=== PATIENT | male | born 1955 | race Caucasian/White ===

== ENCOUNTER → 2018-05-30 09:38 | Outpatient (CLI) | payer MEDICARE, SELFPAY ==
[2014-11-29 17:24] VITALS: BMI 28.6
[2018-05-30 10:13] LABS: Hematocrit 41.5 % (40-54); Mean Corp Hgb Conc 33.7 g/gl (32-36); Mean Corpuscular Hgb 30.3 pg (27.0-32.0); Mean Corpuscular Volume 89.8 fL (80-94); Mean Platelet Vol. 9.8 fl (6.2-12.0); Platelet Count 262 K/mm3 (150-450); RBC Distribution Width CV 13.6 % (11.6-14.6); RBC Distribution Width SD 44.3 fl (35.1-43.9); Red Blood Count 4.62 M/mm3 (4.6-6.2); White Blood Count 5.2 K/mm3 (4.4-11.0)
[2018-05-30 10:14] LABS: Scan Indicated on CBC? Y/N NO
--- NOTE | 2018-05-30 10:15 | RAD_ITS ---
HISTORY: pre- ophaving shoulder surgery [id number] EXAM:XR Chest 2 Views: COMPARISON: 11/29/2014 FINDINGS: Allowing for differences in technique, no significant change. Normal heart size. Mild hyperinflation. No vascular congestion, pleural effusion, or acute pulmonary infiltration. Atherosclerotic thoracic aorta. No pneumothorax. RAD/Chest PA and Lateral IMPRESSION: 1. No acute disease or significant change. 2. Hyperinflation. at 0312 Reported and signed by: Etienne Watson MD Electronically Signed: Etienne Watson, at 3:10 EST Tel , Service support ,
[2018-05-30 10:26] LABS: Anion Gap 8 (5-15); BUN 11 mg/dL (7-18); BUN/Creat Ratio 11.2 RATIO (10-20); Calcium,Total 8.7 mg/dL (8.5-10.1); Chloride 101 mmol/L (98-107); Creatinine, Serum 0.98 mg/dL (0.70-1.30); EST Glomerular Filtration Rate 82 mL/min (>60); Est Glom Filt Rate - Afr Amer 99 mL/min (>60); Glucose 89 mg/dL (74-106); Potassium 4.4 mmol/L (3.5-5.1); Sodium Level 136 mmol/L (136-145)
--- NOTE | 2018-05-30 10:48 | EKG12_ITS ---
Test Reason : PRE-OP Blood Pressure : / mmHG Vent. Rate : 058 BPM Atrial Rate : 058 BPM P-R Int : 162 ms QRS Dur : 102 ms QT Int : 388 ms P-R-T Axes : 050 033 010 degrees QTc Int : 380 ms Sinus bradycardia Possible Left atrial enlargement Left ventricular hypertrophy Cannot rule out Inferior infarct , age undetermined Abnormal ECG Confirmed by BAKARI DILLARD, MEGAN ([id number]), commissioning editor ELIZBAETH LYNCH ([id number]) on 06/02/2018 7:36:23 AM Referred By: Ambrose Lau Confirmed By:MEGAN VILLEGAS MD
--- OUTSIDE RECORDS SUMMARY | 2018-07-15 23:48 | XMS RPT_ITS ---
:1955 Author Organization [facility] Care Team Providers Name Role Phone MOHAN URBINA PAC Admitting Unavailable CIARA, MOHAN PAC Attending Unavailable CIARA, MOHAN PAC Primary Care Unavailable CIARA, MOHAN PAC Admitting Unavailable CIARA, MOHAN PAC Attending Unavailable CIARA, MOHAN PAC [facility] Unavailable [facility] Consulting Unavailable Sena Lau Attending Unavailable Sena Lau Referring Unavailable ARCHIE NEGRO Primary Care Unavailable PROBLEMS PROBLEMS DATE TYPE CONDITION / CODE ATTENDING STATUS SOURCE 05/30/2018 Unknown Z01.818 - Encounter Sena Lau for other Community preprocedural Hospital examination / Repository Z01.818(ICD-10) 05/30/2018 Unknown E11.9 - Type 2 Sena Lau diabetes mellitus Community without Hospital complications / Repository E11.9(ICD-10) 05/30/2018 Unknown Z01.811 - Encounter Sena Lau [facility] respiratory Hospital examination / Repository Z01.811(ICD-10) 09/03/2017 Admitting Bursitis of right CIARA, MOHAN Active Sundar Pomerene Diagnosis shoulder / PAC [facility] M7551(ICD-10) Hospital Repository 09/03/2017 Principle Bursitis of right CIARA, MOHAN Active Sundar Pomerene Diagnosis shoulder / PAC [facility] M7551(ICD-10) Hospital Repository 09/03/2017 Secondary Other sprain of CIARA, MOHAN Active Sundar Pomerene Diagnosis right shoulder PAC [facility] joint, initial Hospital encounter / Repository L00254I(ICD-10) PROCEDURES PROCEDURES No Procedure Records FoundRESULTS RESULTS 12 LEAD ELECTROCARDIOGRAM Observed: 06/02/2018 Status: F Source: PHILIP 7:36 AM [facility] REPOSITORY [facility] Cardiovascular Services [address] [place] [address] 12 Lead EKG 05/30/18 1006 MR#: [id number] Acct: [id number] Name: SENA SARMIENTO J Rep #: [id number] : 1955 62 From: Ricardo Hardwick MD Attending Dr: Sena Lau DO Status: REG CLI Ordering Dr: Sena Lau DO Date: 05/30/18 Location: LAB Sex: M C Admitted: Test Reason : PRE-OP Blood Pressure : / mmHG Vent. Rate : 058 BPM Atrial Rate : 058 BPM P-R Int : 162 ms QRS Dur : 102 ms QT Int : 388 ms P-R-T Axes : 050 033 010 degrees QTc Int : 380 ms Sinus bradycardia Possible Left atrial enlargement Left ventricular hypertrophy Cannot rule out Inferior infarct , age undetermined Abnormal ECG Confirmed by RICARDO HARDWICK MD ([id number]), book or script editor ELIZABETH LYNCH ([id number]) on 06/02/2018 7:36:23 AM Referred By: Sena Lau Confirmed By:RICARDO HARDWICK MD 06/02/18 0736 Date Ricardo Hardwick MD CC: DR FABIO CORTEZ; Sena Lau DO; OUT OF TOWN DOCTOR Signed CHEST PA AND LATERAL Observed: 05/30/2018 Status: F Source: PHILIP 10:15 AM [facility] REPOSITORY [facility] Imaging Services [address] [place] [address] Chest PA and Lateral MR#: [id number] Acct: [id number] Name: GUILLERMINABUCKY Rep #: [id number] : 1955 M 62 From: Etienne Watson MD PCP: OUT OF TOWN DOCTOR Status: REG CLI Study: Chest PA and Lateral Date of Exam: 05/30/18 Exam# [id number] Ordering Dr: Sena Lau DO HISTORY: pre- ophaving shoulder surgery [id number] EXAM:XR Chest 2 Views: COMPARISON: 11/29/2014 FINDINGS: Allowing for differences in technique, no significant change. Normal heart size. Mild hyperinflation. No vascular congestion, pleural effusion, or acute pulmonary infiltration. Atherosclerotic thoracic aorta. No pneumothorax. RAD/Chest PA and Lateral IMPRESSION: 1. No acute disease or significant change. 2. Hyperinflation. at 0312 Reported and signed by: Etienne Watson MD Electronically Signed: Etienne Watson, at 3:10 EST Tel , Service support , CC: Sena Lau DO; OUT OF TOWN DOCTOR Spout Liner: Signed CBC-COMPLETE BLOOD CNT Collected: 05/30/2018 Status: F Source: [place] NO DIFF 9:53 AM [facility] REPOSITORY TYPE CODE TESTS RESULT OUT OF RANGE REFERENCE UNITS LAB L100.1000 4.4-11.0 K/mm3 Normal WBC 5.2 LAB L100.1200 4.6-6.2 M/mm3 Normal RBC 4.62 LAB L100.1300 13.0-16.5 g/dl Normal HGB 14.0 LAB L100.1400 40-54 % Normal HCT 41.5 LAB L100.1500 80-94 fL Normal MCV 89.8 LAB L100.1600 27.0-32.0 pg Normal MCH 30.3 LAB L100.1700 32-36 g/gl Normal MCHC 33.7 LAB L100.1810 11.6-14.6 % Normal RDW CV 13.6 LAB L100.1820 35.1-43.9 fl High RDW SD 44.3 LAB L100.1900 150-450 K/mm3 Normal PLT 262 LAB L100.2000 6.2-12.0 fl Normal MPV 9.8 Performed By: #### L100.0500 #### [facility] [address] [place], [address] BASIC METABOLIC Collected: 05/30/2018 Status: F Source: [place] PROFILE (BMP) 9:53 AM [facility] REPOSITORY TYPE CODE TESTS RESULT OUT OF RANGE REFERENCE UNITS LAB L501.0100 74-106 mg/dL Normal GLU 89 Result Comment: Please note revised GLUCOSE reference range effective 2017. LAB L501.1000 7-18 mg/dL Normal BUN 11 LAB L501.1100 0.70-1.30 mg/dL Normal CREAT,SERUM 0.98 Result Comment: The validity of the calculated GFR AND GFRAA in patients over 70 years has not been determined. Clinical correlation is essential. LAB L501.1110 >60 mL/min Normal EST GFR 82 Result Comment: Non- GFR Calc LAB L501.1115 >60 mL/min Normal EST GFR - AA 99 Result Comment: GFR Calc LAB L501.1300 10-20 RATIO Normal BUN/CRE 11.2 LAB L501.2200 8.5-10.1 mg/dL CA Normal 8.7 LAB L501.5300 136-145 mmol/L NA Normal 136 LAB L501.5600 3.5-5.1 mmol/L K Normal 4.4 LAB L501.5900 98-107 mmol/L CL Normal 101 LAB L501.6100 21.0-32.0 mmol/L Normal CO2 27.0 LAB L501.6200 5-15 Normal GAP 8 Performed By: #### L500.2500 #### [facility] [address] [place], [address] MR SHOULDER W/O RT Observed: 11/06/2017 Status: F Source: [place] EMMIEJESSIE 8:55 AM [facility] REPOSITORY [place] [address] Patient: SENA SARMIENTO Phone#: : 1955 Age: 62 Gender: M Pt. Type: Out Account: [id number] Location: Ordering: MOHAN PIRES Exam Date: 11/06/2017/8:08 Family Phys: [facility]P [facility] Charge Code: [id number] Physician: Pinal Order #: [id number] DLP Dose#: PROCEDURE: MRI SHOULDER RT WITHOUT CONTRAST COMPARISON: None. INDICATIONS: Right shoulder sprain TECHNIQUE: A variety of imaging planes and parameters were utilized for visualization of suspected pathology. Images were performed without contrast. FINDINGS: ROTATOR CUFF REGION CUFF TENDONS: Abnormal signal is present in the supraspinatus tendon consistent with a near complete tear interstitial and articular sided, series 9 image 14. There are a few residual bursal sided intact fibers. The supraspinatus tendon is thickened. There is also abnormal signal at its insertion consistent with insertional tear, series 9 image 14. There is complete tear of the subscapularis tendon with tendon retraction of 4.4 cm. The infraspinatus tendon is intact. CUFF MUSCLES: The subscapularis muscle is nearly completely atrophied series 8 image one. DELTOID: Normal. No significant atrophy or tear. LONG BICEPS TENDON: The long head biceps tendon is diminutive but seen in the bicipital groove. LABRUM/BICEPS ANCHOR SUPERIOR: The biceps labral anchor is not visualized consistent with complete tear. There is tear of the superior labrum. ANTERIOR/INFERIOR: There is tear of the anterior inferior labrum POSTERIOR: Normal. No posterior labrum abnormality. CAPSULE ANTERIOR/INFERIOR: The middle glenohumeral ligament is intact. POSTERIOR: Normal. No visible capsular laxity or thickening. AC JOINT REGION Continued Report - Page 2 of 2 Patient: SENA SARMIENTO Phone#: : 1955 Age: 62 Gender: M Pt. Type: Out Account: [id number] Location: Ordering: MOHAN PIRES Exam Date: 11/06/2017/8:08 Family Phys: HOSP [place] Charge Code: [id number] Physician: Pinal Order #: [id number] DLP Dose#: AC JOINT: There is arthrosis present at the acromioclavicular joint with mild inferior impingement on the supraspinatus muscle. Hypertrophic spurring is present. AC LIGAMENTS: Normal acromioclavicular ligament. CC LIGAMENTS: Mild increased signal in the coracoacromial ligament without adjacent inflammation suggests chronic injury. ACROMION: Normal horizontal (Type I) configuration. SUBACROMIAL BURSA: Small amount of fluid in the bursa. HYALINE CARTILAGE: The articular cartilage is thinned. The glenohumeral joint space is narrowed. There is superior subluxation of the humeral head, the acromial humeral interval measures 0.7 cm. OTHER BONES: Normal proximal humerus, glenoid, and coracoid. OTHER OBSERVATIONS: Negative. No other significant findings or glenohumeral effusion. CONCLUSION: 1. Near-complete tear of the supraspinatus tendon. Interstitial and insertional. 2. Complete tear of the subscapularis tendon with tendon retraction and muscle atrophy. 3. Tears of the superior and anterior inferior labrum. 4. Biceps labral anchor is not visualized, consistent with chronic tear. 5. Degenerative changes at the acromioclavicular joint are present. 6. Chronic coracoacromial ligament sprain. Dictated by: Shreya Brown MD on 11/06/2017 at 17:32 Approved by: Lo Jones MD on 11/07/2017 at 18:17 ALLERGIES ALLERGIES DATE TYPE / CODE NAME / CODE REACTION SEVERITY SOURCE 11/29/2014 Drug No Known Unknown [facility] Allergy/4160 Allergies/F00 Hospital 18104(SNOMED 0659656(RXNOR Repository CT) M) ENCOUNTERS ENCOUNTERS ADMIT/DISCHARGE ACCOUNT ADMITTING ENCOUNTER LOCATION SOURCE NUMBER CLASS 05/30/[id number] ing:LAB Repository 11/06/2017/ [id number] [facility] Repository 09/03/2017/ [id number] [address] Repository PAYERS PAYERS ENCOUNTER GUARANTOR PAYER SUBSCRIBER SOURCE 05/30/2018 SENA Simms Primary Insurance:[place] SENA [id number] [facility] CROSKEYDOB: [facility] [place]: [id number] [id number] Repository [address]Oai: [phone]) Date:[id number] [phone] () SERVICE [id number] [place], [place] [address]BM: [phone] 05/30/2018 Secondary SENA Palacios Insurance:MEDICARE CROSKEYDOB: [facility] PART [facility] BPolicy Number: [id number] Hospital [id number] Repository Date:2018-05-30 05/30/2018 Tertiary NOT GIVENUNK Philip Insurance:SELF PAY [facility]: Effective Repository Date:2018-05-30 11/06/2017 SENA STANTONB: Insurance:MEDICARE CROSKEYDOB: [facility] N OUTPATIENTPolicy [id number] Hospital PROSPECT Number: N PROSPECT [place] [id number] [place] [address]Dbg: (330) Date:Plan Name: [id number] [phone] () 09/03/2017 SENA STANTONB: Insurance:MEDICARE CROSKEYDOB: [facility] N RECURRING REFERENCE [id number] Hospital PROSPECT LABPolicy Number: N PROSPECT Repository [place] [id number] [place] [address]Dad: ([phone]) Date:Plan Name: [id number] [phone] ()
== END ==
PROVIDERS: Physician Assistant; Referring Provider Orthopaedic Surgery; Visit Provider Orthopaedic Surgery
DX: Z01.818 Encounter for other preprocedural examination (principal); E11.9 Type 2 diabetes mellitus without complications; Z01.811 Encounter for preprocedural respiratory examination
CPT/HCPCS: 36415; 71046; 80048; 85027; 93005

== ENCOUNTER → 2018-07-28 11:46 | Outpatient (CLI) | payer MEDICARE, OTHER, SELFPAY ==
[2014-11-29 17:24] VITALS: BMI 28.6
[2018-07-28 12:58] LABS: Absolute Lymphocyte Count 1.87 X10^3/ul (0.83-4.51); Absolute Neutrophil Count 4.9 X10^3/uL (2.0-7.7); Basophil# 0.05 X10^3/uL; Basophil% 0.6 % (0-1); Eosinophil# 0.07 X10^3/uL; Eosinophils% 0.9 % (0-5); Hematocrit 37.7 % (40-54); Hemoglobin 12.3 g/dl (13.0-16.5); Lymphocyte # 1.87 X10^3/ul (4.0); Lymphocyte % 23.7 % (19-41); Mean Corp Hgb Conc 32.6 g/gl (32-36); Mean Corpuscular Hgb 29.1 pg (27.0-32.0); Mean Corpuscular Volume 89.3 fL (80-94); Mean Platelet Vol. 9.7 fl (6.2-12.0); Monocyte# 0.97 X10^3/uL; Monocyte% 12.3 % (0-10); Neutrophil % 62.2 % (47-70); Platelet Count 496 K/mm3 (150-450); RBC Distribution Width CV 13.6 % (11.6-14.6); RBC Distribution Width SD 44.5 fl (35.1-43.9); Red Blood Count 4.22 M/mm3 (4.6-6.2); White Blood Count 7.9 K/mm3 (4.4-11.0)
[2018-07-28 13:01] LABS: POSITIVE COUNT NO; POSITIVE DIFFERENTIAL NO; POSITIVE MORPHOLOGY NO
[2018-07-28 13:12] LABS: Erythrocyte Sedimentation Rate 115 mm/hr (0-20)
[2018-07-28 13:27] LABS: RBC /Synovial Fluid 0.406 10^6/uL (0)
[2018-07-28 14:06] LABS: Lymph 1 %; Monocyte /Synovial Fluid 1 %; Neutrophil 98 % (0-25)
[2018-07-28 14:42] LABS: AUTO B FLUID DILUENT BKGD CT WBC <0.1 RBC <0.01 (W<.1,R<.01); Appearance /Synovial Fluid Turbid (CLEAR); Body Fluid QC Type(s) BF4Q; Color / Synovial Fluid Red (Pale Yellow); Source / Synovial Fluid R SHOULDER
[2018-07-29 14:04] LABS: Pathologist Comment Reviewed
== END ==
PROVIDERS: Referring Provider Physician Assistant Surgical; Visit Provider Physician Assistant Surgical
DX: S46.011D Strain of muscle(s) and tendon(s) of the rotator cuff of right shoulder, subsequent encounter (principal)
CPT/HCPCS: 36415; 85025; 85652; 86140; 87015; 87070; 87075; 87101; 87116; 87205; 87206; 89050; 89051

== ENCOUNTER 2018-08-03 08:02 | Inpatient (IN) | payer MEDICARE, OTHER, SELFPAY ==
[2018-08-03] VITALS (12 sets, daily range): BP systolic 105–144; BP diastolic 60–86; PULSE 54–96; RESP 12–18; TEMP 36.4–37.7; O2SAT 93–98; BMI 29.5
--- NOTE | 2018-08-03 | TISS_PTH ---
PATIENT: AMBROSE SARMIENTO LOC: MS2 U#:[id number] AGE/SX: 62/M ROOM: [facility] RE08/03/[address]: Dr. Gilson Dukes DO : 1955 BED: 1 DIS: 08/07/2018 SPEC #: [id number] RECD: 08/04/18 15:37 STATUS: SANJAY REQ #: [id number] NAYA: 08/03/18 00:[address]: Ambrose Lau DEPT: SURGICAL PATHOLOGY RECD BY: Juno Pardo ENTERED: 08/05/18 12:12 SP TYPE: Tissue Bx OTHR DR: DO Dr. Gilson Camacho DO Dr. Robert Leininger, MD Dr. Rodney Miller, MD Out of [facility] Doctor Tissues: Shoulder, NOS Procedures: Surgery Specimen Level III Comments: @ Ordering doctor for QUIN edited from to @ by LESLEE at 08/05/18 1540 @ Submitting doctor edited from to @ by RGOOD at 08/05/18 1540 HEADER OPERATION: Arthroscopy, right shoulder, I & D PRE-OP DIAGNOSIS: Septic arthritis right shoulder with abscess TISSUE SUBMITTED: Tissue right shoulder MICROSCOPIC DIAGNOSIS Tissue right shoulder: A piece of dense fibroconnective tissue and fibroadipose tissue with chronic inflammation, histiocytic reaction and reactive changes. ADDISON:priscilla 08/06/18 MICROSCOPIC DESCRIPTION Slides are reviewed. GROSS DESCRIPTION Received in fixative is one container labeled with the patient's name and designated tissue, right shoulder. The specimen consists of an irregular fragment of light schwab-yellow tissue measuring 1.5 x 0.8 x 0.2 cm. The specimen is totally submitted in one cassette. / AM:priscilla 08/05/18 TC:3 CPT: 28499
--- NOTE | 2018-08-03 08:17 | RAD_ITS ---
STUDY: X-RAY - RIGHT SHOULDER REASON FOR EXAM: Male, 62 years old. Pain. TECHNIQUE: 3 view(s) of the shoulder. COMPARISON: Chest, November 29, 2014 and May 30, 2018. FINDINGS: There is cephalad migration of the humeral head consistent with rotator cuff pathology. There are degenerative changes about the glenohumeral joint. There is widening of the AC joint, with displacement of the clavicle, consistent with a Type III acromioclavicular joint separation. Normal acromion. There is no visualized fracture. There is demineralization of the humerus and visualized osseous structures. The soft tissue structures are unremarkable. Normal visualized pulmonary apex. RAD/Shoulder min 2 Views IMPRESSION: Type III AC separation not present on the prior chest film. This is associated cephalization of the humeral head signal suggesting rotator cuff pathology. Electronically Signed: Roni Hugo DO at 9:59 EST Tel [phone], Service support ,
[2018-08-03] MEDS: Morphine 4 MG/ML Syringe IV ×2 (09:04→11:48)
[2018-08-03] MEDS: Ondansetron 4 MG/2 ML Vial IV (09:05)
[2018-08-03 09:11] LABS: Absolute Lymphocyte Count 1.41 X10^3/ul (0.83-4.51); Absolute Neutrophil Count 4.7 X10^3/uL (2.0-7.7); Basophil# 0.06 X10^3/uL; Basophil% 0.9 % (0-1); Eosinophil# 0.06 X10^3/uL; Eosinophils% 0.9 % (0-5); Hematocrit 37.1 % (40-54); Hemoglobin 12.7 g/dl (13.0-16.5); Lymphocyte # 1.41 X10^3/ul (4.0); Lymphocyte % 20.2 % (19-41); Mean Corp Hgb Conc 34.2 g/gl (32-36); Mean Corpuscular Hgb 30.5 pg (27.0-32.0); Mean Corpuscular Volume 89.2 fL (80-94); Mean Platelet Vol. 9.6 fl (6.2-12.0); Monocyte# 0.78 X10^3/uL; Monocyte% 11.2 % (0-10); Neutrophil # 4.65 X10^3/uL (2.7-7.7); Neutrophil % 66.4 % (47-70); Platelet Count 406 K/mm3 (150-450); RBC Distribution Width CV 13.6 % (11.6-14.6); RBC Distribution Width SD 43.4 fl (35.1-43.9); Red Blood Count 4.16 M/mm3 (4.6-6.2)
[2018-08-03 09:12] LABS: Anion Gap 9 (5-15); BUN 10 mg/dL (7-18); BUN/Creat Ratio 11.2 RATIO (10-20); Calcium,Total 8.7 mg/dL (8.5-10.1); Chloride 104 mmol/L (98-107); Creatinine, Serum 0.89 mg/dL (0.70-1.30); EST Glomerular Filtration Rate 92 mL/min (>60); Est Glom Filt Rate - Afr Amer 111 mL/min (>60); Estimated Creatinine Clearance 72.98 ml/min; Glucose 98 mg/dL (74-106); POSITIVE COUNT NO; POSITIVE DIFFERENTIAL NO; POSITIVE MORPHOLOGY NO; Potassium 4.2 mmol/L (3.5-5.1); Sodium Level 138 mmol/L (136-145)
[2018-08-03 09:17] LABS: Erythrocyte Sedimentation Rate 66 mm/hr (0-20)
--- NOTE | 2018-08-03 12:09 | ED.DCSUM_ITS ---
- ER Visit Summary Date of Service: 08/03/18 Chief Complaint: Right shoulder pain History of Present Illness: The patient is a 62 M presenting with right shoulder pain. Patient states this has been worsening over the past 1-2 weeks. He had rotator cuff surgery per Dr. Lau in May. He started improving in physical therapy. Over the past 1-2 weeks he has been worsening. He has increasing pain, redness, swelling. He was seen with Dr. Lau last week. At that time the joint was aspirated and fluid was sent. He was started on doxycycline 1 week ago. He states he continues to worsen. He has had decreased range of motion. He has subjective fever. Denies other complaints. Physical Examination: Vitals are stable. Temperature 99.9. Alert no acute distress. HEENT exam is unremarkable. Neck is supple. Lungs are clear and equal bilaterally. Heart is regular rate and rhythm. Abdomen is soft nontender nondistended. Extremities diffuse swelling right shoulder with erythema and warmth. Decreased range of motion. Neurovascularly intact distally. Skin is warm and dry. No focal neurologic deficit. Remainder of exam is unremarkable. Emergency Department Course and Treatment: CBC is normal except for hemoglobin 12.7. Chemistries unremarkable. ESR 66, CRP 45.5. Right shoulder x-ray shows type III AC separation not present on the prior chest film. This is associated cephalization of the humeral head signal suggesting rotator cuff pathology. Discussed with Dr. Fajardo who recommends arthrocentesis. Area was prepped in sterile fashion. Small amount of joint fluid was collected. Gram stain shows rare gram-positive cocci. Culture was sent. There is not enough fluid for cell count and crystals. Discussed with Dr. Fajardo and Dr. Boland and patient will be admitted. He was given Zosyn and Vancomycin IV. Disposition: Admission Impression: Right shoulder infection This note was generated with Power[employer] dictation software. It may contain incorrect words, spelling, and punctuation that were not noted in review of the chart prior to signing ED Disposition - Plan for ED Patient: Referrals: [facility] Doctor,Out of [Primary Care Provider] -
--- NOTE | 2018-08-03 12:20 | HP.PCM_ITS ---
Problem List (1) Cellulitis Status: Acute Qualifiers: Site of cellulitis of extremity: upper extremity (2) S/P rotator cuff repair Status: Chronic Comment: May 2018 (3) Normochromic normocytic anemia Status: Chronic Comment: since rotator cuff repair in May (4) Benign hypertension Status: Chronic (5) CAD (coronary artery disease) Status: Chronic (6) Gastroesophageal reflux disease Status: Chronic (7) Hyperlipidemia Status: Chronic (8) Overweight (BMI 25.0-29.9) Status: Chronic (9) Septic arthritis of shoulder, right Status: Acute (10) Stented coronary artery Status: Chronic Comment: X3 stents (11) Tobacco dependence due to cigarettes Status: Chronic Comment: has been cutting down and now smokes 4 cigarettes a week (12) LVH (left ventricular hypertrophy) Status: Chronic Comment: moderate History of Present Illness Date of Admission: 08/03/18 Chief Complaint: R shoulder pain with redness and swelling The patient is a 62 year old M with a past medical history of hypertension, coronary artery disease with PCI x3 stents, osteoarthritis, tobacco dependence and remote history of alcoholism who presented to the emergency department at [facility] on 08/03/2018 complaining of increasing right shoulder pain, swelling, redness and decreased range of motion. He had rotator cuff surgery done in May [address] Ambrose Lau and had been doing well in physical therapy until 2 weeks ago. He denies fever/rigors. Vital signs of presentation to the emergency room are temp 99.9, heart rate 75, blood pressure 119/86, respiratory rate 18 and he was 98% saturated on room air. The white blood cell count was 7.0 with an unremarkable differential. Hemoglobin is 12.7 which is stable since his postoperative lab. Platelets are within normal limits. The differential is unremarkable. PT was 13.8 and the PTT was 37.2. BMP was unremarkable. The ESR was elevated at 66 and the CRP is elevated at 45.5. LFTs are unremarkable and the mag and fossa are within normal limits. Lactic acid is 0.6. There was a very small amount of fluid aspirated by Dr. Hamm in the emergency room and the Gram stain shows 1+ white blood cells with very rare gram-positive cocci. Plain right shoulder x-ray shows a type III acromioclavicular separation that was not present on prior chest film. There is associated cephalization of the humeral head signal suggesting rotator cuff pathology. The patient was admitted to the hospital with a diagnosis of septic arthritis of the right shoulder and started on vancomycin and Rocephin. Dr. Yasmani Fajardo has been consulted to participate in management. Echocardiogram in 2011 showed moderate concentric left ventricular hypertrophy with segmental dysfunction in the inferobasal region with preserved ejection fraction of 65%. There was also +1 TR. Past Medical History Past Medical History (Chronic Problems): Chronic Problems S/P rotator cuff repair (Chronic) May 2018 Normochromic normocytic anemia (Chronic) since rotator cuff repair in May Overweight (BMI 25.0-29.9) (Chronic) Stented coronary artery (Chronic) X3 stents Tobacco dependence due to cigarettes (Chronic) has been cutting down and now smokes 4 cigarettes a week LVH (left ventricular hypertrophy) (Chronic) moderate CAD (coronary artery disease) (Chronic) Hyperlipidemia (Chronic) Gastroesophageal reflux disease (Chronic) Benign hypertension (Chronic) Allergies codeine Allergy (Verified 08/03/18 08:06) Itching oxycodone Allergy (Verified 08/03/18 08:06) Itching Home Medications: Ambulatory Orders Medication Instructions Recorded ALPRAZolam [Xanax] 0.5 mg PO BID 08/03/18 Amlodipine [Norvasc] 10 mg PO DAILY 08/03/18 Aspirin 81 mg PO DAILY 08/03/18 Atorvastatin Calcium 40 mg PO DAILY 08/03/18 Benazepril HCl 10 mg PO DAILY 08/03/18 Doxycycline 100 mg PO DAILY 08/03/18 Nitroglycerin [Nitrostat] 0.4 mg SL PRN PRN 08/03/18 Omeprazole [Prilosec] 20 mg PO DAILY 08/03/18 Surgical History: rotator cuff repair - 05/30/[address] Ambrose Lau Lives: Spouse/ Significant Other Smoking Status: Current some day smoker Tobacco Use: Cigarettes - 4 cigarettes/week currently Alcohol: Occasional - Usually drinks a sixpack a week but prior to this drank very heavily and considered himself an alcoholic. Drugs: None - *Family History Maternal History Items: COPD, Hypertension Paternal History Items: Heart Disease - Father in his mid to late 60s of an ND Sibling History Items: Hypertension Review of Systems Constitutional: Denies: Chills, Fever, Night Sweats, Weight Change HEENT: Denies: Head Aches, Sinus Congestion, Sinus Drainage Cardiovascular: Denies: Chest Pain, Edema, Light Headedness, Palpitations Respiratory: Denies: Cough, Shortness of breath at rest, Sputum production Gastrointestinal: Denies: Abdominal Pain, Nausea, Vomiting Genitourinary: Denies: Dysuria Musculoskeletal: Reports: Joint swelling - R shoulder associated with erythema and decreased ROM, Joint Tenderness, Shoulder Pain. Denies: Joint Pain Skin: Denies: Jaundice, Rash, Wounds Neurological: Denies: Focal weakness, Numbness, Tingling, Seizures Psychiatric: Denies: Anxiety, Depression, Homicidal Ideations, Suicidal Ideations Endocrine: Denies: Change in Body Habitus Hematologic/ Lymphatic: Denies: Easy Bruising, Easy Bleeding, Hx of blood clot VTE Information - Inpt Only VTE Present on Admission: No VTE Mechan Device Prophylaxis: SCD's, Knee High GLENNY Hose VTE Pharm Prophylaxis ordered?: Yes Patient Problems: Active and Suspected Problems Cellulitis (Acute) Septic arthritis of shoulder, right (Acute) - Physical Exam General: Alert, Oriented x3, Cooperative, - - looks to be in pain......not moving the RUE due to severe pain HEENT: Atraumatic, PERRLA, EOMI, Normocephalic Oral: No Gingival or Mucosal Lesions/ Ulcerations, Dry Mucosa Neck: Supple, No JVD, Negative Carotid Bruits, No Nodes, - Lungs: Clear to auscultation, Normal air movement Cardiovascular: Regular rate, No murmurs Abdomen: Bowel Sounds Present, Soft, Non Tender Extremities: No edema, Capillary Refill Less than 3 Seconds Skin: No rashes, No breakdown Musculoskeletal: No Tenderness to Palpation of Joints or Extremities Neurological: Cranial nerves II-XII grossly intact Psych/Mental Status: Normal Affect, Appropriate Vital Signs Temp Pulse Resp BP Pulse Ox 98.2 F 63 16 144/68 H 97 08/03/18 12:08/03/18 12:08/03/18 12:01 08/03/18 12:08/03/18 12:01 Oxygen Delivery Method Room Air Weight: 172 lb Body Mass Index (BMI) 29.5 Microbiology Past 72 Hours 08/03/18 10:51 Gram Stain - Final Fluid - Other Laboratory Tests Past 24 Hrs 08/03/18 08/03/1808/03/19 08:45 08:45 10:51 WBC 7.0 RBC 4.16 L Hgb 12.7 L Hct 37.1 L MCV 89.2 MCH 30.5 MCHC 34.2 RDW 13.6 RDW Differential 43.4 Plt Count 406 MPV 9.6 Immature Gran % (Auto) 0.400 Neut % (Auto) 66.4 Lymph % (Auto) 20.2 [place] % (Auto) 11.2 H Eos % (Auto) 0.9 Baso % (Auto) 0.9 Absolute Neuts (auto) 4.7 Absolute Lymphs (auto) 1.41 Total Counted Not Reportable ESR 66 H Sodium 138 Potassium 4.2 Chloride 104 Carbon Dioxide 25.0 Anion Gap 9 BUN 10 Creatinine 0.89 Estim Creat Clear Calc 72.98 Est GFR (MDRD) Af Amer 111 Est GFR (MDRD) Non-Af 92 BUN/Creatinine Ratio 11.2 Glucose 98 Calcium 8.7 C-React Prot Ext Range 45.50 H Fluid Source Cancelled Fluid Color Cancelled Fluid Appearance Cancelled Fluid WBC Cancelled Fluid RBC Cancelled Fluid Tot Cell Count Cancelled Fld Polynuclear WBCs # Cancelled Fld Polynuclear WBCs % Cancelled Fluid Mononuclear WBCs Cancelled Fld Mononuclear WBCs % Cancelled Fluid Neutrophils Cancelled Fluid Lymphocytes Cancelled Fluid Monocytes Cancelled Fluid Plasma Cells Cancelled Fluid Macrophages Cancelled Fld Mesothelial Cells Cancelled Fluid Other Cells Cancelled Fl Pathologist Comment Cancelled Fluid Comment 2 Cancelled Assessment/Plan All Active Problems Cellulitis (Acute) Septic arthritis of shoulder, right (Acute) Impressions 1. Septic arthritis right shoulder-status post rotator cuff surgery 05/30/2018 2. Coronary artery disease with history of PCI x3 stents 3. Hypertension 4. Tobacco dependence 5. Remote history of alcoholism-now 1 6 pack/week 6. Osteoarthritis 7. Normochromic normocytic anemia-suspect related to blood loss from surgery in May because the hemoglobin was normal prior to surgery and mildly decreased postoperatively Admit to the hospital for septic arthritis Consult Dr. Yasmani Fajardo from [facility] Vancomycin and Rocephin MRI of the right shoulder EKG preoperatively with history of coronary artery disease Decolonize the skin with chlorhexidine towelettes once daily and also order Bactroban intranasally twice daily Morphine sulfate and Gilbert as needed pain He has been placed on the surgery schedule for 08/04/2018 for probable washout Zhane Hawkins and 1 dose of Lovenox today for DVT prophylaxis. Restart prophylactic Lovenox postoperatively Continue home medications Protonix for GI prophylaxis Code Visit Inpatient E&M: 38522 Subs Hosp L3
--- NOTE | 2018-08-03 12:40 | NURSING ---
med surg sementi rt shoulder infection
--- NOTE | 2018-08-03 12:43 | ED.RN ---
CALLED PHARMACY INQUIRING ABOUT PT'S ANTIBIOTICS ORDERED OVER HALF HOUR AGO. THEY STATES THEY WILL SEND THEM SOON THEY ARE READY.
--- NOTE | 2018-08-03 12:51 | ED.RN ---
received zosyn from pharmacy at 1247.
--- NOTE | 2018-08-03 14:02 | PCM.RX.CS ---
Consult Pharmacy has been consulted to manage selected antiobiotic: Vancomycin Type of Consult: New start Suspected Infection: Other Labs: Sodium 138 mmol/L (136-145) 08/03/18 08:45 Potassium 4.2 mmol/L (3.5-5.1) 08/03/18 08:45 Chloride 104 mmol/L (98-107) 08/03/18 08:45 Carbon Dioxide 25.0 mmol/L (21.0-32.0) 08/03/18 08:45 Anion Gap 9 (5-15) 08/03/18 08:45 BUN 10 mg/dL (7-18) 08/03/18 08:45 Creatinine 0.89 mg/dL (0.70-1.30) 08/03/18 08:45 Est GFR (MDRD) Af Amer 111 mL/min (>60) 08/03/18 08:45 Est GFR (MDRD) Non-Af 92 mL/min (>60) 08/03/18 08:45 BUN/Creatinine Ratio 11.2 RATIO (10-20) 08/03/18 08:45 Glucose 98 mg/dL (74-106) 08/03/18 08:45 Microbiology: Microbiology 08/03/18 10:51 Fluid - Other Gram Stain - Final Weight used for dosin kg Estimated Creatinine Clearance: 73 mL/min Goal Trough: 15-20 mcg/mL Pharmacy Plan for Drug Dosing: Patient received vancomycin 1250mg IV x1 in ED. 1000mg IV q12h with trough prior to 4th dose per policy. Pharmacy Service will continue to monitor and adjust dosing as required. Follow-Up Labs: Trough Vancomycin - 08/04 @ 2029
[2018-08-03 14:28] LABS: International Normalized Ratio 1.1; Prothrombin Time (Protime)PT. 13.8 SECONDS (11.7-14.9)
[2018-08-03 14:29] LABS: Partial Thromboplast Time 37.2 Seconds (24.1-36.2)
[2018-08-03 14:33] LABS: Magnesium 2.3 mg/dL (1.6-2.6); Phosphorus 4.4 mg/dL (2.5-4.9)
[2018-08-03 14:40] LABS: AST(SGOT) 18 U/L (15-37); Alanine Aminotransfer ALT/SGPT 21 U/L (16-61); Alkaline Phosphatase 96 U/L (45-117); Bilirubin, Direct 0.13 mg/dL (0.00-0.30); Globulin 4.8 g/dL (2.2-4.2); Protein, Total 7.8 g/dL (6.4-8.2)
[2018-08-03 14:48] LABS: Lactic Acid 0.6 mmol/L (0.4-2.0)
[2018-08-03] MEDS: Morphine 2 MG/ML Syringe IV (15:03)
[2018-08-03] MEDS: Enoxaparin 40 MG/0.4 ML Syringe SC (15:11)
[2018-08-03] MEDS: 0.9% Normal Saline 1,000 ML 75 ML IV (16:39)
[2018-08-03] MEDS: HYDROcodone Bitartrate/Apap 5/325 Tablet PO (18:20)
[2018-08-03] MEDS: Vancomycin IV 1,000 MG/200 ML BAG 200 MG IV (21:15)
[2018-08-03] MEDS: Mupirocin Ointment 22gm Tube 1 APPLIC NASAL (21:16)
[2018-08-03] MEDS: Docusate Sodium 100 MG Capsule PO (21:17)
[2018-08-03] MEDS: Atorvastatin Calcium 40 MG Tablet PO (21:17)
[2018-08-04] VITALS (9 sets, daily range): BP systolic 91–169; BP diastolic 58–98; PULSE 56–93; RESP 16–18; TEMP 36.6–37.2; O2SAT 93–97
[2018-08-04] MEDS: HYDROcodone Bitartrate/Apap 5/325 Tablet PO ×3 (00:53→19:29)
--- NOTE | 2018-08-04 04:25 | NURSING ---
Pt's home meds locked in med shared services and outsourcing manager pt's room.
[2018-08-04 06:04] LABS: Anion Gap 7 (5-15); BUN 10 mg/dL (7-18); BUN/Creat Ratio 9.7 RATIO (10-20); Calcium,Total 8.2 mg/dL (8.5-10.1); Chloride 107 mmol/L (98-107); Creatinine, Serum 1.03 mg/dL (0.70-1.30); EST Glomerular Filtration Rate 78 mL/min (>60); Est Glom Filt Rate - Afr Amer 94 mL/min (>60); Estimated Creatinine Clearance 63.06 ml/min; Glucose 108 mg/dL (74-106); Potassium 4.1 mmol/L (3.5-5.1); Sodium Level 140 mmol/L (136-145)
[2018-08-04 06:07] LABS: Absolute Lymphocyte Count 1.54 X10^3/ul (0.83-4.51); Absolute Neutrophil Count 2.6 X10^3/uL (2.0-7.7); Basophil# 0.05 X10^3/uL; Eosinophil# 0.12 X10^3/uL; Eosinophils% 2.3 % (0-5); Hematocrit 34.9 % (40-54); Hemoglobin 11.2 g/dl (13.0-16.5); Lymphocyte # 1.54 X10^3/ul (4.0); Lymphocyte % 30.1 % (19-41); Mean Corp Hgb Conc 32.1 g/gl (32-36); Mean Corpuscular Hgb 28.9 pg (27.0-32.0); Mean Corpuscular Volume 90.2 fL (80-94); Mean Platelet Vol. 9.9 fl (6.2-12.0); Monocyte# 0.84 X10^3/uL; Monocyte% 16.4 % (0-10); Neutrophil # 2.55 X10^3/uL (2.7-7.7); Platelet Count 332 K/mm3 (150-450); RBC Distribution Width CV 13.8 % (11.6-14.6); RBC Distribution Width SD 44.7 fl (35.1-43.9); Red Blood Count 3.87 M/mm3 (4.6-6.2); White Blood Count 5.1 K/mm3 (4.4-11.0)
[2018-08-04] MEDS: 0.9% Normal Saline 1,000 ML 75 ML IV ×2 (06:29→14:23)
[2018-08-04 07:02] LABS: POSITIVE COUNT NO; POSITIVE DIFFERENTIAL NO; POSITIVE MORPHOLOGY NO
[2018-08-04] MEDS: Mupirocin Ointment 22gm Tube 1 APPLIC NASAL ×2 (09:38→21:21)
[2018-08-04] MEDS: CHLORHEXIDINE GLUC 2% CLOTH 1 EACH TOWELETTE TOPICAL (09:39)
[2018-08-04] MEDS: Vancomycin IV 1,000 MG/200 ML BAG 200 MG IV ×2 (09:39→21:13)
[2018-08-04] MEDS: Morphine 2 MG/ML Syringe IV (09:39)
--- NOTE | 2018-08-04 10:40 | CASEMGMT ---
Introduced role of CM and purpose of RN CM assessment to Patient and Significant Other Josesito at bedside. Admitting Dx: Cellulitis, Rt Shoulder Septic Arthritis. CC: Rt Shoulder pain w/redness and swelling. PCP: Rubi Dao- YAMILE Driscoll Preferred [facility]acy: [facility] [place] Insurance: Medicare A&B, [place] Prescription Benefit: Yes LNOK: Significant Other Josesito Living Arrangements: With Significant other Josesito in a SS Home. Patient Independent with Ambulations and ADL's. Spouse cares for 14yo child and patient mother, able to assist patient with care needs if needed. Transportation: Patient drives, spouse to transport on DC. DME: None, No preference of DME Company. HHC: N/a, No Preference of HH/SNF if needed. DC PLAN: Home with Significant other. RONNELL Varela
--- NOTE | 2018-08-04 14:24 | PCM.OPRPT ---
Report of Operation Date of Procedure: 08/04/18 Pre-Operative Diagnosis: Infection s/p arthrocopic rotator cuff repair right shoulder Post-Operative Diagnosis: Same with deep infection and re-tear of rotator cuff Surgery/Procedure Performed:: Incision and drainage with arthroscopic debridement and irrigation right shoulder Description of Surgical Findings:: Procedure: Arthroscopic debridement, I & D, Irrigation right shoulder Pre-op Dx: Infection s/p arthroscopic rotator cuff repair right shoulder Post-op Dx: Same with deep infection and re-tear of rotator cuff Surgeon: Dr. Lau Senior Software Engineer Analytics: NEETA Macias Anesthesia: General Anesthesiologist: Dr. Kirkpatrick Drains: none Specimen: cultures and tissue right shoulder Complications: none EBL: >25 cc With appropriate informed consent, the patient was taken to OR 1. After the induction of general anesthesia, the patient was placed in the beach chair position with all bony prominences well padded. The right arm was prepared and draped sterilely. Time out was taken. The swollen anterior portal was incised with a 15 blade scalpel. Santiago pus was noted and was cultured. Subsequently, this portal was debrided sharply to remove all infected appearing tissue. This incision was then copiously irrigated. The previous posterior portal was then incised with a fresh blade and the diagnostic arthroscopy was begun. The cartilage surfaces of the glenoid and humerus were in good condition and did not appear to be degraded by infection. The previously repaired rotator cuff had re-torn and did appear to be infected. Via accessory lateral portals, the sutures from the previous rotator cuff repair were removed and an arthroscopic shaver was utilized to debride infected appearing material. A total of 9 liters of fluid were irrigated through the shoulder. The rotator cuff was grasped and did appear to be able to be mobilized over the humeral head. This maneuver also showed that there was a longitudinal split in the cuff tissue. Having debrided and irrigated thoroughly, the arthroscopy instruments and fluid were removed from the joint. The portals were closed with interrupted suture of 4-0 nylon. A sterile dressing and sling were applied and the patient was extubated and sent to PACU in stable and satisfactory condition. claims account manager: J Carlos Holt Type of Anesthesia:: General Anesthesiologist: Grayson Kirkpatrick Specimen's removed: cultures and tissue right shoulder Drains: none Estimated Blood Loss (mL): minimal - Admit VTE Documentation VTE Present on Admission: No VTE Mechan Device Prophylaxis: SCD's VTE Pharm Prophylaxis ordered?: No Reason prophylaxis not ordered:: Treatment Not Indicated
--- NOTE | 2018-08-04 14:44 | OP.PCM_ITS ---
Report of Operation Date of Procedure: 08/04/18 Pre-Operative Diagnosis: Infection s/p arthrocopic rotator cuff repair right shoulder Post-Operative Diagnosis: Same with deep infection and re-tear of rotator cuff Surgery/Procedure Performed:: Incision and drainage with arthroscopic debridement and irrigation right shoulder Description of Surgical Findings:: Procedure: Arthroscopic debridement, I & D, Irrigation right shoulder Pre-op Dx: Infection s/p arthroscopic rotator cuff repair right shoulder Post-op Dx: Same with deep infection and re-tear of rotator cuff Surgeon: Dr. Lau Braille Translator: NEETA Macias Anesthesia: General Anesthesiologist: Dr. Kirkpatrick Drains: none Specimen: cultures and tissue right shoulder Complications: none EBL: >25 cc With appropriate informed consent, the patient was taken to OR 1. After the induction of general anesthesia, the patient was placed in the beach chair position with all bony prominences well padded. The right arm was prepared and draped sterilely. Time out was taken. The swollen anterior portal was incised with a 15 blade scalpel. Santiago pus was noted and was cultured. Subsequently, this portal was debrided sharply to remove all infected appearing tissue. This incision was then copiously irrigated. The previous posterior portal was then incised with a fresh blade and the diagnostic arthroscopy was begun. The cartilage surfaces of the glenoid and humerus were in good condition and did not appear to be degraded by infection. The previously repaired rotator cuff had re-torn and did appear to be infected. Via accessory lateral portals, the sutures from the previous rotator cuff repair were removed and an arthroscopic shaver was utilized to debride infected appearing material. A total of 9 liters of fluid were irrigated through the s houlder. The rotator cuff was grasped and did appear to be able to be mobilized over the humeral head. This maneuver also showed that there was a longitudinal split in the cuff tissue. Having debrided and irrigated thoroughly, the arthroscopy instruments and fluid were removed from the joint. The portals were closed with interrupted suture of 4-0 nylon. A sterile dressing and sling were applied and the patient was extubated and sent to PACU in stable and satisfactory condition. soda room operator: J Carlos Holt Type of Anesthesia:: General Anesthesiologist: Grayson Kirkpatrick Specimen's removed: cultures and tissue right shoulder Drains: none Estimated Blood Loss (mL): minimal - Admit VTE Documentation VTE Present on Admission: No VTE Mechan Device Prophylaxis: SCD's VTE Pharm Prophylaxis ordered?: No Reason prophylaxis not ordered:: Treatment Not Indicated
[2018-08-04] MEDS: Lisinopril 10 MG Tablet PO (15:24)
[2018-08-04] MEDS: Docusate Sodium 100 MG Capsule PO ×2 (15:25→21:21)
[2018-08-04] MEDS: amLODIPine 10 MG Tablet PO (15:25)
[2018-08-04] MEDS: Aspirin 81 MG TAB.CHEW PO (15:25)
[2018-08-04] MEDS: ALPRAZolam 0.5 MG Tablet PO ×2 (15:28→21:20)
[2018-08-04] MEDS: Pantoprazole Sodium 20 MG Tablet PO (15:30)
--- NOTE | 2018-08-04 16:32 | PCM.PROGNOTE ---
Patient Problems: Active and Suspected Problems Cellulitis (Acute) Septic arthritis of shoulder, right (Acute) Subjective: Patient seen and examined today, I also talked with orthopedic surgery concerning his care and also talked with his who is in the room during the time of my examination. He was taken to surgery today and he underwent an incision and drainage with arthroscopic debridement and irrigation of his right shoulder. Orthopedic surgery states that patient will need a PICC line for outpatient antibiotic treatment. I have consulted infectious diseases concerning this. - Physical Exam General: Alert, Oriented x3, Cooperative, No apparent distress, Well developed, Well nourished HEENT: Atraumatic, PERRLA, EOMI, Normocephalic Oral: Moist Mucosa Neck: Supple, No Nuchal Rigidity, Trachea Midline, Thyroid Normal Size and Texture Lungs: Clear to auscultation, Normal air movement, No rhonchi, No wheeze, No rales Cardiovascular: Regular rate, Regular Rhythm, Normal S1, Normal S2, No murmurs, No Ectopic Activity Abdomen: Bowel Sounds Present, Soft, Non Tender, Non-Distended, No hernias noted Extremities: No clubbing, No cyanosis, No edema, Capillary Refill Less than 3 Seconds Musculoskeletal: Tenderness - There is tenderness to palpation noted over the right shoulder area Neurological: Cranial nerves II-XII grossly intact, Neuro grossly intact, Sensory exam intact to light touch and pain, Coordination normal Psych/Mental Status: Normal Affect, Appropriate, Alert and oriented to time, place, person, mood and affect Vital Signs Temp Pulse Resp BP Pulse Ox 98.4 F 81 16 116/76 94 08/04/18 15:10 08/04/18 15:10 08/04/18 15:10 08/04/18 15:10 08/04/18 15:10 Oxygen Delivery Method Room Air Weight: 78.018 kg Body Mass Index (BMI) 29.5 Intake and Output for Last 24 Hours 08/02/18 08/03/18 08/04/18 23:59 23:59 23:59 Intake Total 752 / 752 3033 / 3033 Output Total 425 / 425 Balance 752 / 752 2608 / 2608 Microbiology Past 72 Hours 08/03/18 10:51 Gram Stain - Final Fluid - Other Body Fluid Culture - Preliminary No growth-Final to follow Laboratory Tests Past 24 Hrs 08/04/18 08/04/18 05:25 05:25 WBC 5.1 RBC 3.87 L Hgb 11.2 L Hct 34.9 L MCV 90.2 MCH 28.9 MCHC 32.1 RDW 13.8 RDW Differential 44.7 H Plt Count 332 MPV 9.9 Immature Gran % (Auto) 0.200 Neut % (Auto) 50.0 Lymph % (Auto) 30.1 [place] % (Auto) 16.4 H Eos % (Auto) 2.3 Baso % (Auto) 1.0 Absolute Neuts (auto) 2.6 Absolute Lymphs (auto) 1.54 Total Counted Not Reportable Sodium 140 Potassium 4.1 Chloride 107 Carbon Dioxide 26.0 Anion Gap 7 BUN 10 Creatinine 1.03 Estim Creat Clear Calc 63.06 Est GFR (MDRD) Af Amer 94 Est GFR (MDRD) Non-Af 78 BUN/Creatinine Ratio 9.7 L Glucose 108 H Calcium 8.2 L Medical Necessity - Tobacco Use Smoking Status: Current some day smoker Tobacco Use: Cigarettes - 4 cigarettes/week currently Assessment/Plan All Active Problems Cellulitis (Acute) Septic arthritis of shoulder, right (Acute) #1 septic arthritis of the right shoulder-exact organism unknown at this time, continue antibiotic treatment per infectious diseases, patient will have a PICC line inserted, await culture results #2 re-tear of right rotator cuff #3 atherosclerotic heart disease #4 coronary artery disease #5 hypertension #6 GERD #7 hyperlipidemia Code Visit Inpatient E&M: 09151 Subs Hosp L2
[2018-08-04] MEDS: DiphenhydrAMINE 25 MG Capsule 50 MG PO (16:57)
--- NOTE | 2018-08-04 18:49 | PCM.HP.ID ---
Problem List (1) Septic arthritis of shoulder, right Status: Acute Reason for Consult: infected shoulder Consulted by: Dr. Dukes History of Present Illness: The patient is a 62 year old M who had R shoulder surgery 05/[address] Lau. Did well post op until 2 weeks ago when developed large area of swelling over the joint. No new trauma. No h/o MRSA. No fever or chills. Had aspiration done 07/28. On 08/02, swelling burst with heavy purulent drainage. Admitted 08/03 and taken to OR today. On vanc/ceftriaxone. Pain controlled currently. Full ROS performed and neg except as noted above. - Medical History Past Medical History (Chronic Problems): Chronic Problems S/P rotator cuff repair (Chronic) May 2018 Normochromic normocytic anemia (Chronic) since rotator cuff repair in May Overweight (BMI 25.0-29.9) (Chronic) Stented coronary artery (Chronic) X3 stents Tobacco dependence due to cigarettes (Chronic) has been cutting down and now smokes 4 cigarettes a week LVH (left ventricular hypertrophy) (Chronic) moderate CAD (coronary artery disease) (Chronic) Hyperlipidemia (Chronic) Gastroesophageal reflux disease (Chronic) Benign hypertension (Chronic) Allergies/Adverse Reactions: Allergies codeine Allergy (Verified 08/03/18 08:06) Itching oxycodone Allergy (Verified 08/03/18 08:06) Itching Home Medications: Ambulatory Orders Medication Instructions Recorded ALPRAZolam [Xanax] 0.5 mg PO BID 08/03/18 Amlodipine [Norvasc] 10 mg PO DAILY 08/03/18 Aspirin 81 mg PO DAILY 08/03/18 Atorvastatin Calcium 40 mg PO DAILY 08/03/18 Benazepril HCl 10 mg PO DAILY 08/03/18 Doxycycline 100 mg PO DAILY 08/03/18 Nitroglycerin [Nitrostat] 0.4 mg SL PRN PRN 08/03/18 Omeprazole [Prilosec] 20 mg PO DAILY 08/03/18 - Social History SMOKING STATUS:: Current every day smoker Vital Signs Temp Pulse Resp BP Pulse Ox 98.3 F 76 18 115/80 95 08/04/18 18:32 08/04/18 18:32 08/04/18 18:32 08/04/18 18:32 08/04/18 18:32 Oxygen Delivery Method Room Air Weight: 78.018 kg Body Mass Index (BMI) 29.5 Microbiology Past 72 Hours 08/03/18 10:51 Gram Stain - Final Fluid - Other Body Fluid Culture - Preliminary No growth-Final to follow Laboratory Tests Past 24 Hrs 08/04/18 08/04/18 05:25 05:25 WBC 5.1 RBC 3.87 L Hgb 11.2 L Hct 34.9 L MCV 90.2 MCH 28.9 MCHC 32.1 RDW 13.8 RDW Differential 44.7 H Plt Count 332 MPV 9.9 Immature Gran % (Auto) 0.200 Neut % (Auto) 50.0 Lymph % (Auto) 30.1 [place] % (Auto) 16.4 H Eos % (Auto) 2.3 Baso % (Auto) 1.0 Absolute Neuts (auto) 2.6 Absolute Lymphs (auto) 1.54 Total Counted Not Reportable Sodium 140 Potassium 4.1 Chloride 107 Carbon Dioxide 26.0 Anion Gap 7 BUN 10 Creatinine 1.03 Estim Creat Clear Calc 63.06 Est GFR (MDRD) Af Amer 94 Est GFR (MDRD) Non-Af 78 BUN/Creatinine Ratio 9.7 L Glucose 108 H Calcium 8.2 L - Other Studies Radiology: [] reviewed Other Studies: [] Route of nutrition/ use of supplements: [] Nutritional Intake: [] IV Site: [] Panchal Catheter: [] - Physical Exam General: Alert, Oriented x3, Cooperative, No apparent distress HEENT: Atraumatic, PERRLA, EOMI Neck: Supple, No Nodes Lungs: Clear to auscultation, Normal air movement Cardiovascular: Regular rate, Regular Rhythm, No murmurs Abdomen: Soft, Non Tender, Non-Distended Extremities: No edema Skin: No rashes IV Site: Peripheral, without redness Musculoskeletal: - - R shoulder bandaged post-op Neurological: Cranial nerves II-XII grossly intact - Assessment/Plan Antibiotics: [] Assessment/Plan: [] Active and Suspected Problems Cellulitis (Acute) Septic arthritis of shoulder, right (Acute) - now s/p OR for debridement. Cx from 08/03 with rare GPC seen. Continue vanc/ceftriaxone while further cx data pending. Picc ordered. Will follow, thank you, d/w Dr. Dukes.
[2018-08-04] MEDS: Atorvastatin Calcium 40 MG Tablet PO (21:21)
[2018-08-04] MEDS: Magnesium Hydroxide 30 ML UDC PO (21:21)
[2018-08-04 21:28] LABS: Vancomycin, Trough Level 11.7 ug/mL (5.0-15.0)
[2018-08-04] MEDS: Zolpidem Tartrate 5 MG Tablet PO (21:34)
[2018-08-05] MEDS: DiphenhydrAMINE 25 MG Capsule 50 MG PO ×2 (02:53→17:56)
[2018-08-05] MEDS: 0.9% Normal Saline 1,000 ML 75 ML IV ×2 (02:53→17:53)
[2018-08-05] MEDS: HYDROcodone Bitartrate/Apap 5/325 Tablet PO ×4 (02:54→17:56)
[2018-08-05 03:00] VITALS: BP 102/48; PULSE 72; RESP 18; TEMP 36.8; O2SAT 94
--- NOTE | 2018-08-05 05:21 | PCM.RX.CS ---
Consult Pharmacy has been consulted to manage selected antiobiotic: Vancomycin Type of Consult: Follow-up Labs: Sodium 140 mmol/L (136-145) 08/04/18 05:25 Potassium 4.1 mmol/L (3.5-5.1) 08/04/18 05:25 Chloride 107 mmol/L (98-107) 08/04/18 05:25 Carbon Dioxide 26.0 mmol/L (21.0-32.0) 08/04/18 05:25 Anion Gap 7 (5-15) 08/04/18 05:25 BUN 10 mg/dL (7-18) 08/04/18 05:25 Creatinine 1.03 mg/dL (0.70-1.30) 08/04/18 05:25 Est GFR (MDRD) Af Amer 94 mL/min (>60) 08/04/18 05:25 Est GFR (MDRD) Non-Af 78 mL/min (>60) 08/04/18 05:25 BUN/Creatinine Ratio 9.7 RATIO (10-20) L 08/04/18 05:25 Glucose 108 mg/dL (74-106) H 08/04/18 05:25 Vancomycin Trough 11.7 ug/mL (5.0-15.0) 08/04/18 20:50 Microbiology: Microbiology 08/03/18 10:51 Fluid - Other Gram Stain - Final 08/03/18 10:51 Fluid - Other Body Fluid Culture - Preliminary No growth-Final to follow Goal Trough: 15-20 mcg/mL Pharmacy Plan for Drug Dosing: Pharmacy Service will continue to monitor and adjust dosing as required. Medications Vancomycin HCl 1,250 mg/ (Sodium Chloride) 275 mls @ 167 mls/hr IV Q12H DIAMANTE TROUGH 11.7 GOAL 15-20 INCREASE TO 1250MG Q12H FOLLOW UP TROUGH IN 4 DOSES Follow-Up Labs: Trough Vancomycin Labs to be done on [date and time ordered]: 08/06 @ 2100
[2018-08-05] MEDS: Bisacodyl 5 MG Tablet PO (06:25)
--- NOTE | 2018-08-05 07:42 | PCM.PN.ORT ---
Patient Problems: Active and Suspected Problems Cellulitis (Acute) Septic arthritis of shoulder, right (Acute) Subjective: Patient doing better this morning. Pain in shoulder as expected. Up in room. - Physical Exam General: Alert, Oriented x3, No apparent distress Extremities: Capillary Refill Less than 3 Seconds, No Calf Tenderness Skin: No rashes, No breakdown, Incision - stable Neurological: Neuro grossly intact Vital Signs Temp Pulse Resp BP Pulse Ox 98.2 F 72 18 102/48 L 94 08/05/18 03:00 08/05/18 03:00 08/05/18 03:00 08/05/18 03:00 08/05/18 03:00 Oxygen Delivery Method Room Air Weight: 172 lb Body Mass Index (BMI) 29.5 Intake and Output for Last 24 Hours 08/03/18 08/04/18 08/05/18 23:59 23:59 23:59 Intake Total 752 / 752 3761 / 3761 1908 / 1908 Output Total 425 / 425 Balance 752 / 752 3336 / 3336 1908 / 1908 Microbiology Past 72 Hours 08/03/18 10:51 Gram Stain - Final Fluid - Other Body Fluid Culture - Preliminary No growth-Final to follow Laboratory Tests Past 24 Hrs 08/04/18 20:50 Vancomycin Trough 11.7 Medical Necessity - Tobacco Use Smoking Status: Current some day smoker Tobacco Use: Cigarettes - 4 cigarettes/week currently Assessment/Plan All Active Problems Cellulitis (Acute) Septic arthritis of shoulder, right (Acute) Infected RC repair right shoulder with failed cuff repair secondary to infection. Joint well preserved Cultures pending PICC line in place OK to discharge from ortho standpoint pending antibiotic recommendations of hospitalist and ID Follow up with ortho next week
[2018-08-05 08:56] VITALS: BP 119/78; PULSE 68; RESP 16; TEMP 36.7; O2SAT 97
[2018-08-05] MEDS: Lisinopril 10 MG Tablet PO (08:59)
[2018-08-05] MEDS: Aspirin 81 MG TAB.CHEW PO (08:59)
[2018-08-05] MEDS: amLODIPine 10 MG Tablet PO (08:59)
[2018-08-05] MEDS: Docusate Sodium 100 MG Capsule PO ×2 (09:00→21:24)
[2018-08-05] MEDS: ALPRAZolam 0.5 MG Tablet PO ×2 (09:03→21:24)
[2018-08-05] MEDS: Pantoprazole Sodium 20 MG Tablet PO (09:04)
--- NOTE | 2018-08-05 10:55 | PCM.PN.ID ---
Patient Problems: Active and Suspected Problems Cellulitis (Acute) Septic arthritis of shoulder, right (Acute) Subjective: Doing ok, pain relatively controlled, no fever, no n/v/d. - Physical Exam General: Alert, Cooperative, No apparent distress Lungs: Clear to auscultation, Normal air movement Cardiovascular: Regular rate, Regular Rhythm Abdomen: Soft, Non Tender, Non-Distended Skin: Incision - R shoulder bandaged Vital Signs Temp Pulse Resp BP Pulse Ox 98.1 F 68 16 119/78 97 08/05/18 08:56 08/05/18 08:56 08/05/18 08:56 08/05/18 08:56 08/05/18 08:56 Oxygen Delivery Method Room Air Weight: 78.018 kg Body Mass Index (BMI) 29.5 Intake and Output for Last 24 Hours 08/03/18 08/04/18 08/05/18 23:59 23:59 23:59 Intake Total 752 / 752 3761 / 3761 1908 / 1908 Output Total 425 / 425 Balance 752 / 752 3336 / 3336 1908 / 1908 Microbiology Past 72 Hours 08/04/18 13:15 Wound Culture - Preliminary Tissue - Shoulder No growth-Final to follow 08/03/18 10:51 Gram Stain - Final Fluid - Other Body Fluid Culture - Preliminary No growth-Final to follow Anaerobic Culture - Preliminary No growth in 48 hours. Laboratory Tests Past 24 Hrs 08/04/18 20:50 Vancomycin Trough 11.7 Medical Necessity - Tobacco Use Smoking Status: Current some day smoker Tobacco Use: Cigarettes - 4 cigarettes/week currently Route of nutrition/ use of supplements: [] Nutritional Intake: [] IV Site: [] Panchal Catheter: [] - Assessment/Plan Antibiotics: [] Assessment/Plan: [] Active and Suspected Problems Cellulitis (Acute) Septic arthritis/deep infection of shoulder, right (Acute) - now s/p OR 08/04 for debridement. Cx from 08/03 with rare GPC seen. Continue vanc/ceftriaxone while further cx data pending. Picc in place. Wrote for 4 weeks of vanc/ceftriaxone, stop date 09/01/18 with weekly bmp, cbc, esr, and vanc trough. Course may be changed based on further cx data. May need po abx after completing iv. Will follow, d/w field nurse case manager. ID follow-up in 2-3 weeks.
--- NOTE | 2018-08-05 11:51 | CASEMGMT ---
Addendum entered by Keira Leal 08/05/18 12:55: 1227- Received call from Trinity at [facility] and confirmed received fax, made aware Tentative plan for PDC Tomorrow as pending finalized Cx results. RONNELL Pendleton Original Note: Addendum entered by Keira Leal 08/05/18 11:58: [facility] called, VM left and made aware patient will stay until Cx finalized per Dr Dukes. Patient updated on plan. RONNELL Pendleton Original Note: Issue: D/c Planning Home on IV Abx 1032- Called Felias at [facility], No answer, Left VM. 1123- Called Felisa at [facility]. States can accept patient and nurse to visit later today for Vanco dose and in AM for Ceftriaxone dose. States to fax clinicals to # [phone]. [phone]- Faxed Clinicals to [facility] and [facility]. CM to continue to follow; RONNELL Pendleton
--- NOTE | 2018-08-05 12:05 | CASEMGMT ---
Addendum entered by Jose Marquez 08/06/18 10:04: Call received from Trinity @ [facility]. They will attempt to contact [place] to verify [facility] is [facility] with [facility] and to have referral authorized. -YARON MCCARTY called to [facility] @ . Pt's PHYSICIST ASTROPHYSICS is Jolly Chahal. Info given to Trinity @ [facility]. -Pt and updated on above. They are agreeable to attempt to have IV antibiotics covered by [place] benefits. Pt is upset and impatient because he wants to go home today. YARON MCCARTY did let him know we are working on this already and will keep them updated. Sree ORTIZ Original Note: YARON MCCARTY Note: Discussed dc plan of IV antibiotics with pt. He states his will be present tomorrow evening when home health is available for teaching of IV antibiotic infusion. Patient updated on [facility] and [facility] to provide services on dc. Pt is agreeable. -DC PLAN: dc tomorrow after am doses of Vancomycin and Ceftriaxone. [facility] to come in evening for start of care for Vanc dosing. - Sree SNYDER RN ACM
[2018-08-05 13:57] VITALS: BP 116/78; PULSE 71; RESP 18; TEMP 36.7; O2SAT 96
[2018-08-05] MEDS: Magnesium Hydroxide 30 ML UDC PO (17:56)
--- NOTE | 2018-08-05 19:06 | PCM.PROGNOTE ---
Patient Problems: Active and Suspected Problems Cellulitis (Acute) Septic arthritis of shoulder, right (Acute) Subjective: Patient seen and examined today, patient remains afebrile, cultures so far shows no growth in wound culture at 48 hours, preliminary culture from the tissue from the shoulder shows no growth at this time. Blood culture obtained on 08/03/18 shows no growth at 48 hours. In examining the progress note from infectious diseases, it appears that the patient will be discharged on Rocephin and Vancomycin with follow-up with ID. - Physical Exam General: Alert, Oriented x3, Cooperative, No apparent distress, Well developed, Well nourished HEENT: Atraumatic, PERRLA, EOMI, Normocephalic Oral: Moist Mucosa Neck: Supple, No Nuchal Rigidity, Trachea Midline, Thyroid Normal Size and Texture Lungs: Clear to auscultation, Normal air movement, No rhonchi, No wheeze, No rales Cardiovascular: Regular rate, Regular Rhythm, Normal S1, Normal S2, No murmurs, No Ectopic Activity Abdomen: Bowel Sounds Present, Soft, Non Tender, Non-Distended Extremities: No clubbing, No cyanosis, No edema, Capillary Refill Less than 3 Seconds Skin: No rashes, No breakdown Neurological: Cranial nerves II-XII grossly intact, Neuro grossly intact, Sensory exam intact to light touch and pain, Coordination normal Psych/Mental Status: Normal Affect, Appropriate, Alert and oriented to time, place, person, mood and affect Vital Signs Temp Pulse Resp BP Pulse Ox 98.1 F 71 18 116/78 96 08/05/18 13:57 08/05/18 13:57 08/05/18 13:57 08/05/18 13:57 08/05/18 13:57 Oxygen Delivery Method Room Air Weight: 78.018 kg Body Mass Index (BMI) 29.5 Intake and Output for Last 24 Hours 08/03/18 08/04/18 08/05/18 23:59 23:59 23:59 Intake Total 752 / 752 3761 / 3761 3607 / 3607 Output Total 425 / 425 Balance 752 / 752 3336 / 3336 3607 / 3607 Microbiology Past 72 Hours 08/03/18 14:06 Blood Culture - Preliminary Blood Culture (Wb) - Anticubital Right No growth in 48 hours. 08/04/18 13:15 Gram Stain - Final Tissue - Shoulder Wound Culture - Preliminary No growth-Final to follow 08/03/18 10:51 Gram Stain - Final Fluid - Other Body Fluid Culture - Preliminary No growth-Final to follow Anaerobic Culture - Preliminary No growth in 48 hours. Laboratory Tests Past 24 Hrs 08/04/18 20:50 Vancomycin Trough 11.7 Medical Necessity - Tobacco Use Smoking Status: Current some day smoker Tobacco Use: Cigarettes - 4 cigarettes/week currently Assessment/Plan All Active Problems Cellulitis (Acute) Septic arthritis of shoulder, right (Acute) #1 septic arthritis of the right shoulder-exact organism unknown at this time, gram-positive bacteria is suspected, continue antibiotic treatment per infectious diseases, patient now has a PICC line, he will be discharged on Rocephin and vancomycin with ID to follow-up #2 re-tear of right rotator cuff-this will need repaired in the future #3 atherosclerotic heart disease #4 coronary artery disease #5 hypertension #6 GERD #7 hyperlipidemia Code Visit Inpatient E&M: 92233 Subs Hosp L2
[2018-08-05 21:20] VITALS: BP 119/79; PULSE 63; RESP 18; TEMP 36.6; O2SAT 98
[2018-08-05] MEDS: Atorvastatin Calcium 40 MG Tablet PO (21:24)
[2018-08-05] MEDS: Zolpidem Tartrate 5 MG Tablet PO (21:29)
[2018-08-05 21:36] VITALS: PULSE 63; RESP 18; O2SAT 98
[2018-08-06 03:20] VITALS: BP 139/98; PULSE 77; RESP 18; TEMP 36.8; O2SAT 97
[2018-08-06] MEDS: DiphenhydrAMINE 25 MG Capsule 50 MG PO ×2 (03:35→08:54)
[2018-08-06] MEDS: Aspirin 81 MG TAB.CHEW PO (08:54)
[2018-08-06] MEDS: ALPRAZolam 0.5 MG Tablet PO ×2 (08:54→21:14)
[2018-08-06] MEDS: Lisinopril 10 MG Tablet PO (08:54)
[2018-08-06] MEDS: Docusate Sodium 100 MG Capsule PO (08:55)
[2018-08-06] MEDS: Pantoprazole Sodium 20 MG Tablet PO (08:55)
[2018-08-06] MEDS: HYDROcodone Bitartrate/Apap 5/325 Tablet PO ×3 (08:55→19:45)
[2018-08-06] MEDS: amLODIPine 10 MG Tablet PO (08:55)
[2018-08-06] MEDS: 0.9% Normal Saline 1,000 ML 75 ML IV (08:56)
[2018-08-06 09:20] VITALS: BP 149/104; PULSE 73; RESP 18; TEMP 36.9; O2SAT 94
--- NOTE | 2018-08-06 09:40 | CASEMGMT ---
YARON MCCARTY Note: Call to [facility]. Trinity is liason for this pt, however is not @ work yet, Cassandra assisted with questions. YARON MCCARTY inquired re: cost given of $67.32/day as pt does not have MCR Part D. Per financial @ [facility], note states [place] not go through [place]. Financial person has not contacted pt yet. YARON MCCARTY requested I financial person contact pt to discuss cost of medication and to verify with [facility] that cost cannot be covered. Per Cassandra, she will reach out to Financial person and Trinity. YARON MCCARTY contact information given for call back. -Due to cultures not returned yet, if order to process IV antibiotic comes in afternoon, [facility] may not be able to deliver due to inclement weather. YARON MCCARTY let pt and his know. Sree SNYDER RN ACM
[2018-08-06] MEDS: ALPRAZolam 0.5 MG Tablet 1 MG PO (11:37)
--- NOTE | 2018-08-06 13:41 | PCM.PN.ID ---
Patient Problems: Active and Suspected Problems Cellulitis (Acute) Septic arthritis of shoulder, right (Acute) Subjective: Feeling ok, wants to go home. No fever. - Physical Exam General: Alert, Cooperative, No apparent distress Lungs: Clear to auscultation, Normal air movement Cardiovascular: Regular rate, Regular Rhythm Abdomen: Soft, Non Tender, Non-Distended Skin: No rashes, Incision - bandaged Vital Signs Temp Pulse Resp BP Pulse Ox 98.5 F 73 18 149/104 H 94 08/06/18 09:20 08/06/18 09:20 08/06/18 09:20 08/06/18 09:20 08/06/18 09:20 Oxygen Delivery Method Room Air Weight: 78.018 kg Body Mass Index (BMI) 29.5 Intake and Output for Last 24 Hours 08/04/18 08/05/18 08/06/18 23:59 23:59 23:59 Intake Total 3761 / 3761 3607 / 3607 1855 / 1855 Output Total 425 / 425 0 / 0 Balance 3336 / 3336 3607 / 3607 1855 / 1855 Microbiology Past 72 Hours 08/04/18 13:15 Gram Stain - Final Tissue - Shoulder Wound Culture - Preliminary No growth-Final to follow Anaerobic Culture - Preliminary No growth in 48 hours. 08/03/18 14:06 Blood Culture - Preliminary Blood Culture (Wb) - Anticubital Right No growth in 48 hours. 08/03/18 10:51 Gram Stain - Final Fluid - Other Body Fluid Culture - Preliminary No growth-Final to follow Anaerobic Culture - Preliminary No growth in 48 hours. Medical Necessity - Tobacco Use Smoking Status: Current some day smoker Tobacco Use: Cigarettes - 4 cigarettes/week currently Route of nutrition/ use of supplements: [] Nutritional Intake: [] IV Site: [] Panchal Catheter: [] - Assessment/Plan Antibiotics: [] Assessment/Plan: [] Active and Suspected Problems Cellulitis (Acute) Septic arthritis/deep infection of shoulder, right (Acute) - now s/p OR 08/04 for debridement. Cx from 08/03 with rare GPC seen. On vanc/ceftriaxone. Pt unable to afford outpt iv abx. Tried to do course of vanc/ceftriaxone and linezolid/ceftriaxone. If those are not options, plan will be for discharge on 2 weeks of po linezolid and levaquin 500mg daily, then followup with me to decide on the rest of the course. Will follow, d/w rn case manager hospice and Dr. Dukes.
--- NOTE | 2018-08-06 13:56 | CASEMGMT ---
YARON MCCARTY Note- ongoing attempts to set up home IV antibiotics for pt including numerous calls to Trinity @ [facility]. Cost of daily IV infusion was 67.30 which pt stated he cannot afford. He does not have MCR part D plan and states he does not routinely get medications @ [place] as cost is same as regular pharmacy. -Spoke with Dr. Prince this am. Script changed to IV ceftriaxone 2 gm Q 24hrs for 14 days w/ po linezolid 600 mg po bid for 14 days. -Referred to script to [facility]. Per trinity, the cost will be around $25.00/day. Pt will need to provide credit card for file, but they will work out payment plan with him. -Message had been left with Jolly Chahal NP @ [place] to see what coverage would be. No answer back. -Referral made to Infusion center. CPTJ code from Inpt Pharmacy of [id number] x 8. Per Billing this code couldn't be process for exact pricing. Per Infusion center, cost would be [facility] copay for Daily cost of $256 for infusion and $50 for medication. anticipate approximately $61.20 per day. As this is more costly than Home IV antibiotics, pt would like to use [facility] for home. -Call to Trinity to go ahead with referral for Ceftriaxone only for home x 14 days. Due to inclement weather, this cannot be processed for delivery today but will plan on delivery tomorrow. -Call to Felisa [facility]. They can take referral and start of care will be Saturday am for Ceftriaxone -Call to numerous pharmacies for glaser checking on self pay for Zyvoxx. [facility] Retail pharmacy cost was >$2000. CRISTINA Hankins called to [facility] in [place] to verify cost with Good Rx coupon for total cost of $100.04. Per their rep- this would be cost. Script faxed for glaser check. -YARON MCCARTY spoke with pt and his S.O. explained that IV antibiotic at home will be most cost effective. Let pt know that I financial person will be calling for billing purposes and they can work out payment plan with pt. YARON MCCARTY let pt know Zyvoxx cost per local [facility] and they are agreeable to fill @ [place] [facility] with Goodrx coupon. -Pt will need first dose Zyvox in hospital prior to dc and will need IV antibiotics in am prior to dc. -Called to [facility]. Per pharmacy rep, script will be filled for the cost on GoodRX card. Sree ALDANAN RN ACM
[2018-08-06 15:20] VITALS: BP 129/67; PULSE 60; RESP 18; TEMP 36.7; O2SAT 95
--- NOTE | 2018-08-06 19:08 | PN_ITS ---
Subjective: Patient was seen and examined today, he could not afford outpatient IV antibiotics consisting of vancomycin and Rocephin, he was able to afford IV Ro cephin and oral Zyvox. This will be set up for him for discharge tomorrow. Still no growth from the patient's wound cultures. - Physical Exam General: Alert, Oriented x3, Cooperative, No apparent distress, Well developed HEENT: Atraumatic, PERRLA, EOMI, Normocephalic Oral: Moist Mucosa Neck: Supple, No JVD, No Nuchal Rigidity, Trachea Midline, Thyroid Normal Size and Texture Lungs: Clear to auscultation, Normal air movement, No rhonchi, No wheeze, No ral es Cardiovascular: Regular rate, Regular Rhythm, Normal S1, Normal S2, No murmurs, No Ectopic Activity Abdomen: Bowel Sounds Present, Soft, Non Tender, Non-Distended Extremities: No edema, Capillary Refill Less than 3 Seconds Neurological: Cranial nerves II-XII grossly intact, Neuro grossly intact, Sensory exam intact to light touch and pain, Coordination normal Psych/Mental Status: Normal Affect, Appropriate, Alert and oriented to time, place, person, mood and affect Vital Signs Temp Pulse Resp BP Pulse Ox 98.1 F 60 18 129/67 H 95 08/06/18 15:20 08/06/18 15:20 08/06/18 15:20 08/06/18 15:20 08/06/18 15:20 Oxygen Delivery Method Room Air Weight: 78.018 kg Body Mass Index (BMI) 29.5 Intake and Output for Last 24 Hours 08/04/18 08/05/18 08/06/18 23:59 23:59 23:59 Intake Total 3761 / 3761 3607 / 3607 1855 / 1855 Output Total 425 / 425 0 / 0 Balance 3336 / 3336 3607 / 3607 1855 / 1855 Microbiology Past 72 Hours 08/04/18 13:15 Gram Stain - Final Tissue - Shoulder Wound Culture - Preliminary No growth-Final to follow Anaerobic Culture - Preliminary No growth in 48 hours. 08/03/18 14:06 Blood Culture - Preliminary Blood Culture (Wb) - Anticubital Right No growth in 48 hours. 08/03/18 10:51 Gram Stain - Final Fluid - Other Body Fluid Culture - Preliminary No growth-Final to follow Anaerobic Culture - Preliminary No growth in 48 hours. Medical Necessity - Tobacco Use Smoking Status: Current some day smoker Tobacco Use: Cigarettes - 4 cigarettes/week currently Assessment/Plan All Active Problems Cellulitis (Acute) Septic arthritis of shoulder, right (Acute) #1 septic arthritis of the right shoulder-exact organism unknown at this time, gram-positive bacteria is suspected, continue antibiotic treatment per infectious diseases, arrangements are being made for the patient to have outpatient IV antibiotics #2 re-tear of right rotator cuff-this will need repaired in the future #3 atherosclerotic heart disease #4 coronary artery disease #5 hypertension #6 GERD #7 hyperlipidemia Code Visit Inpatient E&M: 11798 Subs Hosp L2
[2018-08-06 19:49] VITALS: BP 109/69; PULSE 56; RESP 16; TEMP 36.4; O2SAT 98
[2018-08-06] MEDS: Atorvastatin Calcium 40 MG Tablet PO (21:14)
[2018-08-06 21:15] LABS: Vancomycin, Trough Level 15.6 ug/mL (5.0-15.0)
--- NOTE | 2018-08-06 22:00 | PCM.RX.CS ---
Consult Pharmacy has been consulted to manage selected antiobiotic: Vancomycin Type of Consult: Follow-up Suspected Infection: Other Prior Doses of Antibiotics Received/Current Regimen: Medications Vancomycin HCl 1,250 mg/ (Sodium Chloride) 275 mls @ 167 mls/hr IV Q12H DIAMANTE Last Admin: 08/06/18 21:14 Dose: 167 mls/hr Labs: Sodium 140 mmol/L (136-145) 08/04/18 05:25 Potassium 4.1 mmol/L (3.5-5.1) 08/04/18 05:25 Chloride 107 mmol/L (98-107) 08/04/18 05:25 Carbon Dioxide 26.0 mmol/L (21.0-32.0) 08/04/18 05:25 Anion Gap 7 (5-15) 08/04/18 05:25 BUN 10 mg/dL (7-18) 08/04/18 05:25 Creatinine 1.03 mg/dL (0.70-1.30) 08/04/18 05:25 Est GFR (MDRD) Af Amer 94 mL/min (>60) 08/04/18 05:25 Est GFR (MDRD) Non-Af 78 mL/min (>60) 08/04/18 05:25 BUN/Creatinine Ratio 9.7 RATIO (10-20) L 08/04/18 05:25 Glucose 108 mg/dL (74-106) H 08/04/18 05:25 Vancomycin Trough 15.6 ug/mL (5.0-15.0) H 08/06/18 20:30 Microbiology: Microbiology 08/04/18 13:15 Tissue - Shoulder Gram Stain - Final 08/04/18 13:15 Tissue - Shoulder Wound Culture - Preliminary No growth-Final to follow 08/04/18 13:15 Tissue - Shoulder Anaerobic Culture - Preliminary No growth in 48 hours. 08/03/18 14:06 Blood Culture (Wb) - Anticubital Right Blood Culture - Preliminary No growth in 48 hours. 08/03/18 10:51 Fluid - Other Gram Stain - Final 08/03/18 10:51 Fluid - Other Body Fluid Culture - Preliminary No growth-Final to follow 08/03/18 10:51 Fluid - Other Anaerobic Culture - Preliminary No growth in 48 hours. Weight used for dosin kg Goal Trough: 15-20 mcg/mL Pharmacy Plan for Drug Dosing: Trough within goal range. Recheck in 4 days per policy. Pharmacy Service will continue to monitor and adjust dosing as required. Follow-Up Labs: Trough Vancomycin - 08/10 @ 2029
[2018-08-07] MEDS: 0.9% Normal Saline 1,000 ML 75 ML IV (01:33)
[2018-08-07 02:05] VITALS: BP 130/82; PULSE 83; RESP 16; TEMP 36.7; O2SAT 94
[2018-08-07] MEDS: HYDROcodone Bitartrate/Apap 5/325 Tablet PO (05:46)
[2018-08-07] MEDS: DiphenhydrAMINE 25 MG Capsule 50 MG PO (05:46)
--- NOTE | 2018-08-07 09:51 | CASEMGMT ---
YARON CM Note: Call to Trinity @ [facility]. [facility] IV antibiotics are set up and pt can dc today. -Call to [facility] Felisa SWAIN to notify of dc today and start of care tomorrow am. Sree SNYDER RN ACM
[2018-08-07 09:53] VITALS: BP 136/89; PULSE 70; RESP 18; TEMP 36.7; O2SAT 97
[2018-08-07] MEDS: Lisinopril 10 MG Tablet PO (10:12)
[2018-08-07] MEDS: Aspirin 81 MG TAB.CHEW PO (10:12)
[2018-08-07] MEDS: Docusate Sodium 100 MG Capsule PO (10:12)
[2018-08-07] MEDS: amLODIPine 10 MG Tablet PO (10:12)
[2018-08-07] MEDS: Pantoprazole Sodium 20 MG Tablet PO (10:18)
[2018-08-07] MEDS: ALPRAZolam 0.5 MG Tablet PO (10:22)
--- NOTE | 2018-08-07 10:46 | PN.ID_ITS ---
Patient Problems: Active and Suspected Problems Cellulitis (Acute) Septic arthritis of shoulder, right (Acute) Subjective: Feeling well, starting to move shoulder, no fever, no n/v/d - Physical Exam General: Alert, Cooperative, No apparent distress Lungs: Clear to auscultation, Normal air movement Cardiovascular: Regular rate, Regular Rhythm Abdomen: Soft, Non Tender, Non-Distended Skin: Incision - no drainage Vital Signs Temp Pulse Resp BP Pulse Ox 98.0 F 70 18 136/89 H 97 08/07/18 09:53 08/07/18 09:53 08/07/18 09:53 08/07/18 09:53 08/07/18 09:53 Oxygen Delivery Method Room Air Weight: 78.018 kg Body Mass Index (BMI) 29.5 Intake and Output for Last 24 Hours 08/05/18 08/06/18 08/07/18 23:59 23:59 23:59 Intake Total 3607 / 3607 3514 / 3514 949 / 949 Output Total 0 / 0 Balance 3607 / 3607 3514 / 3514 949 / 949 Microbiology Past 72 Hours 08/04/18 13:15 Gram Stain - Final Tissue - Shoulder Wound Culture - Preliminary No growth-Final to follow Anaerobic Culture - Preliminary No growth in 48 hours. 08/03/18 14:06 Blood Culture - Preliminary Blood Culture (Wb) - Anticubital Right No growth in 48 hours. 08/03/18 10:51 Gram Stain - Final Fluid - Other Body Fluid Culture - Preliminary No growth-Final to follow Anaerobic Culture - Preliminary No growth in 48 hours. Laboratory Tests Past 24 Hrs 08/06/18 20:30 Vancomycin Trough 15.6 H Medical Necessity - Tobacco Use Smoking Status: Current some day smoker Tobacco Use: Cigarettes - 4 cigarettes/week currently Route of nutrition/ use of supplements: [] Nutritional Intake: [] IV Site: [] Panchal Catheter: [] - Assessment/Plan Antibiotics: [] Assessment/Plan: [] Active and Suspected Problems Cellulitis (Acute) Septic arthritis/deep infection of shoulder, right (Acute) - now s/p OR 08/04 for debridement. Cx from 08/03 with rare GPC seen. On vanc/ceftriaxone. Ok for d/c home on iv ceftriaxone for 2 weeks, po linezolid for 2 weeks. Weekly bmp, cbc, and esr. ID follow up with me at wound care center in 2 weeks to change to pill regimen. Requested micro lab hold surg cx for 14 days. Will follow, d/w case technician
--- NOTE | 2018-08-07 11:45 | DCINST_ITS ---
- Discharge Diagnoses Current Active Problems: Current Active and Chronic Problems Cellulitis (Acute) S/P rotator cuff repair (Chronic) May 2018 Normochromic normocytic anemia (Chronic) since rotator cuff repair in May Overweight (BMI 25.0-29.9) (Chronic) Septic arthritis of shoulder, right (Acute) Stented coronary artery (Chronic) X3 stents Tobacco dependence due to cigarettes (Chronic) has been cutting down and now smokes 4 cigarettes a week LVH (left ventricular hypertrophy) (Chronic) moderate You will use the following diet at home:: No restrictions Your food should be the consistency of: Regular Your liquids should be the consistency of: Regular/Thin Discharge Activity: Return to Normal Activity Weight Bearing Status: Full weight bearing Allergies/Adverse Reactions: Allergies codeine Allergy (Verified 08/03/18 08:06) Itching oxycodone Allergy (Verified 08/03/18 08:06) Itching Medications to take at Discharge ALPRAZolam [Xanax] 0.5 mg PO BID 08/03/18 Amlodipine [Norvasc] 10 mg PO DAILY 08/03/18 Aspirin 81 mg PO DAILY 08/03/18 Atorvastatin Calcium 40 mg PO DAILY 08/03/18 Benazepril HCl 10 mg PO DAILY 08/03/18 Nitroglycerin [Nitrostat] 0.4 mg SL PRN PRN 08/03/18 Omeprazole [Prilosec] 20 mg PO DAILY 08/03/18 Acetaminophen [Tylenol Tablet] 650 mg PO Q6H PRN PRN tablet 08/07/18 Ceftriaxone 2 gm IV Q24 vial 08/07/18 Ceftriaxone 2 gm IV Q24 14 Days #14 vial 08/07/18 Linezolid 600 mg PO BID 14 Days #28 tablet 08/07/18 The following prescriptions were given: Ceftriaxone 2 gm IV Q24 14 Days #14 vial Linezolid 600 mg PO BID 14 Days #28 tablet Primary Care Physician: [facility] Doctor,Out of [Primary Care Provider] - Test Results: Test results from this visit will be discussed in further detail at your follow- up appointment, if applicable. Please Follow Up With: Jah Prinec MD When: in two weeks Please Follow Up With: Ambrose Lau DO When: in one week as scheduled
--- NOTE | 2018-08-07 12:05 | CASEMGMT ---
RN CM Note: Insurance discussion with pt and ritesh re: [facility] D prescription coverage sign up, [facility] advantage plans and f/u appointments. Pt is to see Dr. Prince in two weeks @ [facility]. Attempted to make appt for pt, however office is closed. DC appt copy given to pt with phone number/location for Dr. Prince's office and to let office know he needs appointment @ [facility] location. -script secured for f/u labwork per Dr. Prince. Given to pt to give to Home Health nurse. Script also faxed to [facility]. Sree ALDANAN RN ACM
--- NOTE | 2018-08-07 16:13 | CASEMGMT ---
RN CM Note: Call received from Josesito pt's SO. She had questions re: payment for [employer] and requested number for [employer]. Number given. She also requested to time Home Health nurse would be scheduled in am. -Call to [facility] who will have assigned nurse call pt elliott and work out time. -Call to patient's SO to update. This is agreeable to pt. Sree SNYDER RN ACM
--- NOTE | 2018-08-10 19:54 | DS.PCM_ITS ---
Discharge Date and Diagnosis Date of Admission: 08/03/18 Date of Discharge: 08/07/18 - Primary Discharge Diagnosis #1 septic arthritis of the right shoulder-exact organism unknown at this time, gram-positive bacteria is suspected #2 re-tear of right rotator cuff #3 atherosclerotic heart disease #4 coronary artery disease #5 hypertension #6 GERD #7 hyperlipidemia - Secondary Discharge Diagnosis Chronic Problems S/P rotator cuff repair (Chronic) May 2018 Normochromic normocytic anemia (Chronic) since rotator cuff repair in May Overweight (BMI 25.0-29.9) (Chronic) Stented coronary artery (Chronic) X3 stents Tobacco dependence due to cigarettes (Chronic) has been cutting down and now smokes 4 cigarettes a week LVH (left ventricular hypertrophy) (Chronic) moderate CAD (coronary artery disease) (Chronic) Hyperlipidemia (Chronic) Gastroesophageal reflux disease (Chronic) Benign hypertension (Chronic) Hospital Course and Treatment Operations: - - Incision and drainage with arthroscopic debridement and irrigation of the right shoulder Procedures: None, PICC line placement Summary of Care Provided: The patient is a 62 year old M who was seen in the emergency room at [facility] with a chief complaint of right shoulder pain worsening over the past 1-2 weeks. Patient had rotator cuff surgery done in May 2018. He was started on doxycycline approximately a week ago after he saw his orthopedic physician and his right joint was aspirated. Patient stated that the discomfort in his right shoulder continued to worsen and he came to the ER for evaluation. Labs obtained in the emergency room included a CBC which was normal except for hemoglobin of 12.7, chemistries were unremarkable, sed rate was elevated at 66, C-reactive protein was elevated at 45.5. Patient underwent an arthrocentesis in the emergency room and a small amount of joint fluid was collected. Gram stain showed rare gram-positive cocci. Cultures were sent, there was not enough fluid for cell count and crystals. Patient was admitted to [place] [id number], placed on IV Zosyn and vancomycin, seen by infectious diseases and orthopedic surgery. Orthopedic surgery took the patient to surgery for incision and drainage with arthroscopic debridement and irrigation of the right shoulder, gross pus from his right shoulder was noted at the time of the surgery. Patient remained on IV antibiotics, cultures however did not grow out any organisms. A torn rotator cuff was noted at the time of surgery. Patient had a PICC line inserted for outpatient IV antibiotic treatment. On 08/07/18, patient was seen and examined: On examination he appeared in good health and spirits. Vital signs as documented. Skin warm and dry and without overt rashes. Neck without JVD. Lungs clear. Heart exam notable for regular rhythm, normal sounds and absence of murmurs, rubs or gallops. Abdomen unremarkable and without evidence of organomegaly, masses, or abdominal aortic enlargement. Extremities nonedematous. Neuro: Cranial nerves II through XII are grossly intact, no focal motor deficits were noted, sensation to light touch and pinprick intact. Psych: Patient is alert and oriented x3, he does not appear anxious or depressed Patient was discharged to home in stable condition on 08/07/18, he was set up with outpatient IV antibiotics. - Physical Exam Vital Signs Temp Pulse Resp BP Pulse Ox 98.0 F 70 18 136/89 H 97 08/07/18 09:53 08/07/18 09:53 08/07/18 09:53 08/07/18 09:53 08/07/18 09:53 Oxygen Delivery Method Room Air Weight: 78.018 kg Body Mass Index (BMI) 29.5 Microbiology Past 72 Hours 08/04/18 13:15 Gram Stain - Final Tissue - Shoulder Wound Culture - Preliminary No growth-Final to follow Anaerobic Culture - Preliminary Checking for anaerobes, further studies to follow. 08/03/18 14:06 Blood Culture - Final Blood Culture (Wb) - Anticubital Right No growth in 5 days. 08/03/18 10:51 Gram Stain - Final Fluid - Other Body Fluid Culture - Preliminary No growth-Final to follow Anaerobic Culture - Final No growth in 5 days. Discharge Activity: Return to Normal Activity Weight Bearing Status: Full weight bearing Home Medications: Medications to take at Discharge ALPRAZolam [Xanax] 0.5 mg PO BID 08/03/18 Amlodipine [Norvasc] 10 mg PO DAILY 08/03/18 Aspirin 81 mg PO DAILY 08/03/18 Atorvastatin Calcium 40 mg PO DAILY 08/03/18 Benazepril HCl 10 mg PO DAILY 08/03/18 Nitroglycerin [Nitrostat] 0.4 mg SL PRN PRN 08/03/18 Omeprazole [Prilosec] 20 mg PO DAILY 08/03/18 Acetaminophen [Tylenol Tablet] 650 mg PO Q6H PRN PRN tablet 08/07/18 Ceftriaxone 2 gm IV Q24 vial 08/07/18 Ceftriaxone 2 gm IV Q24 14 Days #14 vial 08/07/18 Linezolid 600 mg PO BID 14 Days #28 tablet 08/07/18 Following Prescrptions Were Given to Patient: Ceftriaxone 2 gm IV Q24 14 Days #14 vial Linezolid 600 mg PO BID 14 Days #28 tablet Primary Care Physician: Collin Riggs,Out of [Primary Care Provider] - Please Follow Up With: Jah Prince MD [phone] When: Call for appointment in two weeks Please Follow Up With: Ambrose Lau DO When: in one week as scheduled Disposition: Home with Home Health Minutes spent on discharge:: 32 Patient Condition:: Stable Medical Necessity - Tobacco Use Smoking Status: Current some day smoker Tobacco Use: Cigarettes - 4 cigarettes/week currently Meaningful Use Info Meaningful Use Diagnoses (Choose all that apply): None applicable Code Visit Inpatient E&M: 62696 Disch Hosp
== END 2018-08-07 12:45 | disposition home health service (06) | DRG 857 ==
LOC: ED 12:41 → MS2 13:20
PROVIDERS: Orthopaedic Surgery; Admitting Provider Internal Medicine; Emergency Provider Emergency Medicine; Referring Provider Internal Medicine; Visit Provider Internal Medicine
PROC: 0RBJ4ZZ Excision of Right Shoulder Joint, Percutaneous Endoscopic Approach (ICD-10-PCS; CPT 29805; principal; 2018-08-04 12:15)
DX: T81.40XA Infection following a procedure, unspecified, initial encounter (principal); M00.811 Arthritis due to other bacteria, right shoulder; I25.10 Atherosclerotic heart disease of native coronary artery without angina pectoris; Z95.5 Presence of coronary angioplasty implant and graft; I10 Essential (primary) hypertension; M75.101 Unspecified rotator cuff tear or rupture of right shoulder, not specified as traumatic; E78.5 Hyperlipidemia, unspecified; K21.9 Gastro-esophageal reflux disease without esophagitis; F17.210 Nicotine dependence, cigarettes, uncomplicated; D64.9 Anemia, unspecified
CPT/HCPCS: 36415; 36569; 73030; 80048; 80076; 80202; 83605; 83735; 84100; 85025; 85610; 85652; 85730; 86140; 87040; 87070; 87075; 87076; 87205; 88304; 88305; 93005; 99284; J7030; J7050; A4216; J0696; J2405

== ENCOUNTER 2018-08-11 10:15 | Outpatient (RCR) | payer MEDICARE, OTHER, SELFPAY ==
[2018-08-03 13:51] VITALS: BMI 29.5
[2018-08-11 11:02] LABS: Hematocrit 37.4 % (40-54); Hemoglobin 12.7 g/dl (13.0-16.5); Mean Corpuscular Hgb 30.2 pg (27.0-32.0); Mean Platelet Vol. 10.9 fl (6.2-12.0); Platelet Count 380 K/mm3 (150-450); RBC Distribution Width CV 13.9 % (11.6-14.6); RBC Distribution Width SD 44.4 fl (35.1-43.9)
[2018-08-11 11:05] LABS: Anion Gap 8 (5-15); BUN 13 mg/dL (7-18); BUN/Creat Ratio 13.2 RATIO (10-20); Calcium,Total 8.9 mg/dL (8.5-10.1); Chloride 104 mmol/L (98-107); Creatinine, Serum 0.98 mg/dL (0.70-1.30); EST Glomerular Filtration Rate 82 mL/min (>60); Est Glom Filt Rate - Afr Amer 99 mL/min (>60); Glucose 121 mg/dL (74-106); Potassium 4.7 mmol/L (3.5-5.1); Scan Indicated on CBC? Y/N NO; Sodium Level 135 mmol/L (136-145)
[2018-08-11 11:07] LABS: Erythrocyte Sedimentation Rate 69 mm/hr (0-20)
== END 2018-08-14 23:59 ==
LOC: HHLAB 10:15
PROVIDERS: Referring Provider Internal Medicine Infectious Disease; Visit Provider Internal Medicine Infectious Disease
DX: M00.811 Arthritis due to other bacteria, right shoulder (principal)
CPT/HCPCS: 80048; 85027; 85652

== ENCOUNTER 2018-08-18 13:19 | Outpatient (RCR) | payer MEDICARE, OTHER, SELFPAY ==
[2018-08-03 13:51] VITALS: BMI 29.5
[2018-08-18 14:12] LABS: Hematocrit 36.2 % (40-54); Hemoglobin 11.9 g/dl (13.0-16.5); Mean Corp Hgb Conc 32.9 g/gl (32-36); Mean Corpuscular Hgb 28.9 pg (27.0-32.0); Mean Corpuscular Volume 87.9 fL (80-94); Mean Platelet Vol. 10.5 fl (6.2-12.0); Platelet Count 226 K/mm3 (150-450); RBC Distribution Width SD 44.1 fl (35.1-43.9); Red Blood Count 4.12 M/mm3 (4.6-6.2); White Blood Count 4.9 K/mm3 (4.4-11.0)
[2018-08-18 14:15] LABS: Anion Gap 10 (5-15); BUN 11 mg/dL (7-18); BUN/Creat Ratio 12.2 RATIO (10-20); Calcium,Total 8.4 mg/dL (8.5-10.1); Chloride 100 mmol/L (98-107); EST Glomerular Filtration Rate 91 mL/min (>60); Erythrocyte Sedimentation Rate 42 mm/hr (0-20); Est Glom Filt Rate - Afr Amer 110 mL/min (>60); Glucose 102 mg/dL (74-106); Potassium 4.1 mmol/L (3.5-5.1); Sodium Level 135 mmol/L (136-145)
[2018-08-18 14:16] LABS: Scan Indicated on CBC? Y/N NO
== END 2018-09-14 23:59 ==
LOC: HHLAB 13:19
PROVIDERS: Referring Provider Internal Medicine Infectious Disease; Visit Provider Internal Medicine Infectious Disease
DX: L03.113 Cellulitis of right upper limb (principal); M00.811 Arthritis due to other bacteria, right shoulder
CPT/HCPCS: 80048; 85027; 85652

== ENCOUNTER → 2020-08-11 08:08 | Outpatient (CLI) | payer BC, SELFPAY ==
[2020-05-11 14:36] VITALS: BMI 29.5
[2020-08-11 12:33] LABS: Absolute Neutrophil Count 2.8 X10^3/uL (2.0-7.7); Basophil# 0.05 X10^3/uL; Eosinophils% 1.9 % (0-5); Hematocrit 43.3 % (40-54); Hemoglobin 14.4 g/dL (13.0-16.5); Lymphocyte % 30.7 % (19-41); Mean Corp Hgb Conc 33.3 g/dL (32-36); Mean Corpuscular Hgb 31.6 pg (27.0-32.0); Mean Platelet Vol. 11.1 fl (6.2-12.0); Monocyte# 0.69 X10^3/uL; Monocyte% 13.2 % (0-10); NRBC Flagged by Analyzer 0 % (0-5); Neutrophil # 2.75 X10^3/uL (2.7-7.7); Neutrophil % 52.8 % (47-70); Platelet Count 272 K/mm3 (150-450); RBC Distribution Width CV 14.2 % (11.6-14.6); RBC Distribution Width SD 49.5 fl (35.1-43.9); Red Blood Count 4.56 M/mm3 (4.6-6.2); White Blood Count 5.2 K/mm3 (4.4-11.0)
[2020-08-11 12:53] LABS: Hemoglobin A1c 5.4 % (3.8-5.6)
[2020-08-11 13:05] LABS: Albumin, Serum 3.9 g/dL (3.2-5.0); BUN 10 mg/dL (7-18); BUN/Creat Ratio 9.7 RATIO (10-20); Creatinine, Serum 1.03 mg/dL (0.70-1.30); EST Glomerular Filtration Rate 77 mL/min (>60); Est Glom Filt Rate - Afr Amer 94 mL/min (>60); Glucose 101 mg/dL (74-106)
[2020-08-11 13:06] LABS: AST(SGOT) 25 U/L (15-37); Alanine Aminotransfer ALT/SGPT 39 U/L (16-61); Alkaline Phosphatase 89 U/L (45-117); Anion Gap 6 (5-15); Calcium,Total 8.8 mg/dL (8.5-10.1); Chloride 103 mmol/L (98-107); Cholesterol 219 mg/dL (200); Globulin 4.1 g/dL (2.2-4.2); High Density Lipoprotein 66 mg/dL; PSA,Total - Annual Screen 6.49 ng/mL (0.00-4.00); Potassium 4.9 mmol/L (3.5-5.1); Sodium Level 134 mmol/L (136-145); Triglycerides 107 mg/dL; Very Low Density Lipoprotein 21 mg/dL (5-40)
== END ==
PROVIDERS: PCP Internal Medicine; Referring Provider Internal Medicine; Visit Provider Internal Medicine
DX: E78.5 Hyperlipidemia, unspecified (principal); I25.10 Atherosclerotic heart disease of native coronary artery without angina pectoris; K21.9 Gastro-esophageal reflux disease without esophagitis; R97.20 Elevated prostate specific antigen [PSA]
CPT/HCPCS: 36415; 80053; 80061; 83036; 84153; 84443; 85025; G0103

== ENCOUNTER → 2021-11-14 | Outpatient (CLI) | payer MEDICARE, SELFPAY ==
--- NOTE | 2021-11-14 15:59 | RAD_ITS ---
STUDY: XR Chest 2 Views 11/14/2021 4:03 PM REASON FOR EXAM: Male, 66 years old. CHEST PAIN cough, rales right post COMPARISON: 05/30/2018 TECHNIQUE: XR Chest 2 Views FINDINGS: There is no demonstrated pleural abnormality. Normal heart size. Normal mediastinum. Normal jesus. Prominent appearing increased interstitial lung markings. Normal visualized pulmonary arteries. There is atherosclerotic calcification of the aortic arch with tortuosity. There are diffuse degenerative changes of the visualized thoracic spine. There is degenerative osteoarthritis of the bilateral shoulders. There is no demonstrated abnormality of the visualized soft tissue structures of the upper abdomen. RAD/Chest PA and Lateral IMPRESSION: There are no acute findings. Electronically Signed: Wilian Colindres MD at 16:55 EDT ,
== END | disposition home or self-care (01) ==
PROVIDERS: PCP Internal Medicine; Referring Provider Internal Medicine; Visit Provider Internal Medicine
DX: R05.9 Cough, unspecified (principal)
CPT/HCPCS: 71046

== ENCOUNTER 2022-06-05 13:30 | Emergency (ER) | payer OTHER, MEDICARE, SELFPAY ==
[2022-06-05 13:30] VITALS: BP 118/77; PULSE 87
[2022-06-05 13:31] VITALS: BP 176/91; PULSE 77; RESP 16; TEMP 36.6; O2SAT 98; BMI 30.9
--- NOTE | 2022-06-05 13:39 | EKG12_ITS ---
Test Reason : CP Blood Pressure : / mmHG Vent. Rate : 065 BPM Atrial Rate : 065 BPM P-R Int : 176 ms QRS Dur : 098 ms QT Int : 392 ms P-R-T Axes : 051 045 045 degrees QTc Int : 407 ms Normal sinus rhythm Minimal voltage criteria for LVH, may be normal variant ( Sokolow-Dugan ) Borderline ECG Confirmed by BAKARI DILLARD, MEGAN ([id number]), photography editor ISELA PRESSLEY ([id number]) on 06/06/2022 11:10:31 AM Referred By: SALLIE/IRVIN Confirmed By:MEGAN VILLEGAS MD
[2022-06-05 13:54] LABS: Absolute Lymphocyte Count 2.05 X10^3/uL (0.83-4.51); Absolute Neutrophil Count 3.3 X10^3/uL (2.0-7.7); Basophil# 0.06 X10^3/uL; Basophil% 0.9 % (0-1); Eosinophil# 0.11 X10^3/uL; Eosinophils% 1.7 % (0-5); Hematocrit 40.8 % (40-54); Hemoglobin 13.9 g/dL (13.0-16.5); Lymphocyte # 2.05 X10^3/ul (0.83-4.51); Mean Corp Hgb Conc 34.1 g/dL (32-36); Mean Corpuscular Hgb 31.5 pg (27.0-32.0); Mean Corpuscular Volume 92.5 fL (80-94); Monocyte# 0.87 X10^3/uL; Monocyte% 13.6 % (0-10); NRBC Flagged by Analyzer 0 % (0-5); Neutrophil % 51.6 % (47-70); Platelet Count 266 K/mm3 (150-450); RBC Distribution Width CV 14.4 % (11.6-14.6); RBC Distribution Width SD 49.1 fl (35.1-43.9); Red Blood Count 4.41 M/mm3 (4.6-6.2); White Blood Count 6.4 K/mm3 (4.4-11.0)
--- NOTE | 2022-06-05 13:55 | EDS_ITS ---
HPI History of Present Illness Chief Complaint: Chest Pain Detail of Chief Complaint: Chest pain Informant: patient Narrative Narrative: Patient presents with chest pain that started this morning. Patient described a fluttering intermittently in his chest and then developed chest discomfort in the left upper chest that sharp and stabbing and intermittent lasts a few seconds. Patient has heart history with 3 stents placed in 2012. Patient denies recent travel or surgery. He denies recent illness. He denies cough. Patient is a smoker. Patient does have a few alcoholic drinks daily. Prior Similar Symptoms: No PFSH PFSH Medical History Alcohol abuse Anxiety Essential hypertension Myocardial infarct Other and unspecified hyperlipidemia Home Medications aspirin 81 mg chewable tablet 81 mg PO DAILY 08/03/18 [History Last Taken 0 08/03/18] acetaminophen 325 mg tablet 650 mg PO Q6H PRN PRN Mild Pain (scale 0-3)/T>100.7 08/07/18 [Rx Last Taken Unknown] alprazolam 0.5 mg tablet 0.5 mg PO BID PRN anxiety 04/27/20 [History Last Taken Unknown] nitroglycerin 0.4 mg sublingual tablet 0.4 mg sublingual PRN PRN Pain #20 tabs 04/27/20 [Rx Last Taken Unknown] trazodone 100 mg tablet 100 mg PO QHS PRN 04/27/20 [History Last Taken Unknown] atorvastatin 40 mg tablet 80 mg PO DAILY 02/23/21 [History Last Taken Unknown] docusate sodium 50 mg capsule 50 mg PO DAILY 02/23/21 [History Last Taken Unknown] omeprazole 20 mg capsule,delayed release 20 mg PO DAILY #90 caps 09/12/21 [Rx Last Taken Unknown] azithromycin 250 mg tablet (Zithromax) See Rx Instructions PO .COMPLEX #6 tabs 11/14/21 [Rx Last Taken Unknown] guaifenesin 100 mg/5 mL oral liquid 200 mg (10 mL) PO Q4H PRN cough #200 mL 11/14/21 [Rx Last Taken Unknown] amlodipine 10 mg tablet 10 mg PO DAILY #90 tabs 01/12/22 [Rx Last Taken Unknown] benazepril 10 mg tablet 10 mg PO DAILY #90 tabs 01/12/22 [Rx Last Taken Unknown] Allergy/AdvReac Type Severity Reaction Status Date / Time codeine Allergy Itching Verified 06/05/22 13:32 oxycodone Allergy Itching Verified 06/05/22 13:32 Family History Father CVA (cerebral vascular accident) Hypertension Mother COPD (chronic obstructive pulmonary disease) Hypertension Thyroid disorder Sister Hypertension Brother Hypertension Other Myocardial infarction Surgical History CAD (coronary artery disease), autologous vein bypass graft Social History Smoking Status: Current some day smoker alcohol intake: current alcohol intake frequency: 3 or more drinks per day Alcohol type: beer substance use type: does not use ROS ROS ED Review of Systems ROS Unobtainable: other Constitutional Constitutional ED: Reports lethargy; Denies chills, fever(s), sweats or weight loss Eyes Eyes: Denies blurry vision, change in vision or diplopia ENT ENT ED: Denies rhinorrhea or sore throat Cardiovascular Cardiovascular: Reports chest pain; Denies orthopnea, palpitations or racing heartbeat Respiratory/Chest Respiratory/Chest: Denies cough, dyspnea, dyspnea on exertion, orthopnea or sputum Gastrointestinal Gastrointestinal: Denies abdominal pain, diarrhea, nausea or vomiting Genitourinary Genitourinary ED: Denies dysuria, hematuria or urinary frequency Musculoskeletal Musculoskeletal: Denies arthralgias, back pain, myalgias or neck pain Integumentary Denies abscess, Abrasions or rash Neurologic Neurologic: Denies headache(s) or weakness Psychiatric Psychiatric: Denies anxiety, depression or suicidal thoughts Endocrine Endocrinology: Denies polydipsia, polyphagia or polyuria Hematologic/Lymphatic Hematologic/Lymphatic: Denies easy bleeding, easy bruising or lymphadenopathy Allergic/Immunologic Allergic/Immunologic ED: Denies mouth swelling, tongue swelling or urticaria EXAM Physical Exam Const Vital Signs: 06/05/22 13:31 Temperature 98 F Temperature Source Temporal Pulse Rate 77 Respiratory Rate 16 Blood Pressure 176/91 H Blood Pressure Mean 119 Pulse Ox 98 Oxygen Delivery Method Room Air Positive well nourished and well developed General Appearance ED: well developed and NAD HEENT Reports TM's clear and moist mucous membranes normocephalic and atraumatic; Negative for trauma or tenderness Tympanic Membrane ED: Yes TM's clear Eyes PERRL and EOMs intact bilaterally General Eye ED: Negative for pale conjunctiva or scleral icterus Neck no lymphadenopathy, supple and no JVD General: Negative for tenderness Chest Wall inspection of chest normal and palpation of chest normal Chest: Negative for tenderness Resp normal respiratory effort and clear to auscultation bilaterally Effort and Inspection: Negative for respiratory distress or pain with movement Auscultation: Negative for rhonchi, wheezes or diminished lung sounds Cardio regular rate, regular rhythm, S1 normal heart sound, S2 normal heart sound and no murmurs Peripheral Pulses: pulses 2+ throughout GI normal to inspection, nondistended, normoactive bowel sounds, soft to palpation, non-tender, non-distended and no masses Back/Spine no CVA tenderness and no thoracic nor lumbar tenderness Extremity normal to inspection General Extremety ED: Negative for edema General Extremity: Negative for edema Neuro oriented x3, CN's II-XII intact bilaterally, no sensory deficits noted and gait normal Sensorium / Orientation: awake, alert, oriented to person, oriented to place and oriented to time Motor Exam: strength 5/5 throughout and strength abnormal Psych mental status grossly normal Skin no rashes or lesions noted and no wounds Heart Score History: Slightly/Non-Suspicious ECG: Normal Age: >/= 65 years Risk Factors: >/= 3 Risk Factors or History of CAD Troponin: </= Normal Limit Score: 4 MDM MDM MDM Narrative Medical decision making narrative: IV line established on arrival. Patient was given aspirin. Patient placed on a medicaid service coordinator. Patient did not want to try nitroglycerin as he took some at home and it did not help his discomfort. Clinically I do not suspect acute coronary syndrome. Patient had an initial troponin that was normal. D-dimer was normal and corrected for age. Chest x-ray was unremarkable. Given his heart history will obtain a delta troponin and if normal feel he can be safely discharged to home. Patient advised to follow-up with his primary care physician within next 3 to 5 days. He is to return if worsening pain, increasing shortness of breath, exertional dyspnea, or condition should worsen anyway. Lab Data Attestation: I reviewed the patient's lab results. Labs: Laboratory Results - last 24 hr 06/05/22 06/05/22 06/05/22 13:48 13:48 14:54 WBC 6.4 RBC 4.41 L Hgb 13.9 Hct 40.8 MCV 92.5 MCH 31.5 MCHC 34.1 RDW Std Deviation 49.1 H RDW Coeff of Judah 14.4 Plt Count 266 MPV 10.0 Immature Gran % (Auto) 0.200 Neut % (Auto) 51.6 Lymph % (Auto) 32.0 [place] % (Auto) 13.6 H Eos % (Auto) 1.7 Baso % (Auto) 0.9 Absolute Neuts (auto) 3.3 Absolute Lymphs (auto) 2.05 Nucleated RBC % 0 D-Dimer Quant (PE/DVT) Cancelled Sodium 137 Potassium 4.4 Chloride 105 Carbon Dioxide 27.0 Anion Gap 5 BUN 13 Creatinine 1.01 Estim Creat Clear Calc 61.06 Est GFR (MDRD) Af Amer 95 Est GFR (MDRD) Non-Af 79 BUN/Creatinine Ratio 12.9 Glucose 117 H Calcium 8.4 L Troponin I High Sens 8 Ethyl Alcohol 06/05/22 06/05/22 06/05/22 14:54 15:10 15:55 WBC RBC Hgb Hct MCV MCH MCHC RDW Std Deviation RDW Coeff of Judah Plt Count MPV Immature Gran % (Auto) Neut % (Auto) Lymph % (Auto) [place] % (Auto) Eos % (Auto) Baso % (Auto) Absolute Neuts (auto) Absolute Lymphs (auto) Nucleated RBC % D-Dimer Quant (PE/DVT) 0.52 H* Sodium Potassium Chloride Carbon Dioxide Anion Gap BUN Creatinine Estim Creat Clear Calc Est GFR (MDRD) Af Amer Est GFR (MDRD) Non-Af BUN/Creatinine Ratio Glucose Calcium Troponin I High Sens 10 Ethyl Alcohol < 3.0 Radiography Chest X-Ray - ED: 1 View Diagnostic Testing: Clinical Impression(s) from Imaging Studies Chest X-Ray 06/05/22 14:52 IMPRESSION: No acute abnormality is seen. Electronically Signed: Kyle Chopra MD at 15:13 EST , 1 view chest x-ray obtained interpreted by myself no acute disease process. Radiology in agreement. EKG Initial EKG: Attestation: I personally reviewed and interpreted this EKG as follows: Comments: Sinus rhythm with a ventricular rate of 65 bpm with no acute ST segment changes noted. Prior EKG tracings: available for review Prior: Unchanged Discharge Plan Triage Chief Complaint: Chest Pain ED Provider: Oskar Means Dx/Rx/DC Orders Clinical Impression: Chest pain Instructions: ED Chest Pain, Uncertain Cause Prescriptions: No Action trazodone 100 mg tablet 100 mg PO QHS PRN Rx Instructions: [facility] Ariadne [facility] nitroglycerin 0.4 mg tablet, sublingual 0.4 mg SUBLINGUAL PRN PRN (Reason: Pain) Qty: 20 0RF docusate sodium 50 mg capsule 50 mg PO DAILY azithromycin [Zithromax] 250 mg tablet See Rx Instructions PO .COMPLEX Qty: 6 0RF Rx Instructions: For 250 mg dose pack: take 500 mg today (day 1), then 250 mg for 4 days (days 2-5) PO guaifenesin 100 mg/5 mL liquid 200 mg PO Q4H PRN (Reason: cough) Qty: 200 0RF aspirin 81 MG tablet,chewable 81 mg PO DAILY acetaminophen 325 MG tablet 650 mg PO Q6H PRN PRN (Reason: Mild Pain (scale 0-3)/T>100.7) 0RF alprazolam 0.5 mg tablet 0.5 mg PO BID PRN (Reason: anxiety) Rx Instructions: [facility] [place] [employer] atorvastatin 40 mg tablet 80 mg PO DAILY omeprazole 20 mg capsule,delayed release(DR/EC) 20 mg PO DAILY Qty: 90 3RF benazepril 10 mg tablet 10 mg PO DAILY Qty: 90 3RF amlodipine 10 mg tablet 10 mg PO DAILY Qty: 90 3RF Primary Care Provider: Dhara Best Referrals: Dhara Best MD [Primary Care Provider] - 3-5 Days Disposition Disposition: Home, Self Care
[2022-06-05 14:12] LABS: Anion Gap 5 (5-15); BUN 13 mg/dL (7-18); BUN/Creat Ratio 12.9 RATIO (10-20); Calcium,Total 8.4 mg/dL (8.5-10.1); Chloride 105 mmol/L (98-107); Creatinine, Serum 1.01 mg/dL (0.70-1.30); EST Glomerular Filtration Rate 79 mL/min (>60); Est Glom Filt Rate - Afr Amer 95 mL/min (>60); Estimated Creatinine Clearance 61.06 ml/min; Glucose 117 mg/dL (74-106); Potassium 4.4 mmol/L (3.5-5.1); Sodium Level 137 mmol/L (136-145); Troponin-I HS 8 pg/mL (3.0-78.0)
[2022-06-05 14:30] VITALS: BP 118/78; PULSE 93; RESP 24; O2SAT 95
[2022-06-05] MEDS: Aspirin 81 MG TAB.CHEW 324 MG PO (14:42)
[2022-06-05] MEDS: 0.9% Normal Saline 1,000 ML 150 ML IV (14:42)
--- NOTE | 2022-06-05 14:52 | RAD_ITS ---
STUDY: X-RAY CHEST REASON FOR EXAM: Male, 66 years old. Chest pain TECHNIQUE: Single AP portable view of the chest. COMPARISON: Comparison is made with prior examination dated 11/14/2021. FINDINGS: The lungs are clear and expanded. There is no demonstrated pleural abnormality. Normal size heart. Normal mediastinum and jesus. Normal visualized pulmonary arteries. There is atherosclerotic calcification of the aortic arch with tortuosity. Normal visualized thoracic spine. Prior resection of the distal portion of the right clavicle. There is no demonstrated abnormality of the visualized soft tissue structures of the upper abdomen. RAD/Chest 1 View (Portable) IMPRESSION: No acute abnormality is seen. Electronically Signed: Kyle Chopra MD at 15:13 EST ,
[2022-06-05] MEDS: Morphine 4 MG/ML Syringe IV (15:20)
[2022-06-05] MEDS: Ondansetron 4 MG/2 ML Vial IV (15:20)
[2022-06-05 15:32] LABS: D-Dimer Quantitative (DVT/PE) 0.52 FEU/ug/m (0.27-0.49)
[2022-06-05 15:46] LABS: Alcohol, Blood (Medical)-Serum < 3.0 mg/dL
[2022-06-05 16:00] VITALS: BP 122/76; PULSE 90; RESP 22; O2SAT 94
[2022-06-05 16:28] LABS: Troponin-I HS 10 pg/mL (3.0-78.0)
[2022-06-05 16:53] VITALS: BP 121/76; PULSE 90; RESP 14; O2SAT 97
== END 2022-06-05 16:57 | disposition home or self-care (01) ==
PROVIDERS: Emergency Provider Emergency Medicine; PCP Internal Medicine; Visit Provider Emergency Medicine
DX: R07.9 Chest pain, unspecified (principal); F17.200 Nicotine dependence, unspecified, uncomplicated; I25.10 Atherosclerotic heart disease of native coronary artery without angina pectoris; I25.2 Old myocardial infarction
CPT/HCPCS: 71045; 80048; 82077; 84484; 85025; 85379; 93005; 96361; 96374; 99284; J7030; A4216; J2405

== ENCOUNTER → 2023-04-03 | Outpatient (CLI) | payer MEDICARE, SELFPAY ==
[2023-04-03 06:45] LABS: Absolute Lymphocyte Count 1.64 X10^3/uL (0.83-4.51); Absolute Neutrophil Count 3.4 X10^3/uL (2.0-7.7); Basophil# 0.07 X10^3/uL; Basophil% 1.2 % (0-1); Eosinophil# 0.07 X10^3/uL; Eosinophils% 1.2 % (0-5); Hematocrit 42.2 % (40-54); Hemoglobin 13.9 g/dL (13.0-16.5); Lymphocyte # 1.64 X10^3/ul (0.83-4.51); Lymphocyte % 28.1 % (19-41); Mean Corp Hgb Conc 32.9 g/dL (32-36); Mean Corpuscular Hgb 30.5 pg (27.0-32.0); Mean Corpuscular Volume 92.7 fL (80-94); Mean Platelet Vol. 10.7 fl (6.2-12.0); NRBC Flagged by Analyzer 0 % (0-5); Neutrophil # 3.35 X10^3/uL (2.7-7.7); Neutrophil % 57.3 % (47-70); Platelet Count 304 K/mm3 (150-450); RBC Distribution Width CV 14.2 % (11.6-14.6); RBC Distribution Width SD 48.1 fl (35.1-43.9); Red Blood Count 4.55 M/mm3 (4.6-6.2); White Blood Count 5.8 K/mm3 (4.4-11.0)
[2023-04-03 07:19] LABS: Anion Gap 6 (5-15); BUN 12 mg/dL (7-18); BUN/Creat Ratio 12.3 RATIO (10-20); Calcium,Total 8.8 mg/dL (8.5-10.1); Chloride 107 mmol/L (98-107); Cholesterol 177 mg/dL (200); Creatinine, Serum 0.98 mg/dL (0.70-1.30); EST Glomerular Filtration Rate 82 mL/min (>60); Est Glom Filt Rate - Afr Amer 99 mL/min (>60); Glucose 110 mg/dL (74-106); High Density Lipoprotein 55 mg/dL; Potassium 3.9 mmol/L (3.5-5.1); Sodium Level 138 mmol/L (136-145); Thyroid Stim Hormone (TSH) 2.82 uIU/mL (0.358-3.74); Triglycerides 151 mg/dL; Very Low Density Lipoprotein 30 mg/dL (5-40)
== END | disposition home or self-care (01) ==
LOC: LAB 06:01
PROVIDERS: PCP Internal Medicine; Referring Provider Internal Medicine Cardiovascular Disease; Visit Provider Internal Medicine Cardiovascular Disease
DX: I51.7 Cardiomegaly (principal); M00.9 Pyogenic arthritis, unspecified; I10 Essential (primary) hypertension
CPT/HCPCS: 36415; 80048; 80061; 84443; 85025

== ENCOUNTER → 2023-04-11 | Outpatient (CLI) | payer MEDICARE, SELFPAY ==
--- NOTE | 2023-04-11 06:55 | ECHOD_ITS ---
Reason For Study: CHEST PAIN Procedure This was a 2D Doppler, Color Flow transthoracic echocardiogram. Exam performed in department. Left Ventricle Normal LV size. Mild concentric left ventricular hypertrophy. The left ventricular ejection fraction is 65 %. Stage 1 diastolic dysfunction. Right Ventricle Normal right ventricle. Atria The left atrium is severely enlarged. Normal right atrium. Mitral Valve Mild-Moderate (1-2+) mitral valve insufficiency. Tricuspid Valve Trivial tricuspid valve insufficiency. Unable to estimate RV systolic pressure due to insufficient tricuspid regurgitant envelope. Aortic Valve Moderate diffuse aortic valve thickening. Aortic sclerosis, no stenosis. Pulmonic Valve The pulmonic valve is not well visualized. Great Vessels Mildly dilated aortic root. Pericardium/Pleural No pericardial effusion. MMode/2D Measurements & Calculations LVIDd: 4.6 cm IVSd: 1.7 cm LVOT diam: 2.1 cm LVIDs: 3.5 cm LVPWd: 1.3 cm LVOT area: 3.4 cm2 RVDd: 2.9 cm FS: 22.2 % Ao root diam: 3.7 cm LAV(MOD-bp): 62.1 ml LVAd ap4: 28.0 cm2 LAV(MOD-bp) Indexed: 39.0 ml/m2 LVLd ap4: 7.2 cm LAV(MOD-sp2): 56.8 ml EDV(MOD-sp4): 89.6 ml LAV(MOD-sp4): 57.8 ml EDV(sp4-el): 92.4 ml LVAs ap4: 15.5 cm2 LVLs ap4: 5.8 cm ESV(MOD-sp4): 37.2 ml ESV(sp4-el): 34.8 ml EF(MOD-sp4): 58.4 % EF(sp4-el): 62.3 % SV(MOD-sp4): 52.3 ml SV(sp4-el): 57.6 ml LA A4 area: 19.8 cm2 LA dimension(2D): 3.8 cm RA A4 area: 15.0 cm2 TAPSE: 2.3 cm Time Measurements MV dec time: 0.22 sec Doppler Measurements & Calculations MV E max bandar: 70.7 cm/sec Lat Peak E' Bandar: 7.6 cm/sec Med Peak E' Bandar: 6.5 cm/sec MV A max bandar: 90.6 cm/sec E/E' lat: 9.4 E/E' med: 10.9 MV E/A: 0.78 MV V2 max: 91.1 cm/sec Ao V2 max: 190.3 cm/sec MV max P.3 mmHg MV dec slope: 329.4 cm/sec2 Ao max P.5 mmHg MV V2 mean: 48.9 cm/sec Ao V2 mean: 117.9 cm/sec MV mean P.1 mmHg Ao mean P.6 mmHg MV V2 VTI: 37.8 cm Ao V2 VTI: 46.0 cm AV (velocity ratio): 0.59 MVA(VTI): 2.4 cm2 MIKIE(I,D): 2.0 cm2 MIKIE(V,D): 2.0 cm2 LV V1 max: 112.7 cm/sec SV(LVOT): 92.4 ml PA V2 max: 111.8 cm/sec LV V1 max P.1 mmHg PA V2 mean: 77.0 cm/sec LV V1 mean P.5 mmHg LV V1 mean: 72.9 cm/sec LV V1 VTI: 27.3 cm ECHO/Echo Complete Interpretation Summary Mild concentric left ventricular hypertrophy. The left ventricular ejection fraction is 65 %. Stage 1 diastolic dysfunction. The left atrium is severely enlarged. Mild-Moderate (1-2+) mitral valve insufficiency. Moderate diffuse aortic valve thickening. Mildly dilated aortic root. Ordering Physician: Von Redd Referring Physician: Von Redd Performed By: Beatriz Cabral RCS
--- NOTE | 2023-04-11 11:36 | STRESSREP ---
Stress Test Report Date: 04/11/2023 Procedure: Exercise tolerance test/imaging study Indications: Chest pain Consent: Per the patient Procedure: The patient exercised on a Elijah protocol for 6 minutes achieving a peak heart rate of 137 bpm (88% predicted maximal heart rate) with a peak blood pressure 192/88 mmHg and a peak MET capacity of 7.0 METs. The baseline ECG demonstrated normal sinus rhythm. The peak exercise ECG demonstrated no diagnostic ischemic changes secondary to baseline motion artifact with exercise. There were no cardiac dysrhythmias pretest, during exercise, or recovery. The functional capacity was considered average. There was no complaint of chest discomfort during exercise or recovery. The examination was discontinued secondary to target heart rate being achieved and dyspnea. The patient was injected with 13.0 mCi of technetium 99m Cardiolite and subsequently rest SPECT Cardiolite nuclear imaging was obtained in the horizontal long, vertical long, and short axis views. Post-exercise, the patient was injected with 43.1 mCi of technetium 99m Cardiolite and subsequently stress SPECT Cardiolite nuclear imaging was obtained in the horizontal long, vertical long, and short axis views. A gated Cardiolite study at peak stress was obtained. Rest and stress SPECT Cardiolite nuclear imaging status post realignment, normalization, and attenuation correction, demonstrates a moderate-sized fixed defect of the inferior wall consistent with prior infarct. No significant digna-infarct ischemia noted. There is end systolic thickening and brightening. The gated Cardiolite study demonstrates myocardial thickening and inward wall motion. The reported LVEF is 60 to %. Impression: 1. Technically adequate (percent predicted maximal heart rate greater than 85%) exercise tolerance test 2. Peak exercise ECG nondiagnostic 3. Rare PVC noted in recovery 4. Rest and stress SPECT Cardiolite nuclear imaging demonstrate fixed inferior defect consistent with prior infarct. 5. The gated Cardiolite study reports an LVEF of 60 to %. This note was generated with [employer] software. It may contain incorrect words, spelling, and punctuation that were not noted in checking the note before signing.
== END | disposition home or self-care (01) ==
LOC: CVS 06:46
PROVIDERS: PCP Internal Medicine; Referring Provider Internal Medicine Cardiovascular Disease; Visit Provider Internal Medicine Cardiovascular Disease
DX: R07.9 Chest pain, unspecified (principal); I51.7 Cardiomegaly
CPT/HCPCS: 78452; 93017; 93306; A9500; A4216

== ENCOUNTER → 2023-07-17 | Outpatient (CLI) | payer MEDICARE, SELFPAY ==
--- NOTE | 2023-07-17 | CYSPIN_PTH ---
PATHOLOGY RESULTS PATIENT: SENA SARMIENTO LOC: LAB U#:[id number] AGE/SX: 67/M ROOM: RE07/17/[address]: Dr. Dhara Best MD : [id number] BED: DIS: 07/17/2023 SPEC #: [id number] RECD: 07/17/23 11:28 STATUS: SANJAY DAIShelbi #: [id number] NAYA: 07/17/23 00:[address]: Dhara Best DEPT: CYTOLOGY RECD BY: Olivia Fine ENTERED: 07/17/23 11:29 SP TYPE: CYSPIN FL Tissues: Urine Procedures: Pap Stain (control) Special Stain Group II Cytospin Fluid HEADER OPERATION: Not noted PRE-OP DIAGNOSIS: Not noted TISSUE SUBMITTED: Urine for cytology DIAGNOSIS CYTOLOGY Urine for cytology (cytospin): Negative for high-grade urothelial carcinoma (NHGUC), Ava System Category II. See comment. AM:priscilla 07/18/2023 COMMENT The Ava System for urine cytology diagnostic categorization was used in the evaluation of this case. CYTOLOGY STUDY Slides are reviewed. CYTOLOGY GROSS Received is 50 ml of clear yellow fluid labeled with the patient's name and and designated per the requisition as urine. Submitted for cytology preparation. / priscilla 07/17/2023 TC:5 CPT: 44053
[2023-07-17 10:47] LABS: Bacteria 0 SEEN /hpf (None Seen); Cytology, Body Fluid / CSF SEE PATHOLOGY REPORT; Mucous, Urine 0 SEEN /hpf (<or=2+); Red Blood Cells-Urine 0 SEEN /hpf (0-5); Squamous Epithelial Cells - UA 0 SEEN /hpf (0-5); White Blood Cells 0 SEEN /hpf (0-5)
[2023-07-17 11:08] LABS: Color, Urine Straw (Yellow); Glucose, Dipstick Normal (Normal); Ketone-Dipstick Negative (Negative); Leukocyte Esterase-Dipstick Negative /ul (Negative); Nitrite-Dipstick Negative (Negative); Occult Blood-Urine Negative /ul (Negative); Protein-Dipstick Negative (Negative); Specific Gravity, Urine 1.005 (1.002-1.030); Urine Bilirubin Dipstick Negative (Negative); Urine Clarity Clear (Clear); Urine Urobilinogen Normal (Normal)
[2023-07-17 11:09] LABS: Absolute Lymphocyte Count 2.03 X10^3/uL (0.83-4.51); Absolute Neutrophil Count 2.6 X10^3/uL (2.0-7.7); Basophil# 0.06 X10^3/uL; Basophil% 1.1 % (0-1); Eosinophil# 0.09 X10^3/uL; Eosinophils% 1.6 % (0-5); Hematocrit 40.4 % (40-54); Hemoglobin 13.7 g/dL (13.0-16.5); Lymphocyte # 2.03 X10^3/ul (0.83-4.51); Lymphocyte % 36.8 % (19-41); Mean Corp Hgb Conc 33.9 g/dL (32-36); Mean Corpuscular Hgb 30.8 pg (27.0-32.0); Mean Corpuscular Volume 90.8 fL (80-94); Mean Platelet Vol. 10.3 fl (6.2-12.0); Monocyte# 0.67 X10^3/uL; Monocyte% 12.2 % (0-10); NRBC Flagged by Analyzer 0 % (0-5); Neutrophil # 2.64 X10^3/uL (2.7-7.7); Neutrophil % 47.9 % (47-70); Platelet Count 286 K/mm3 (150-450); RBC Distribution Width CV 13.7 % (11.6-14.6); RBC Distribution Width SD 45.8 fl (35.1-43.9); Red Blood Count 4.45 M/mm3 (4.6-6.2); White Blood Count 5.5 K/mm3 (4.4-11.0)
[2023-07-17 11:35] LABS: Vitamin D,25 Hydroxy 26.1 ng/mL
[2023-07-17 11:42] LABS: AST(SGOT) 16 U/L (15-37); Alanine Aminotransfer ALT/SGPT 31 U/L (16-61); Albumin, Serum 3.8 g/dL (3.2-5.0); Alkaline Phosphatase 82 U/L (45-117); Anion Gap 5 (5-15); BUN 8 mg/dL (7-18); BUN/Creat Ratio 7.7 RATIO (10-20); Calcium,Total 8.9 mg/dL (8.5-10.1); Chloride 105 mmol/L (98-107); Creatinine, Serum 1.04 mg/dL (0.70-1.30); EST Glomerular Filtration Rate 76 mL/min (>60); Est Glom Filt Rate - Afr Amer 92 mL/min (>60); Globulin 3.8 g/dL (2.2-4.2); Glucose 105 mg/dL (74-106); PSA,Total- Diagnostic 7.73 ng/mL (0.0-4.0); Potassium 4.1 mmol/L (3.5-5.1); Protein, Total 7.6 g/dL (6.4-8.2); Sodium Level 135 mmol/L (136-145); Thyroid Stim Hormone (TSH) 1.56 uIU/mL (0.358-3.74)
--- OUTSIDE RECORDS SUMMARY | 2023-07-17 11:59 | XMS RPT_ITS | CCD ---
Author Name Unknown Address [address] [place] [id number] Organization [facility] Care Team Providers Care Showcase Maker Name Role Phone CIARA, MOHAN PAC Unavailable Unavailable CIARA, MOHAN PAC Unavailable Unavailable CIARA, MOHAN PAC Unavailable Unavailable CIARA, MOHAN PAC Unavailable Unavailable CIARA, MOHAN PAC Unavailable Unavailable CIARA, MOHAN PAC Unavailable [facility]available [facility] Un[facility] Unavailable Problems Problem Classification Problem Date Documented Da te Episodic/Chronic Other connective tissue disease (3 sources) Bursitis of right shoulder; Translations: [Bursitis of right shoulder] Onset: 09-03-2017 Episodic Sprains and strains (1 source) Other sprain of right shoulder joint, initial encounter; Translations: [Other sprain of right shoulder joint, initial encounter] Onset: 09-03-2017 Episodic Results Test Name Value Interpretation Reference Range Facil ity Encounters Encounter Date Encounter Type Care Provider Facility Start: 11-06-2017 End: 11-06-2017 [facility] Start: 09-03-2017 End: 09-25-2017 [facility] Payers Date Payer Category Payer Policy ID Medicare [id number] Summary Purpose Family History No Family History Records Found Advance Directives No Advanced Directives Records Found Additional Source Comments (unrecognized sect ion and content) No Status Records Found INFORMATION SOURCE (unrecogn ized section and content) FOR RECORDS PERTAINING TO PATIENTS WHO ARE OR HAVE BEEN ENROLLED IN A CHEMICAL DEPENDENCY/SUBSTANCEABUSE PROGRAM, SOME INFORMATION MAY BE OMITTED. This clinical summary was aggregated from multiple sources. Caution should be exercised in using it in the provision of clinical care. This summary normalizes information from multiple sources, and as a consequence, information in this document may materially change the coding, format and clinical context of patient data. In addition, data may be omitted in some cases. CLINICAL DECISIONS SHOULD BE BASED ON THE PRIMARY CLINICAL RECORDS. [facility]. provides no warranty or guarantee of the accuracy or completeness of information in this document.
[2023-07-25 13:07] LABS: Testosterone, % Free 2.87 % (1.50-4.20); Testosterone, Free 11.51 ng/dL (5.00-21.00); Testosterone, Total 401 ng/dL (264-916)
== END | disposition home or self-care (01) ==
PROVIDERS: PCP Internal Medicine; Visit Provider Internal Medicine
DX: R30.0 Dysuria (principal); M00.9 Pyogenic arthritis, unspecified; R35.0 Frequency of micturition; N40.1 Benign prostatic hyperplasia with lower urinary tract symptoms; I25.10 Atherosclerotic heart disease of native coronary artery without angina pectoris; I10 Essential (primary) hypertension; E78.5 Hyperlipidemia, unspecified; I51.7 Cardiomegaly; E55.9 Vitamin D deficiency, unspecified; R53.83 Other fatigue
CPT/HCPCS: 36415; 80053; 81001; 82306; 84153; 84402; 84403; 84443; 85025; 87086; 88108; 88313

== ENCOUNTER → 2023-10-29 | Outpatient (CLI) | payer MEDICARE, SELFPAY ==
[2023-10-29 07:17] LABS: Hematocrit 40.8 % (40-54); Hemoglobin 13.8 g/dL (13.0-16.5); Mean Corp Hgb Conc 33.8 g/dL (32-36); Mean Corpuscular Hgb 30.7 pg (27.0-32.0); Mean Corpuscular Volume 90.7 fL (80-94); Mean Platelet Vol. 10.6 fl (6.2-12.0); Platelet Count 259 K/mm3 (150-450); RBC Distribution Width CV 13.6 % (11.6-14.6); RBC Distribution Width SD 45.6 fl (35.1-43.9)
[2023-10-29 07:54] LABS: AST(SGOT) 18 U/L (15-37); Alanine Aminotransfer ALT/SGPT 29 U/L (16-61); Albumin, Serum 3.6 g/dL (3.2-5.0); Alkaline Phosphatase 71 U/L (45-117); Anion Gap 4 (5-15); BUN 7 mg/dL (7-18); BUN/Creat Ratio 6.8 RATIO (10-20); CPK Total, Creatine Kinase 103 U/L (39-308); Chloride 99 mmol/L (98-107); Cholesterol 212 mg/dL (200); Creatinine, Serum 1.03 mg/dL (0.70-1.30); EST Glomerular Filtration Rate 77 mL/min (>60); Est Glom Filt Rate - Afr Amer 93 mL/min (>60); Globulin 3.7 g/dL (2.2-4.2); Glucose 104 mg/dL (74-106); High Density Lipoprotein 65 mg/dL; Potassium 4.4 mmol/L (3.5-5.1); Protein, Total 7.3 g/dL (6.4-8.2); Sodium Level 133 mmol/L (136-145); Triglycerides 155 mg/dL; Very Low Density Lipoprotein 31 mg/dL (5-40)
== END | disposition home or self-care (01) ==
PROVIDERS: PCP Internal Medicine; Referring Provider Internal Medicine Cardiovascular Disease; Visit Provider Internal Medicine Cardiovascular Disease
DX: I51.7 Cardiomegaly (principal); I34.0 Nonrheumatic mitral (valve) insufficiency; R06.09 Other forms of dyspnea; E78.5 Hyperlipidemia, unspecified; I25.10 Atherosclerotic heart disease of native coronary artery without angina pectoris; I10 Essential (primary) hypertension
CPT/HCPCS: 36415; 80053; 80061; 82550; 85027

== ENCOUNTER → 2023-11-08 | Outpatient (CLI) | payer MEDICARE, SELFPAY ==
--- NOTE | 2023-11-12 10:59 | STRESSREP_ITS ---
Stress Test Report Date: 11/08/2023 Procedure: Pharmacologic stress nuclear imaging study Indications: Dyspnea on exertion Consent: Per the patient Procedure: The patient underwent pharmacologic (Regadenoson) evaluation with a peak heart rate of 116 beats per minute (75%predicted maximal heart rate) and a peak blood pressure of 116/60 mmHg. The baseline ECG demonstrated normal sinus rhythm. EKG during lexiscan infusion revealed no significant ischemic changes. EKG post infusion revealed no significant ischemic changes [There were no cardiac dysrhythmias pretest, during pharmacologic infusion, or recovery]. [There was no complaint of chest discomfort during pharmacologic infusion or recovery]. The examination was discontinued secondary to completion of protocol. Impression: 1. Lexiscan stress test test is negative for Lexiscan infusion induced EKG changes of ischemia. 2. Lexiscan stress test test is negative for Lexiscan infusion induced chest pain. 3. Results of the nuclear portion of the test is as below Myocardial perfusion imaging study: Technique: The patient was injected with 11.9 millicuries of technetium 99m Cardiolite and subsequently rest SPECT Cardiolite nuclear imaging was obtained in the horizontal long, vertical long, and short axis views. The patient underwent pharmacologic [Regadenoson 0.4mg] evaluation. Please see above for details. The patient was injected with 34.6 millicuries of technetium 99m Cardiolite and subsequently stress SPECT Cardiolite nuclear imaging was obtained in the horiz ontal long, vertical long, and short axis views. A gated Cardiolite study at peak stress was obtained. Interpretation: Rest and stress SPECT Cardiolite nuclear imaging status post realignment, no rmalization, and attenuation correction demonstrate no evidence of significant ischemia or infarction. Gated images reveal no significant regional wall motion abnormalities. The reported LVEF is 65%. Impression: 1. There is no evidence of significant ischemia or infarction. 2. Estimated ejection fraction is 65%. This note was generated with [employer] software. It may contain incorrect words, spelling, and punctuation that were not noted in checking the note before signing.
== END | disposition home or self-care (01) ==
PROVIDERS: PCP Internal Medicine; Referring Provider Internal Medicine Cardiovascular Disease; Visit Provider Internal Medicine Cardiovascular Disease
DX: R06.09 Other forms of dyspnea (principal); I25.10 Atherosclerotic heart disease of native coronary artery without angina pectoris; I34.0 Nonrheumatic mitral (valve) insufficiency; R53.83 Other fatigue; I10 Essential (primary) hypertension; I51.7 Cardiomegaly; E78.5 Hyperlipidemia, unspecified
CPT/HCPCS: 78452; 93017; A9500; A4216; J2785

== ENCOUNTER → 2023-12-04 | Outpatient (CLI) | payer MEDICARE, SELFPAY ==
--- NOTE | 2023-12-04 09:42 | ECHOD_ITS ---
Reason For Study: CAD/ASHD Procedure This was a 2D Doppler, Color Flow transthoracic echocardiogram. Exam performed in department. Left Ventricle Normal LV size. Moderate concentric left ventricular hypertrophy. The left ventricular ejection fraction is 60 %. Stage 1 diastolic dysfunction. Mild segmental systolic dysfunction (see wall motion). Infero-Basal: Akinetic. Basal anteroseptal: Akinetic. Posterior-Basal: Akinetic. There are regional wall motion abnormalities as specified. Right Ventricle Normal RV size. Normal systolic function. Atria The left atrium is mildly enlarged. Normal right atrium. Mitral Valve Normal mitral valve. Tricuspid Valve Normal tricuspid valve. Aortic Valve Trisinus/trileaflet aortic valve. Moderate focal aortic valve calcification. Focal calcification noted on the noncoronary cusp. Pulmonic Valve Normal pulmonic valve. Great Vessels Normal aortic root. The pulmonary artery is normal size. Normal inferior vena cava. Pericardium/Pleural No pericardial effusion. MMode/2D Measurements & Calculations LVIDd: 4.8 cm IVSd: 1.7 cm LVOT diam: 2.1 cm LVIDs: 3.4 cm LVPWd: 1.5 cm LVOT area: 3.6 cm2 RVDd: 3.3 cm FS: 30.1 % Ao root diam: 3.4 cm LAV(MOD-bp): 73.2 ml LVAd ap4: 27.9 cm2 LAV(MOD-bp) Indexed: 40.5 ml/m2 LVLd ap4: 7.2 cm LAV(MOD-sp2): 62.9 ml EDV(MOD-sp4): 90.0 ml LAV(MOD-sp4): 78.5 ml EDV(sp4-el): 91.3 ml LVAs ap4: 17.1 cm2 LVLs ap4: 6.3 cm ESV(MOD-sp4): 41.8 ml ESV(sp4-el): 39.6 ml EF(MOD-sp4): 53.6 % EF(sp4-el): 56.6 % LVAd ap2: 28.1 cm2 SV(MOD-sp4): 48.2 ml SV(MOD-sp2): 51.7 ml LVLd ap2: 8.5 cm EDV(MOD-sp2): 82.7 ml EDV(sp2-el): 78.6 ml LVAs ap2: 15.3 cm2 LVLs ap2: 6.8 cm ESV(MOD-sp2): 31.1 ml ESV(sp2-el): 29.3 ml EF(MOD-sp2): 62.4 % SV(sp4-el): 51.7 ml LA dimension(2D): 4.5 cm LA A4 area: 22.3 cm2 RA A4 area: 10.7 cm2 TAPSE: 2.6 cm Time Measurements MV dec time: 0.17 sec Doppler Measurements & Calculations MV E max bandar: 88.8 cm/sec Lat Peak E' Bandar: 5.2 cm/sec Med Peak E' Bandar: 7.3 cm/sec MV A max bandar: 100.5 cm/sec E/E' lat: 17.1 E/E' med: 12.1 MV E/A: 0.88 MV V2 max: 114.8 cm/sec MV P1/2t max bandar: 97.6 cm/sec Ao V2 max: 189.9 cm/sec MV max P.3 mmHg MV P1/2t: 50.2 msec Ao max P.5 mmHg MV V2 mean: 50.2 cm/sec Ao V2 mean: 123.9 cm/sec MV mean P.3 mmHg MV dec slope: 569.7 cm/sec2 Ao mean P.8 mmHg MV V2 VTI: 31.6 cm MVA(P1/2t): 4.4 cm2 Ao V2 VTI: 42.0 cm AV (velocity ratio): 0.63 MVA(VTI): 3.0 cm2 MIKIE(I,D): 2.2 cm2 MIKIE(V,D): 1.9 cm2 LV V1 max: 102.8 cm/sec SV(LVOT): 93.2 ml PA V2 max: 110.7 cm/sec LV V1 max P.2 mmHg PA V2 mean: 84.3 cm/sec LV V1 mean P.8 mmHg LV V1 mean: 63.1 cm/sec LV V1 VTI: 26.2 cm PI dec slope: 78.4 cm/sec2 ECHO/Echo Complete Interpretation Summary Normal LV size. Moderate concentric left ventricular hypertrophy. The left ventricular ejection fraction is 60 %. Stage 1 diastolic dysfunction. Moderate focal aortic valve calcification. Focal calcification noted on the noncoronary cusp. There are regional wall motion abnormalities as specified. Ordering Physician: Ambrose Longo Referring Physician: Dhara Best Performed By: Debora Varela RDCS, RVT
== END | disposition home or self-care (01) ==
LOC: CVS 09:40
PROVIDERS: PCP Internal Medicine; Referring Provider Internal Medicine Cardiovascular Disease; Visit Provider Internal Medicine Cardiovascular Disease
DX: R06.09 Other forms of dyspnea (principal); I25.10 Atherosclerotic heart disease of native coronary artery without angina pectoris; Z95.5 Presence of coronary angioplasty implant and graft; R53.83 Other fatigue; I34.0 Nonrheumatic mitral (valve) insufficiency; I10 Essential (primary) hypertension; E78.5 Hyperlipidemia, unspecified; I51.7 Cardiomegaly
CPT/HCPCS: 93306

== ENCOUNTER → 2024-03-09 | Outpatient (CLI) | payer MEDICARE, SELFPAY ==
[2024-03-09 10:39] LABS: Absolute Lymphocyte Count 1.59 X10^3/uL (0.83-4.51); Absolute Neutrophil Count 4.6 X10^3/uL (2.0-7.7); Basophil# 0.07 X10^3/uL; Eosinophil# 0.09 X10^3/uL; Eosinophils% 1.3 % (0-5); Hematocrit 41.8 % (40-54); Hemoglobin 13.8 g/dL (13.0-16.5); Lymphocyte # 1.59 X10^3/ul (0.83-4.51); Lymphocyte % 22.2 % (19-41); Mean Corpuscular Hgb 30.1 pg (27.0-32.0); Mean Corpuscular Volume 91.1 fL (80-94); Mean Platelet Vol. 10.5 fl (6.2-12.0); Monocyte# 0.75 X10^3/uL; Monocyte% 10.5 % (0-10); NRBC Flagged by Analyzer 0 % (0-5); Neutrophil # 4.64 X10^3/uL (2.7-7.7); Neutrophil % 64.7 % (47-70); Platelet Count 262 K/mm3 (150-450); RBC Distribution Width CV 13.4 % (11.6-14.6); RBC Distribution Width SD 45.2 fl (35.1-43.9); Red Blood Count 4.59 M/mm3 (4.6-6.2); White Blood Count 7.2 K/mm3 (4.4-11.0)
[2024-03-09 11:25] LABS: ALB/GLOB Ratio 0.9 RATIO (0.9-2.4); AST(SGOT) 23 U/L (15-37); Alanine Aminotransfer ALT/SGPT 31 U/L (16-61); Albumin, Serum 3.7 g/dL (3.2-5.0); Alkaline Phosphatase 85 U/L (45-117); Anion Gap 8 (5-15); BUN 10 mg/dL (7-18); BUN/Creat Ratio 9.8 RATIO (10-20); Calcium,Total 8.9 mg/dL (8.5-10.1); Chloride 103 mmol/L (98-107); Creatinine, Serum 1.02 mg/dL (0.70-1.30); EST Glomerular Filtration Rate 77 mL/min (>60); Est Glom Filt Rate - Afr Amer 94 mL/min (>60); Free T3 2.8 pg/mL (2.18-3.98); Globulin 3.9 g/dL (2.2-4.2); Glucose 108 mg/dL (74-106); Potassium 4.2 mmol/L (3.5-5.1); Protein, Total 7.6 g/dL (6.4-8.2); Sodium Level 136 mmol/L (136-145); T4 Free Direct 0.81 ng/dL (0.76-1.46)
[2024-03-09 11:26] LABS: AST(SGOT) 22 U/L (15-37); Alanine Aminotransfer ALT/SGPT 29 U/L (16-61); Albumin, Serum 3.7 g/dL (3.2-5.0); Alkaline Phosphatase 84 U/L (45-117); Bilirubin, Direct 0.15 mg/dL (0.00-0.30); Cholesterol 191 mg/dL (200); Globulin 3.9 g/dL (2.2-4.2); High Density Lipoprotein 80 mg/dL; Protein, Total 7.6 g/dL (6.4-8.2); Triglycerides 203 mg/dL; Very Low Density Lipoprotein 41 mg/dL (5-40)
== END | disposition home or self-care (01) ==
LOC: LAB 09:27
PROVIDERS: Nurse Practitioner Family; PCP Internal Medicine; Referring Provider Internal Medicine; Visit Provider Internal Medicine
DX: F41.9 Anxiety disorder, unspecified (principal); F32.A Depression, unspecified; H53.489 Generalized contraction of visual field, unspecified eye; R42 Dizziness and giddiness; R26.9 Unspecified abnormalities of gait and mobility; E78.00 Pure hypercholesterolemia, unspecified; N40.0 Benign prostatic hyperplasia without lower urinary tract symptoms; R97.20 Elevated prostate specific antigen [PSA]
CPT/HCPCS: 36415; 80053; 80061; 80076; 84153; 84439; 84443; 84481; 85025

== ENCOUNTER → 2024-03-31 | Outpatient (CLI) | payer MEDICARE, SELFPAY ==
--- NOTE | 2024-03-31 06:49 | MRI_ITS ---
STUDY: MRA OF THE HEAD WITHOUT CONTRAST REASON FOR EXAM: Male, 68 years old. Dizziness, tunnel vision, vascular dx TECHNIQUE: 3-D [id number] (TOF) imaging was performed with MIPs. The study was performed unenhanced. COMPARISON: None. FINDINGS: Normal bilateral petrous carotid arteries. Normal right cavernous carotid artery with a normal supraclinoid bifurcation. Normal left cavernous carotid artery with a normal supraclinoid bifurcation. Normal right A1 segment of the anterior cerebral artery. Normal left A1 segment of the anterior cerebral artery. Normal intact anterior communicating artery (ACOM). Normal bilateral A2 segments of the anterior cerebral arteries. Normal right M1 and M2 segments of the middle cerebral arteries, with a normal M1 bifurcation. Normal left M1 and M2 segments of the middle cerebral arteries, with a normal M1 bifurcation. No visible right posterior communicating artery (PCOM). No visible left posterior communicating artery (PCOM). Normal bilateral vertebral arteries. Normal basilar artery with a normal basilar bifurcation. The visualized bilateral superior cerebellar (SCA) arteries are normal. Normal bilateral P1, P2 and visualized P3 segments of the posterior cerebral arteries. There is no demonstrated aneurysm of the grindstone of [place]. There is no major vessel occlusion or hemodynamically significant stenosis. MRI/MRA Head ONLY without Contrast IMPRESSION: Normal MRA of the head Electronically Signed: Josesito Calle MD at 15:06 EDT ,
--- NOTE | 2024-03-31 06:49 | MRI_ITS ---
STUDY: MRA NECK WITHOUT CONTRAST REASON FOR EXAM: Male, 68 years old. Dizziness, tunnel vision, vascular dx TECHNIQUE: Source images were obtained, MIPs were performed. The study was performed unenhanced. COMPARISON: None. FINDINGS: RIGHT CAROTID ARTERIES: Normal right common carotid artery (CCA). Normal right carotid bulb. Normal origin of the right internal carotid (ICA) artery without a hemodynamically significant stenosis. Normal visualized cervical portion of the right internal carotid artery. Normal origin of the right external carotid artery (ECA). LEFT CAROTID ARTERIES: Normal left common carotid artery (CCA). Normal left carotid bulb. Normal origin of the left internal carotid (ICA) artery without a hemodynamically significant stenosis. Normal visualized cervical portion of the left internal carotid artery. Normal origin of the left external carotid artery (ECA). VERTEBRAL ARTERIES: Normal antegrade flow within the bilateral vertebral artery without a hemodynamically significant stenosis. They are codominant. MRI/MRA Neck without Contrast IMPRESSION: Normal bilateral cervical carotid and vertebral arteries. Electronically Signed: Josesito Calle MD at 15:04 EDT ,
--- NOTE | 2024-03-31 06:49 | MRI_ITS ---
HISTORY: Dizziness, tunnel vision, vascular dx. TECHNIQUE: Multiplanar and multisequence MR images of the brain were obtained without contrast. 306 images. COMPARISON: None. FINDINGS: BRAIN PARENCHYMA: Mild foci and small zones of increased T2 FLAIR signal in the bilateral cerebral white matter, particularly in the left periventricular region. No abnormal focus of restricted diffusion. No acute intracranial hemorrhage identified. CSF SPACES: Cerebral ventricles, cortical sulci, and other extra-axial CSF spaces within normal limits in size for age. No significant midline shift or other mass effect.No extra-axial fluid collection. VASCULAR SYSTEM: Major intracranial flow voids are maintained. PARANASAL SINUSES AND MASTOID AIR CELLS: Tiny mucous retention cysts in the paranasal sinuses. ORBITS: Symmetric contents. MRI/Brain without Contrast IMPRESSION: No evidence for acute infarct. Mild chronic involutional and white matter changes. Electronically Signed: Sherley Vargas MD at 8:29 EDT ,
== END | disposition home or self-care (01) ==
LOC: MRI 06:42
PROVIDERS: PCP Internal Medicine; Referring Provider Internal Medicine; Visit Provider Internal Medicine
DX: H53.489 Generalized contraction of visual field, unspecified eye (principal); R42 Dizziness and giddiness; R26.9 Unspecified abnormalities of gait and mobility; Z87.891 Personal history of nicotine dependence; I10 Essential (primary) hypertension
CPT/HCPCS: 70544; 70547; 70551

== ENCOUNTER 2024-06-12 07:47 | Emergency (ER) | payer MEDICARE, SELFPAY ==
[2024-06-12 07:48] VITALS: BP 142/81; PULSE 60; RESP 16; TEMP 37; O2SAT 98; BMI 32.1
--- NOTE | 2024-06-12 08:05 | ED.VIS.GI ---
HPI HPI - GI History of Present Illness Chief Complaint: GI Bleed Informant: patient Abdominal Pain/Flank Pain Onset: Today Context: Gradual Onset Timing: Continuous Quality: Aching Location: Diffuse Worsened by: Nothing Relieved by: Nothing Nausea/Vomiting/Emesis GI Symptom: Positive for Nausea; Negative for Vomiting Diarrhea/Melena/Hematochezia GI Symptom: Positive for Hematochezia Onset: Weeks (1) Stool Quality: Positive for BRB per rectum Associated Symptoms Associated Symptoms: Negative for Dysuria, Frequency or Hematuria Narrative Narrative: Patient presents with rectal bleeding that has been getting worse over the past week. Patient states he has been feeling lightheaded at times. Patient states he started having some abdominal pain today. Patient states it is diffuse across his entire abdomen. Patient describes it as aching. Patient states it is constant. Patient states nothing makes it better and nothing makes it worse. Patient admits to some nausea but denies any vomiting. Patient denies any dysuria, frequency, or hematuria. Patient denies any fevers or chills. PFSH PFS Medical History Ceruminosis Elevated PSA Tunnel vision Dizziness Abnormal gait Fatigue Hypogonadism in male Urinary frequency Dysuria History of nicotine dependence Atherosclerotic heart disease of [place] coronary artery without angina pectoris Abnormal lung examination Alcohol abuse Anxiety Myocardial infarct Other and unspecified hyperlipidemia Essential hypertension LVH (left ventricular hypertrophy) Septic arthritis of shoulder, right Normochromic normocytic anemia Cellulitis CAD (coronary artery disease) Hyperlipidemia Gastroesophageal reflux disease Home Medications ?Medication ?Instructions ?Recorded ?Last Taken ?Type aspirin 81 mg chewable tablet 81 mg PO DAILY 08/03/18 08/03/18 History acetaminophen 325 mg tablet 650 mg (2 x 325 mg) PO Q6H PRN PRN 08/07/18 Unknown Rx Mild Pain (scale 0-3)/T>100.7 nitroglycerin 0.4 mg sublingual 0.4 mg sublingual PRN PRN Pain #20 04/03/23 Unknown Rx tablet tabs benazepril 10 mg tablet 10 mg PO DAILY #90 tabs 09/13/23 Unknown Rx atorvastatin 80 mg tablet 80 mg PO QDAY #90 tabs 11/21/23 Unknown Rx ezetimibe 10 mg tablet (Zetia) 10 mg PO DAILY #90 tabs 01/24/24 Unknown Rx omeprazole 40 mg capsule,delayed 40 mg PO DAILY #90 caps 03/20/24 Unknown Rx release sertraline 25 mg tablet (Zoloft) 25 mg PO QDAY #90 tabs 03/26/24 Unknown Rx trazodone 100 mg tablet 100 mg PO QHS PRN insomnia #180 03/31/24 Unknown Rx tabs amlodipine 10 mg tablet 10 mg PO DAILY #90 tabs 04/02/24 Unknown Rx hydrocortisone acetate 25 mg 25 mg MO DAILY #12 ea 06/12/24 Unknown Rx rectal suppository (Anusol-HC) Allergy/AdvReac Type Severity Reaction Status Date / Time codeine Allergy Itching Verified 06/12/24 07:47 oxycodone Allergy Itching Verified 06/12/24 07:47 carvedilol AdvReac Intermediate Severe Verified 06/12/24 07:47 fatigue and lethargy, even on 3.125 Family History Father CVA (cerebral vascular accident) Hypertension Mother COPD (chronic obstructive pulmonary disease) Hypertension Thyroid disorder Sister Hypertension Brother Hypertension Other Myocardial infarction Surgical History Presence of coronary angioplasty implant and graft History of rotator cuff surgery CAD (coronary artery disease), autologous vein bypass graft Stented coronary artery S/P rotator cuff repair Social History Smoking Status: Former smoker quit date: 03/21/23 Tobacco: How many years used: 52 alcohol intake: former substance use type: does not use caffeine: Yes Type: coffee Number of servings: 1 ROS ROS ED Constitutional Constitutional ED: Denies chills or fever(s) Eyes Eyes: Denies blurry vision or change in vision ENT ENT ED: Denies rhinorrhea or sore throat Cardiovascular Cardiovascular: Denies chest pain or palpitations Respiratory/Chest Respiratory/Chest: Denies cough or dyspnea Gastrointestinal Gastrointestinal: Reports abdominal pain and nausea; Denies vomiting Genitourinary Genitourinary ED: Denies dysuria or hematuria Musculoskeletal Musculoskeletal: Denies back pain or neck pain Integumentary Denies abscess or rash Neurologic Neurologic: Denies headache(s) or weakness Allergic/Immunologic Allergic/Immunologic ED: Denies mouth swelling or urticaria EXAM Physical Exam Const Vital Signs: 06/12/24 07:48 06/12/24 08:23 06/12/24 09:47 Temperature 98.6 F Temperature Source Oral Pulse Rate 60 54 L Pulse Rate [Lying] 54 L Pulse Rate [Sitting (for 1 minute prior to obtaining)] 61 Pulse Rate [Standing (for 1 minute prior to obtaining)] 117 H Respiratory Rate 16 14 Blood Pressure 142/81 H 139/75 H Blood Pressure [Lying] 121/71 H Blood Pressure [Sitting (for 1 minute prior to obtaining)] 133/70 H Blood Pressure [Standing (for 1 minute prior to obtaining)] 140/80 H Blood Pressure Mean 101 96 Blood Pressure Mean [Lying] 87 Blood Pressure Mean [Sitting (for 1 minute prior to obtaining)] 91 Blood Pressure Mean [Standing (for 1 minute prior to obtaining)] 100 Pulse Ox 98 95 Oxygen Delivery Method Room Air Room Air Positive well nourished and well developed General Appearance ED: well developed and NAD HEENT Reports moist mucous membranes Neck supple and no JVD Resp normal respiratory effort and clear to auscultation bilaterally Cardio regular rate and regular rhythm GI non-distended Palpation: soft and tender epigastric, LLQ, RLQ, LUQ, RUQ, periumbilical and suprapubic; Negative for guarding or rebound tenderness present Rectal Exam: normal sphincter tone, abnormal stool blood-tinged stool and external hemorrhoid(s) Neuro CN's II-XII intact bilaterally, moves all extremities and no sensory deficits noted Sensorium / Orientation: alert Motor Exam: strength 5/5 throughout Psych mental status grossly normal and thought process normal MDM MDM MDM Narrative Medical decision making narrative: Differential diagnosis includes lower gastrointestinal bleeding, upper gastrointestinal bleeding, anemia, duodenal ulcer, peptic ulcer disease, coagulopathy, and electrolyte abnormality. CBC will be obtained to assess for leukocytosis and anemia. Comprehensive metabolic profile will be obtained to assess for hepatic function, renal function, and electrolyte abnormality. PT with INR and PTT will be obtained to assess for coagulopathy. Orthostatic vital signs will be obtained to assess for hypovolemia. Stool will be sent for occult blood testing to assess for gastrointestinal bleeding. Lab Data Attestation: I reviewed the patient's lab results. Lab results narrative: CBC was reviewed. Hemoglobin was stable at 13.6. The remainder was within normal limits. PT with INR and PTT were reviewed and were within normal limits. Comprehensive metabolic profile was reviewed and was within normal limits. Labs: Laboratory Results - last 24 hr 06/12/24 08:06 WBC 6.3 RBC 4.36 L Hgb 13.6 Hct 39.8 L MCV 91.3 MCH 31.2 MCHC 34.2 RDW Std Deviation 50.4 H RDW Coeff of [place] 14.9 H Plt Count 247 MPV 10.6 Immature Gran % (Auto) 0.300 Neut % (Auto) 62.1 Lymph % (Auto) 21.8 [place] % (Auto) 13.7 H Eos % (Auto) 1.3 Baso % (Auto) 0.8 Absolute Neuts (auto) 3.9 Absolute Lymphs (auto) 1.37 Nucleated RBC % 0 PT 12.6 INR 0.9 APTT 28.9 Sodium 135 L Potassium 3.9 Chloride 104 Carbon Dioxide 26.0 Anion Gap 4 L BUN 10 Creatinine 1.02 Estim Creat Clear Calc 69.03 Est GFR (MDRD) Af Amer 94 Est GFR (MDRD) Non-Af 77 BUN/Creatinine Ratio 9.8 L Glucose 141 H Calcium 8.9 Total Bilirubin 0.40 AST 22 ALT 34 Alkaline Phosphatase 68 Total Protein 7.3 Albumin 3.6 Globulin 3.7 Albumin/Globulin Ratio 1.0 Radiography Diagnostic Testing: Clinical Impression(s) from Imaging Studies Abdomen/Pelvis CTA 06/12/24 09:10 IMPRESSION: Mildly diseased abdominal aorta but no aortic stenosis or abdominal aortic aneurysm. Moderately diseased common iliac arteries and internal carotid arteries. Mildly diseased external iliac arteries. No acute or chronic mesenteric ischemia or renal artery stenosis. Electronically Signed: Duy Emmanuel MD at 9:41 EST , CTA of the abdomen and pelvis was obtained. There is no acute abnormality noted. There is some mild atherosclerotic disease of the aorta. There is no free air or free fluid. This was interpreted by the radiologist and was also dependently reviewed by myself. Treatment and Re-Evaluation :: Orthostatic vital signs were obtained. Patient Tachycardic with standing. Patient was given IV fluids. Patient was feeling better on reevaluation. Patient was advised of his findings. Patient was given prescription for Anusol HC suppositories. Patient was instructed to drink plenty of fluids. Patient was instructed to follow-up with his primary care physician in 3 to 5 days. Patient was instructed return if worse in any way. Patient understood and was agreeable with the plan. All questions were answered. Discharge Plan Triage Chief Complaint: GI Bleed Other Complaint: Dizziness ED Provider: Ari Ernst Dx/Rx/DC Orders Clinical Impression: Rectal bleeding, Dizziness, External hemorrhoids Instructions: ED Hemorrhoids, ED Lower GI Bleeding (Stable) Prescriptions: New hydrocortisone acetate [Anusol-HC] 25 mg suppository 25 mg MO DAILY Qty: 12 0RF No Action aspirin 81 MG tablet,chewable 81 mg PO DAILY acetaminophen 325 MG tablet 650 mg PO Q6H PRN PRN (Reason: Mild Pain (scale 0-3)/T>100.7) 0RF nitroglycerin 0.4 mg tablet, sublingual 0.4 mg SUBLINGUAL PRN PRN (Reason: Pain) Qty: 20 0RF benazepril 10 mg tablet 10 mg PO DAILY Qty: 90 3RF atorvastatin 80 mg tablet 80 mg PO QDAY Qty: 90 3RF ezetimibe [Zetia] 10 mg tablet 10 mg PO DAILY Qty: 90 3RF omeprazole 40 mg capsule,delayed release(DR/EC) 40 mg PO DAILY Qty: 90 3RF sertraline [Zoloft] 25 mg tablet 25 mg PO QDAY Qty: 90 1RF trazodone 100 mg tablet 100 mg PO QHS PRN (Reason: insomnia) Qty: 180 0RF Rx Instructions: 1-2 tabs p.o. nightly for sleep. amlodipine 10 mg tablet 10 mg PO DAILY Qty: 90 3RF Primary Care Provider: Dhara Best Referrals: Dhara Best MD [Primary Care Provider] - 3-5 Days Print Language: [place] Citizen Disposition Disposition: Home, Self Care
[2024-06-12 08:23] VITALS: BP 121/71; BP 133/70; BP 140/80; PULSE 117; PULSE 54; PULSE 61
[2024-06-12 08:42] LABS: International Normalized Ratio 0.9; Partial Thromboplast Time 28.9 Seconds (24.1-36.2); Prothrombin Time (Protime)PT. 12.6 SECONDS (11.7-14.9)
[2024-06-12 08:44] LABS: Absolute Lymphocyte Count 1.37 X10^3/uL (0.83-4.51); Absolute Neutrophil Count 3.9 X10^3/uL (2.0-7.7); Basophil# 0.05 X10^3/uL; Basophil% 0.8 % (0-1); Eosinophil# 0.08 X10^3/uL; Eosinophils% 1.3 % (0-5); Hematocrit 39.8 % (40-54); Hemoglobin 13.6 g/dL (13.0-16.5); Lymphocyte # 1.37 X10^3/ul (0.83-4.51); Lymphocyte % 21.8 % (19-41); Mean Corp Hgb Conc 34.2 g/dL (32-36); Mean Corpuscular Hgb 31.2 pg (27.0-32.0); Mean Corpuscular Volume 91.3 fL (80-94); Mean Platelet Vol. 10.6 fl (6.2-12.0); Monocyte# 0.86 X10^3/uL; Monocyte% 13.7 % (0-10); NRBC Flagged by Analyzer 0 % (0-5); Neutrophil # 3.91 X10^3/uL (2.7-7.7); Neutrophil % 62.1 % (47-70); Platelet Count 247 K/mm3 (150-450); RBC Distribution Width CV 14.9 % (11.6-14.6); RBC Distribution Width SD 50.4 fl (35.1-43.9); Red Blood Count 4.36 M/mm3 (4.6-6.2); White Blood Count 6.3 K/mm3 (4.4-11.0)
[2024-06-12 08:50] LABS: AST(SGOT) 22 U/L (15-37); Alanine Aminotransfer ALT/SGPT 34 U/L (16-61); Albumin, Serum 3.6 g/dL (3.2-5.0); Alkaline Phosphatase 68 U/L (45-117); Anion Gap 4 (5-15); BUN 10 mg/dL (7-18); BUN/Creat Ratio 9.8 RATIO (10-20); Calcium,Total 8.9 mg/dL (8.5-10.1); Chloride 104 mmol/L (98-107); Creatinine, Serum 1.02 mg/dL (0.70-1.30); EST Glomerular Filtration Rate 77 mL/min (>60); Est Glom Filt Rate - Afr Amer 94 mL/min (>60); Estimated Creatinine Clearance 69.03 ml/min; Globulin 3.7 g/dL (2.2-4.2); Glucose 141 mg/dL (74-106); Potassium 3.9 mmol/L (3.5-5.1); Protein, Total 7.3 g/dL (6.4-8.2); Sodium Level 135 mmol/L (136-145)
[2024-06-12] MEDS: 0.9% Normal Saline (1000mL) 1,000 ML 1000 ML IV (09:10)
--- NOTE | 2024-06-12 09:10 | CT_ITS ---
INDICATION: Gastrointestinal bleeding EXAMINATION: CTA abdomen and pelvis - TECHNIQUE: Routine abdominal CT angiogram protocol was performed with IV contrast. MIP images provided. A radiation dose optimization technique was used for this scan. IV Contrast dosage and agent: Radiation dose DLP mGy / cm. COMPARISON: None. FINDINGS: Lung bases: Normal. Liver: 3 cm cyst in the posterior segment of the right lobe of the liver. Gallbladder: Contracted gallbladder. Spleen: Normal. Adrenal gland: Normal. Kidneys: Normal. No hydronephrosis or stone formation. Pancreas:Normal. Bowel gas pattern: Nonobstructive. Appendix: Normal. Free air: None. Free fluid: None. Pelvis: Pelvic organs: No mass lesion noted. Bone survey: No aggressive bony lesions. No acute fractures. Bilateral pars defects of the L5 vertebra consistent with L5 spondylolysis. No anterolisthesis of L5 on S1-2 spondylolisthesis. Bilateral sacroiliitis with sclerosis of the ilium adjacent to the joints. Adenopathy: No significant pathologic adenopathy detected. Other: None. Vascular: Mild amount of peripheral calcified and noncalcified plaque in the abdominal aorta but no aortic stenosis or abdominal aortic aneurysm. Moderately diseased common iliac arteries and internal iliac arteries. Mildly diseased external iliac arteries. The celiac axis, superior mesenteric artery, and inferior mesenteric artery appear patent. Single renal arteries bilaterally without evidence of renal artery stenosis. CT/CTA Abd/Pelvis W/WO Contrast IMPRESSION: Mildly diseased abdominal aorta but no aortic stenosis or abdominal aortic aneurysm. Moderately diseased common iliac arteries and internal carotid arteries. Mildly diseased external iliac arteries. No acute or chronic mesenteric ischemia or renal artery stenosis. Electronically Signed: Duy Emmanuel MD at 9:41 EST ,
[2024-06-12 09:47] VITALS: BP 139/75; PULSE 54; RESP 14; O2SAT 95
[2024-06-12 11:00] VITALS: BP 137/68; PULSE 53; RESP 20; O2SAT 96
[2024-06-12 11:11] VITALS: BP 137/68; PULSE 53; RESP 20; TEMP 37; O2SAT 96
== END 2024-06-12 11:17 | disposition home or self-care (01) ==
PROVIDERS: Emergency Provider Emergency Medicine; PCP Internal Medicine; Visit Provider Emergency Medicine
DX: K62.5 Hemorrhage of anus and rectum (principal); R42 Dizziness and giddiness; E78.5 Hyperlipidemia, unspecified; R10.9 Unspecified abdominal pain; Z87.891 Personal history of nicotine dependence; I25.10 Atherosclerotic heart disease of native coronary artery without angina pectoris; I10 Essential (primary) hypertension; K64.4 Residual hemorrhoidal skin tags; K21.9 Gastro-esophageal reflux disease without esophagitis
CPT/HCPCS: 74174; 80053; 82274; 85025; 85610; 85730; 96360; 96361; 99285; Q9967; A4216

== ENCOUNTER → 2024-09-03 | Outpatient (CLI) | payer MEDICARE, SELFPAY ==
[2024-09-03 14:12] LABS: Absolute Lymphocyte Count 1.86 X10^3/uL (0.83-4.51); Basophil# 0.06 X10^3/uL; Basophil% 0.8 % (0-1); Eosinophil# 0.06 X10^3/uL; Eosinophils% 0.8 % (0-5); Hematocrit 37.8 % (40-54); Hemoglobin 12.9 g/dL (13.0-16.5); Lymphocyte # 1.86 X10^3/ul (0.83-4.51); Lymphocyte % 23.7 % (19-41); Mean Corp Hgb Conc 34.1 g/dL (32-36); Mean Corpuscular Hgb 31.6 pg (27.0-32.0); Mean Corpuscular Volume 92.6 fL (80-94); Mean Platelet Vol. 10.7 fl (6.2-12.0); Monocyte# 0.86 X10^3/uL; NRBC Flagged by Analyzer 0 % (0-5); Neutrophil # 4.97 X10^3/uL (2.7-7.7); Neutrophil % 63.3 % (47-70); Platelet Count 249 K/mm3 (150-450); RBC Distribution Width CV 14.3 % (11.6-14.6); RBC Distribution Width SD 48.6 fl (35.1-43.9); Red Blood Count 4.08 M/mm3 (4.6-6.2); White Blood Count 7.8 K/mm3 (4.4-11.0)
[2024-09-03 16:42] LABS: ALB/GLOB Ratio 1.4 RATIO (0.9-2.4); AST(SGOT) 25 U/L (<=37); Alanine Aminotransfer ALT/SGPT 29 U/L (<=46); Albumin, Serum 4.1 g/dL (3.4-4.8); Alkaline Phosphatase 67 U/L (40-129); Anion Gap 11 (5-15); BUN 13 mg/dL (4-19); BUN/Creat Ratio 12.5 RATIO (10-20); Calcium,Total 8.7 mg/dL (7.6-11.0); Chloride 101 mmol/L (98-108); Creatinine, Serum 1.06 mg/dL (0.70-1.20); EST Glomerular Filtration Rate 76 (>60); Globulin 2.9 g/dL (2.2-4.2); Glucose 109 mg/dL (70-99); Magnesium 2.2 mg/dL (1.5-2.2); PSA,Total- Diagnostic 5.99 ng/mL (0.00-4.00); Potassium 4.3 mmol/L (3.3-5.1); Sodium Level 135 mmol/L (133-145); Total Bilirubin 0.32 mg/dL (0.00-1.30)
== END | disposition home or self-care (01) ==
LOC: LAB 13:17
PROVIDERS: PCP Internal Medicine; Referring Provider Internal Medicine; Visit Provider Internal Medicine
DX: I73.9 Peripheral vascular disease, unspecified (principal); R97.20 Elevated prostate specific antigen [PSA]; E78.5 Hyperlipidemia, unspecified; I25.10 Atherosclerotic heart disease of native coronary artery without angina pectoris; I10 Essential (primary) hypertension; N40.0 Benign prostatic hyperplasia without lower urinary tract symptoms
CPT/HCPCS: 36415; 80053; 83735; 84153; 85025

== ENCOUNTER → 2024-09-17 | Outpatient (CLI) | payer MEDICARE, SELFPAY ==
--- NOTE | 2024-09-17 13:45 | ART_ITS ---
Reason For Study Reason For Study: Claudication Procedure A bilateral lower extremity continuous wave Doppler with analog waveform analysis and ankle brachial indexes. Left Segmental Pressures Left brachial= 124mmHg. Left posterior tibial artery = 133mmHg. Left dorsalis pedis artery = 137mmHg. Left digit = 109 mmHg. The left dorsalis pedis waveforms are triphasic. The left posterior tibial artery waveforms are triphasic. Right Segmental Pressures Right brachial= 133mmHg. Right posterior tibial artery = 117mmHg. Right dorsalis pedis artery = 112mmHg. Right digit = 94 mmHg. The right dorsalis pedis waveforms are biphasic. The right posterior tibial artery waveforms are biphasic. Indices The right ankle brachial index by the dorsalis pedis is 0.84. The right ankle brachial index by the posterior tibial artery is 0.88. The right digital-brachial index is 0.71. The left ankle brachial index by the dorsalis pedis is 1.03. The left ankle brachial index by the posterior tibial artery is 1.00. The left digital-brachial index is 0.82. VL/Ankle Brachial Index Interpretation Summary Right IDONTE 0.88, moderate arterial insufficiency. Doppler/PVR waveforms of the r ight ankle moderately diminished at rest. Left DIONTE 1.03, normal. Doppler/PVR waveforms of the left ankle normal at rest. Ordering Physician: Dhara Best Referring Physician: Dhara Best M.D. Performed By: Keira Lundberg RVT
== END | disposition home or self-care (01) ==
LOC: CVS 13:37
PROVIDERS: PCP Internal Medicine; Referring Provider Internal Medicine; Visit Provider Internal Medicine
DX: I73.9 Peripheral vascular disease, unspecified (principal)
CPT/HCPCS: 93922

== ENCOUNTER → 2024-10-29 | Outpatient (CLI) | payer MEDICARE, SELFPAY ==
--- NOTE | 2024-10-29 15:01 | RAD_ITS ---
PROCEDURE: FOOT MIN 3 VIEWS 10/29/2024 REASON FOR EXAM: BILATERAL FOOT PAIN, PAIN BILAT 1ST MTP, ANKLES TECHNIQUE: 3 views of the right foot. COMPARISON: None available FINDINGS: No fracture or dislocation. 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 Subchondral cyst formation at the head of the 1st metatarsal. No associated soft tissue swelling appreciated. Mild osteoarthrosis 1st interphalangeal joint. [id number] enthesophyte formation at the plantar surface of the calcaneus. Vascular calcification noted. 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 Subchondral cyst formation at the head of th e 1st metatarsal. No associated soft tissue swelling appreciated. Mild osteoarthrosis 1st interphalangeal joint. Reading Location: [id number]
--- NOTE | 2024-10-29 15:03 | RAD_ITS ---
PROCEDURE: FOOT MIN 3 VIEWS 10/29/2024 REASON FOR EXAM: PAIN TECHNIQUE: 3 views of the left foot. COMPARISON: None available FINDINGS: No fracture or dislocation. The joint spaces appear within limits. Soft tissues appear within limits. Small enthesophyte formation plantar surface of the calcaneus. Suggestion of possible faint anterior vascular calcification. RAD/Foot min 3 Views IMPRESSION: Study appears within limits as above. Reading Location: [id number]
[2024-10-29 15:55] LABS: Uric Acid 4.7 mg/dL (3.5-7.2)
[2024-10-29 16:29] LABS: AST(SGOT) 23 U/L (<=37); Alanine Aminotransfer ALT/SGPT 23 U/L (<=46); Albumin, Serum 4.2 g/dL (3.4-4.8); Alkaline Phosphatase 70 U/L (40-129); Bilirubin, Direct 0.12 mg/dL (0.00-0.30); Globulin 2.9 g/dL (2.2-4.2); Protein, Total 7.1 g/dL (5.9-8.4); Total Bilirubin 0.31 mg/dL (0.00-1.30)
[2024-10-29 17:36] LABS: Erythrocyte Sedimentation Rate 18 mm/hr (0-20)
== END | disposition home or self-care (01) ==
LOC: RAD 14:35
PROVIDERS: Nurse Practitioner Family; PCP Internal Medicine; Referring Provider Internal Medicine; Visit Provider Internal Medicine
DX: R29.818 Other symptoms and signs involving the nervous system (principal); I73.9 Peripheral vascular disease, unspecified; M10.9 Gout, unspecified; E78.00 Pure hypercholesterolemia, unspecified; M79.671 Pain in right foot; M79.672 Pain in left foot
CPT/HCPCS: 36415; 73630; 80076; 84550; 85652; 86140

== ENCOUNTER → 2024-11-03 | Outpatient (CLI) | payer MEDICARE, SELFPAY ==
--- NOTE | 2024-11-03 06:36 | MRI_ITS ---
PROCEDURE: SPINE LUMBAR (ROUTINE) 11/03/2024 REASON FOR EXAM: AUGIE LOWER EXT CLAUDICATION, POSSIBLE NEUROGENIC TECHNIQUE: Multiplanar and multisequence images were obtained without IV contrast administration. COMPARISON: None FINDINGS: The vertebral body alignment is maintained. The vertebral body height is maintained. Vertebral body marrow signal is normal. Intervertebral disc signal shows desiccation at L5-S1. There is significant ligamentous hypertrophy posterior to L5, measuring 0.8 cm in thickness. Normal appearing facets are noted. The L1-L2 level: There is no significant disk protrusion. There is no lateral recess stenosis or foraminal stenosis. There is no critical central canal stenosis. The L2-L3 level: There is no significant disk protrusion. There is no lateral recess stenosis or foraminal stenosis. There is no critical central canal stenosis. The L3-L4 level: There is no significant disk protrusion. There is no lateral recess stenosis or foraminal stenosis. There is no critical central canal stenosis. The L4-L5 level: There is no significant disk protrusion. There is no lateral recess stenosis or foraminal stenosis. There is no critical central canal stenosis. The L5-S1 level: There is moderate central and right and left paracentral disc and osteophyte protrusion. There is mild bilateral lateral recess effacement. There is mild bilateral foraminal narrowing secondary to disc protrusion and facet hypertrophy. There is moderate central canal stenosis, partly secondary to ligamentous hypertrophy. The visualized conus shows normal signal characteristics. Adjacent soft tissues are unremarkable. MRI/Spine Lumbar (Routine) IMPRESSION: There is significant ligamentous hypertrophy posterior to L5, measuring 0.8 cm in thickness. There is moderate central canal stenosis at L5-S1, with lateral recess and [place] narrowing. Reading Location: [id number]
== END | disposition home or self-care (01) ==
PROVIDERS: PCP Internal Medicine; Referring Provider Internal Medicine; Visit Provider Internal Medicine
DX: I73.9 Peripheral vascular disease, unspecified (principal); R29.818 Other symptoms and signs involving the nervous system
CPT/HCPCS: 72148

== ENCOUNTER → 2024-12-02 | Outpatient (CLI) | payer MEDICARE, SELFPAY ==
--- OUTSIDE RECORDS SUMMARY | 2024-12-02 06:48 | XMS RPT_ITS | CCD ---
Author Organization [facility] CliniSyms Care Team Providers Care Dispatcher [employer] Name Role Phone CIARA, MOHAN PAC Unavailable Unavailable CIARA, MOHAN PAC Unavailable Unavailable CIARA, MOHAN PAC Unavailable Unavailable CIARA, MOHAN PAC Unavailable Unavailable CIARA, MOHAN PAC Unavailable Unavailable CIARA, MOHAN PAC Unavailable [facility]available [facility] Unavailable Unavailable Dr. Dhara Best Primary Care Provider Dr. Dhara Best Attending Provider [phone] Dr. Dhara Best Referring Provider [phone] Dr. Dhara Best Primary Care Provider Dr. Dhara Best Attending Provider Dr. Dhara Best Referring Provider Dr. Von Redd Attending Provider Tramaine, Dr. Longoria Referring Provider Tramaine, Dr. Longoria Other Provider JIM Bragg NP Attending Provider Dr. Dhara Best Primary Care Provider Dr. Dhara Best Referring Provider Tramaine, Dr. Longoria Attending Provider Tramaine, Dr. Longoria Referring Provider Tramaine, Dr. Longoria Other Provider SRIDHAR Bragg NPC Karen Attending Provider Dr. Dhara Best Attending Provider Dhara Best Attending Unavailable Estephania, Dhara Primary Care Unavailable Estephania, Dhara Referring Unavailable Estephania, Dhara Primary Care Unavailable Estephania, Dhara Referring Unavailable Estephania, Dhara Attending Unavailable Estephania, Dhara Attending Unavailable Estephania, Dhara Primary Care Unavailable Estephania, Dahra Referring Unavailable Iglesia Ari Attending Unavailable Estephania, Dhara Primary Care Unavailable Estephania, Dhara Referring Unavailable Estephania, Dhara Primary Care Unavailable TramaineVon rodriguez Attending Unavailable Estephania, Dhara Attending Unavailable Estephania, Dhara Primary Care Unavailable Estephania, Dhara Attending Unavailable Estephania, Dhara Primary Care Unavailable Estephania, Dhara Referring Unavailable Tramaine, Von Attending Unavailable Estephania, Dhara Primary Care Unavailable Estephania, Dhara Attending Unavailable Estephania, Dhara Primary Care Unavailable Estephania, Dhara Primary Care Unavailable Ricardo Hardwick Attending Unavailable Estephania, Dhara Primary Care Unavailable Cori ESCALATOR INSTALLER, Rajesh Ann Attending Unavailable Estephania, Dhara Primary Care Unavailable Sena Longo Referring Unavailable Sena Longo Attending Unavailable EstephaniaDhara Attending Unavailable Estephania, Dhara Referring Unavailable Roof ESCALATOR INSTALLERRajesh Consulting Unavailable Estephania, Dhara Primary Care Unavailable EstephaniaDhara Attending Unavailable Estephania, Dhara Primary Care Unavailable Estephania, Dhara Referring Unavailable EstephaniaDhara Attending Unavailable Estephania, Dhara Referring Unavailable Estephania, Dhara Primary Care Unavailable Estephania, Dhara Primary Care Unavailable Ari Ernst Attending Unavailable EstephaniaDhara Attending Unavailable Estephania, Dhara Referring Unavailable Estephania, Dhara Primary Care Unavailable Allergies Allergy Classification Reported Allergen(s) Allergy Type Date of Onset Reaction(s) Facility (5 sources) Codeine Drug Allergy 11-14-2021 [facility] (5 sources) oxyCODONE Drug Allergy 11-14-2021 [facility] (1 source) carvedilol Drug Allergy 10-29-2024 [facility] (1 source) Codeine Drug Allergy 10-29-2024 [facility] (1 source) oxyCODONE Drug Allergy 10-29-2024 [facility] Rep[facility] Medications Current Medications Medication Drug Class(es) Dates Sig (Normalized) Sig (Original) acetaminophen 325 mg oral tablet (5 sources) Start: 08-07-2018 take 650 mg by mouth every six hours as needed Acetaminophen Active 650 MG PO EVERY 6 HOURS NEEDED August 07, 2018 12:00am ALPRAZolam 0.5 mg oral tablet (13 sources) Benzodiazepine Start: 02-13-2023 take 1 tablet by mouth twice daily Alprazolam (Xanax) 0.5 mg tablet Active 0.5 MG PO TWICE A DAY February 12, 2023 11:00pm Start: 08-03-2018 End: 10-01-2022 take 0.5 mg by mouth twice daily Alprazolam Discontinued 0.5 MG PO TWICE A DAY April 27, 2020 10:55am October 01, 2022 7:29am [facility] 81 mg chewable tablet (5 sources) Platelet Aggregation Inhibitor, Nonsteroidal Anti-inflammatory Drug Start: 08-03-2018 take 81 mg by mouth once daily Aspirin Active 81 MG PO DAILY August 03, 2018 12:00am atorvastatin 40 mg oral tablet (11 sources) HMG-CoA Reductase Inhibitor Start: 02-23-2021 End: 05-23-2023 take 80 mg by mouth once daily Atorvastatin Active 80 MG PO DAILY May 23, 2023 1:58pm Start: 08-03-2018 End: 02-23-2021 take 40 mg by mouth once daily Atorvastatin Discontinu ed 40 MG PO DAILY August 03, 2018 12:00am February 23, 2021 7:23am docusate sodium 50 mg oral capsule (8 sources) Start: 02-23-2021 End: 03-28-2023 take 50 mg by mouth once daily Docusate Sodium Active 50 MG PO DAILY March 28, 2023 9:21am guaiFENesin 20 mg/ml oral solution (5 sources) Start: 11-14-2021 take 200 mg by mouth every four hours Guaifenesin Active 200 MG PO Q4H November 13, 2021 11:00pm tamsulosin hydrochloride 0.4 mg oral capsule (1 source) alpha-Adrenergic [place] Start: 07-17-2023 take 0.4 mg by mouth at bedtime Tamsulosin Active 0.4 MG PO AT BEDTIME July 17, 2023 12:00am traZODone hydrochloride 100 mg oral tablet (10 sources) Serotonin Reuptake Inhibitor Start: 04-27-2020 End: 04-27-2020 take 100 mg by mouth at bedtime Trazodone Active 100 MG PO AT BEDTIME April 27, 2020 10:56am [facility] [place] [employer] Completed/Discontinued Medications Medication Drug Class(es) Dates Sig (Normalized) Sig (Original) amLODIPine 10 mg oral tablet (20 sources) Dihydropyridine Calcium Channel [place] Start: 08-03-2018 End: 04-03-2023 take 10 mg by mouth once daily Amlodipine Discontinued 10 MG PO DAILY September 17, 2022 11:34am April 03, 2023 1:20pm azithromycin 250 mg oral tablet (13 sources) Macrolide Antimicrobial Start: 06-23-2021 End: 02-13-2023 Azithromycin Discontinued 0 PO .COMPLEX September 30, 2022 11:00pm February 13, 2023 7:31am take 500 mg today (day 1), then 250 mg for 4 days (days 2-5) PO benazepril hydrochloride 10 mg oral tablet (20 sources) Angiotensin Converting Enzyme Inhibitor Start: 08-03-2018 End: 09-17-2022 take 10 mg by mouth once daily Benazepril Discontinued 10 MG PO DAILY January 12, 2022 4:05pm September 17, 2022 11:33am cefTRIAXone 2000 mg injection (10 sources) Cephalosporin Antibacterial Start: 08-07-2018 End: 04-27-2020 Ceftriaxone Discontinued 2 GM IV EVERY 24 HOURS 14 August 07, 2018 12:00am August 21, 2018 12:08am Dx: L shoulder deep surgical site infection weekly bmp, cbc, and esr while on iv abx fax to [phone] doxycycline monohydrate 100 mg oral capsule (5 sources) Tetracycline-class Drug Start: 08-03-2018 End: 08-07-2018 take 100 mg by mouth once daily Doxycycline Monohydrate Discontinued 100 MG PO DAILY August 03, 2018 12:00am August 07, 2018 11:42am linezolid 600 mg oral tablet (5 sources) Oxazolidinone Antibacterial Start: 08-07-2018 End: 08-21-2018 take 600 mg by mouth twice daily Linezolid Discontinued 600 MG PO TWICE A DAY 28 August 07, 2018 12:00am August 21, 2018 12:08am nitroglycerin 0.4 mg sublingual tablet (13 sources) Nitrate Vasodilator Start: 08-03-2018 End: 04-03-2023 Nitroglycerin Discontinued 0.4 MG SL NEEDED April 27, 2020 11:34am April 03, 2023 1:20pm omeprazole 20 mg delayed release oral capsule (20 sources) Proton Pump Inhibitor Start: 08-03-2018 End: 04-03-2023 take 20 mg by mouth once daily Omeprazole Discontinued 20 MG PO DAILY September 12, 2021 11:25am April 03, 2023 1:20pm Problems Active Problems Problem Classification Problem Date Documented Date Episodic/Chronic Anxiety disorders (1 source) Anxiety disorder, unspecified; Translations: [Anxiety disorder, unspecified] Onset: 04-03-2024 Chronic Coronary atherosclerosis and other heart disease (15 sources) Coronary atherosclerosis; Translations: [Atherosclerotic heart disease of [place] coronary artery without angina pectoris] Onset: 09-03-2024 08-04-2018 Chronic Coronary atherosclerosis and other heart disease (12 sources) Stented coronary artery; Translations: [Presence of coronary angioplasty implant and graft] Onset: 09-03-2024 08-03-2018 Episodic Deficiency and other anemia (5 sources) Normocytic normochromic anemia; Translations: [Anemia, unspecified] 08-03-2018 Episodic Disorders of lipid metabolism (12 sources) Hyperlipidemia; Translations: [Hyperlipidemia, unspecified] Onset: 09-03-2024 08-04-2018 Chronic Esophageal disorders (5 sources) Gastroesophageal reflux disease; Translations: [Gastro-esophageal reflux disease without esophagitis] 08-04-2018 Chronic Essential hypertension (10 sources) Benign hypertension; Translations: [Essential (primary) hypertension] Onset: 09-03-2024 03-28-2023 Chronic Genitourinary symptoms and ill-defined conditions (4 sources) Increased frequency of urination; Translations: [Frequency of micturition] 07-17-2023 Episodic Gout and other crystal arthropathies (1 source) Gout, unspecified; Translations: [Gout, unspecified] Onset: 10-29-2024 Chronic Heart valve disorders (1 source) Nonrheumatic mitral (valve) insufficiency; Translations: [Nonrheumatic mitral (valve) insufficiency] Onset: 09-03-2024 Chronic Hyperplasia of prostate (1 source) Benign prostatic hyperplasia without lower urinary tract symptoms; Translations: [Benign prostatic hyperplasia without lower urinary tract symptoms] Onset: 08-31-2024 Chronic Infective arthritis and osteomyelitis (except that caused by tuberculosis or sexually transmitted disease) (5 sources) Pyogenic arthritis of shoulder region; Translations: [Pyogenic arthritis, unspecified] 08-03-2018 Episodic Malaise and fatigue (5 sources) Fatigue; Translations: [Other fatigue] 02-13-2023 Episodic Mood disorders (1 source) Mood disorders; Translations: [Depression, unspecified] Onset: 03-04-2024 Nonspecific chest pain (4 sources) Chest pain; Translations: [Chest pain, unspecified] 06-13-2022 Episodic Other and ill-defined heart disease (5 sources) Left ventricular hypertrophy; Translations: [Cardiomegaly] 08-03-2018 Chronic Other and ill-defined heart disease (1 source) Other ill-defined heart diseases; Translations: [Other ill-defined heart diseases] Onset: 09-03-2024 Chronic Other connective tissue disease (1 source) Other symptoms and signs involving the nervous system; Translations: [Other symptoms and signs involving the nervous system] Onset: 11-03-2024 Episodic Other connective tissue disease (1 source) Pain in right foot; Translations: [Pain in right foot] Onset: 10-29-2024 Episodic Other connective tissue disease (1 source) Pain in left foot; Translations: [Pain in left foot] Onset: 10-29-2024 Episodic Other endocrine disorders (1 source) Male hypogonadism; Translations: [Testicular hypofunction] 07-17-2023 Chronic Other lower respiratory disease (6 sources) Lung finding; Translations: [Abnormal lung examination] Episodic Other lower respiratory disease (3 sources) Cough; Translations: [Cough] Episodic Other screening for suspected conditions (not mental disorders or infectious disease) (1 source) Elevated prostate specific antigen [PSA]; Translations: [Elevated prostate specific antigen [PSA]] Onset: 08-31-2024 Episodic Other upper respiratory infections (3 sources) Acute upper respiratory infection; Translations: [Acute upper respiratory infection, unspecified] Episodic Peripheral and visceral atherosclerosis (1 source) Peripheral vascular disease, unspecified; Translations: [Peripheral vascular disease, unspecified] Onset: 11-11-2024 Chronic Screening and history of mental health and substance abuse codes (7 sources) Personal history of nicotine dependence; Translations: [History of nicotine dependence] Onset: 09-03-2024 03-28-2023 Episodic Skin and subcutaneous tissue infections (5 sources) Cellulitis; Translations: [Cellulitis, unspecified] 03-25-2023 Episodic Substance-related disorders (3 sources) Tobacco dependence caused by cigarettes; Translations: [Nicotine dependence, cigarettes, uncomplicated] Chronic Unclassified (2 sources) Body mass index 25-29 - overweight; Translations: [Body mass index (BMI) of 25.0 to 29.9] Past or Other Problems Problem Classification Problem Date Documented Da te Episodic/Chronic Blindness and vision defects (1 source) Generalized contraction of visual field, unspecified eye; Translations: [Generalized contraction of visual field, unspecified eye] Onset: 4 Episodic Conditions associated with dizziness or vertigo (1 source) Dizziness and giddiness; Translations: [Dizziness and giddiness] Onset: 4 Episodic Gastrointestinal hemorrhage (1 source) Gastrointestinal hemorrhage, unspecified; Translations: [Gastrointestinal hemorrhage, unspecified] Onset: 5 Episodic Other connective tissue disease (3 sources) Bursitis of right shoulder; Translations: [Bursitis of right shoulder] Onset: 8 Episodic Other lower respiratory disease (1 source) Other forms of dyspnea; Translations: [Other forms of dyspnea] Onset: 4 Episodic Other nervous system disorders (1 source) Unspecified abnormalities of gait and mobility; Translations: [Unspecified abnormalities of gait and mobility] Onset: 4 Episodic Sprains and strains (1 source) Other sprain of right shoulder joint, initial encounter; Translations: [Other sprain of right shoulder joint, initial encounter] Onset: 8 Episodic Results Test Name Value Interpretation Reference Range Facility Spine Lumbar (Routine)on Spine Lumbar (Routine) [facility] Imaging Services [address] [place] [address] Spine Lumbar (Routine) MR#: [id number] Acct: [id number] Name: SENA SARMIENTO Rep #: [id number] : 1955 M 69 From: Dao Garza MD PCP: Dr. Dhara Best MD Status: REG CLI Study: Spine Lumbar (Routine) Date of Exam: 11/03/24 Exam# [id number] Ordering Dr: Dhara Best MD PROCEDURE: SPINE LUMBAR (ROUTINE) 11/03/2024 REASON FOR EXAM: AUGIE LOWER EXT CLAUDICATION, POSSIBLE NEUROGENIC TECHNIQUE: Multiplanar and multisequence images were obtained without IV contrast administration. COMPARISON: None FINDINGS: The vertebral body alignment is maintained. The vertebral body height is maintained. Vertebral body marrow signal is normal. Intervertebral disc signal shows desiccation at L5-S1. There is significant ligamentous hypertrophy posterior to L5, measuring 0.8 cm in thickness. Normal appearing facets are noted. The L1-L2 level: There is no significant disk protrusion. There is no lateral recess stenosis or foraminal stenosis. There is no critical central canal stenosis. The L2-L3 level: There is no significant disk protrusion. There is no lateral recess stenosis or foraminal stenosis. There is no critical central canal stenosis. The L3-L4 level: There is no significant disk protrusion. There is no lateral recess stenosis or foraminal stenosis. There is no critical central canal stenosis. The L4-L5 level: There is no significant disk protrusion. There is no lateral recess stenosis or foraminal stenosis. There is no critical central canal stenosis. The L5-S1 level: There is moderate central and right and left paracentral disc and osteophyte protrusion. There is mild bilateral lateral recess effacement. There is mild bilateral foraminal narrowing secondary to disc protrusion and facet hypertrophy. There is moderate central canal stenosis, partly secondary to ligamentous hypertrophy. The visualized conus shows normal signal characteristics. Adjacent soft tissues are unremarkable. MRI/Spine Lumbar (Routine) IMPRESSION: There is significant ligamentous hypertrophy posterior to L5, measuring 0.8 cm in thickness. There is moderate central canal stenosis at L5-S1, with lateral recess and foraminal narrowing. Reading Location: [facility] CC: Dr. Dhara Best MD Farrowing Manager: Signed Normal [facility] CRPon 10-29-2024 C-REACTIVE PROT 4.00 mg/L High 0.0-3.0 [facility] Comment on above: Performed By: #### L 501.6715, L101.9900, L501.1400 ####[facility] [id number] [place], [address] Erythrocyte Sed Rateon 10-29 SED RATE 18 mm/hr Normal 0-20 [facility] Comment on above: Performed By: #### L 501.6710, L101.9900, L501.1400 ####[facility] [id number] [place], [address] Foot min 3 Viewson Foot min 3 Views [facility] Imaging Services [address] [place] [address] Foot min 3 Views MR#: [id number] Acct: [id number] Name: SENA SARMIENTO Rep #: [id number] : 1955 M 69 From: Jah Graham MD PCP: Dr. Dhara Best MD Status: REG CLI Study: Foot min 3 Views Date of Exam: 10/29/24 Exam# [id number] Ordering Dr: Dhara Best MD PROCEDURE: FOOT MIN 3 VIEWS 10/29/2024 REASON FOR EXAM: PAIN TECHNIQUE: 3 views of the left foot. COMPARISON: None available FINDINGS: No fracture or dislocation. The joint spaces appear within limits. Soft tissues appear within limits. Small enthesophyte formation plantar surface of the calcaneus. Suggestion of possible faint anterior vascular calcification. RAD/Foot min 3 Views IMPRESSION: Study appears within limits as above. Reading Location: [facility] CC: Dr. Dhara Best MD Farrowing Manager: Signed Normal [facility] Foot min 3 Views [facility] Imaging Services [address] [place] [address] Foot min 3 Views MR#: [id number] Acct: [id number] Name: GUILLERMINASENANINGS Rep #: [id number] : 1955 M 69 From: Jah Graham MD PCP: Dr. Dahra Best MD Status: REG CLI Study: Foot min 3 Views Date of Exam: 10/29/24 Exam# [id number] Ordering Dr: Dhara Best MD PROCEDURE: FOOT MIN 3 VIEWS 10/29/2024 REASON FOR EXAM: BILATERAL FOOT PAIN, PAIN BILAT 1ST MTP, ANKLES TECHNIQUE: 3 views of the right foot. COMPARISON: None available FINDINGS: No fracture or dislocation. Severe osteoarthrosis of the 1st metatarsophalangeal joint with severe disc space narrowing and geqp-zo-qwxt contact, buttressing and marginal osteophyte formation. Subchondral cyst formation at the head of the 1st metatarsal. No associated soft tissue swelling appreciated. Mild osteoarthrosis 1st interphalangeal joint. Dbahl-mu-obnxnrar enthesophyte formation at the plantar surface of the calcaneus. Vascular calcification noted. 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 Subchondral cyst formation at the head of the 1st metatarsal. No associated soft tissue swelling appreciated. Mild osteoarthrosis 1st interphalangeal joint. Reading Location: [facility] CC: Dr. Dhara Best MD Farrowing Manager: Signed Normal [facility] Liver Profileon 10-29-2024 Albumin [Mass/Vol] 4.2 g/dL Normal 3.4-4.8 [facility] Comment on above: Performed By: #### L 500.3400 ####[facility] [address] [place], [place], [id number] ALK PHOS 70 U/L Normal 40-129 [facility] Comment on above: Performed By: #### L 500.3400 ####[facility] [id number] [place], [place], [id number] ALT [Catalytic activity/Vol] 23 U/L Normal <=46 [facility] Comment on above: Performed By: #### L 500.3400 ####[facility] [address] [place], [address] AST [Catalytic activity/Vol] 23 U/L Normal <=37 [facility] Comment on above: Performed By: #### L 500.3400 ####[facility] [address] [place], [address] Bilirubin [Mass/Vol] 0.31 mg/dL Normal 0.00-1.30 [facility] Comment on above: Performed By: #### L 500.3400 ####[facility] [address] [place], [address] Bilirubin.direct [Mass/Vol] 0.12 mg/dL Normal 0.00-0.30 [facility] Comment on above: Performed By: #### L 500.3400 ####[facility] [id number] [place], [address] Globulin (S) [Mass/Vol] 2.9 g/dL Normal 2.2-4.2 [facility] Comment on above: Performed By: #### L 500.3400 ####[facility] [address] [place], [address] T PROT 7.1 g/dL Normal 5.9-8.4 [facility] Comment on above: Performed By: #### L 500.3400 ####[facility] [address] [place], [address] MR/BMS.IMBon 10-29-2024 MR/BMS.IMB [facility] [address] [place] [address] OFFICE VISIT Date of Service: 10/29/24 MR#: [id number] Acct: [id number] Name: SENA SARMIENTO Rep #: [id number] : 1955 Provider: Dr. Dhara perez MD Age/Sex: 69/M Location: [facility] Status: Signed Intake Vital Signs 09/03/24 12:55 10/29/24 13:11 Height 5 ft 4 in 5 ft 4 in Weight: 192 lb 191 lb 6 oz BMI 32.9 32.8 BP 103/62 153/89 H Blood Pressure Location Lt brachial Lt brachial Position Sitting Sitting Respiration 18 16 Pulse 70 70 Pulse Source Monitor Monitor Temp 98.6 F Temp Source Temporal Pulse Oximetry (%) 95 94 Oxygen Delivery Method room air room air Intake Visit Reasons: Possible Gout Chief Complaint: Possible Gout Profiling Machine Operator Required: No Accompanied by: Self Is patient in pain?: Yes (bilateral feet and legs) Pain scale (1-10): 3 Allergies codeine Allergy (Verified 10/29/24 13:04) Itching oxycodone Allergy (Verified 10/29/24 13:04) Itching carvedilol Adverse Reaction (Intermediate, Verified 10/29/24 13:04) Severe fatigue and lethargy, even on 3.125 Medications ???Medication ???Instructions ???Recorded ???Confirmed ???Type aspirin 81 mg chewable tablet 81 mg PO DAILY 08/03/18 10/29/24 H istory acetaminophen 325 mg tablet 650 mg (2 x 325 mg) PO Q6H PRN PRN 08/07/18 10/29/24 Rx Mild Pain (scale 0-3)/T>100.7 nitroglycerin 0.4 mg sublingual 0.4 mg sublingual PRN PRN Pain #20 04/03/23 10/29/24 Rx tablet tabs atorvastatin 80 mg tablet 80 mg PO QDAY #90 tabs 11/21/23 Rx ezetimibe 10 mg tablet (Zetia) 10 mg PO DAILY #90 tabs 01/24/24 0 10/29/24 Rx omeprazole 40 mg capsule,delayed 40 mg PO DAILY #90 caps 03/20/24 0 10/29/24 Rx release trazodone 100 mg tablet 100 mg PO QHS PRN insomnia #180 10/29/24 Rx tabs benazepril 10 mg tablet 10 mg PO DAILY #90 tabs 09/02/24 0 10/29/24 Rx amlodipine 5 mg tablet 5 mg PO BID #180 tabs 09/14/24 Rx sertraline 25 mg tablet (Zoloft) 25 mg PO QDAY #90 tabs 09/24/24 Rx Have you fallen in the past year?: No PFSH Medical History (Updated 10/29/24 @ 13:[address] Dhara Best MD) Bilateral foot pain Gout Neurogenic claudication Claudication of both lower extremities Ceruminosis Elevated PSA Tunnel vision Dizziness Abnormal gait Fatigue Hypogonadism in male Urinary frequency Dysuria History of nicotine dependence Atherosclerotic heart disease of [place] coronary artery without angina pectoris Abnormal lung examination Alcohol abuse Anxiety Myocardial infarct Other and unspecified hyperlipidemia Essential hypertension LVH (left ventricular hypertrophy) Septic arthritis of shoulder, right Normochromic normocytic anemia Cellulitis CAD (coronary artery disease) Hyperlipidemia Gastroesophageal reflux disease Surgical History Presence of coronary angioplasty implant and graft History of rotator cuff surgery CAD (coronary artery disease), autologous vein bypass graft Stented coronary artery S/P rotator cuff repair Family History Father CVA (cerebral vascular accident) Hypertension Mother COPD (chronic obstructive pulmonary disease) Hypertension Thyroid disorder Sister Hypertension Brother Hypertension Other Myocardial infarction Social History Smoking Status: Former smoker quit date: 03/21/23 Tobacco: How many years used: 52 alcohol intake: former substance use type: does not use caffeine: Yes Type: coffee Number of servings: 1 HPI HPI Chief Complaint: Possible Gout Details: SENA SARMIENTO, is a 69 M who presents to the office today for an acute care follow-up visit. 61-year-old gentleman who presents today again, for concerns about bilateral foot pain. He has what has been felt to be neurogenic claudication. We did do arterial studies and that did not confirm significant atherosclerotic changes. He has bilateral feet pain, ankles. He states as he tries to walk, everything gets worse. Not necessarily altogether focal. He was talking to a friend from out of [place] who was describing similar symptoms who had gout. So he wanted to get evaluated for possible gout. This been going on for several months, not necessarily any different in character than it had been. He had noticed some swelling in his toes, swelling in the feet intermittently. Using Aleve. He has an MRI scheduled on his lumbar spine to evaluate for neurogenic claudication. Of note, prior to him seeing me, he did have a markedly elevated sed rate and CRP back in 2019 but I have no idea what that was actually ordered to evaluate for. No prior uric (more content not included)... Normal [facility] Uric Acidon 10-29-2024 URIC 4.7 mg/dL Normal 3.5-7.2 [facility] Comment on above: Result Comment: The drugs N-Acetylcysteine and Metamizole may falsely depress this assay. Performed By: #### L 501.6710, L101.9900, L501.1400 ####[facility] [id number] [place], [address] Ankle Brachial Indexon 09-17 Ankle Brachial Index [facility] [address] [place] [address] Ankle Brachial Index 09/17/24 1402 MR#: [id number] Acct: [id number] Name: SENA SARMIENTO Rep #: [id number] : 1955 69 From: Ari Parekh MD Attending Dr: Dr. Dhara Best MD Status: RE G CLI Ordering Dr: Dhara Best MD Date: 09/17/24 Location: [facility] Sex: M C Admitted: Reason For Study Reason For Study: Claudication Procedure A bilateral lower extremity continuous wave Doppler with analog waveform analysis and ankle brachial indexes. Left Segmental Pressures Left brachial= 124mmHg. Left posterior tibial artery = 133mmHg. Left dorsalis pedis artery = 137mmHg. Left digit = 109 mmHg. The left dorsalis pedis waveforms are triphasic. The left posterior tibial artery waveforms are triphasic. Right Segmental Pressures Right brachial= 133mmHg. Right posterior tibial artery = 117mmHg. Right dorsalis pedis artery = 112mmHg. Right digit = 94 mmHg. The right dorsalis pedis waveforms are biphasic. The right posterior tibial artery waveforms are biphasic. Indices The right ankle brachial index by the dorsalis pedis is 0.84. The right ankle brachial index by the posterior tibial artery is 0.88. The right digital-brachial index is 0.71. The left ankle brachial index by the dorsalis pedis is 1.03. The left ankle brachial index by the posterior tibial artery is 1.00. The left digital-brachial index is 0.82. VL/Ankle Brachial Index Interpretation Summary Right DIONTE 0.88, moderate arterial insufficiency. Doppler/PVR waveforms of the right ankle moderately diminished at rest. Left DIONTE 1.03, normal. Doppler/PVR waveforms of the left ankle normal at rest. Ordering Physician: Dhara Best Referring Physician: Dhara Best M.D. Performed By: Keira Lundberg Renae 09/17/24 1700 Date Ari Parekh MD CC: Dr. Dhara Best MD Date Dictated: 09/17/241401 Date Transcribed: 09/17/241699 Farrowing Manager: Signed Normal [facility] CBC W/Diff, Automatedon 03-2 Absolute Lymph 1.86 X10 3/uL Normal 0.83-4.51 [facility] Comment on above: Performed By: #### L 501.9940, L100.0100, L500.4050, L501.5200 #### [facility] [address] [place], [place], [address] Absolute Neut 5.0 X10 3/uL Normal 2.0-7.7 [facility] Comment on above: Performed By: #### L 501.9940, L100.0100, L500.4050, L501.5200 #### [facility] [address] [place], [address] Basophils/100 WBC (Bld) 0.8 % Normal 0-1 [facility] Comment on above: Performed By: #### L 501.9940, L100.0100, L500.4050, L501.5200 #### [facility] [address] [place], [address] Eosinophils/100 WBC (Bld) 0.8 % Normal 0-5 [facility] Comment on above: Performed By: #### L 501.9940, L100.0100, L500.4050, L501.5200 #### [facility] [address], [address] Erythrocyte distribution width (RBC) [Ratio] 14.3 % Normal 11.6-14.6 [facility] Comment on above: Performed By: #### L 501.9940, L100.0100, L500.4050, L501.5200 #### [facility] [address] [place], [address] Hematocrit (Bld) [Volume fraction] 37.8 % Low 40-54 [facility] Comment on above: Performed By: #### L 501.9940, L100.0100, L500.4050, L501.5200 #### [facility] [address], [address] Hemoglobin (Bld) [Mass/Vol] 12.9 g/dL Low 13.0-16.5 [facility] Comment on above: Performed By: #### L 501.9940, L100.0100, L500.4050, L501.5200 #### [facility] [address] [place], [address] IG% 0.400 Normal 0.0-0.9 [facility] Comment on above: Result Comment: IG% - Immature Granulocytes (promyelocytes, myelocytes and metamyelocytes) > 1% indicates that a LEFT SHIFT is Present. Performed By: #### L 501.9940, L100.0100, L500.4050, L501.5200 #### [facility] [address] [place], [address] Lymphocytes/100 WBC (Bld) 23.7 % Normal 19-41 [facility] Comment on above: Performed By: #### L 501.9940, L100.0100, L500.4050, L501.5200 #### [facility] [address] [place], [address] MCH (RBC) [Entitic mass] 31.6 pg Normal 27.0-32.0 [facility] Comment on above: Performed By: #### L 501.9940, L100.0100, L500.4050, L501.5200 #### [facility] [address] [place], [address] MCHC (RBC) [Mass/Vol] 34.1 g/dL Normal 32-36 [facility] Comment on above: Performed By: #### L 501.9940, L100.0100, L500.4050, L501.5200 #### [facility] [address] [place], [address] MCV (RBC) [Entitic vol] 92.6 fL Normal 80-94 [facility] Comment on above: Performed By: #### L 501.9940, L100.0100, L500.4050, L501.5200 #### [facility] [address] [place], [address] Monocytes/100 WBC (Bld) 11.0 % High 0-10 [facility] Comment on above: Performed By: #### L 501.9940, L100.0100, L500.4050, L501.5200 #### [facility] [address] [place], [address] Neutrophils/100 WBC (Bld) 63.3 % Normal 47-70 [facility] Comment on above: Performed By: #### L 501.9940, L100.0100, L500.4050, L501.5200 #### [facility] [address] [place], [address] Nucleated RBC (Bld) [#/Vol] 0 10*3/uL Normal 0-5 [facility] Comment on above: Performed By: #### L 501.9940, L100.0100, L500.4050, L501.5200 #### [facility] [address] [place], [address] Platelet mean volume (Bld) [Entitic vol] 10.7 fL Normal 6.2-12.0 [facility] Comment on above: Performed By: #### L 501.9940, L100.0100, L500.4050, L501.5200 #### [facility] [address] [place], [address] Platelets (Bld) [#/Vol] 249 10*3/uL Normal 150-450 [facility] Comment on above: Performed By: #### L 501.9940, L100.0100, L500.4050, L501.5200 #### [facility] [address] [place], [address] RBC (Bld) [#/Vol] 4.08 10*6/uL Low 4.6-6.2 [facility] Comment on above: Performed By: #### L 501.9940, L100.0100, L500.4050, L501.5200 #### [facility] [address] [place], [address] RDW SD 48.6 fl High 35.1-43.9 [facility] Comment on above: Performed By: #### L 501.9940, L100.0100, L500.4050, L501.5200 #### [facility] [address] [place], [address] WBC (Bld) [#/Vol] 7.8 10*3/uL Normal 4.4-11.0 [facility] Comment on above: Performed By: #### L 501.9940, L100.0100, L500.4050, L501.5200 #### [facility] [address] [place], [address] Cardiology Visit Reporton Cardiology Visit Report [facility] [address] [place] [address] OFFICE VISIT Date of Service: 09/03/24 MR#: [id number] Acct: [id number] Name: SENA SARMIENTO Rep #: [id number] : 1955 Provider: Dr. Von Redd MD Age/Sex: 69/M Location: [facility] [place] Status: Signed HPI HPI History of Present Illness Details: This gentleman with history of coronary artery disease, hypertension and dyslipidemia is here for follow-up visit. Denies any angina. Shortness of breath with strenuous exertion only. No orthopnea or PND. No ankle edema. Patient has been complaining of claudication symptoms of his left lower extremity. He has been ordered ABIs by his primary care physician. Occasionally feels lightheaded. Intake Vital Signs 08/31/24 10:12 09/03/24 12:55 Height 5 ft 4 in 5 ft 4 in Weight: 194 lb 8 oz 192 lb BMI 33.3 32.9 BP 154/87 H 103/62 Blood Pressure Location Rt brachial Lt brachial Position Sitting Sitting Respiration 16 18 Pulse 69 70 Pulse Source Monitor Monitor Temp 98.9 F Pulse Oximetry (%) 93 95 Oxygen Delivery Method room air room air Intake Visit Reasons: 6 M FU Profiling Machine Operator Required: No Accompanied by: Is patient in pain?: No Allergies codeine Allergy (Verified 09/03/24 12:55) Itching oxycodone Allergy (Verified 09/03/24 12:55) Itching carvedilol Adverse Reaction (Intermediate, Verified 09/03/24 12:55) Severe fatigue and lethargy, even on 3.125 Medications ???Medication ???Instructions ???Recorded ???Confirmed ???Type aspirin 81 mg chewable tablet 81 mg PO DAILY 08/03/18 09/03/24 H istory acetaminophen 325 mg tablet 650 mg (2 x 325 mg) PO Q6H PRN PRN 08/07/18 09/03/24 Rx Mild Pain (scale 0-3)/T>100.7 nitroglycerin 0.4 mg sublingual 0.4 mg sublingual PRN PRN Pain #20 04/03/23 09/03/24 Rx tablet tabs atorvastatin 80 mg tablet 80 mg PO QDAY #90 tabs 11/21/23 Rx ezetimibe 10 mg tablet (Zetia) 10 mg PO DAILY #90 tabs 01/24/24 0 09/03/24 Rx omeprazole 40 mg capsule,delayed 40 mg PO DAILY #90 caps 03/20/24 0 09/03/24 Rx release sertraline 25 mg tablet (Zoloft) 25 mg PO QDAY #90 tabs 03/26/24 Rx amlodipine 10 mg tablet 10 mg PO DAILY #90 tabs 04/02/24 0 09/03/24 Rx trazodone 100 mg tablet 100 mg PO QHS PRN insomnia #180 09/03/24 Rx tabs benazepril 10 mg tablet 10 mg PO DAILY #90 tabs 09/02/24 0 09/03/24 Rx Have you fallen in the past year?: No PFSH Medical History Claudication of both lower extremities Ceruminosis Elevated PSA Tunnel vision Dizziness Abnormal gait Fatigue Hypogonadism in male Urinary frequency Dysuria History of nicotine dependence Atherosclerotic heart disease of iqugmiut coronary artery without angina pectoris Abnormal lung examination Alcohol abuse Anxiety Myocardial infarct Other and unspecified hyperlipidemia Essential hypertension LVH (left ventricular hypertrophy) Septic arthritis of shoulder, right Normochromic normocytic anemia Cellulitis CAD (coronary artery disease) Hyperlipidemia Gastroesophageal reflux disease Surgical History Presence of coronary angioplasty implant and graft History of rotator cuff surgery CAD (coronary artery disease), autologous vein bypass graft Stented coronary artery S/P rotator cuff repair Family History Father CVA (cerebral vascular accident) Hypertension Mother COPD (chronic obstructive pulmonary disease) Hypertension Thyroid disorder Sister Hypertension Brother Hypertension Other Myocardial infarction Social History Smoking Status: Former smoker quit date: 03/21/23 Tobacco: How many years used: 52 alcohol intake: former substance use type: does not use caffeine: Yes Type: coffee Number of servings: 1 ROS Const Const: Positive for fatigue; Negative for weakness ENT ENT: Positive for dizziness; Negative for balance problems Cardio Chest Pain: No Palpitations: No Edema: None Muscle aches with walking: None Resp Respiratory: Positive for SOB with activity; Negative for SOB at rest or SOB orthopnea SOB lying down GI GI: Negative nausea, vomiting or heartburn Musc Musc: Negative for muscle weakness or balance problems Neuro Neuro: Positive for dizziness; Negative for lightheadedness, near syncope, syncope or weakness Endo Endo: Positive for fatigue Cardiology Exam Const Appearance: comfortable and no acute distress Nutritional Appearance: well nourished Neck Neck: no JVD Carotids: Negative bruit Chest Auscultation: Bilateral: Clear to Auscul (more content not included)... Normal [facility] Comprehensive Metabolic Prof ilon 09-03-2024 Albumin [Mass/Vol] 4.1 g/dL Normal 3.4-4.8 [facility] Comment on above: Order Comment: EDDIE PFEIFFER Performed By: #### L 501.9940, L100.0100, L500.4050, L501.5200 #### [facility] [address] [place], [address] Albumin/Globulin [Mass ratio] 1.4 {ratio} Normal 0.9-2.4 [facility] Comment on above: Order Comment: EDDIE PFEIFFER Performed By: #### L 501.9940, L100.0100, L500.4050, L501.5200 #### [facility] [address] [place], [address] ALK PHOS 67 U/L Normal 40-129 [facility] Comment on above: Order Comment: EDDIE PFEIFFER Performed By: #### L 501.9940, L100.0100, L500.4050, L501.5200 #### [facility] [address] [place], [address] ALT [Catalytic activity/Vol] 29 U/L Normal <=46 [facility] Comment on above: Order Comment: EDDIE PFEIFFER Performed By: #### L 501.9940, L100.0100, L500.4050, L501.5200 #### [facility] [address] [place], [address] AST [Catalytic activity/Vol] 25 U/L Normal <=37 [facility] Comment on above: Order Comment: EDDIE PFEIFFER Performed By: #### L 501.9940, L100.0100, L500.4050, L501.5200 #### [facility] [address] [place], [address] Bilirubin [Mass/Vol] 0.32 mg/dL Normal 0.00-1.30 [facility] Comment on above: Order Comment: EDDIE PFEIFFER Performed By: #### L 501.9940, L100.0100, L500.4050, L501.5200 #### [facility] [address] [place], [address] BUN/CRE 12.5 RATIO Normal 10-20 [facility] Comment on above: Order Comment: EDDIE PFEIFFER Performed By: #### L 501.9940, L100.0100, L500.4050, L501.5200 #### [facility] [address] [place], [address] Calcium [Mass/Vol] 8.7 mg/dL Normal 7.6-11.0 [facility] Comment on above: Order Comment: CMP Renae O RAJESH ROOF Performed By: #### L 501.9940, L100.0100, L500.4050, L501.5200 #### [facility] [address] [place], [address] Chloride [Moles/Vol] 101 mmol/L Normal 98-108 [facility] Comment on above: Order Comment: EDDIE PFEIFFER Performed By: #### L 501.9940, L100.0100, L500.4050, L501.5200 #### [facility] [address] [place], [address] CO2 [Moles/Vol] 23.0 mmol/L Normal 21.0-32.0 [facility] Comment on above: Order Comment: EDDIE PFEIFFER Performed By: #### L 501.9940, L100.0100, L500.4050, L501.5200 #### [facility] [address] [place], [address] Creatinine [Mass/Vol] 1.06 mg/dL Normal 0.70-1.20 [facility] Comment on above: Order Comment: EDDIE PFEIFFER Performed By: #### L 501.9940, L100.0100, L500.4050, L501.5200 #### [facility] [address] [place], [address] GAP 11 Normal 5-15 [facility] Comment on above: Order Comment: EDDIE PFEIFFER Performed By: #### L 501.9940, L100.0100, L500.4050, L501.5200 #### [facility] [address] [place], [address] GFR/1.73 sq M.predicted among non-blacks MDRD (S/P/Bld) [Vol rate/Area] 76 mL/min/{1.73_m2} Normal >60 [facility] Comment on above: Order Comment: EDDIE PFEIFFER Result Comment: mL/m in/1.73m2 CKD-EPI Creatinine Equation (2020) Performed By: #### L 501.9940, L100.0100, L500.4050, L501.5200 #### [facility] [address] [place], [address] Globulin (S) [Mass/Vol] 2.9 g/dL Normal 2.2-4.2 [facility] Comment on above: Order Comment: EDDIE PFEIFFER Performed By: #### L 501.9940, L100.0100, L500.4050, L501.5200 #### [facility] [address] [place], [address] Glucose [Mass/Vol] 109 mg/dL High 70-99 [facility] Comment on above: Order Comment: EDDIE Rodriguez RAJESH PFEIFFER Performed By: #### L 501.9940, L100.0100, L500.4050, L501.5200 #### [facility] [address] [place], [address] Potassium [Moles/Vol] 4.3 mmol/L Normal 3.3-5.1 [facility] Comment on above: Order Comment: EDDIE MENA CORI Performed By: #### L 501.9940, L100.0100, L500.4050, L501.5200 #### [facility] [address] [place], [address] Sodium [Moles/Vol] 135 mmol/L Normal 133-145 [facility] Comment on above: Order Comment: EDDIE Rodriguez RAJESH PFEIFFER Performed By: #### L 501.9940, L100.0100, L500.4050, L501.5200 #### [facility] [address] [place], [address] T PROT 7.0 g/dL Normal 5.9-8.4 [facility] Comment on above: Order Comment: EDDIE PFEIFFER Performed By: #### L 501.9940, L100.0100, L500.4050, L501.5200 #### [facility] [address], [address] Urea nitrogen [Mass/Vol] 13 mg/dL Normal 4-19 [facility] Comment on above: Order Comment: EDDIE PFEIFFER Performed By: #### L 501.9940, L100.0100, L500.4050, L501.5200 #### [facility] [address] [place], [address] Magnesiumon 09-03-2024 Magnesium [Mass/Vol] 2.2 mg/dL Normal 1.5-2.2 [facility] Comment on above: Order Comment: EDDIE PFEIFFER Performed By: #### L 501.9940, L100.0100, L500.4050, L501.5200 #### [facility] [address] [place], [address] PSA,Total- [employer] - PSA, DIAGNOSTIC 5.99 ng/mL High 0.00-4.00 [facility] Comment on above: Order Comment: EDDIE PFEIFFER Result Comment: This test was performed using the [employer] tPSA method. Measured values of a patient??sample can vary depending on the testing procedure used. PSA values determined on patient samples by different testing procedures cannot be used interchangeably. If there is a change in PSA assays while monitoring therapy, sequential testing should be performed to confirm baseline values. Performed By: #### L 501.9940, L100.0100, L500.4050, L501.5200 #### [facility] [address] [place], [address] MR/WES.Jun 08-31-2024 MR/WES.[facility] [address] [place] [address] OFFICE VISIT Date of Service: 08/31/24 MR#: [id number] Acct: [id number] Name: SENA SARMIENTO Rep #: [id number] : 1955 Provider: Dr. Dhara perez MD Age/Sex: 69/M Location: [facility] [place] Status: Signed Intake Vital Signs 06/12/24 07:48 08/31/24 10:12 Height 5 ft 4 in 5 ft 4 in Weight: 194 lb 8 oz BMI 33.3 BP 154/87 H Blood Pressure Location Rt brachial Position Sitting Respiration 16 Pulse 69 Pulse Source Monitor Temp 98.9 F Temp Source Temporal Pulse Oximetry (%) 93 Oxygen Delivery Method room air Intake Visit Reasons: Fatigue, Leg Pain Chief Complaint: Fatigue, Leg Pain Profiling Machine Operator Required: No Accompanied by: Is patient in pain?: Yes (bilateral lower extremities ) Pain scale (1-10): 2 Allergies codeine Allergy (Verified 08/31/24 10:07) Itching oxycodone Allergy (Verified 08/31/24 10:07) Itching carvedilol Adverse Reaction (Intermediate, Verified 08/31/24 10:07) Severe fatigue and lethargy, even on 3.125 Medications ???Medication ???Instructions ???Recorded ???Confirmed ???Type aspirin 81 mg chewable tablet 81 mg PO DAILY 08/03/18 08/31/24 H istory acetaminophen 325 mg tablet 650 mg (2 x 325 mg) PO Q6H PRN PRN 08/07/18 08/31/24 Rx Mild Pain (scale 0-3)/T>100.7 nitroglycerin 0.4 mg sublingual 0.4 mg sublingual PRN PRN Pain #20 04/03/23 08/31/24 Rx tablet tabs benazepril 10 mg tablet 10 mg PO DAILY #90 tabs 09/13/23 0 08/31/24 Rx atorvastatin 80 mg tablet 80 mg PO QDAY #90 tabs 11/21/23 Rx ezetimibe 10 mg tablet (Zetia) 10 mg PO DAILY #90 tabs 01/24/24 0 08/31/24 Rx omeprazole 40 mg capsule,delayed 40 mg PO DAILY #90 caps 03/20/24 0 08/31/24 Rx release sertraline 25 mg tablet (Zoloft) 25 mg PO QDAY #90 tabs 03/26/24 Rx amlodipine 10 mg tablet 10 mg PO DAILY #90 tabs 04/02/24 0 08/31/24 Rx trazodone 100 mg tablet 100 mg PO QHS PRN insomnia #180 08/31/24 Rx tabs Have you fallen in the past year?: No PFSH Medical History (Updated 08/31/24 @ 10:[address] Dhara Best MD) Claudication of both lower extremities Ceruminosis Elevated PSA Tunnel vision Dizziness Abnormal gait Fatigue Hypogonadism in male Urinary frequency Dysuria History of nicotine dependence Atherosclerotic heart disease of iqugmiut coronary artery without angina pectoris Abnormal lung examination Alcohol abuse Anxiety Myocardial infarct Other and unspecified hyperlipidemia Essential hypertension LVH (left ventricular hypertrophy) Septic arthritis of shoulder, right Normochromic normocytic anemia Cellulitis CAD (coronary artery disease) Hyperlipidemia Gastroesophageal reflux disease Surgical History Presence of coronary angioplasty implant and graft History of rotator cuff surgery CAD (coronary artery disease), autologous vein bypass graft Stented coronary artery S/P rotator cuff repair Family History Father CVA (cerebral vascular accident) Hypertension Mother COPD (chronic obstructive pulmonary disease) Hypertension Thyroid disorder Sister Hypertension Brother Hypertension Other Myocardial infarction Social History Smoking Status: Former smoker quit date: 03/21/23 Tobacco: How many years used: 52 alcohol intake: former substance use type: does not use caffeine: Yes Type: coffee Number of servings: 1 HPI HPI Chief Complaint: Fatigue, Leg Pain Details: SENA SARMIENTO, is a 69 M who presents to the office today for follow-up/acute care visit. Patient is a 61-year-old gentleman who has a history of CAD, status post stents. Follows with cardiology. He is currently on amlodipine, aspirin, high-dose atorvastatin, Zetia, and Zoloft and trazodone as needed for sleep. He has been having difficulties with walking he states. Over the last several months he has had increasing leg pain. He has noted fatigue feeling in the legs. He notes relatively short distances now are causing similar symptoms. He has difficult time to say for instance shopping. He last year had increasing difficulties with mowing the lawn, with a push mower. He gets significant calf pain, but some low back pain as well he states. However the calf pain seems to resolve within 3 to 4 minutes, after sitting. He does note other physical activity when they are doing it, such as splitting wood etc. he has back pain. However the calf pain seems to be mostly with ambulation. Does have some difficulties with urination that are seemingly slowly progressive as well. Increased dribbling. No loss of bowel or bladder continence however (more content not included)... Normal [facility] CBC W/Diff, Automatedon 05-18 Absolute Lymph 1.37 X10 3/uL Normal 0.83-4.51 [facility] Comment on above: Performed By: #### L 100.0100, L300.4310, L300.3900, L500.4050 ####[facility] [address] [place], [address] Absolute Neut 3.9 X10 3/uL Normal 2.0-7.7 [facility] Comment on above: Performed By: #### L 100.0100, L300.4310, L300.3900, L500.4050 ####[facility] [address] [place], [address] Basophils/100 WBC (Bld) 0.8 % Normal 0-1 [facility] Comment on above: Performed By: #### L 100.0100, L300.4310, L300.3900, L500.4050 ####[facility] [address] [place], [address] Eosinophils/100 WBC (Bld) 1.3 % Normal 0-5 [facility] Comment on above: Performed By: #### L 100.0100, L300.4310, L300.3900, L500.4050 ####[facility] [address] [place], [address] Erythrocyte distribution width (RBC) [Ratio] 14.9 % High 11.6-14.6 [facility] Comment on above: Performed By: #### L 100.0100, L300.4310, L300.3900, L500.4050 ####[facility] [address] [place], [address] Hematocrit (Bld) [Volume fraction] 39.8 % Low 40-54 [facility] Comment on above: Performed By: #### L 100.0100, L300.4310, L300.3900, L500.4050 ####[facility] [address] [place], [address] Hemoglobin (Bld) [Mass/Vol] 13.6 g/dL Normal 13.0-16.5 [facility] Comment on above: Performed By: #### L 100.0100, L300.4310, L300.3900, L500.4050 ####[facility] [address] [place], [address] IG% 0.300 Normal 0.0-0.9 [facility] Comment on above: Result Comment: IG% - Immature Granulocytes (promyelocytes, myelocytes and metamyelocytes) > 1% indicates that a LEFT SHIFT is Present. Performed By: #### L 100.0100, L300.4310, L300.3900, L500.4050 ####[facility] [address] [place], [address] Lymphocytes/100 WBC (Bld) 21.8 % Normal 19-41 [facility] Comment on above: Performed By: #### L 100.0100, L300.4310, L300.3900, L500.4050 ####[facility] [address] [place], [address] MCH (RBC) [Entitic mass] 31.2 pg Normal 27.0-32.0 [facility] Comment on above: Performed By: #### L 100.0100, L300.4310, L300.3900, L500.4050 ####[facility] [address] [place], [address] MCHC (RBC) [Mass/Vol] 34.2 g/dL Normal 32-36 [facility] Comment on above: Performed By: #### L 100.0100, L300.4310, L300.3900, L500.4050 ####[facility] [address] [place], [address] MCV (RBC) [Entitic vol] 91.3 fL Normal 80-94 [facility] Comment on above: Performed By: #### L 100.0100, L300.4310, L300.3900, L500.4050 ####[facility] [address] [place], [address] Monocytes/100 WBC (Bld) 13.7 % High 0-10 [facility] Comment on above: Performed By: #### L 100.0100, L300.4310, L300.3900, L500.4050 ####[facility] [address] [place], [address] Neutrophils/100 WBC (Bld) 62.1 % Normal 47-70 [facility] Comment on above: Performed By: #### L 100.0100, L300.4310, L300.3900, L500.4050 ####[facility] [address] [place], [address] Nucleated RBC (Bld) [#/Vol] 0 10*3/uL Normal 0-5 [facility] Comment on above: Performed By: #### L 100.0100, L300.4310, L300.3900, L500.4050 ####[facility] [address] [place], [address] Platelet mean volume (Bld) [Entitic vol] 10.6 fL Normal 6.2-12.0 [facility] Comment on above: Performed By: #### L 100.0100, L300.4310, L300.3900, L500.4050 ####[facility] [address] [place], [address] Platelets (Bld) [#/Vol] 247 10*3/uL Normal 150-450 [facility] Comment on above: Performed By: #### L 100.0100, L300.4310, L300.3900, L500.4050 ####[facility] [address] [place], [address] RBC (Bld) [#/Vol] 4.36 10*6/uL Low 4.6-6.2 [facility] Comment on above: Performed By: #### L 100.0100, L300.4310, L300.3900, L500.4050 ####[facility] [address] [place], [address] RDW SD 50.4 fl High 35.1-43.9 [facility] Comment on above: Performed By: #### L 100.0100, L300.4310, L300.3900, L500.4050 ####[facility] [address] [place], [address] WBC (Bld) [#/Vol] 6.3 10*3/uL Normal 4.4-11.0 [facility] Comment on above: Performed By: #### L 100.0100, L300.4310, L300.3900, L500.4050 ####[facility] [address] [place], [address] CTA Abd/Pelvis W/WO Contrast on 06-12-2024 CTA Abd/Pelvis W/WO Contrast [facility] Imaging Services [address] [place] [address] CTA Abd/Pelvis W/WO Contrast MR#: [id number] Acct: [id number] Name: SENA SARMIENTO Rep #: [id number] : 1955 M 68 From: Duy Emmanuel MD PCP: Dr. Dhara Best MD Status: [facility] Study: CTA Abd/Pelvis W/WO Contrast Date of Exam: Exam# [id number] Ordering Dr: Ari Ernst DO [id number] INDICATION: Gastrointestinal bleeding EXAMINATION: CTA abdomen and pelvis - TECHNIQUE: Routine abdominal CT angiogram protocol was performed with IV contrast. MIP images provided. A radiation dose optimization technique was used for this scan. IV Contrast dosage and agent: Radiation dose DLP mGy / cm. COMPARISON: None. FINDINGS: Lung bases: Normal. Liver: 3 cm cyst in the posterior segment of the right lobe of the liver. Gallbladder: Contracted gallbladder. Spleen: Normal. Adrenal gland: Normal. Kidneys: Normal. No hydronephrosis or stone formation. Pancreas:Normal. Bowel gas pattern: Nonobstructive. Appendix: Normal. Free air: None. Free fluid: None. Pelvis: Pelvic organs: No mass lesion noted. Bone survey: No aggressive bony lesions. No acute fractures. Bilateral pars defects of the L5 vertebra consistent with L5 spondylolysis. No anterolisthesis of L5 on S1-2 spondylolisthesis. Bilateral sacroiliitis with sclerosis of the ilium adjacent to the joints. Adenopathy: No significant pathologic adenopathy detected. Other: None. Vascular: Mild amount of peripheral calcified and noncalcified plaque in the abdominal aorta but no aortic stenosis or abdominal aortic aneurysm. Moderately diseased common iliac arteries and internal iliac arteries. Mildly diseased external iliac arteries. The celiac axis, superior mesenteric artery, and inferior mesenteric artery appear patent. Single renal arteries bilaterally without evidence of renal artery stenosis. CT/CTA Abd/Pelvis W/WO Contrast IMPRESSION: Mildly diseased abdominal aorta but no aortic stenosis or abdominal aortic aneurysm. Moderately diseased common iliac arteries and internal carotid arteries. Mildly diseased external iliac arteries. No acute or chronic mesenteric ischemia or renal artery stenosis. Electronically Signed: Duy Emmanuel MD at 9:41 EST , CC: Dr. Ari Ernst, DO; Dr. Dhara Best MD Farrowing Manager: Signed Normal [facility] Comprehensive Metabolic Prof ilon 06-12-2024 Albumin [Mass/Vol] 3.6 g/dL Normal 3.2-5.0 [facility] Comment on above: Performed By: #### L 100.0100, L300.4310, L300.3900, L500.4050 ####[facility] [address] [place], [address] Albumin/Globulin [Mass ratio] 1.0 {ratio} Normal 0.9-2.4 [facility] Comment on above: Performed By: #### L 100.0100, L300.4310, L300.3900, L500.4050 ####[facility] [address] [place], [address] ALK P 68 U/L Normal 45-117 [facility] Comment on above: Performed By: #### L 100.0100, L300.4310, L300.3900, L500.4050 ####[facility] [address] [place], [address] ALT [Catalytic activity/Vol] 34 U/L Normal 16-61 [facility] Comment on above: Performed By: #### L 100.0100, L300.4310, L300.3900, L500.4050 ####[facility] [address] [place], [address] AST [Catalytic activity/Vol] 22 U/L Normal 15-37 [facility] Comment on above: Performed By: #### L 100.0100, L300.4310, L300.3900, L500.4050 ####[facility] [address] [place], [address] Bilirubin [Mass/Vol] 0.40 mg/dL Normal 0.20-1.00 [facility] Comment on above: Result Comment: For patients on eltrombopag therapy, use of Dimension [place] TBIL is not recommended. Performed By: #### L 100.0100, L300.4310, L300.3900, L500.4050 ####[facility] [address] [place], [address] BUN/CRE 9.8 RATIO Low 10-20 [facility] Comment on above: Performed By: #### L 100.0100, L300.4310, L300.3900, L500.4050 ####[facility] [address] [place], [address] CA,Total 8.9 mg/dL Normal 8.5-10.1 [facility] Comment on above: Performed By: #### L 100.0100, L300.4310, L300.3900, L500.4050 ####[facility] [address] [place], [address] Chloride [Moles/Vol] 104 mmol/L Normal 98-107 [facility] Comment on above: Performed By: #### L 100.0100, L300.4310, L300.3900, L500.4050 ####[facility] [address] [place], [address] CO2 [Moles/Vol] 26.0 mmol/L Normal 21.0-32.0 [facility] Comment on above: Performed By: #### L 100.0100, L300.4310, L300.3900, L500.4050 ####[facility] [address] [place], [address] Creatinine [Mass/Vol] 1.02 mg/dL Normal 0.70-1.30 [facility] Comment on above: Result Comment: The validity of the calculated GFR GFRAA in patients over 70 years has not been determined. Clinical correlation is essential. Performed By: #### L 100.0100, L300.4310, L300.3900, L500.4050 ####[facility] [address] [place], [address] ECRCL 69.03 ml/min Normal [facility] Comment on above: Performed By: #### L 100.0100, L300.4310, L300.3900, L500.4050 ####[facility] [address] [place], [address] EST GFR - AA 94 mL/min Normal >60 [facility] Comment on above: Result Comment: Afri can Iraqi GFR Calc Performed By: #### L 100.0100, L300.4310, L300.3900, L500.4050 ####[facility] [address] [place], [address] GAP 4 Low 5-15 [facility] Comment on above: Performed By: #### L 100.0100, L300.4310, L300.3900, L500.4050 ####[facility] [address] [place], [address] GFR/1.73 sq M.predicted among non-blacks MDRD (S/P/Bld) [Vol rate/Area] 77 mL/min/{1.73_m2} Normal >60 [facility] Comment on above: Result Comment: Non- GFR Calc Performed By: #### L 100.0100, L300.4310, L300.3900, L500.4050 ####[facility] [address] [place], [address] Globulin (S) [Mass/Vol] 3.7 g/dL Normal 2.2-4.2 [facility] Comment on above: Performed By: #### L 100.0100, L300.4310, L300.3900, L500.4050 ####[facility] [address] [place], [address] Glucose [Mass/Vol] 141 mg/dL High 74-106 [facility] Comment on above: Result Comment: Fast ing Glucose result greater than or equal to 126 mg/dL suggests DIABETES MELLITUS per A.D.A. criteria. Performed By: #### L 100.0100, L300.4310, L300.3900, L500.4050 ####[facility] [address] [place], [address] Potassium [Moles/Vol] 3.9 mmol/L Normal 3.5-5.1 [facility] Comment on above: Performed By: #### L 100.0100, L300.4310, L300.3900, L500.4050 ####[facility] [address] [place], [address] Sodium [Moles/Vol] 135 mmol/L Low 136-145 [facility] Comment on above: Performed By: #### L 100.0100, L300.4310, L300.3900, L500.4050 ####[facility] [address] [place], [address] T PROT 7.3 g/dL Normal 6.4-8.2 [facility] Comment on above: Performed By: #### L 100.0100, L300.4310, L300.3900, L500.4050 ####[facility] [address] [place], [address] Urea nitrogen [Mass/Vol] 10 mg/dL Normal 7-18 [facility] Comment on above: Performed By: #### L 100.0100, L300.4310, L300.3900, L500.4050 ####[facility] [address] [place], [address] Emergency Department Summary on 06-12-2024 Emergency Department Summary [facility] Medical Records Department [address] [place] [address] Emergency Department Summary 06/12/24 MR#: [id number] Acct: [id number] Name: SENA SARMIENTO Rep #: [id number] : 1955 68 From: Ari Ernst DO PCP: Dr. Dhara Best MD Status:DEP ER Location: ED HPI HPI - GI History of Present Illness Chief Complaint: GI Bleed Informant: patient Abdominal Pain/Flank Pain Onset: Today Context: Gradual Onset Timing: Continuous Quality: Aching Location: Diffuse Worsened by: Nothing Relieved by: Nothing Nausea/Vomiting/Emesis GI Symptom: Positive for Nausea; Negative for Vomiting Diarrhea/Melena/Hemato chezia GI Symptom: Positive for Hematochezia Onset: Weeks (1) Stool Quality: Positive for BRB per rectum Associated Symptoms Associated Symptoms: Negative for Dysuria, Frequency or Hematuria Narrative Narrative: Patient presents with rectal bleeding that has been getting worse over the past week. Patient states he has been feeling lightheaded at times. Patient states he started having some abdominal pain today. Patient states it is diffuse across his entire abdomen. Patient describes it as aching. Patient states it is constant. Patient states nothing makes it better and nothing makes it worse. Patient admits to some nausea but denies any vomiting. Patient denies any dysuria, frequency, or hematuria. Patient denies any fevers or chills. 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 Abnormal lung examination Alcohol abuse Anxiety Myocardial infarct Other and unspecified hyperlipidemia Essential hypertension LVH (left ventricular hypertrophy) Septic arthritis of shoulder, right Normochromic normocytic anemia Cellulitis CAD (coronary artery disease) Hyperlipidemia Gastroesophageal reflux disease Home Medications ???Medication ???Instructions ???Recorded ???Last Taken ???Type aspirin 81 mg chewable tablet 81 mg PO DAILY 08/03/18 08/03/18 History acetaminophen 325 mg tablet 650 mg (2 x 325 mg) PO Q6H PRN PRN 08/07/18 Unknown Rx Mild Pain (scale 0-3)/T>100.7 nitroglycerin 0.4 mg sublingual 0.4 mg sublingual PRN PRN Pain #20 04/03/23 Unknown Rx tablet tabs benazepril 10 mg tablet 10 mg PO DAILY #90 tabs 09/13/23 Unknown Rx atorvastatin 80 mg tablet 80 mg PO QDAY #90 tabs 11/21/23 Unknown Rx ezetimibe 10 mg tablet (Zetia) 10 mg PO DAILY #90 tabs 01/24/24 Unknown Rx omeprazole 40 mg capsule,delayed 40 mg PO DAILY #90 caps 03/20/24 Unknown Rx release sertraline 25 mg tablet (Zoloft) 25 mg PO QDAY #90 tabs 03/26/24 Unknown Rx trazodone 100 mg tablet 100 mg PO QHS PRN insomnia #180 03/31/24 Unknown Rx tabs amlodipine 10 mg tablet 10 mg PO DAILY #90 tabs 04/02/24 Unknown Rx hydrocortisone acetate [address] DAILY #12 ea 06/12/24 Unknown Rx rectal suppository (Anusol-HC) Allergy/AdvReac Type Severity Reaction Status Date / Time codeine Allergy Itching Verified 06/12/24 07:47 oxycodone Allergy Itching Verified 06/12/24 07:47 carvedilol AdvReac Intermediate Severe Verified 06/12/24 07:47 fatigue and lethargy, even on 3.125 Family History Father CVA (cerebral vascular accident) Hypertension Mother COPD (chronic obstructive pulmonary disease) Hypertension Thyroid disorder Sister Hypertension Brother Hypertension Other Myocardial infarction Surgical History Presence of coronary angioplasty implant and graft History of rotator cuff surgery CAD (coronary artery disease), autologous vein bypass graft Stented coronary artery S/P rotator cuff repair Social History Smoking Status: Former smoker quit date: 03/21/23 Tobacco: How many years used: 52 alcohol intake: former substance use type: does not use caffeine: Yes Type: coffee Number of servings: 1 ROS ROS ED Constitutional Constitutional ED: Denies chills or fever(s) Eyes Eyes: Denies blurry vision or change in vision ENT ENT ED: Denies rhinorrhea or sore throat Cardiovascular Cardiovascular: Denies chest pain or palpitations Respiratory/Chest Respiratory/Chest: Denies cough or dyspnea Gastrointestinal Gastrointestinal: Reports abdominal pain and nausea; Denies vomiting Genitourinary Genitourinary ED: Denies dysuria or hematuria Musculoskeletal Musculoskeletal: Denies back pain or neck pain Integumentary Denies abscess or rash Neurologic Sudarshan (more content not included)... Normal [facility] Partial Thromboplast Timeon 06-12-2024 aPTT Coag (Bld) [Time] 28.9 s Normal 24.1-36.2 [facility] Comment on above: Performed By: #### L 100.0100, L300.4310, L300.3900, L500.4050 ####[facility] [address] [facility] [address] Prothrombin Time w/INRon INR Coag (PPP) [Relative time] 0.9 {INR} [facility] Comment on above: Performed By: #### L 100.0100, L300.4310, L300.3900, L500.4050 ####[facility] [address] [facility] [address] PT Coag (PPP) [Time] 12.6 s Normal 11.7-14.9 [facility] Comment on above: Performed By: #### L 100.0100, L300.4310, L300.3900, L500.4050 ####[facility] [address] [facility] [address] Stool Occult Blood iFOBon STOB Positive [facility] Comment on above: Performed By: #### M 100.7900 ####[facility] [address] [facility] [id number] Brain without Contraston Brain without Contrast [facility] Imaging Services [address] [place] [address] Brain without Contrast MR#: [id number] Acct: [id number] Name: SENA SARMIENTO Rep #: [id number] : 1955 M 68 From: Sherley zimmerman MD PCP: Dr. Dhara Best MD Status: REG CLI Study: Brain without Contrast Date of Exam: 03/31/24 Exam# [id number] Ordering Dr: Dhara Best [place] [id number] HISTORY: Dizziness, tunnel vision, vascular dx. TECHNIQUE: Multiplanar and multisequence MR images of the brain were obtained without contrast. 306 images. COMPARISON: None. FINDINGS: BRAIN PARENCHYMA: Mild foci and small zones of increased T2 FLAIR signal in the bilateral cerebral white matter, particularly in the left periventricular region. No abnormal focus of restricted diffusion. No acute intracranial hemorrhage identified. CSF SPACES: Cerebral ventricles, cortical sulci, and other extra-axial CSF spaces within normal limits in size for age. No significant midline shift or other mass effect.No extra-axial fluid collection. VASCULAR SYSTEM: Major intracranial flow voids are maintained. PARANASAL SINUSES AND MASTOID AIR CELLS: Tiny mucous retention cysts in the paranasal sinuses. ORBITS: Symmetric contents. MRI/Brain without Contrast IMPRESSION: No evidence for acute infarct. Mild chronic involutional and white matter changes. Electronically Signed: Sherley Vargas MD at 8:29 EDT , CC: Dr. Dhara Best MD Farrowing Manager: Signed Normal [facility] MRA Head ONLY without Contra ston 03-31-2024 MRA Head ONLY without Contrast [facility] Imaging Services [address] [place], [place] [address] MRA Head ONLY without Contrast MR#: [id number] Acct: [id number] Name: SENA SARMIENTO Rep #: [id number] : 1955 M 68 From: Josesito Calle MD PCP: Dr. Dhara Best MD Status: REG CL Study: MRA Head ONLY without Contrast Date of Exam: Exam# [id number] Ordering Dr: Dhara Best MD [id number] STUDY: MRA OF THE HEAD WITHOUT CONTRAST REASON FOR EXAM: Male, 68 years old. Dizziness, tunnel vision, vascular dx TECHNIQUE: 3-D djjh-jc-ahgnjp (TOF) imaging was performed with MIPs. The study was performed unenhanced. COMPARISON: None. FINDINGS: Normal bilateral petrous carotid arteries. Normal right cavernous carotid artery with a normal supraclinoid bifurcation. Normal left cavernous carotid artery with a normal supraclinoid bifurcation. Normal right A1 segment of the anterior cerebral artery. Normal left A1 segment of the anterior cerebral artery. Normal intact anterior communicating artery (ACOM). Normal bilateral A2 segments of the anterior cerebral arteries. Normal right M1 and M2 segments of the middle cerebral arteries, with a normal M1 bifurcation. Normal left M1 and M2 segments of the middle cerebral arteries, with a normal M1 bifurcation. No visible right posterior communicating artery (PCOM). No visible left posterior communicating artery (PCOM). Normal bilateral vertebral arteries. Normal basilar artery with a normal basilar bifurcation. The visualized bilateral superior cerebellar (SCA) arteries are normal. Normal bilateral P1, P2 and visualized P3 segments of the posterior cerebral arteries. There is no demonstrated aneurysm of the redding of [place]. There is no major vessel occlusion or hemodynamically significant stenosis. MRI/MRA Head ONLY without Contrast IMPRESSION: Normal MRA of the head Electronically Signed: Josesito Calle MD at 15:06 EDT , CC: Dr. Dhara Best MD Farrowing Manager: Signed Normal [facility] MRA Neck without Contraston 03-31-2024 MRA Neck without Contrast [facility] Imaging Services [address] [place] [address] MRA Neck without Contrast MR#: [id number] Acct: [id number] Name: SENA SARMIENTO Rep #: [id number] : 1955 M 68 From: Josesito Calle MD PCP: Dr. Dhara Best MD Status: REG CLI Study: MRA Neck without Contrast Date of Exam: Exam# [id number] Ordering Dr: Dhara Best MD [id number] STUDY: MRA NECK WITHOUT CONTRAST REASON FOR EXAM: Male, 68 years old. Dizziness, tunnel vision, vascular dx TECHNIQUE: Source images were obtained, MIPs were performed. The study was performed unenhanced. COMPARISON: None. FINDINGS: RIGHT CAROTID ARTERIES: Normal right common carotid artery (CCA). Normal right carotid bulb. Normal origin of the right internal carotid (ICA) artery without a hemodynamically significant stenosis. Normal visualized cervical portion of the right internal carotid artery. Normal origin of the right external carotid artery (ECA). LEFT CAROTID ARTERIES: Normal left common carotid artery (CCA). Normal left carotid bulb. Normal origin of the left internal carotid (ICA) artery without a hemodynamically significant stenosis. Normal visualized cervical portion of the left internal carotid artery. Normal origin of the left external carotid artery (ECA). VERTEBRAL ARTERIES: Normal antegrade flow within the bilateral vertebral artery without a hemodynamically significant stenosis. They are codominant. MRI/MRA Neck without Contrast IMPRESSION: Normal bilateral cervical carotid and vertebral arteries. Electronically Signed: Josesito Calle MD at 15:04 EDT , CC: Dr. Dhara Best MD Farrowing Manager: Signed Normal [facility] Cardiology Visit Reporton Cardiology Visit Report [facility] [address] [place] [address] OFFICE VISIT Date of Service: 03/18/24 MR#: [id number] Acct: [id number] Name: SENA SARMIENTO Rep #: [id number] : 1955 Provider: Dr. Von Redd MD Age/Sex: 68/M Location: [facility] [place] Status: Signed HPI HPI History of Present Illness Details: This patient is here for follow-up visit. Denies any chest pains or shortness of breath. No palpitations. No orthopnea or PND. No ankle edema. For the past few months, patient has been having vertigo with visual changes. He has stopped driving. He recently went to his PCP who has ordered MRI of the brain and MRA of the head and neck. 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 Accompanied by: Is patient in pain?: No Allergies codeine Allergy (Verified 03/18/24 10:30) Itching oxycodone Allergy (Verified 03/18/24 10:30) Itching carvedilol Adverse Reaction (Intermediate, Verified 03/18/24 10:30) Severe fatigue and lethargy, even on 3.125 Medications ???Medication ???Instructions ???Recorded ???Confirmed ???Type aspirin 81 mg chewable tablet 81 mg PO DAILY 08/03/18 03/18/24 History acetaminophen 325 mg tablet 650 mg (2 x 325 mg) PO Q6H PRN PRN 08/07/18 03/18/24 Rx Mild Pain (scale 0-3)/T>100.7 amlodipine 10 mg tablet 10 mg PO DAILY #90 tabs 04/03/23 03/18/24 Rx nitroglycerin 0.4 mg sublingual 0.4 mg sublingual PRN PRN Pain #20 04/03/23 03/18/24 Rx tablet tabs benazepril 10 mg tablet 10 mg PO DAILY #90 tabs 09/13/23 03/18/24 Rx omeprazole 40 mg capsule,delayed 40 mg PO DAILY #90 caps 10/02/23 03/18/24 Rx release atorvastatin 80 mg tablet 80 mg PO QDAY #90 tabs 11/21/23 03/18/24 Rx trazodone 100 mg tablet 100 mg PO QHS PRN insomnia #180 11/21/23 03/18/24 Rx tabs ezetimibe 10 mg tablet (Zetia) 10 mg PO DAILY #90 tabs 01/24/24 03/18/24 Rx sertraline 25 mg tablet (Zoloft) 25 mg PO QDAY #30 tabs 03/04/24 03/18/24 Rx Ejection fraction %: 60 Have you fallen in the past year?: No PFSH Medical History Abnormal gait Abnormal lung examination Alcohol abuse Anxiety Atherosclerotic heart disease of [place] coronary artery without angina pectoris CAD (coronary artery disease) Cellulitis Dizziness Dysuria Elevated PSA Essential hypertension Fatigue Gastroesophageal reflux disease History of nicotine dependence Hyperlipidemia Hypogonadism in male LVH (left ventricular hypertrophy) Myocardial infarct Normochromic normocytic anemia Other and unspecified hyperlipidemia Septic arthritis of shoulder, right Tunnel vision Urinary frequency Surgical History CAD (coronary artery disease), autologous vein bypass graft History of rotator cuff surgery Presence of coronary angioplasty implant and graft S/P rotator cuff repair Stented coronary artery Family History Father CVA (cerebral vascular accident) Hypertension Mother COPD (chronic obstructive pulmonary disease) Hypertension Thyroid disorder Sister Hypertension Brother Hypertension Other Myocardial infarction Social History Smoking Status: Former smoker quit date: 03/21/23 Tobacco: How many years used: 52 alcohol intake: former substance use type: does not use caffeine: Yes Type: coffee Number of servings: 1 ROS Const Const: Positive for fatigue and headache(s) (seen primary recently for headaches); Negative for weakness or weight gain ENT ENT: Positive for headache(s) (seen primary recently for headaches), dizziness (seen PCP recently for dizziness; 2-3mo since onset) and balance problems (accompanies dizziness); Negative for Nosebleed/epistaxis Cardio Chest Pain: No Palpitations: No Edema: None Muscle aches with walking: None Resp Respiratory: Positive for SOB with activity; Negative for SOB at rest or SOB orthopnea SOB lying down GI GI: Negative nausea, vomiting or heartburn Musc Musc: Positive for joint pain (bilateral knees) and balance problems (accompanies dizziness); Negative for muscle aches/ myalgia or muscle weakness Neuro Neuro: Positive for dizziness (seen PCP recently for dizziness; 2-3mo since onset), lightheadedness (occasional), near syncope and headache(s) (seen primary recently for headaches); Negative for syncope or weakness Endo Endo: Positive for fatigue Cardiology Exam (more content not included)... Normal [facility] CBC W/Diff, Automatedon 02-16 Absolute Lymph 1.59 X10 3/uL Normal 0.83-4.51 [facility] Comment on above: Performed By: #### L 500.4050, L501.52617, L100.0100, L506.0400, L501.9520 ####[facility] [address] [place], [address] Absolute Neut 4.6 X10 3/uL Normal 2.0-7.7 [facility] Comment on above: Performed By: #### L 500.4050, L501.90295, L100.0100, L506.0400, L501.9520 ####[facility] [address] [place], [address] Basophils/100 WBC (Bld) 1.0 % Normal 0-1 [facility] Comment on above: Performed By: #### L 500.4050, L501.24243, L100.0100, L506.0400, L501.9520 ####[facility] [address] [place], [address] Eosinophils/100 WBC (Bld) 1.3 % Normal 0-5 [facility] Comment on above: Performed By: #### L 500.4050, L501.33996, L100.0100, L506.0400, L501.9520 ####[facility] [address] [place], [address] Erythrocyte distribution width (RBC) [Ratio] 13.4 % Normal 11.6-14.6 [facility] Comment on above: Performed By: #### L 500.4050, L501.21098, L100.0100, L506.0400, L501.9520 ####[facility] [address] [place], [address] Hematocrit (Bld) [Volume fraction] 41.8 % Normal 40-54 [facility] Comment on above: Performed By: #### L 500.4050, L501.76831, L100.0100, L506.0400, L501.9520 ####[facility] [address] [place], [address] Hemoglobin (Bld) [Mass/Vol] 13.8 g/dL Normal 13.0-16.5 [facility] Comment on above: Performed By: #### L 500.4050, L501.40769, L100.0100, L506.0400, L501.9520 ####[facility] [address] [place], [address] IG% 0.300 Normal 0.0-0.9 [facility] Comment on above: Result Comment: IG% - Immature Granulocytes (promyelocytes, myelocytes and metamyelocytes) > 1% indicates that a LEFT SHIFT is Present. Performed By: #### L 500.4050, L501.02650, L100.0100, L506.0400, L501.9520 ####[facility] [address] [place], [address] Lymphocytes/100 WBC (Bld) 22.2 % Normal 19-41 [facility] Comment on above: Performed By: #### L 500.4050, L501.35351, L100.0100, L506.0400, L501.9520 ####[facility] [address] [place], [address] MCH (RBC) [Entitic mass] 30.1 pg Normal 27.0-32.0 [facility] Comment on above: Performed By: #### L 500.4050, L501.82200, L100.0100, L506.0400, L501.9520 ####[facility] [address] [place], [address] MCHC (RBC) [Mass/Vol] 33.0 g/dL Normal 32-36 [facility] Comment on above: Performed By: #### L 500.4050, L501.54755, L100.0100, L506.0400, L501.9520 ####[facility] [address] [place], [address] MCV (RBC) [Entitic vol] 91.1 fL Normal 80-94 [facility] Comment on above: Performed By: #### L 500.4050, L501.92127, L100.0100, L506.0400, L501.9520 ####[facility] [address] [place], [address] Monocytes/100 WBC (Bld) 10.5 % High 0-10 [facility] Comment on above: Performed By: #### L 500.4050, L501.95759, L100.0100, L506.0400, L501.9520 ####[facility] [address] [place], [address] Neutrophils/100 WBC (Bld) 64.7 % Normal 47-70 [facility] Comment on above: Performed By: #### L 500.4050, L501.52496, L100.0100, L506.0400, L501.9520 ####[facility] [address] [place], [address] Nucleated RBC (Bld) [#/Vol] 0 10*3/uL Normal 0-5 [facility] Comment on above: Performed By: #### L 500.4050, L501.29057, L100.0100, L506.0400, L501.9520 ####[facility] [address] [place], [address] Platelet mean volume (Bld) [Entitic vol] 10.5 fL Normal 6.2-12.0 [facility] Comment on above: Performed By: #### L 500.4050, L501.13342, L100.0100, L506.0400, L501.9520 ####[facility] [address] [place], [address] Platelets (Bld) [#/Vol] 262 10*3/uL Normal 150-450 [facility] Comment on above: Performed By: #### L 500.4050, L501.05035, L100.0100, L506.0400, L501.9520 ####[facility] [address] [place], [address] RBC (Bld) [#/Vol] 4.59 10*6/uL Low 4.6-6.2 [facility] Comment on above: Performed By: #### L 500.4050, L501.06849, L100.0100, L506.0400, L501.9520 ####[facility] [address] [place], [address] RDW SD 45.2 fl High 35.1-43.9 [facility] Comment on above: Performed By: #### L 500.4050, L501.09996, L100.0100, L506.0400, L501.9520 ####[facility] [address] [place], [address] WBC (Bld) [#/Vol] 7.2 10*3/uL Normal 4.4-11.0 [facility] Comment on above: Performed By: #### L 500.4050, L501.53480, L100.0100, L506.0400, L501.9520 ####[facility] [address] [place], [address] Comprehensive Metabolic [facility] 03-09-2024 Albumin [Mass/Vol] 3.7 g/dL Normal 3.2-5.0 [facility] Comment on above: Performed By: #### L 500.4050, L501.02859, L100.0100, L506.0400, L501.9520 ####[facility] [address] [place], [address] Albumin/Globulin [Mass ratio] 0.9 {ratio} Normal 0.9-2.4 [facility] Comment on above: Performed By: #### L 500.4050, L501.62074, L100.0100, L506.0400, L501.9520 ####[facility] [address] [place], [address] ALK P 85 U/L Normal 45-117 [facility] Comment on above: Performed By: #### L 500.4050, L501.01700, L100.0100, L506.0400, L501.9520 ####[facility] [address] [place], [address] ALT [Catalytic activity/Vol] 31 U/L Normal 16-61 [facility] Comment on above: Performed By: #### L 500.4050, L501.98325, L100.0100, L506.0400, L501.9520 ####[facility] [address] [place], [address] AST [Catalytic activity/Vol] 23 U/L Normal 15-37 [facility] Comment on above: Performed By: #### L 500.4050, L501.49886, L100.0100, L506.0400, L501.9520 ####[facility] [address] [place], [address] Bilirubin [Mass/Vol] 0.60 mg/dL Normal 0.20-1.00 [facility] Comment on above: Result Comment: For patients on eltrombopag therapy, use of Dimension [place] TBIL is not recommended. Performed By: #### L 500.4050, L501.35221, L100.0100, L506.0400, L501.9520 ####[facility] [address] [place], [address] BUN/CRE 9.8 RATIO Low 10-20 [facility] Comment on above: Performed By: #### L 500.4050, L501.40116, L100.0100, L506.0400, L501.9520 ####[facility] [address] [place], [address] CA,Total 8.9 mg/dL Normal 8.5-10.1 [facility] Comment on above: Performed By: #### L 500.4050, L501.43983, L100.0100, L506.0400, L501.9520 ####[facility] [address] [place], [address] Chloride [Moles/Vol] 103 mmol/L Normal 98-107 [facility] Comment on above: Performed By: #### L 500.4050, L501.39893, L100.0100, L506.0400, L501.9520 ####[facility] [address] [place], [address] CO2 [Moles/Vol] 25.0 mmol/L Normal 21.0-32.0 [facility] Comment on above: Performed By: #### L 500.4050, L501.79225, L100.0100, L506.0400, L501.9520 ####[facility] [address] [place], [address] Creatinine [Mass/Vol] 1.02 mg/dL Normal 0.70-1.30 [facility] Comment on above: Result Comment: The validity of the calculated GFR GFRAA in patients over 70 years has not been determined. Clinical correlation is essential. Performed By: #### L 500.4050, L501.02836, L100.0100, L506.0400, L501.9520 ####[facility] [address] [place], [address] EST GFR - AA 94 mL/min Normal >60 [facility] Comment on above: Result Comment: Afri can Iraqi GFR Calc Performed By: #### L 500.4050, L501.15317, L100.0100, L506.0400, L501.9520 ####[facility] [address] [place], [address] GAP 8 Normal 5-15 [facility] Comment on above: Performed By: #### L 500.4050, L501.23952, L100.0100, L506.0400, L501.9520 ####[facility] [address] [place], [address] GFR/1.73 sq M.predicted among non-blacks MDRD (S/P/Bld) [Vol rate/Area] 77 mL/min/{1.73_m2} Normal >60 [facility] Comment on above: Result Comment: Non- GFR Calc Performed By: #### L 500.4050, L501.30785, L100.0100, L506.0400, L501.9520 ####[facility] [address] [place], [address] Globulin (S) [Mass/Vol] 3.9 g/dL Normal 2.2-4.2 [facility] Comment on above: Performed By: #### L 500.4050, L501.97956, L100.0100, L506.0400, L501.9520 ####[facility] [address] [place], [address] Glucose [Mass/Vol] 108 mg/dL High 74-106 [facility] Comment on above: Result Comment: Fast ing Glucose result from 100 to 125 mg/dL suggests IMPAIRED HOMEOSTASIS per A.D.A. criteria. Performed By: #### L 500.4050, L501.82537, L100.0100, L506.0400, L501.9520 ####[facility] [address] [place], [address] Potassium [Moles/Vol] 4.2 mmol/L Normal 3.5-5.1 [facility] Comment on above: Performed By: #### L 500.4050, L501.74803, L100.0100, L506.0400, L501.9520 ####[facility] [address] [place], [address] Sodium [Moles/Vol] 136 mmol/L Normal 136-145 [facility] Comment on above: Performed By: #### L 500.4050, L501.05934, L100.0100, L506.0400, L501.9520 ####[facility] [address] [place], [address] T PROT 7.6 g/dL Normal 6.4-8.2 [facility] Comment on above: Performed By: #### L 500.4050, L501.79687, L100.0100, L506.0400, L501.9520 ####[facility] [address] [place], [address] Urea nitrogen [Mass/Vol] 10 mg/dL Normal 7-18 [facility] Comment on above: Performed By: #### L 500.4050, L501.94071, L100.0100, L506.0400, L501.9520 ####[facility] [address] [place], [address] Free T3on 03-09-2024 Free T3 [Mass/Vol] 2.8 pg/mL Normal 2.18-3.98 [facility] Comment on above: Performed By: #### L 500.4050, L501.42413, L100.0100, L506.0400, L501.9520 ####[facility] [address] [place], [address] Lipid Profileon 03-09-2024 Cholesterol [Mass/Vol] 191 mg/dL Normal 200 [facility] Comment on above: Order Comment: PT JACKIE NTED DONE JAKOB DUE TO APT March Result Comment: <200 mg/dL Desirable 200-240 mg/dL Borderline >240 mg/dL High Risk Performed By: #### L 500.3400, L500.4100 #### [facility] [address] [place], [address] Cholesterol in HDL [Mass/Vol] 80 mg/dL Normal [facility] Comment on above: Order Comment: PT JACKIE NTED DONE JAKOB DUE TO APT March Result Comment: The drugs N-Acetylcysteine and Metamizole may falsely depress this assay. Reference Range HDL <40 mg/dL Low HDL Cholesterol HDL >or= 60 mg/dL High HDL Cholesterol Performed By: #### L 500.3400, L500.4100 #### [facility] [address] [place], [address] Cholesterol in LDL [Mass/Vol] 70 mg/dL Normal 0-130 [facility] Comment on above: Order Comment: PT [place] NTED DONE JAKOB DUE TO APT March Performed By: #### L 500.3400, L500.4100 #### [facility] [address] [place], [address] Cholesterol in VLDL [Mass/Vol] 41 mg/dL High 5-40 [facility] Comment on above: Order Comment: PT [place] NTED DONE JAKOB DUE TO APT March Performed By: #### L 500.3400, L500.4100 #### [facility] [address] [place], [address] Triglyceride [Mass/Vol] 203 mg/dL High [facility] Comment on above: Order Comment: PT [place] NTED DONE JAKOB DUE TO APT March Result Comment: The drugs N-Acetylcysteine and Metamizole may falsely depress this assay. Serum Triglycerides Reference Interval Normal <150 mg/dL Borderline high 150 - 199 mg/dL High 200 - 499 mg/dL Very High > or = 500 mg/dL Performed By: #### L 500.3400, L500.4100 #### [facility] [address] [place], [address] Liver Profileon 03-09-2024 Albumin [Mass/Vol] 3.7 g/dL Normal 3.2-5.0 [facility] Comment on above: Order Comment: PT [place] NTED DONE JAKOB DUE TO APT March Performed By: #### L 500.3400, L500.4100 #### [facility] [address] [place], [address] ALK P 84 U/L Normal 45-117 [facility] Comment on above: Order Comment: PT WA NTED DONE JAKOB DUE TO APT March Performed By: #### L 500.3400, L500.4100 #### [facility] [address] [place], [address] ALT [Catalytic activity/Vol] 29 U/L Normal 16-61 [facility] Comment on above: Order Comment: PT WA NTED DONE JAKOB DUE TO APT March Performed By: #### L 500.3400, L500.4100 #### [facility] [address] [place], [address] AST [Catalytic activity/Vol] 22 U/L Normal 15-37 [facility] Comment on above: Order Comment: PT WA NTED DONE JAKOB DUE TO APT March Performed By: #### L 500.3400, L500.4100 #### [facility] [address] [place], [address] Bilirubin [Mass/Vol] 0.60 mg/dL Normal 0.20-1.00 [facility] Comment on above: Order Comment: PT WA NTED DONE JAKOB DUE TO APT March Result Comment: For patients on eltrombopag therapy, use of Dimension [place] TBIL is not recommended. Performed By: #### L 500.3400, L500.4100 #### [facility] [address] [place], [address] Bilirubin.direct [Mass/Vol] 0.15 mg/dL Normal 0.00-0.30 [facility] Comment on above: Order Comment: PT WA NTED DONE JAKOB DUE TO APT March Performed By: #### L 500.3400, L500.4100 #### [facility] [address] [place], [address] Globulin (S) [Mass/Vol] 3.9 g/dL Normal 2.2-4.2 [facility] Comment on above: Order Comment: PT [place] NTED DONE JAKOB DUE TO APT March Performed By: #### L 500.3400, L500.4100 #### [facility] [address] [place], [address] T PROT 7.6 g/dL Normal 6.4-8.2 [facility] Comment on above: Order Comment: PT WA NTED DONE JAKOB DUE TO APT March Performed By: #### L 500.3400, L500.4100 #### [facility] [address] [place], [address] PSA,Total- Diagnosticon 02-16 PSA, DIAGNOSTIC 7.70 ng/mL High 0.0-4.0 [facility] Comment on above: Result Comment: This test was performed using the TPSA assay method for the [employer] chemistry system. Values obtained with different assay methods cannot be used interchangably. When changing PSA assays in the course of monitoring a patient, additional sequential testing should be carried out to confirm baseline values. Performed By: #### L 501.9940 ####[facility] [address] [place], [address] T4 Free Directon 03-09-2024 T4 FREE DIRECT 0.81 ng/dL Normal 0.76-1.46 [facility] Comment on above: Performed By: #### L 500.4050, L501.88538, L100.0100, L506.0400, L501.9520 ####[facility] [id number] [place], [address] Thyroid Stim Hormone (TSH)on 03-09-2024 TSH 1.800 uIU/mL Normal 0.358-3.740 [facility] Comment on above: Performed By: #### L 500.4050, L501.05757, L100.0100, L506.0400, L501.9520 ####[facility] [address] [place], [address] /Candi 03-04-2024 /[facility]E [facility] [address] [place] [address] OFFICE VISIT Date of Service: 03/04/24 MR#: [id number] Acct: [id number] Name: SENA SARMINETO Rep #: [id number] : 1955 Provider: Dr. Dhara perez MD Age/Sex: 68/M Location: [facility] [place] Status: Signed Intake Vital Signs 10/16/23 14:02 03/04/24 10:48 Height 5 ft 5 in 5 ft 5 in Weight: 187 lb 8 oz BMI 31.1 BP 145/84 H Blood Pressure Location Lt brachial Position Sitting Respiration 16 Pulse 62 Pulse Source Monitor Temp 98.6 F Temp Source Temporal Pulse Oximetry (%) 94 Oxygen Delivery Method room air Intake Visit Reasons: Fatigue, Irritability Chief Complaint: fatigue Accompanied by: Is patient in pain?: No Allergies codeine Allergy (Verified 03/04/24 10:40) Itching oxycodone Allergy (Verified 03/04/24 10:40) Itching carvedilol Adverse Reaction (Intermediate, Verified 03/04/24 10:40) Severe fatigue and lethargy, even on 3.125 Medications ???Medication ???Instructions ???Recorded ???Confirmed ???Type aspirin 81 mg chewable tablet 81 mg PO DAILY 08/03/18 03/04/24 History acetaminophen 325 mg tablet 650 mg (2 x 325 mg) PO Q6H PRN PRN 08/07/18 03/04/24 Rx Mild Pain (scale 0-3)/T>100.7 amlodipine 10 mg tablet 10 mg PO DAILY #90 tabs 04/03/23 03/04/24 Rx nitroglycerin 0.4 mg sublingual 0.4 mg sublingual PRN PRN Pain #20 04/03/23 03/04/24 Rx tablet tabs benazepril 10 mg tablet 10 mg PO DAILY #90 tabs 09/13/23 03/04/24 Rx omeprazole 40 mg capsule,delayed 40 mg PO DAILY #90 caps 10/02/23 03/04/24 Rx release atorvastatin 80 mg tablet 80 mg PO QDAY #90 tabs 11/21/23 03/04/24 Rx trazodone 100 mg tablet 100 mg PO QHS PRN insomnia #180 11/21/23 03/04/24 Rx tabs ezetimibe 10 mg tablet (Zetia) 10 mg PO DAILY #90 tabs 01/24/24 03/04/24 Rx sertraline 25 mg tablet (Zoloft) 25 mg PO QDAY #30 tabs 03/04/24 03/04/24 Rx Have you fallen in the past year?: No PFSH Medical History (Updated 03/04/24 @ 11:[address] Dhara Best MD) Tunnel vision Dizziness Abnormal gait Fatigue Hypogonadism in male Urinary frequency Dysuria History of nicotine dependence Atherosclerotic heart disease of [place] coronary artery without angina pectoris Abnormal lung examination Alcohol abuse Anxiety Myocardial infarct Other and unspecified hyperlipidemia Essential hypertension LVH (left ventricular hypertrophy) Septic arthritis of shoulder, right Normochromic normocytic anemia Cellulitis CAD (coronary artery disease) Hyperlipidemia Gastroesophageal reflux disease Surgical History Presence of coronary angioplasty implant and graft History of rotator cuff surgery CAD (coronary artery disease), autologous vein bypass graft Stented coronary artery S/P rotator cuff repair Family History Father CVA (cerebral vascular accident) Hypertension Mother COPD (chronic obstructive pulmonary disease) Hypertension Thyroid disorder Sister Hypertension Brother Hypertension Other Myocardial infarction Social History Smoking Status: Former smoker quit date: 03/21/23 Tobacco: How many years used: 52 alcohol intake: former substance use type: does not use caffeine: Yes Type: coffee Number of servings: 1 HPI HPI Chief Complaint: fatigue Details: SENA SARMIENTO, is a 68 M who presents to the office today for follow-up visit. 68-year-old gentleman who has a history of CAD, history of long-term smoking, quitting relatively recently, hyperlipidemia, on high-dose statin and Zetia who presents with lightheadedness, dizziness, unsteadiness, abnormal gait. This seems like it is progressing over the last few months he states. He had not had this problem at his last visit. No recent head trauma. No headaches. He describes what he thinks is of tunnel vision type of feeling but then while not necessarily vertiginous symptoms he feels very unsteady when he is walking, looking to the sides. He has not been able to drive because of the symptoms he is feeling. He feels dizzy when he turns his head to the sides. He has not had fever or chills. No chest pain, chest tightness, shortness of breath. He is not having focal areas of numbness or tingling or weakness per se in an arm or limb. No TIA or strokelike symptoms. He has not had change in the intermittent tinnitus that he has had over the years. There is no new hearing loss. No double vision. He has been having ongoing symptoms of depression and anxiety. He has had longstanding problems with anxiety. Remotely had been on Xanax and about 6 months ago or so, came off of Xanax as it was weaned off by his prescriber. I did refer him (more content not included)... Normal [facility] Echo Completeon 12-04-2023 Echo Complete [facility] [address] [place] [address] Echo Complete 12/04/23 1004 MR#: [id number] Acct: [id number] Name: SENA SARMIENTO Rep #: [id number] : 1955 68 From: Ricardo Hardwick MD Attending Dr: Dr. Sena Longo MD Status: [facility] Ordering Dr: Sena Longo MD Date: 12/04/23 Location: [facility] Sex: M C Admitted: Reason For Study: CAD/ASHD Procedure This was a 2D Doppler, Color Flow transthoracic echocardiogram. Exam performed in department. Left Ventricle Normal LV size. Moderate concentric left ventricular hypertrophy. The left ventricular ejection fraction is 60 %. Stage 1 diastolic dysfunction. Mild segmental systolic dysfunction (see wall motion). Infero-Basal: Akinetic. Basal anteroseptal: Akinetic. Posterior-Basal: Akinetic. There are regional wall motion abnormalities as specified. Right Ventricle Normal RV size. Normal systolic function. Atria The left atrium is mildly enlarged. Normal right atrium. Mitral Valve Normal mitral valve. Tricuspid Valve Normal tricuspid valve. Aortic Valve Trisinus/trileaflet aortic valve. Moderate focal aortic valve calcification. Focal calcification noted on the noncoronary cusp. Pulmonic Valve Normal pulmonic valve. Great Vessels Normal aortic root. The pulmonary artery is normal size. Normal inferior vena cava. Pericardium/Pleural No pericardial effusion. MMode/2D Measurements Calculations LVIDd: 4.8 cm IVSd: 1.7 cm LVOT diam: 2.1 cm LVIDs: 3.4 cm LVPWd: 1.5 cm LVOT area: 3.6 cm2 RVDd: 3.3 cm FS: 30.1 % Ao root diam: 3.4 cm LAV(MOD-bp): 73.2 ml LVAd ap4: 27.9 cm2 LAV(MOD-bp) Indexed: 40.5 ml/m2 LVLd ap4: 7.2 cm LAV(MOD-sp2): 62.9 ml EDV(MOD-sp4): 90.0 ml LAV(MOD-sp4): 78.5 ml EDV(sp4-el): 91.3 ml LVAs ap4: 17.1 cm2 LVLs ap4: 6.3 cm ESV(MOD-sp4): 41.8 ml ESV(sp4-el): 39.6 ml EF(MOD-sp4): 53.6 % EF(sp4-el): 56.6 % LVAd ap2: 28.1 cm2 SV(MOD-sp4): 48.2 ml SV(MOD-sp2): 51.7 ml LVLd ap2: 8.5 cm EDV(MOD-sp2): 82.7 ml EDV(sp2-el): 78.6 ml LVAs ap2: 15.3 cm2 LVLs ap2: 6.8 cm ESV(MOD-sp2): 31.1 ml ESV(sp2-el): 29.3 ml EF(MOD-sp2): 62.4 % SV(sp4-el): 51.7 ml LA dimension(2D): 4.5 cm LA A4 area: 22.3 cm2 RA A4 area: 10.7 cm2 TAPSE: 2.6 cm Time Measurements MV dec time: 0.17 sec Doppler Measurements Calculations MV E max carter: 88.8 cm/sec Lat Peak E' Carter: 5.2 cm/sec Med Peak E' Carter: 7.3 cm/sec MV A max carter: 100.5 cm/sec E/E' lat: 17.1 E/E' med: 12.1 MV E/A: 0.88 MV V2 max: 114.8 cm/sec MV P1/2t max carter: 97.6 cm/sec Ao V2 max: 189.9 cm/sec MV max P.3 mmHg MV P1/2t: 50.2 msec Ao max P.5 mmHg MV V2 mean: 50.2 cm/sec Ao V2 mean: 123.9 cm/sec MV mean P.3 mmHg MV dec slope: 569.7 cm/sec2 Ao mean P.8 mmHg MV V2 VTI: 31.6 cm MVA(P1/2t): 4.4 cm2 Ao V2 VTI: 42.0 cm AV (velocity ratio): 0.63 MVA(VTI): 3.0 cm2 MIKIE(I,D): 2.2 cm2 MIKIE(V,D): 1.9 cm2 LV V1 max: 102.8 cm/sec SV(LVOT): 93.2 ml PA V2 max: 110.7 cm/sec LV V1 max P.2 mmHg PA V2 mean: 84.3 cm/sec LV V1 mean P.8 mmHg LV V1 mean: 63.1 cm/sec LV V1 VTI: 26.2 cm PI dec slope: 78.4 cm/sec2 ECHO/Echo Complete Interpretation Summary Normal LV size. Moderate concentric left ventricular hypertrophy. The left ventricular ejection fraction is 60 %. Stage 1 diastolic dysfunction. Moderate focal aortic valve calcification. Focal calcification noted on the noncoronary cusp. There are regional wall motion abnormalities as specified. Ordering Physician: Sean Longo Referring Physician: Dhara Best Performed By: Debora Varela RDCS, RVT 12/04/231642 Date Ricardo Hardwick MD CC: Dr. Dhara Best MD; Dr. Sena Longo MD Date Dictated: 12/04/23 100 Date Transcribed: 12/04/231642 Farrowing Manager: Signed Normal [facility] Absolute lymphocyte countOrd ered By: Dhara Best on 07-17-2023 Lymphocytes Auto (Unsp spec) [#/Vol] 2.03 10*3/uL 0.83-4.51 [facility] Automated lymphocyte count a s percentage of total leukocytesOrdered By: Dhara Best on 07-17-2023 Lymphocytes/100 WBC Auto (Unsp spec) 36.8 % 19-41 [facility] Basophil percentageOrdered B y: Dhara Best on 07-17-2023 Basophil percentage 0 SEEN /hpf 0-5 [facility] Basophil percentage 7.73 ng/mL 0.0-4.0 [facility] Comment on above: This test was perfor med using the TPSA assay method for the[facility] chemistry system. Values obtained with differentassay methods cannot be used interchangably.When changing PSA assays in the course of monitoring apatient, additional sequential testing should be carriedout to confirm baseline values. Basophils/100 WBC (Bld) 1.1 % 0-1 [facility] Bilirubin [Mass/Vol] 0.40 mg/dL 0.20-1.00 [facility] Comment on above: For patients on eltr ombopag therapy, use of Dimension [place] TBIL is not recommended. Chloride [Moles/Vol] 105 mmol/L 98-107 [facility] Eosinophils/100 WBC (Bld) 1.6 % 0-5 [facility] Glucose [Mass/Vol] 105 mg/dL 74-106 [facility] Comment on above: Fasting Glucose resu lt from 100 to 125 mg/dL suggests IMPAIRED HOMEOSTASIS per A.D.A. criteria. Hemoglobin (Bld) [Mass/Vol] 13.7 g/dL 13.0-16.5 [facility] Monocytes/100 WBC (Bld) 12.2 % 0-10 [facility] Neutrophils (Bld) [#/Vol] 2.6 10*3/uL 2.0-7.7 [facility] Neutrophils/100 WBC (Bld) 47.9 % 47-70 [facility] Potassium [Moles/Vol] 4.1 mmol/L 3.5-5.1 [facility] Protein [Mass/Vol] 7.6 g/dL 6.4-8.2 [facility] Sodium [Moles/Vol] 135 mmol/L 136-145 [facility] WBC (Bld) [#/Vol] 5.5 10*3/uL 4.4-11.0 [facility] Bilirubin Test strip Ql (U)O rdered By: Dhara Best on 07-17-2023 Bilirubin Ql (U) Negative Negative [facility] Culture, urineOrdered By: Jaqueline Best on 07-17-2023 Bacteria identified Cx Nom (U) Culture exhibits no growth. [facility] Cytology report of Body flui d Cyto stainOrdered By: Dhara Best on 07-17-2023 Cytology report Cyto stain Doc (Body fld) SEE PATHOLOGY REPORT [facility] Comment on above: Specimen submitted t o Anatomical Pathology Department for testing. Determination of erythrocyte mean corpuscular volume (MCV)Ordered By: Dhara Best on 07-17-2023 MCV (RBC) [Entitic vol] 90.8 fL 80-94 [facility] Erythrocyte distribution wid th ratioOrdered By: Dhara Best on 07-17-2023 Erythrocyte distribution width (RBC) [Ratio] 13.7 % 11.6-14.6 [facility] Erythrocyte distribution wid th standard deviationOrdered By: Dhara Best on 07-17-2023 Erythrocyte distribution width (RBC) [Entitic vol] 45.8 fL 35.1-43.9 [facility] Hematocrit Auto (Bld) [Volum e fraction]Ordered By: Dhara Best on 07-17-2023 Hematocrit (Bld) [Volume fraction] 40.4 % 40-54 [facility] Immature granulocytes/100 WB C Auto (Bld)Ordered By: Dhara Best on 07-17-2023 Immature granulocytes/100 WBC (Bld) 0.400 % 0.0-0.9 [facility] Comment on above: IG% - Immature Granu locytes (promyelocytes, myelocytes and metamyelocytes) > 1% indicates that a LEFT SHIFT is Present. Ketones Test strip Ql (U)Ord ered By: Dhara Best on 07-17-2023 Ketones Ql (U) Negative Negative [facility] Laboratory - Chemistry and C hemistry - challengeOrdered By: Dhara Best on 07-17-2023 Albumin/Globulin [Mass ratio] 1.0 {ratio} 0.9-2.4 [facility] ALP [Catalytic activity/Vol] 82 U/L 45-117 [facility] ALT [Catalytic activity/Vol] 31 U/L 16-61 [facility] CO2 [Moles/Vol] 25.0 mmol/L 21.0-32.0 [facility] Globulin (S) [Mass/Vol] 3.8 g/dL 2.2-4.2 [facility] Urea nitrogen/Creatinine [Mass ratio] 7.7 mg/mg 10-20 [facility] Laboratory - Hematology and Cell countsOrdered By: Dhara Best on 07-17-2023 MCH (RBC) [Entitic mass] 30.8 pg 27.0-32.0 [facility] MCHC (RBC) [Mass/Vol] 33.9 g/dL 32-36 [facility] Nucleated RBC/100 WBC (Bld) [Ratio] 0 % 0-5 [facility] Platelets (Bld) [#/Vol] 286 10*3/uL 150-450 [facility] Mucus LM Ql (Urine sed)Order ed By: Dhara Best on 07-17-2023 Mucus Ql (Urine sed) 0 SEEN /hpf [facility] Nitrite Test strip Ql (U)Ord ered By: Dhara Best on 07-17-2023 Nitrite Ql (U) Negative Negative [facility] No Panel InformationOrdered By: Dhara Best on 07-17-2023 Estimated GFR (MDRD) Amer 92 mL/min >60 [facility] Comment on above: GFR Calc Estimated GFR (MDRD) Non-Af Amer 76 mL/min >60 [facility] Comment on above: Non- GFR Calc Urine RBC 0 SEEN /hpf 0-5 [facility] Vitamin D 25-Hydroxy 26.1 ng/mL [facility] Comment on above: Vitamin D 25(OH) Sta tus Range Deficiency <20 ng/mL (50nmol/L) Insufficiency 20 - 30 ng/mL (50 - 75 nmol/L) Sufficiency 30 - 100 ng/mL (75 - 250 nmol/L) Toxicity >100 ng/mL (>250 nmol/L) Platelet mean volume Maikel-Ec ker (Bld) [Entitic vol]Ordered By: Dhara Best on 07-17-2023 Platelet mean volume (Bld) [Entitic vol] 10.3 fL 6.2-12.0 [facility] Protein Test strip Ql (U)Ord ered By: Dhara Best on 07-17-2023 Protein Ql (U) Negative Negative [facility] RBC Auto (Bld) [#/Vol]Ordere d By: Dhara Best on 07-17-2023 RBC (Bld) [#/Vol] 4.45 10*6/uL 4.6-6.2 [facility] Serum or plasma calcium tonja urement (mass/volume)Ordered By: Dhara Best on 07-17-2023 Calcium [Mass/Vol] 8.9 mg/dL 8.5-10.1 [facility] Serum or plasma creatinine m easurement (mass/volume)Ordered By: Dhara Best on 07-17-2023 Creatinine [Mass/Vol] 1.04 mg/dL 0.70-1.30 [facility] Comment on above: The validity of the calculated GFR & GFRAA in patients over 70 years has not been determined. Clinical correlation is essential. Serum or plasma thyroid stim ulating hormone (TSH) measurement (units/volume)Ordered By: Dhara Best on 07-17-2023 TSH Qn 1.56 uIU/mL 0.358-3.74 [facility] Serum or plasma urea nitroge n measurement (mass/volume)Ordered By: Dhara Best on 07-17-2023 Urea nitrogen [Mass/Vol] 8 mg/dL 7-18 [facility] Squamous epithelial cells de tection in urine sediment by light microscopyOrdered By: Dhara Best on 07-17-2023 Epithelial cells.squamous LM Ql (Urine sed) 0 SEEN /hpf 0-5 [facility] Thin prep Papanicolaou smear with manual screeningOrdered By: Dhara Best on 07-17-2023 Thin prep Papanicolaou smear with manual screening 3.8 g/dL 3.2-5.0 [facility] Thin prep Papanicolaou smear with manual screening 16 U/L 15-37 [facility] Thin prep Papanicolaou smear with manual screening 5 5-15 [facility] Urine blood detectionOrdered By: Dhara Best on 07-17-2023 RBC Ql (U) Negative Negative [facility] Urine clarityOrdered By: Shaista Best on 07-17-2023 Clarity (U) Clear Clear [facility] Urine color determinationOrd ered By: Dhara Best on 07-17-2023 Color (U) Straw Yellow [facility] Urine glucose detectionOrder ed By: Dhara Bets on 07-17-2023 Glucose Ql (U) Normal mg/dl Normal [facility] Urine leukocyte esterase det ection by dipstickOrdered By: Dhara Best on 07-17-2023 Leukocyte esterase Test strip Ql (U) Negative Negative [facility] Urine pHOrdered By: Dhara silverman on 07-17-2023 pH (U) 7.0 [pH] 5.0 - 8.0 [facility] Urine sediment bacteria coun t by microscopy (number/high power field)Ordered By: Dhara Best on 07-17-2023 Bacteria LM.HPF (Urine sed) [#/Area] 0 /[HPF] None Seen [facility] Urine specific gravity measu rementOrdered By: Dhara Best on 07-17-2023 Specific gravity (U) [Rel density] 1.005 1.002-1.030 [facility] Urine urobilinogen measureme ntOrdered By: Dhara Best on 07-17-2023 Urobilinogen Ql (U) Normal mg/dl Normal [facility] Absolute lymphocyte countOrd ered By: Von Redd on 04-03-2023 Lymphocytes Auto (Unsp spec) [#/Vol] 1.64 10*3/uL 0.83-4.51 [facility] Basophil percentageOrdered B y: Von Redd on 04-03-2023 Basophils/100 WBC (Bld) 1.2 % 0-1 [facility] Chloride [Moles/Vol] 107 mmol/L 98-107 [facility] Cholesterol [Mass/Vol] 177 mg/dL <200 [facility] Comment on above: <200 mg/dL Desirable 200-240 mg/dL Borderline >240 mg/dL High Risk Eosinophils/100 WBC (Bld) 1.2 % 0-5 [facility] Glucose [Mass/Vol] 110 mg/dL 74-106 [facility] Comment on above: Fasting Glucose resu lt from 100 to 125 mg/dL suggests IMPAIRED HOMEOSTASIS per A.D.A. criteria. Neutrophils (Bld) [#/Vol] 3.4 10*3/uL 2.0-7.7 [facility] Neutrophils/100 WBC (Bld) 57.3 % 47-70 [facility] Potassium [Moles/Vol] 3.9 mmol/L 3.5-5.1 [facility] Sodium [Moles/Vol] 138 mmol/L 136-145 [facility] Triglyceride [Mass/Vol] 151 mg/dL <199 [facility] Comment on above: The drugs N-Acetylcy steine and Metamizole may falsely depress this assay.Serum Triglycerides Reference Interval Normal <150 mg/dL Borderline high 150 - 199 mg/dL High 200 - 499 mg/dL Very High > or = 500 mg/dL WBC (Bld) [#/Vol] 5.8 10*3/uL 4.4-11.0 [facility] Blood erythrocytes count (nu mber/volume)Ordered By: Von Redd on 04-03-2023 RBC (Bld) [#/Vol] 4.55 10*6/uL 4.6-6.2 [facility] Blood hemoglobin measurement (mass/volume)Ordered By: Von Redd on 04-03-2023 Hemoglobin (Bld) [Mass/Vol] 13.9 g/dL 13.0-16.5 [facility] Blood lymphocytes/100 leukoc ytesOrdered By: Von Redd on 04-03-2023 Lymphocytes/100 WBC (Bld) 28.1 % 19-41 [facility] Blood monocytes/100 leukocyt esOrdered By: Vonravin Redd on 04-03-2023 Monocytes/100 WBC (Bld) 12.0 % 0-10 [facility] Blood platelet mean volumeOr dered By: Von Redd on 04-03-2023 Platelet mean volume (Bld) [Entitic vol] 10.7 fL 6.2-12.0 [facility] Determination of erythrocyte mean corpuscular volume (MCV)Ordered By: Vonravin Redd on 04-03-2023 MCV (RBC) [Entitic vol] 92.7 fL 80-94 [facility] Hematocrit Auto (Bld) [Volum e fraction]Ordered By: Vonravin Redd on 04-03-2023 Hematocrit (Bld) [Volume fraction] 42.2 % 40-54 [facility] Laboratory - Chemistry and C hemistry - challengeOrdered By: Vonravin Redd on 04-03-2023 CO2 [Moles/Vol] 25.0 mmol/L 21.0-32.0 [facility] Urea nitrogen/Creatinine [Mass ratio] 12.3 mg/mg 10-20 [facility] Laboratory - Hematology and Cell countsOrdered By: Vonravin Redd on 04-03-2023 Erythrocyte distribution width (RBC) [Entitic vol] 48.1 fL 35.1-43.9 [facility] Erythrocyte distribution width (RBC) [Ratio] 14.2 % 11.6-14.6 [facility] Immature granulocytes/100 WBC (Bld) 0.200 % 0.0-0.9 [facility] Comment on above: IG% - Immature Granu locytes (promyelocytes, myelocytes and metamyelocytes) > 1% indicates that a LEFT SHIFT is Present. MCH (RBC) [Entitic mass] 30.5 pg 27.0-32.0 [facility] Nucleated RBC/100 WBC (Bld) [Ratio] 0 % 0-5 [facility] MCHC Auto (RBC) [Mass/Vol]Or dered By: Von Redd on 04-03-2023 MCHC (RBC) [Mass/Vol] 32.9 g/dL 32-36 [facility] No Panel InformationOrdered By: Von Redd on 04-03-2023 Estimated GFR (MDRD) Amer 99 mL/min >60 [facility] Comment on above: GFR Calc Estimated GFR (MDRD) Non-Af Amer 82 mL/min >60 [facility] Comment on above: Non- GFR Calc Thyroid Stimulating Hormone (TSH) 2.82 uIU/mL 0.358-3.74 [facility] Platelets bldOrdered By: Ion Redd on 04-03-2023 Platelets (Bld) [#/Vol] 304 10*3/uL 150-450 [facility] Serum or plasma calcium tonja urement (mass/volume)Ordered By: Von Redd on 04-03-2023 Calcium [Mass/Vol] 8.8 mg/dL 8.5-10.1 [facility] Serum or plasma cholesterol in HDL measurement (mass/volume)Ordered By: Von Redd on 04-03-2023 Cholesterol in HDL [Mass/Vol] 55 mg/dL >40 [facility] Comment on above: The drugs N-Acetylcy steine and Metamizole may falsely depress this assay. Reference Range HDL <40 mg/dL Low HDL Cholesterol HDL >or= 60 mg/dL High HDL Cholesterol Serum or plasma cholesterol in VLDL measurement (mass/volume)Ordered By: Von Redd on 04-03-2023 Cholesterol in VLDL [Mass/Vol] 30 mg/dL 5-40 [facility] Serum or plasma creatinine m easurement (mass/volume)Ordered By: Von Redd on 04-03-2023 Creatinine [Mass/Vol] 0.98 mg/dL 0.70-1.30 [facility] Comment on above: The validity of the calculated GFR & GFRAA in patients over 70 years has not been determined. Clinical correlation is essential. Serum or plasma low density lipoprotein (LDL) cholesterol measurement (mass/volume)Ordered By: Von Redd on 04-03-2023 Cholesterol in LDL [Mass/Vol] 92 mg/dL 0-130 [facility] Serum or plasma urea nitroge n measurement (mass/volume)Ordered By: Von Redd on 04-03-2023 Urea nitrogen [Mass/Vol] 12 mg/dL 7-18 [facility] Thin prep Papanicolaou smear with manual screeningOrdered By: Von Redd on 04-03-2023 Thin prep Papanicolaou smear with manual screening 6 5-15 [facility] Absolute lymphocyte counton 06-05-2022 Lymphocytes Auto (Unsp spec) [#/Vol] 2.05 10*3/uL 0.83-4.51 [facility] Work Phone: Basophil percentageon 2021 Basophils/100 WBC (Bld) 0.9 % 0-1 [facility] Work Phone: Chloride [Moles/Vol] 105 mmol/L 98-107 [facility] Work Phone: Eosinophils/100 WBC (Bld) 1.7 % 0-5 [facility] Work Phone: Glucose [Mass/Vol] 117 mg/dL 74-106 [facility] Work Phone: Comment on above: Fasting Glucose resu lt from 100 to 125 mg/dL suggests IMPAIRED HOMEOSTASIS per A.D.A. criteria. Neutrophils (Bld) [#/Vol] 3.3 10*3/uL 2.0-7.7 [facility] Work Phone: Neutrophils/100 WBC (Bld) 51.6 % 47-70 [facility] Work Phone: Potassium [Moles/Vol] 4.4 mmol/L 3.5-5.1 [facility] Work Phone: Comment on above: Moderate Hemolysis, Result may be falsely increased. Sodium [Moles/Vol] 137 mmol/L 136-145 [facility] Work Phone: WBC (Bld) [#/Vol] 6.4 10*3/uL 4.4-11.0 [facility] Work Phone: Blood erythrocytes count (nu mber/volume)on 06-05-2022 RBC (Bld) [#/Vol] 4.41 10*6/uL 4.6-6.2 [facility] Work Phone: Blood hemoglobin measurement (mass/volume)on 06-05-2022 Hemoglobin (Bld) [Mass/Vol] 13.9 g/dL 13.0-16.5 [facility] Work Phone: [phone] Blood lymphocytes/100 leukoc yteson 06-05-2022 Lymphocytes/100 WBC (Bld) 32.0 % 19-41 [facility] Work Phone: [phone] Blood monocytes/100 leukocyt eson 06-05-2022 Monocytes/100 WBC (Bld) 13.6 % 0-10 [facility] Work Phone: Blood platelet mean volumeon 06-05-2022 Platelet mean volume (Bld) [Entitic vol] 10.0 fL 6.2-12.0 [facility] Work Phone: Determination of erythrocyte mean corpuscular volume (MCV)on 06-05-2022 MCV (RBC) [Entitic vol] 92.5 fL 80-94 [facility] Work Phone: Hematocrit Auto (Bld) [Volum e fraction]on 06-05-2022 Hematocrit (Bld) [Volume fraction] 40.8 % 40-54 [facility] Work Phone: Laboratory - Chemistry and C hemistry - challengeon 06-05-2022 CO2 [Moles/Vol] 27.0 mmol/L 21.0-32.0 [facility] Work Phone: Urea nitrogen/Creatinine [Mass ratio] 12.9 mg/mg 04-05 [facility] Work Phone: [phone] Laboratory - Hematology and Cell countson 06-05-2022 Erythrocyte distribution width (RBC) [Entitic vol] 49.1 fL 35.1-43.9 [facility] Work Phone: [phone] Erythrocyte distribution width (RBC) [Ratio] 14.4 % 11.6-14.6 [facility] Work Phone: Immature granulocytes/100 WBC (Bld) 0.200 % 0.0-0.9 [facility] Work Phone: Comment on above: IG% - Immature Granu locytes (promyelocytes, myelocytes and metamyelocytes) > 1% indicates that a LEFT SHIFT is Present. MCH (RBC) [Entitic mass] 31.5 pg 27.0-32.0 [facility] Work Phone: Nucleated RBC/100 WBC (Bld) [Ratio] 0 % 0-5 [facility] Work Phone: MCHC Auto (RBC) [Mass/Vol]on 06-05-2022 MCHC (RBC) [Mass/Vol] 34.1 g/dL 32-36 [facility] Work Phone: No Panel Informationon 06-05 Troponin I High Sensitivity 10 pg/mL 3.0-78.0 [facility] Work Phone: Comment on above: Please Note: New Claudine t Units and Gender Specific Reference Ranges. For more information see Policy Stat Procedure [place] High Sensitivity Troponin (TNIH) and attachments. D-Dimer Quantitative (PE/DVT) 0.52 FEU/ug/m 0.27-0.49 [facility] Work Phone: Comment on above: D-Dimer ELEVATED (>0 .49): Additional studies and clinicalassessments are indicated to conclude diagnosis of:Deep Vein Thrombosis (DVT) or Pulmonary Embolism (PE)CRITICAL VALUE VERIFIED. CALLED TO SHAMA MARRUFO (ER)06/05/22 9789 Etienne Woodson.RESULTS READ BACK BY SAME. Ethyl Alcohol Level < 3.0 mg/dL [facility] Work Phone: Comment on above: The serum:whole bloo d ethanol ratio is approximately 1.14and varies slightly with hematocrit. Medical Alcohol reference interval and critical value innon-tolerant individuals; 50 - 100 Impairment 100 Intoxication 100 - 250 Severe Poisoning 250 - 400 Deep/possible fatal coma Estimated Creatinine Clearance Calc 61.06 ml/min [facility] Work Phone: Estimated GFR (MDRD) Amer 95 mL/min >60 [facility] Work Phone: Comment on above: GFR Calc Estimated GFR (MDRD) Non-Af Amer 79 mL/min >60 [facility] Work Phone: Comment on above: Non- GFR Calc Platelets bldon 06-05-2022 Platelets (Bld) [#/Vol] 266 10*3/uL 150-450 [facility] Work Phone: Serum or plasma calcium tonja urement (mass/volume)on 06-05-2022 Calcium [Mass/Vol] 8.4 mg/dL 8.5-10.1 [facility] Work Phone: Serum or plasma creatinine m easurement (mass/volume)on 06-05-2022 Creatinine [Mass/Vol] 1.01 mg/dL 0.70-1.30 [facility] Work Phone: Comment on above: The validity of the calculated GFR & GFRAA in patients over 70 years has not been determined. Clinical correlation is essential. Serum or plasma urea nitroge n measurement (mass/volume)on 06-05-2022 Urea nitrogen [Mass/Vol] 13 mg/dL 7-18 [facility] Work Phone: Thin prep Papanicolaou smear with manual screeningon 06-05-2022 Thin prep Papanicolaou smear with manual screening 5 5-15 [facility] Work Phone: MR SHOULDER W/O RTon 018 MR SHOULDER W/O RT [facility] [address] [place] [address] Patient: SENA SARMIENTO Phone#: : [phone] Age: 62 Gender: M Pt. Type: Out Account: [id number] Location: Ordering: MOHAN PIRES Exam Date: 11/06/2017/8:08 [facility] Phys: [facility] Charge Code: [id number] Physician: [place] Order #: [id number] DLP Dose#: PROCEDURE: MRI SHOULDER RT WITHOUT [...] 62 Gender: M Pt. Type: Out Account: [id number] Location: Ordering: MOHAN PIRES Exam Date: 11/06/2017/8:08 Family Phys: [facility]OSP [place] Charge Code: [id number] Physician: [place] Order #: [id number] DLP Dose#: AC JOINT: There is arthrosis [...] Lo Jones MD on 11/07/2017 at 18:17 Normal [facility] Vital Signs Date Time Vital Sign Value Performing Clinician Domenica freitas 07-17-2023 09:41-0500 Body height 165.[address] Dhara Best Work Phone: [facility] 07-17-2023 09:41-0500 Body mass index (BMI) [Ratio] 30.4 kg/m2 Dr. Dhara Best Work Phone: [facility] 07-17-2023 09:41-0500 Body temperature 98.3 [degF] Dr. Dhara Best Work Phone: [facility] 07-17-2023 09:41-0500 Body weight 83.[address] Dhara Best Work Phone: [facility] 07-17-2023 09:41-0500 Diastolic blood pressure 77 mm[Hg] Dr. Dhara Best Work Phone: [facility] 07-17-2023 09:41-0500 Heart rate 68 /min Dr. Dhara Best Work Phone: [facility] 07-17-2023 09:41-0500 Respiratory rate 16 /min Dr. Dhara Best Work Phone: [facility] 07-17-2023 09:41-0500 SaO2% (BldA) [Mass fraction] 95 % Dr. Dhara Best Work Phone: [facility] 07-17-2023 09:41-0500 Systolic blood pressure 138 mm[Hg] Dr. Dhara Best Work Phone: [facility] 03-28-2023 10:20-0400 Body height 165.[address] Dhara Best Work Phone: [facility] 03-28-2023 10:20-0400 Body mass index (BMI) [Ratio] 28.6 kg/m2 Dr. Dhara Best Work Phone: [facility] 03-28-2023 10:20-0400 Body weight 78.[address] Dhara Best Work Phone: [facility] 03-28-2023 10:20-0400 Diastolic blood pressure 76 mm[Hg] Dr. Dhara Best Work Phone: [facility] 03-28-2023 10:20-0400 Heart rate 63 /min Dr. Dhara Best Work Phone: [facility] 03-28-2023 10:20-0400 Respiratory rate 16 /min Dr. Dhara Best Work Phone: [facility] 03-28-2023 10:20-0400 Systolic blood pressure 121 mm[Hg] Dr. Dhara Best Work Phone: [facility] 02-13-2023 08:28-0400 Body mass index (BMI) [Ratio] 29 kg/m2 Dr. Dhara Best Work Phone: [facility] 02-13-2023 08:28-0400 Body temperature 98.9 [degF] Dr. Dhara Best Work Phone: [facility] 02-13-2023 08:28-0400 Body weight 79.[address] Dhara Best Work Phone: [facility] 02-13-2023 08:28-0400 Diastolic blood pressure 86 mm[Hg] Dr. Dhara Best Work Phone: [facility] 02-13-2023 08:28-0400 Heart rate 60 /min Dr. Dhara Best Work Phone: [facility] 02-13-2023 08:28-0400 Respiratory rate 18 /min Dr. Dhara Best Work Phone: [facility] 02-13-2023 08:28-0400 SaO2% (BldA) [Mass fraction] 95 % Dr. Dhara Best Work Phone: [facility] 02-13-2023 08:28-0400 Systolic blood pressure 162 mm[Hg] Dr. Dhara Best Work Phone: [facility] 06-05-2022 16:53-0500 Diastolic blood pressure 76 mm[Hg] [facility] Work Phone: 06-05-2022 16:53-0500 Heart rate 90 /min [facility] Work Phone: 06-05-2022 16:53-0500 Respiratory rate 14 /min [facility] Work Phone: 06-05-2022 16:53-0500 SaO2% (BldA) [Mass fraction] 97 % [facility] Work Phone: 06-05-2022 16:53-0500 Systolic blood pressure 121 mm[Hg] [facility] Work Phone: 06-05-2022 13:31-0500 Body height 162.56 cm [facility] Work Phone: 06-05-2022 13:31-0500 Body mass index (BMI) [Ratio] 30.9 kg/m2 [facility] Work Phone: 06-05-2022 13:31-0500 Body temperature 98 [degF] [facility] Work Phone: 06-05-2022 13:050 Body weight 81.64 kg [facility] Work Phone: Encounters Encounter Date Encounter Type Care Provider Facility Start: 11-03-2024 End: 11-03-2024 ambulatory Dhara Best Facility:[facility] Start: 10-29-2024 End: 10-29-2024 ambulatory Dhara Best Facility:[facility] Start: 10-29-2024 End: 10-29-2024 ambulatory Dhara Best Facility:[facility] Start: 09-17-2024 ambulatory Dhara Best Facility :[facility] Start: 09-17-2024 End: 09-17-2024 ambulatory Dhara Best Facility:[facility] Start: 09-03-2024 End: 09-03-2024 ambulatory Dhara Best Facility:[facility] Start: 09-03-2024 End: 09-03-2024 ambulatory Dhara Best Facility:[facility] Start: 08-31-2024 End: 08-31-2024 ambulatory Dhara Best Facility:[facility] Start: 06-22-2024 ambulatory Dhara Best Facility :[facility] Start: 06-12-2024 End: 06-12-2024 Emergency department patient visit Dharasung Best Facility:[facility] Start: 03-31-2024 End: 03-31-2024 ambulatory Dhara Best Facility:[facility] Start: 03-18-2024 End: 03-18-2024 ambulatory Dhara Best Facility:[facility] Start: 03-09-2024 End: 03-09-2024 ambulatory Dharasung Best Facility:[facility] Start: 03-04-2024 End: 03-04-2024 ambulatory Dhara Best Facility:[facility] Start: 12-05-2023 ambulatory Dharasung Best Facility :[facility] Start: 12-04-2023 ambulatory Dharasung Best Facility :[facility] Start: 12-04-2023 End: 12-04-2023 ambulatory Dharasung Best Facility:[facility] Start: 07-17-2023 End: 07-17-[address] Dhara Best Work Phone: [facility] Work Phone: Start: 07-17-2023 End: 07-17-[address] [facility] Start: 07-17-2023 End: 07-17-[address] Dhara Best Work Phone: [facility] Work Phone: Start: 04-11-2023 Non-patient / Non-visit Dr. Jaqueline Best Work Phone: [facility] Work Phone: Start: 04-11-2023 Non-patient / Non-visit Dr. Jaqueline Best Work Phone: [facility] Start: 04-11-2023 End: 04-11-[address] Dhara Best Work Phone: [facility] Work Phone: Start: 04-11-2023 End: 04-11-[address] [facility] Work [facility]: Start: 04-03-2023 End: 04-03-[address] Dhara Best Work Phone: [facility] Work Phone: Start: 04-03-2023 End: 04-03-[address] [facility] Start: 03-28-2023 End: 03-28-[address] Dhara Best Work Phone: [facility] Work Phone: Start: 02-13-2023 End: 02-13-[address] Dhara Best Work Phone: [facility] [place] Work Phone: Start: 06-05-2022 End: 06-05-2022 Emergency department patient visit [facility] Start: 11-14-2021 End: 11-14-[address] Dhara Best Work Phone: [facility] Start: 11-14-2021 End: 11-14-[address] Dhara Best Work Phone: [facility] Start: 11-06-2017 End: 11-06-2017 [facility] Start: 09-03-2017 End: 09-25-2017 [facility] Procedures Date Procedure Procedure Detail Performing Clinician Start: 07-17-[address] Dhara Bets Work Phone: Start: 04-11-2023 Radionuclide imaging of perfusion of myocardium under exercise stress Dr. Dhara Best Work Phone: Start: 06-05-2022 Plain chest X-ray Start: 11-14-2021 Plain chest X-ray Dr. Dhara Best Work Phone: History of repair of musculotendinous cuff of shoulder S/P rotator cuff repair Dr. Dhara Best Work Phone: Plan of Treatment Date Care Activity Detail Author Start: 02-13-2023 Patient referral [facility] Work Phone: Start: 02-13-2023 Evaluation of diagno stic study results [facility] Start: 06-05-2022 End: 06-05-2022 [facility] Work Phone: Patient Education ED Chest Pain, Uncertain Cause [facility] Work Phone: Patient referral [facility] Work Phone: Radionuclide imaging of perfusion of myocardium under exercise stress [facility] Radionuclide imaging of perfusion of myocardium under exercise stress [facility] Serum testosterone measurement [facility] Testosterone Free [Mass/volume] in Serum or Plasma [facility] Testosterone measurement [facility] Kidney - bilatera l and Urinary bladder [facility] Payers Date Payer Category Payer Self-pay [id number] 2023 Unknown [id number] Medicare [id number] Medicare [id number] Unknown VA AUTH REQUIRED SEE NOTE* * [id number] Unknown [id number] Unknown [id number] Unknown [id number] Unknown [id number] [id number] Unknown [id number] [id number] Unknown [id number] [id number] Unknown [id number] [id number] Unknown [id number] [id number] Unknown [id number] [id number] Unknown [id number] [id number] Unknown [id number] [id number] Unknown [id number] [id number] Unknown [id number] [id number] Unknown [id number] [id number] Unknown [id number] [id number] Unknown [id number] Unknown [id number] Social History Date Type Detail Facility Start: 11-14-2021 End: 07-17-2023 Tobacco smoking status NHIS Unknown if ever smoked [facility] Start: 07-10-2021 None [facility] Start: 08-03-2018 Spouse/ Signif icant Other [facility] Start: 07-10-2021 Non-smoker [facility] Start: 1955 Sex Assigned At Male [facility] Mental Status Date Assessment Result Facility 06-05-2022 Cognitive function Level Of Cons ciousness Awake;Alert;Appropriate;Follow s Commands [facility] Work Phone: Evaluation note Note Date & Type Note Facility Evaluation note Diagnosis Onset Date Abnormal lung examination ac jh Acute URI acute Cough acute Tobacco dependence due to cigarettes chronic [facility] Work Phone: Evaluation note Note Date & Type Note Facility Evaluation note No assessment information availa ble [facility] Work Phone: Evaluation note Note Date & Type Note Facility Evaluation note Diagnosis Onset Date Fatigue acute CAD (coronary artery disease) chronic Hyperlipidemia chronic 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 CAD (coronary artery disease) chronic Essential hypertension chron ic History of nicotine dependence chronic Hyperlipidemia chronic 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 [facility] Work Phone: Evaluation note Note Date & Type Note Facility Evaluation note Diagnosis Onset Date CAD (coronary artery disease) chronic Essential hypertension chron ic History of nicotine dependence chronic Hyperlipidemia chronic Stented coronary artery [facility] Atherosclerotic heart diseas e of [place] coronary artery without angina pectoris acute Dysuria acute Urinary frequency acute Essential hypertension chron ic Hyperlipidemia chronic Stented coronary artery [facility] Work Phone: Summary Purpose Family History No Family History Records Found Relationship Condition Age at Onset Recorded Date/T timmy Not Specified Myocardial infarction Unknown father Cerebrovascular accident (CVA) Unknown Hypertension Unknown mother Chronic obstructive pulmonary disease Unk nown Disorder of thyroid Unknown sister Hypertension Unknown brother Hypertension Unknown Advance Directives No Advanced Directives Records Found Advance Directive Response Recorded Date/ Time Living Will No July 10 4:34pm Power of Molding Line Operator No July 10, 2021 4:34pm Advance Directive Response Recorded Date/ Time Living Will No June 05, 2 022 4:52pm Power of Molding Line Operator No June 05, 2022 4:52pm Advance Directive Response Recorded Date/ Time Living Will No February 11 3:33pm Power of Molding Line Operator No February 11, 2 023 3:33pm Advance Directive Response Recorded Date/ Time Living Will No July 09 3:04pm Power of Molding Line Operator No July 09, 2023 3:04pm Chief Complaint and Reason for Visit Chief Complaint SINUS CONGSTION - MO VING TO HIS CHEST EORDER Reason for Visit Abnormal lung examin ation Acute URI Cough Tobacco dependence due to cigarettes Chief Complaint CHEST PAIN Chief Complaint High BP FATIGUE / HTN / HLD (ESTEPHANIA) E ORDERS Reason for Visit Fatigue CAD (coronary artery disease) Hyperlipidemia Stented coronary artery CAD (coronary artery disease) Essential hypertension History of nicotine dependence Hyperlipidemia Stented coronary artery Chief Complaint High BP FATIGUE / HTN / HLD (ESTEPHANIA) E ORDERS CHEST PAIN CHEST PAIN Amb Documentation Reason for Visit Fatigue CAD (coronary artery disease) Hyperlipidemia Stented coronary artery CAD (coronary artery disease) Essential hypertension History of nicotine dependence Hyperlipidemia Stented coronary artery Chief Complaint FATIGUE / HTN / HLD (ESTEPHANIA) E ORDERS CHEST PAIN CHEST PAIN Amb Documentation Frequent Urination Reason for Visit CAD (coronary artery disease) Essential hypertension History of nicotine dependence Hyperlipidemia Stented coronary artery Atherosclerotic heart disease of [place] coronary artery without angina pectoris Dysuria Urinary frequency Essential hypertension Hyperlipidemia Stented coronary artery Additional Source Comments (unrecognized sect ion and content) No Status Records FoundNo Status Records Found INFORMATION SOURCE (unrecogn ized section and content) DATE CREATED AUTHOR 12/04/2017 [facility] DATE CREATED AUTHOR AUTHOR'S JACK RAGSDALE 11/14/2024 [facility] Goals (unrecognized section and content) Goals may be documented in a n alternate sectionGoals may be documented in an alternate sectionGoals may be documented in an alternate sectionGoals may be documented in an alternate sectionGoals may be documented in an alternate section Care Teams (unrecognized sec tion and content) Team Status: Active Member Role Status Dates FABIO CORTEZ Family Provider Active Dr. Dhara Best MD Primary Care Provider Active Team Status: Inactive Member Role Status Dates Dr. Dhara Best MD Primary Care Provider, Attendi ng Provider Active Team Status: Inactive Member Role Status Dates Dr. Dhara Best MD Primary Care Provider, Referri ng Provider Active Dr. Von Redd MD Attending Provider Active Team Status: Inactive Member Role Status Dates Dr. Dhara Best MD Primary Care Provider Active Dr. Von Redd MD Attending Provider, Referring Pr ovider Active Team Status: Active Member Role Status Dates Dr. Dhara Best MD Primary Care Provider Active Dr. Von Redd MD Attending Provider , Referring Provider, Other Provider Active Team Status: Active Member Role Status Dates Dr. Dhara Best MD Primary Care Provider Active Karen Bragg ESCALATOR INSTALLER, ESCALATOR INSTALLER-C Attending Provider Active FOR RECORDS PERTAINING TO PATIENTS WHO ARE [...] BE BASED ON THE PRIMARY CLINICAL RECORDS. [employer] [facility]. provides no warranty or guarantee of the accuracy or completeness of information in this document.
--- NOTE | 2024-12-02 15:00 | NEURO ---
NCS and/or EMG Patient Report Ordering Doctor: Dhara Best DATE OF SERVICE: 12/02/24 Ambrose presents with complaints of tingling in both feet, worse on the right side. Electrodiagnostic findings: Right peroneal motor nerve, measured at the tibialis anterior, demonstrates normal distal latency with reduced amplitude and normal conduction velocity. Left peroneal motor response within normal limits. Tibial motor response bilaterally. Sensory responses are within normal limits. Normal tibial and peroneal F?waves. H?reflex normal bilaterally. Needle EMG testing was performed in the lower limbs. All muscles tested showed no evidence of denervation with normal motor unit action potentials. Electrodiagnostic impression: This is a normal electrodiagnostic study of the lower limbs. There is no electrodiagnostic evidence for peripheral polyneuropathy or lumbosacral radiculopathy. Multi Select Codes Neurology Neurology Interp Codes: 83782-57 Musc test done w/n test comp (interp) (2) and 80062-17 Nrv cndj test 9-10 studies (interp)
== END | disposition home or self-care (01) ==
LOC: PSN 06:28
PROVIDERS: PCP Internal Medicine; Referring Provider Internal Medicine; Visit Provider Internal Medicine
DX: M48.061 Spinal stenosis, lumbar region without neurogenic claudication (principal)
CPT/HCPCS: 95886; 95912

== ENCOUNTER → 2025-01-14 | Outpatient (CLI) | payer MEDICARE, SELFPAY | END | disposition home or self-care (01) | LOC: MRI 10:50 | PROVIDERS: PCP Internal Medicine; Referring Provider Orthopaedic Surgery Orthopaedic Surgery of the Spine; Visit Provider Orthopaedic Surgery Orthopaedic Surgery of the Spine | DX: G95.9 Disease of spinal cord, unspecified (principal) | CPT/HCPCS: 72141 ==

== ENCOUNTER → 2025-03-08 | Outpatient (CLI) | payer MEDICARE, SELFPAY ==
--- OUTSIDE RECORDS SUMMARY | 2025-03-08 10:26 | XMS RPT_ITS | CCD ---
Author Organization [facility] Care Team Providers Care Sap Architect Name Role Phone CIARA, MOHAN PAC Unavailable [...] Dr. Dhara Best Attending Provider Dhara Best Referring Unavailable Estephania, Dhara Primary Care Unavailable Tramaine, Von Attending Unavailable Estephania, Dhara Referring Unavailable Lebron, Terry Attending Unavailable Estephania, Dhara Primary Care Unavailable Estephania, Dhara Primary Care Unavailable Mulu, Ricardo Attending Unavailable Estephania, Dhara Primary Care Unavailable Schwiger, Ari Attending Unavailable Estephania, Dhara Primary Care Unavailable Estephania, Dhara Referring Unavailable Estephania, Dhara Attending Unavailable Estephania, Dhara Attending Unavailable Estephania, Dhara Primary Care Unavailable Estephania, Dhara Referring Unavailable Lebron, Terry Referring Unavailable Lebron, Terry Attending Unavailable Estephania, Dhara Primary Care Unavailable Estephania, Dhara Primary Care Unavailable Lebron, Terry Attending Unavailable Estephania, Dhara Referring Unavailable Estephania, Dhara Primary Care Unavailable Estephania, Dhara Attending Unavailable Estephania, Dhara Primary Care Unavailable Estephania, Dhara Referring Unavailable Estephania, Dhara Attending Unavailable Estephania, Dhara Primary Care Unavailable Estephania, Dhara Attending Unavailable Estephania, Dhara Primary Care Unavailable Estephania, Dhara Attending Unavailable Estephania, Dhara Referring Unavailable Estephania, Dhara Primary Care Unavailable Tramaine, Von Attending Unavailable Estephania, Dhara Referring Unavailable Iglesia, Ari Attending Unavailable Estephania, Dhara Primary Care Unavailable Estephania, Dhara Primary Care Unavailable Estephania, Dhara Attending Unavailable Estephania, Dhara Consulting Unavailable Estephania, Dhara Primary Care Unavailable Estephania, Dhara Referring Unavailable Ahmad, Arsal Attending Unavailable Estephania, Dhara Primary Care Unavailable Estephania, Dhara Referring Unavailable Lebron, Terry Attending Unavailable Estephania, Dhara Primary Care Unavailable Mulu, Cameron Attending Unavailable Estephania, Dhara Primary Care Unavailable Estephania, Dhara Attending Unavailable Estephania, Dhara Referring Unavailable Estephania, Dhara Primary Care Unavailable Estephania, Dhara Attending Unavailable Estephania, Dhara Referring Unavailable Estephania, Dhara Primary Care Unavailable Estephania, Dhara Attending Unavailable [facility] Aakash CONKLIN Consulting Unavailable Lebron, Terry Referring Unavailable Lebron, Terry Attending Unavailable Estephania, Dhara Primary Care Unavailable Estephania, Dhara Referring Unavailable Estephania, Dhara Primary Care Unavailable Estephania, Dhara Attending Unavailable Allergies Allergy Classification Reported Allergen(s) Allergy Type Date of Onset Reaction(s) Facility (5 sources) Codeine Drug Allergy 11-14-2021 Itching [facility] (5 sources) oxyCODONE Drug Allergy 11-14-2021 Itching [facility] (1 source) carvedilol Drug Allergy 01-28-2025 [facility] Repository (1 source) Codeine Drug Allergy 01-28-2025 [facility] Repository (1 source) oxyCODONE Drug Allergy 01-28-2025 [facility] Repository Medications Current Medications Medication Drug [...] 27, 2020 10:55am October 01, 2022 7:29am [facility] [employer] aspirin 81 mg chewable tablet (5 sources) [...] PO AT BEDTIME April 27, 2020 10:56am [facility] Ariadne Jeffersoner [employer] Completed/Discontinued Medications Medication Drug Class(es) Dates Sig [...] End: 02-13-2023 Azithromycin Discontinued 0 PO .COMPLEX 6 September 30, 2022 11:00pm February 13, 2023 [...] 2 GM IV EVERY 24 HOURS 14 14 August 07, 2018 12:00am August 21, 2018 12:08am Dx: L shoulder deep surgical site infection weekly bmp, cbc, and esr while on iv abx fax to [phone] doxycycline monohydrate 100 mg oral capsule (5 [...] Discontinued 600 MG PO TWICE A DAY August 07, 2018 12:00am August 21, 2018 [...] Coronary atherosclerosis; Translations: [Atherosclerotic heart disease of [place] coronary artery without angina pectoris] Onset: 09-03-2024 08-04-2018 Chronic Deficiency and other anemia (5 sources) Normocytic [...] Translations: [Chest pain, unspecified] 06-13-2022 Episodic Other acquired deformities (1 source) Spondylolisthesis, lumbar region; Translations: [Spondylolisthesis, lumbar region] Onset: 01-08-2025 Episodic Other and ill-defined heart disease (5 sources) Left ventricular hypertrophy; Translations: [Cardiomegaly] 08-03-2018 Chronic Other and ill-defined heart disease (1 source) Other ill-defined heart diseases; Translations: [Other ill-defined heart diseases] Onset: 09-03-2024 Chronic Other endocrine disorders (1 source) Male hypogonadism; Translations: [Testicular hypofunction] 07-17-2023 Chronic Other lower respiratory disease (6 sources) Lung finding; Translations: [Abnormal lung examination] Episodic Other lower respiratory disease (3 sources) Cough; Translations: [Cough] Episodic Other nervous system disorders (1 source) Disease of spinal cord, unspecified; Translations: [Disease of spinal cord, unspecified] Onset: 01-30-2025 Chronic Other upper respiratory infections (3 sources) Acute upper respiratory infection; Translations: [Acute upper respiratory infection, unspecified] Episodic Peripheral and visceral atherosclerosis (1 source) Peripheral vascular disease, unspecified; Translations: [Peripheral vascular disease, unspecified] Onset: 11-11-2024 Chronic Skin and subcutaneous tissue infections (5 sources) Cellulitis; Translations: [Cellulitis, unspecified] 03-25-2023 Episodic Spondylosis; intervertebral disc disorders; other back problems (5 sources) Cervicalgia; Translations: [Dorsalgia, unspecified] Onset: 01-05-2025 Episodic Substance-related disorders (3 sources) Tobacco dependence [...] Translations: [Dizziness and giddiness] Onset: 4 Episodic Coronary atherosclerosis and other heart disease (12 sources) Stented coronary artery; Translations: [Presence of coronary angioplasty implant and graft] Onset: 5 08-03-2018 Episodic Gastrointestinal hemorrhage (1 source) Gastrointestinal hemorrhage, unspecified; Translations: [Gastrointestinal hemorrhage, unspecified] Onset: 5 Episodic Other connective tissue disease (3 sources) Bursitis of right shoulder; Translations: [Bursitis of right shoulder] Onset: 8 Episodic Other connective tissue disease (1 source) Other symptoms and signs involving the nervous system; Translations: [Other symptoms and signs involving the nervous system] Onset: 5 Episodic Other connective tissue disease (1 source) Pain in right foot; Translations: [Pain in right foot] Onset: 5 Episodic Other connective tissue disease (1 source) Pain in left foot; Translations: [Pain in left foot] Onset: 5 Episodic Other nervous system disorders (1 source) Unspecified abnormalities of gait and mobility; Translations: [Unspecified abnormalities of gait and mobility] Onset: 4 Episodic Other screening for suspected conditions (not mental disorders or infectious disease) (1 source) Elevated prostate specific antigen [PSA]; Translations: [Elevated prostate specific antigen [PSA]] Onset: 5 Episodic Screening and history of mental health and substance abuse codes (7 sources) Personal history of nicotine dependence; Translations: [History of nicotine dependence] Onset: 5 03-28-2023 Episodic Sprains and strains (1 source) Other sprain of right shoulder joint, initial encounter; Translations: [Other sprain of right shoulder joint, initial encounter] Onset: 8 Episodic Results Test Name Value Interpretation Reference Range Facility Cerv Spine 4 or 5 Viewson Cerv Spine 4 or 5 Views [facility] Imaging Services [address] [place], [place] [id number] Cerv Spine 4 or 5 Views MR#: [id number] Acct: [id number] Name: SENA SARMIENTO Rep #: [id number] : 1955 M 69 From: Jah Rodriguez PCP: Dr. Dhara Best MD Status: DEP AMB Study: Cerv Spine 4 or 5 Views Date of Exam: 01/28/25 Exam# [id number] Ordering Dr: Susy López PROCEDURE: CERV SPINE 4 OR 5 VIEWS 01/28/2025 REASON FOR EXAM: NECK PAIN TECHNIQUE: CERV SPINE 4 OR 5 VIEWS COMPARISON: January 14, 2025 FINDINGS: See impression RAD/Cerv Spine 4 or 5 Views IMPRESSION: Vertebral body heights are within normal limits. No significant malalignment. Negative for abnormal motion. Moderate disc space narrowing and uncovertebral arthrosis from C5 through C7. Mild/moderate multilevel facet arthrosis. Bilateral carotid artery calcifications. Reading Location: [facility] CC: ABDI Liriano; Dr. Dhara Best MD Traveling Construction Superintendent: Signed Normal [facility] Orthopedic Visit Reporton Orthopedic Visit Report [facility] [address] [place] [address] [address] [place] [address] OFFICE VISIT Date of Service: 01/28/25 MR#: [id number] Acct: [id number] Name: ROBERTKEYSENA Rep #: [id number] : 1955 Provider: Dr. Terry Lebron MD Age/Sex: 69/M Location: [facility] [place] Status: Signed Intake Vital Signs 01/08/25 09:16 Height 5 ft 4 in Intake Visit Reasons: CERVICAL/LUMBAR SPINE Chief Complaint: Cervical Spine MRI Review Accompanied by: Is patient in pain?: Yes (Neck - stiffness ) Allergies codeine Allergy (Verified 01/28/25 14:17) Itching oxycodone Allergy (Verified 01/28/25 14:17) Itching carvedilol Adverse Reaction (Intermediate, Verified 01/28/25 14:17) Severe fatigue and lethargy, even on 3.125 Medications ???Medication ???Instructions ???Recorded ???Confirmed ???Type aspirin 81 mg chewable tablet 81 mg PO DAILY 08/03/18 01/28/25 H istory acetaminophen 325 mg tablet 650 mg (2 x 325 mg) PO Q6H PRN PRN 08/07/18 01/28/25 Rx Mild Pain (scale 0-3)/T>100.7 nitroglycerin 0.4 mg sublingual 0.4 mg sublingual PRN PRN Pain #20 04/03/23 01/28/25 Rx tablet tabs benazepril 10 mg tablet 10 mg PO DAILY #90 tabs 09/02/24 0 01/28/25 Rx amlodipine 5 mg tablet 5 mg PO BID #180 tabs 09/14/24 Rx sertraline 25 mg tablet (Zoloft) 25 mg PO QDAY #90 tabs 09/24/24 Rx atorvastatin 80 mg tablet 80 mg PO QDAY #90 tabs 11/23/24 Rx ezetimibe 10 mg tablet (Zetia) 10 mg PO DAILY #90 tabs 11/23/24 0 01/28/25 Rx omeprazole 40 mg capsule,delayed 40 mg PO DAILY #90 caps 11/23/24 0 01/28/25 Rx release trazodone 100 mg tablet 100 mg PO QHS PRN insomnia #180 01/28/25 Rx tabs Have you fallen in the past year?: No PFSH Medical History (Updated 01/28/25 @ 15:04 by Lucía Garzon RN) Cervical spinal cord compression Cervical myelopathy Lumbar stenosis Spondylolisthesis Bilateral foot pain Gout Neurogenic claudication Claudication of both lower extremities Ceruminosis Elevated PSA Tunnel vision Dizziness Abnormal gait Fatigue Hypogonadism in male Urinary frequency Dysuria History of nicotine dependence Atherosclerotic heart disease of [place] coronary artery without angina pectoris Abnormal lung [...] Brother Hypertension Other Myocardial infarction Social History (Updated 01/28/25 @ 15:15 by Lucía Garzon RN) Smoking Status: Former smoker quit date: 03/21/23 Tobacco: How many years used: 52 smoking status stop date: 06/17/20 alcohol intake: former substance use type: does not use caffeine: Yes Type: coffee Number of servings: 1 HPI CERVICAL/LUMBAR SPINE Details: This documentation accurately reflects the service provided and the decisions made by me, Dr. Terry Lebron MD 01/28/25 1892. Part of today???s visit was documented by Germania Munguia ATC and Lucía Garzon RN, acting as scribe. SENA SARMIENTO is a 69 year old M here today for cervical spine MRI review. Patient states the neck is just stiff today but he has more pain in the lumbar spine. He states sitting in an uncomfortable chair will increase his lumbar spine pain. He denies any recent injections to the neck or back. He states his pain and symptoms are staying the same and are not worsening. He is dropping items from his hands. He reports his balance is worsening, he has not fallen but has come close. He does take Aspirin 81mg daily and has a history of cardiac stents. He does have sleep apnea, he does not use a CPAP. The patient is a 69-year-old male presenting with cervical spinal cord compression and lumbar spinal stenosis. The cervical spinal cord compression was identified through an MRI, which showed significant pressure on the spinal cord at the C5-6 and C6-7 levels. The patient reports numbness and tingling, primarily in the feet, and occasional dropping of objects from the right hand. Balance issues have been noted, with the patient experiencing difficulty walking and a te (more content not included)... Normal [facility] Spine Cervical (Routine)on 0 01-14-2025 Spine Cervical (Routine) [facility] Imaging Services [address] [place] [address] Spine Cervical (Routine) MR#: [id number] Acct: [id number] Name: SENA SARMIENTO Rep #: [id number] : 1955 M 69 From: Amparo Au MD PCP: Dr. Dhara Best MD Status: REG CLI Study: Spine Cervical (Routine) Date of Exam: Exam# [id number] Ordering Dr: Terry Lebron MD PROCEDURE: SPINE CERVICAL (ROUTINE) 01/14/2025 REASON FOR EXAM: CERVICAL MYELOPATHY TECHNIQUE: SPINE CERVICAL (ROUTINE) Multiplanar and multisequence images were obtained without IV contrast administration. COMPARISON: None. FINDINGS: Vertebrae: Cervical vertebral body heights are preserved. Modic changes type 2 at the opposite endplates of C5-C6. Alignment: Normal. No spondylolisthesis. Spinal Cord: Hyperintense signal on T2 within the spinal cord at C5-C6 and C6-C7 consistent with myelomalacia or edema. C2-3: Facet joint arthropathy. No foraminal or canal stenosis. C3-4: Facet joint arthropathy. No foraminal or canal stenosis. C4-5: Disc osteophyte complex measures 3 mm. No foramina stenosis. Mild canal stenosis. C5-6: Disc osteophyte complex. Facet joint arthropathy. Mass-effect upon the spinal cord with evidence of spinal cord myelomalacia. Severe canal stenosis. Severe bilateral foramina stenosis. C6-7: Disc osteophyte complex. Uncovertebral hypertrophy. Facet joint arthropathy. Severe bilateral foramina stenosis. Severe canal stenosis. C7-T1: Unremarkable MRI/Spine Cervical (Routine) IMPRESSION: Severe canal stenosis at C5-C6 and C6-C7 with compression upon the spinal cord and change in spinal cord intrinsic signal indicating edema or myelomalacia. Reading Location: [facility] CC: Dr. Terry Lebron MD; Dr. Dhara Best MD Traveling Construction Superintendent: Signed Normal [facility] L/S Spine Min 4 Viewson 12-16 L/S Spine Min 4 Views [facility] Imaging Services [address] [place] [address] L/S Spine Min 4 Views MR#: [id number] Acct: [id number] Name: SENA SARMIENTONINGS Rep #: [id number] : 1955 M 69 From: Etienne Ordoñez MD PCP: Dr. Dhara Best MD Status: DEP AMB Study: L/S Spine Min 4 Views Date of Exam: 01/08/25 Exam# [id number] Ordering Dr: Terry Lebron MD PROCEDURE: L/S SPINE MIN 4 VIEWS 01/08/2025 REASON FOR EXAM: CHRONIC BACK PAIN TECHNIQUE: L/S SPINE MIN 4 VIEWS COMPARISON: None. FINDINGS: No evidence of acute fracture or dislocation. Mild discogenic degenerative changes of the visualized spine. Grade 1 anterolisthesis of L5 on S1. No increased instability on flexion-extension views. RAD/L/S Spine Min 4 Views IMPRESSION: Spondylosis. Spondylolisthesis. Reading Location: [facility] CC: Dr. Terry Lebron MD; Dr. Dhara Best MD Traveling Construction Superintendent: Signed [facility] Orthopedic Visit Reporton Orthopedic Visit Report [facility] [address] [place] [address] [address] [place] [address] OFFICE VISIT Date of Service: 01/08/25 MR#: [id number] Acct: [id number] Name: SENA SARMIENTO Rep #: [id number] : 1955 Provider: Dr. Terry Lebron MD Age/Sex: 69/M Location: [facility] [place] Status: Signed Intake Vital Signs 10/29/24 13:11 01/08/25 09:16 Height 5 ft 4 in 5 ft 4 in Weight: 189 lb 2 oz BMI 32.4 Intake Visit Reasons: LUMBAR SPINE Chief Complaint: Lumbar spine pain Accompanied by: Is patient in pain?: Yes Pain scale (1-10): 2 Allergies codeine Allergy (Verified 01/08/25 09:19) Itching oxycodone Allergy (Verified 01/08/25 09:19) Itching carvedilol Adverse Reaction (Intermediate, Verified 01/08/25 09:19) Severe fatigue and lethargy, even on 3.125 Medications ???Medication ???Instructions ???Recorded ???Confirmed ???Type aspirin 81 mg chewable tablet 81 mg PO DAILY 08/03/18 01/08/25 H istory acetaminophen 325 mg tablet 650 mg (2 x 325 mg) PO Q6H PRN PRN 08/07/18 01/08/25 Rx Mild Pain (scale 0-3)/T>100.7 nitroglycerin 0.4 mg sublingual 0.4 mg sublingual PRN PRN Pain #20 04/03/23 01/08/25 Rx tablet tabs benazepril 10 mg tablet 10 mg PO DAILY #90 tabs 09/02/24 0 01/08/25 Rx amlodipine 5 mg tablet 5 mg PO BID #180 tabs 09/14/24 Rx sertraline 25 mg tablet (Zoloft) 25 mg PO QDAY #90 tabs 09/24/24 Rx atorvastatin 80 mg tablet 80 mg PO QDAY #90 tabs 11/23/24 Rx ezetimibe 10 mg tablet (Zetia) 10 mg PO DAILY #90 tabs 11/23/24 0 01/08/25 Rx omeprazole 40 mg capsule,delayed 40 mg PO DAILY #90 caps 11/23/24 0 01/08/25 Rx release trazodone 100 mg tablet 100 mg PO QHS PRN insomnia #180 01/08/25 Rx tabs Have you fallen in the past year?: No PFSH Medical History (Updated 01/08/25 @ 10:11 by Lucía Garzon, RN) Cervical myelopathy Lumbar stenosis Spondylolisthesis Bilateral foot pain Gout Neurogenic claudication Claudication of both lower extremities Ceruminosis Elevated PSA Tunnel vision Dizziness Abnormal gait Fatigue Hypogonadism in male Urinary frequency Dysuria History of nicotine dependence Atherosclerotic heart disease of [place] coronary artery without angina pectoris Abnormal lung [...] Type: coffee Number of servings: 1 HPI LUMBAR SPINE Details: This documentation accurately reflects the service provided and the decisions made by me, Dr. Terry Lebron MD 01/08/25 0916. Part of today???s visit was documented by Jovita Rios MA and Lucía Garzon RN, acting as scribe. SENA SARMIENTO is a 69 year old M here today for lumbar spine. He complains of low back pain that extends into the right hip. With activity such as mowing the yard the pain radiated down his right leg. The pain radiates posteriorly down to the toes. His right leg and right foot then starts to go numb and tingle. Patient states if he continues to do activities, his left leg starts to do the same thing. The left leg pain also radiates posteriorly. The pain is a stabbing pain when he is doing activities. He does have discomfort when just sitting down. This has been going a year and has gradually been getting worse. Patient states that he doesn't remember injuring his back, he thinks it's from all the hard work he has done. 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 Patient states that he has never had back surgery done before. Bending makes the pain worse. Walking for a short period of time makes the pain worse. Patient has never had any injections in his lower back. He hasn't tried physical therapy for his back. Patient has been trying a heat (more content not included)... Normal [facility] NCS and/or EMG Patienton NCS and/or EMG Patient [facility] Pulmonary Services/Neurology [address] [place] [address] MR#: [id number] Acct: [id number] Name: SENA SARMIENTO Rep #: [id number] : 1955 69 From: Shayne Law MD Referring Dr: Dhara Best MD Status: REG CLI Location: N Date: 12/02/24 Sex: M C NCS and/or EMG Patient Report Ordering Doctor: Dhara Best DATE OF SERVICE: 12/02/24 Sena presents with complaints of tingling in both feet, worse on the right side. Electrodiagnostic findings: Right peroneal motor nerve, measured at the tibialis anterior, demonstrates normal distal latency with reduced amplitude and normal conduction velocity. Left peroneal motor response within normal limits. Tibial motor response bilaterally. Sensory responses are within normal limits. Normal tibial and peroneal F???waves. H???reflex normal bilaterally. Needle EMG testing was performed in the lower limbs. All muscles tested showed no evidence of denervation with normal motor unit action potentials. Electrodiagnostic impression: This is a normal electrodiagnostic study of the lower limbs. There is no electrodiagnostic evidence for peripheral polyneuropathy or lumbosacral radiculopathy. Multi Select Codes Neurology Neurology Interp Codes: 85340-08 Musc test done w/n test comp (interp) (2) and 54160-32 Nrv cndj test 9-10 studies (interp) 12/02/24 1502 Date Shayne Law MD CC: Dr. Shayne Law MD; Dr. Dhara Best MD Date Dictated: 12/02/241499 Date Transcribed: 12/02/241499 Traveling Construction Superintendent: MAURICE Signed Normal [facility] Spine Lumbar (Routine)on Spine Lumbar (Routine) [facility] Imaging Services [address] [place] [address] Spine Lumbar (Routine) MR#: [id number] Acct: [id number] Name: SENA SARMIENTO Rep #: [id number] : 1955 M 69 From: Dao Garza MD PCP: Dr. Dhara Best MD Status: REG CLI Study: Spine Lumbar (Routine) Date of Exam: 11/03/24 Exam# [id number] Ordering Dr: Dhara Best MD PROCEDURE: SPINE [...] Location: [facility] CC: Dr. Dhara Best MD Traveling Construction Superintendent: Signed [facility] CRPon 10-29-2024 C-REACTIVE PROT 4.00 mg/L High 0.0-3.0 [facility] Comment on above: Performed By: #### L 501.6710, L101.9900, L501.1400 ####[facility] [address] [place], [address] Erythrocyte Sed Rateon 10-29 SED RATE 18 mm/hr Normal 0-20 [facility] Comment on above: Performed By: #### L 501.6710, L101.9900, L501.1400 ####[facility] [address] [place], [address] Foot min 3 Viewson 5 Foot min 3 Views [facility] Imaging Services [address] [place] [address] Foot min 3 Views MR#: [id number] Acct: [id number] Name: SENA SARMIENTO Rep #: [id number] : 1955 M 69 From: Jah Graham MD PCP: Dr. Dhara Best MD Status: REG CLI Study: Foot min 3 Views Date of Exam: 10/29/24 Exam# [id number] Ordering Dr: Dhara Best MD PROCEDURE: FOOT [...] appears within limits as above. Reading Location: [facility] CC: Dr. Dhara Best MD Traveling Construction Superintendent: Signed Normal [facility] Foot min 3 Views [facility] Imaging Services [address] [place], [place] [address] Foot min 3 Views MR#: [id number] Acct: [id number] Name: SENA SARMIENTO Rep #: [id number] : 1955 M 69 From: Jah Graham MD PCP: Dr. Dhara Best MD Status: REG CLI Study: Foot min 3 Views Date of Exam: 10/29/24 Exam# [id number] Ordering Dr: Dhara Best MD PROCEDURE: FOOT MIN 3 VIEWS 10/29/2024 REASON FOR EXAM: BILATERAL FOOT PAIN, PAIN BILAT 1ST MTP, ANKLES TECHNIQUE: 3 views of the right foot. COMPARISON: None available FINDINGS: No fracture or dislocation. 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 Subchondral cyst formation at the head of the 1st metatarsal. No associated soft tissue swelling appreciated. Mild osteoarthrosis 1st interphalangeal joint. [id number]-[id number] enthesophyte formation at the plantar surface of the calcaneus. Vascular calcification noted. 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 Subchondral cyst formation at the head of the 1st metatarsal. No associated soft tissue swelling appreciated. Mild osteoarthrosis 1st interphalangeal joint. Reading Location: [facility] CC: Dr. Dhara Best MD Traveling Construction Superintendent: Signed Normal [facility] Liver Profileon 10-29-2024 Albumin [Mass/Vol] 4.2 g/dL Normal 3.4-4.[address] [facility] [address] [facility] Comment on above: Performed By: #### L 500.3400 ####[facility] [address] [place], [address] ALK PHOS 70 U/L Normal 40-129 [facility] Comment on above: Performed By: #### L 500.3400 ####[facility] [address] [place], [address] ALT [Catalytic activity/Vol] 23 U/L Normal <=46 [facility] Comment on above: Performed By: #### L 500.3400 ####[facility] [address] [place], [address] AST [Catalytic activity/Vol] 23 U/L Normal <=37 [facility] Comment on above: Performed By: #### L 500.3400 ####[facility] [address] [place], [address] Bilirubin [Mass/Vol] 0.31 mg/dL Normal 0.00-1.30 [facility] Comment on above: Performed By: #### L 500.3400 ####[facility] [address] [place], [address] Bilirubin.direct [Mass/Vol] 0.12 mg/dL Normal 0.00-0.30 [facility] Comment on above: Performed By: #### L 500.3400 ####[facility] [address] [place], [address] Globulin (S) [Mass/Vol] 2.9 g/dL Normal 2.2-4.2 [facility] Comment on above: Performed By: #### L 500.3400 ####[facility] [address] [place], [address] T PROT 7.1 g/dL Normal 5.9-8.4 [facility] Comment on above: Performed By: #### L 500.3400 ####[facility] [address] [place], [place], [address] MR/BMS.IMBon 10-29-2024 MR/BMS.IMB [facility] [address] [place] [address] OFFICE VISIT Date of Service: 10/29/24 MR#: [id number] Acct: [id number] Name: SENA SARMIENTO Rep #: [id number] : 1955 Provider: Dr. Dhara perez MD Age/Sex: 69/M Location: [facility] [place] Status: Signed Intake Vital Signs 09/03/24 12:55 [...] Reasons: Possible Gout Chief Complaint: Possible Gout Vice President Investor Relations Required: No Accompanied by: Self Is patient [...] of nicotine dependence Atherosclerotic heart disease of [place] coronary artery without angina pectoris Abnormal lung [...] prior uric (more content not included)... Normal [facility] Uric Acidon 10-29-2024 URIC 4.7 mg/dL Normal 3.5-7.2 [facility] Comment on above: Result Comment: The drugs N-Acetylcysteine and Metamizole may falsely depress this assay. Performed By: #### L 501.6710, L101.9900, L501.1400 ####[facility] [address], [address] Ankle Brachial Indexon 09-17 Ankle Brachial Index [facility] [address] [address] Ankle Brachial Index 09/17/24 1402 MR#: [id number] Acct: [id number] Name: SENA SARMIENTO Rep #: [id number] : 1955 69 From: Ari Parekh MD Attending Dr: Dr. Dhara Best MD Status: RE G CLI Ordering Dr: Dhara Best MD Date: 09/17/24 Location: [facility] Sex: M C Admitted: Reason For Study [...] Dhara Best M.D. Performed By: Keira Lundberg RVT 09/17/24 1700 Date Ari Parekh MD CC: Dr. Dhara Best MD Date Dictated: 09/17/24 1402 Date Transcribed: 09/17/24 1700 Traveling Construction Superintendent: Signed Normal [facility] CBC W/Diff, Automatedon 03- 0-2024 Absolute Lymph 1.86 X10 3/uL Normal 0.83-4.51 [facility] Comment on above: Performed By: #### L 501.9940, L100.0100, L500.4050, L501.5200 #### [facility] [address] [place], [address] Absolute Neut 5.0 X10 3/uL Normal 2.0-7.7 [facility] Comment on above: Performed By: #### L 501.9940, L100.0100, L500.4050, L501.5200 #### [facility] [address] [place], [address] Basophils/100 WBC (Bld) 0.8 % Normal 0-1 [facility] Comment on above: Performed By: #### L 501.9940, L100.0100, L500.4050, L501.5200 #### [facility] [address] [place], [address] Eosinophils/100 WBC (Bld) 0.8 % Normal 0-5 [facility] Comment on above: Performed By: #### L 501.9940, L100.0100, L500.4050, L501.5200 #### [facility] [address] [place], [address] Erythrocyte distribution width (RBC) [Ratio] 14.3 % Normal 11.6-14.6 [facility] Comment on above: Performed By: #### L 501.9940, L100.0100, L500.4050, L501.5200 #### [facility] [address] [place], [address] Hematocrit (Bld) [Volume fraction] 37.8 % Low 40-54 [facility] Comment on above: Performed By: #### L 501.9940, L100.0100, L500.4050, L501.5200 #### [facility] [address] [place], [address] Hemoglobin (Bld) [Mass/Vol] 12.9 g/dL Low 13.0-16.5 [facility] Comment on above: Performed By: #### L 501.9940, L100.0100, L500.4050, L501.5200 #### [facility] [address] [place], [address] IG% 0.400 Normal 0.0-0.9 [facility] Comment on above: Result Comment: IG% - Immature Granulocytes (promyelocytes, myelocytes and metamyelocytes) > 1% indicates that a LEFT SHIFT is Present. Performed By: #### L 501.9940, L100.0100, L500.4050, L501.5200 #### [facility] [address] [place], [address] Lymphocytes/100 WBC (Bld) 23.7 % Normal 19-41 [facility] Comment on above: Performed By: #### L 501.9940, L100.0100, L500.4050, L501.5200 #### [facility] [address] [place], [address] MCH (RBC) [Entitic mass] 31.6 pg Normal 27.0-32.0 [facility] Comment on above: Performed By: #### L 501.9940, L100.0100, L500.4050, L501.5200 #### [facility] [address] [place], [address] MCHC (RBC) [Mass/Vol] 34.1 g/dL Normal 32-36 [facility] Comment on above: Performed By: #### L 501.9940, L100.0100, L500.4050, L501.5200 #### [facility] [address] [place], [address] MCV (RBC) [Entitic vol] 92.6 fL Normal 80-94 [facility] Comment on above: Performed By: #### L 501.9940, L100.0100, L500.4050, L501.5200 #### [facility] [address] [place], [address] Monocytes/100 WBC (Bld) 11.0 % High 0-10 [facility] Comment on above: Performed By: #### L 501.9940, L100.0100, L500.4050, L501.5200 #### [facility] [address] [place], [address] Neutrophils/100 WBC (Bld) 63.3 % Normal 47-70 [facility] Comment on above: Performed By: #### L 501.9940, L100.0100, L500.4050, L501.5200 #### [facility] [address] [place], [address] Nucleated RBC (Bld) [#/Vol] 0 10*3/uL Normal 0-5 [facility] Comment on above: Performed By: #### L 501.9940, L100.0100, L500.4050, L501.5200 #### [facility] [address] [place], [address] Platelet mean volume (Bld) [Entitic vol] 10.7 fL Normal 6.2-12.0 [facility] Comment on above: Performed By: #### L 501.9940, L100.0100, L500.4050, L501.5200 #### [facility] [address] [place], [address] Platelets (Bld) [#/Vol] 249 10*3/uL Normal 150-450 [facility] Comment on above: Performed By: #### L 501.9940, L100.0100, L500.4050, L501.5200 #### [facility] [address] [place], [address] RBC (Bld) [#/Vol] 4.08 10*6/uL Low 4.6-6.2 [facility] Comment on above: Performed By: #### L 501.9940, L100.0100, L500.4050, L501.5200 #### [facility] [address] [place], [address] RDW SD 48.6 fl High 35.1-43.9 [facility] Comment on above: Performed By: #### L 501.9940, L100.0100, L500.4050, L501.5200 #### [facility] [address] [place], [address] WBC (Bld) [#/Vol] 7.8 10*3/uL Normal 4.4-11.[address] [facility] Comment on above: Performed By: #### L 501.9940, L100.0100, L500.4050, L501.5200 #### [facility] [address] [place], [address] Cardiology Visit Reporton Cardiology Visit Report [facility] [address] [place] [address] OFFICE VISIT Date of Service: 09/03/24 MR#: [id number] Acct: [id number] Name: SENA SARMIENTO Rep #: [id number] : 1955 Provider: Dr. Von Redd MD Age/Sex: 69/M Location: [facility] [place] Status: Signed HPI HPI History of Present [...] air Intake Visit Reasons: 6 M FU Vice President Investor Relations Required: No Accompanied by: Is patient in [...] of nicotine dependence Atherosclerotic heart disease of [place] coronary artery without angina pectoris Abnormal lung [...] to Auscul (more content not included)... Normal [facility] Comprehensive Metabolic Prof anita 09-03-2024 Albumin [Mass/Vol] 4.1 g/dL Normal 3.4-4.[address] [facility] Comment on above: Order Comment: EDDIE PFEIFFER Performed By: #### L 501.9940, L100.0100, L500.4050, L501.5200 #### [facility] [address] [place], [address] Albumin/Globulin [Mass ratio] 1.4 {ratio} Normal 0.9-2.4 [facility] Comment on above: Order Comment: EDDIE PFEIFFER Performed By: #### L 501.9940, L100.0100, L500.4050, L501.5200 #### [facility] [address] [place], [address] ALK PHOS 67 U/L Normal 40-129 [facility] Comment on above: Order Comment: EDDIE PFEIFFER Performed By: #### L 501.9940, L100.0100, L500.4050, L501.5200 #### [facility] [address] [place], [address] ALT [Catalytic activity/Vol] 29 U/L Normal <=46 [facility] Comment on above: Order Comment: EDDIE PFEIFFER Performed By: #### L 501.9940, L100.0100, L500.4050, L501.5200 #### [facility] [address] [place], [address] AST [Catalytic activity/Vol] 25 U/L Normal <=37 [facility] Comment on above: Order Comment: EDDIE PFEIFFER Performed By: #### L 501.9940, L100.0100, L500.4050, L501.5200 #### [facility] [address] [place], [address] Bilirubin [Mass/Vol] 0.32 mg/dL Normal 0.00-1.30 [facility] Comment on above: Order Comment: CMP Renae PFEIFFER Performed By: #### L 501.9940, L100.0100, L500.4050, L501.5200 #### [facility] [address] [place], [address] BUN/CRE 12.5 RATIO Normal 10-20 [facility] Comment on above: Order Comment: CMP Renae PFEIFFER Performed By: #### L 501.9940, L100.0100, L500.4050, L501.5200 #### [facility] [address] [place], [address] Calcium [Mass/Vol] 8.7 mg/dL Normal 7.6-11.[address] [facility] Comment on above: Order Comment: CMP Renae PFEIFFER Performed By: #### L 501.9940, L100.0100, L500.4050, L501.5200 #### [facility] [address] [place], [address] Chloride [Moles/Vol] 101 mmol/L Normal 98-108 [facility] Comment on above: Order Comment: EDDIE PFEIFFER Performed By: #### L 501.9940, L100.0100, L500.4050, L501.5200 #### [facility] [address] [place], [address] CO2 [Moles/Vol] 23.0 mmol/L Normal 21.0-32.0 [facility] Comment on above: Order Comment: CMP Renae PFEIFFER Performed By: #### L 501.9940, L100.0100, L500.4050, L501.5200 #### [facility] [address] [place], [address] Creatinine [Mass/Vol] 1.06 mg/dL Normal 0.70-1.20 [facility] Comment on above: Order Comment: CMP Renae PFEIFFER Performed By: #### L 501.9940, L100.0100, L500.4050, L501.5200 #### [facility] [address] [place], [address] GAP 11 Normal 5-15 [facility] Comment on above: Order Comment: EDDIE PFEIFFER Performed By: #### L 501.9940, L100.0100, L500.4050, L501.5200 #### [facility] [address] [place], [address] GFR/1.73 sq M.predicted among non-blacks MDRD (S/P/Bld) [Vol rate/Area] 76 mL/min/{1.73_m2} Normal >60 [facility] Comment on above: Order Comment: EDDIE PFEIFFER Result Comment: mL/m in/1.73m2 CKD-EPI Creatinine Equation (2020) Performed By: #### L 501.9940, L100.0100, L500.4050, L501.5200 #### [facility] [address] [place], [address] Globulin (S) [Mass/Vol] 2.9 g/dL Normal 2.2-4.2 [facility] Comment on above: Order Comment: EDDIE PFEIFFER Performed By: #### L 501.9940, L100.0100, L500.4050, L501.5200 #### [facility] [address] [place], [address] Glucose [Mass/Vol] 109 mg/dL High 70-[address] [facility] Comment on above: Order Comment: EDDIE PFEIFFER Performed By: #### L 501.9940, L100.0100, L500.4050, L501.5200 #### [facility] [address] [place], [address] Potassium [Moles/Vol] 4.3 mmol/L Normal 3.3-5.1 [facility] Comment on above: Order Comment: EDDIE PFEIFFER Performed By: #### L 501.9940, L100.0100, L500.4050, L501.5200 #### [facility] [address] [place], [address] Sodium [Moles/Vol] 135 mmol/L Normal 133-[address] [facility] Comment on above: Order Comment: EDDIE Renae PFEIFFER Performed By: #### L 501.9940, L100.0100, L500.4050, L501.5200 #### [facility] [address] [place], [address] T PROT 7.0 g/dL Normal 5.9-8.4 [facility] Comment on above: Order Comment: EDDIE Renae MENA KENTRELL Performed By: #### L 501.9940, L100.0100, L500.4050, L501.5200 #### [facility] [address] [place], [address] Urea nitrogen [Mass/Vol] 13 mg/dL Normal 4-19 [facility] Comment on above: Order Comment: EDDIE Renae PFEIFFER Performed By: #### L 501.9940, L100.0100, L500.4050, L501.5200 #### [facility] [address] [place], [address] Magnesiumon 09-03-2024 Magnesium [Mass/Vol] 2.2 mg/dL Normal 1.5-2.2 [facility] Comment on above: Order Comment: EDDIE Renae PFEIFFER Performed By: #### L 501.9940, L100.0100, L500.4050, L501.5200 #### [facility] [address] [place], [address] PSA,Total- Diagnosticon 08-16 PSA, DIAGNOSTIC 5.99 ng/mL High 0.00-4.00 [facility] Comment on above: Order Comment: EDDIE Renae MENA KENTRELL Result Comment: This test was performed using [...] #### L 501.9940, L100.0100, L500.4050, L501.5200 #### [facility] [address] [place], [address] MR/BMS.IMBon 08-31-2024 MR/BMS.B [facility] [address] [facility] [place] [address] OFFICE VISIT Date of Service: 08/31/24 MR#: [id number] Acct: [id number] Name: SENA SARMIENTO Rep #: [id number] : 1955 Provider: Dr. Dhara perez MD Age/Sex: 69/M Location: [facility] Status: Signed Intake Vital Signs 06/12/24 07:48 [...] Leg Pain Chief Complaint: Fatigue, Leg Pain Vice President Investor Relations Required: No Accompanied by: Is patient in [...] you fallen in the past year?: No [facility] Medical History (Updated 08/31/24 @ 10:[address] Dhara Best MD) Claudication of both lower extremities Ceruminosis Elevated PSA Tunnel vision Dizziness Abnormal gait Fatigue Hypogonadism in male Urinary frequency Dysuria History of nicotine dependence Atherosclerotic heart disease of [place] coronary artery without angina pectoris Abnormal lung [...] continence however (more content not included)... Normal [facility] CBC W/Diff, Automatedon 12-2 Absolute Lymph 1.37 X10 3/uL Normal 0.83-4.51 [facility] Comment on above: Performed By: #### L 100.0100, L300.4310, L300.3900, L500.4050 ####[facility] [address] [place], [place], [address] Absolute Neut 3.9 X10 3/uL Normal 2.0-7.7 [facility] Comment on above: Performed By: #### L 100.0100, L300.4310, L300.3900, L500.4050 ####[facility] [address] [place], [address] Basophils/100 WBC (Bld) 0.8 % Normal 0-1 [facility] Comment on above: Performed By: #### L 100.0100, L300.4310, L300.3900, L500.4050 ####[facility] [address] [place], [address] Eosinophils/100 WBC (Bld) 1.3 % Normal 0-5 [facility] Comment on above: Performed By: #### L 100.0100, L300.4310, L300.3900, L500.4050 ####[facility] [address] [place], [address] Erythrocyte distribution width (RBC) [Ratio] 14.9 % High 11.6-14.6 [facility] Comment on above: Performed By: #### L 100.0100, L300.4310, L300.3900, L500.4050 ####[facility] [address] [place], [address] Hematocrit (Bld) [Volume fraction] 39.8 % Low 40-54 [facility] Comment on above: Performed By: #### L 100.0100, L300.4310, L300.3900, L500.4050 ####[facility] [address] [place], [address] Hemoglobin (Bld) [Mass/Vol] 13.6 g/dL Normal 13.0-16.5 [facility] Comment on above: Performed By: #### L 100.0100, L300.4310, L300.3900, L500.4050 ####[facility] [address] [place], [address] IG% 0.300 Normal 0.0-0.9 [facility] Comment on above: Result Comment: IG% - Immature Granulocytes (promyelocytes, myelocytes and metamyelocytes) > 1% indicates that a LEFT SHIFT is Present. Performed By: #### L 100.0100, L300.4310, L300.3900, L500.4050 ####[facility] [address] [place], [address] Lymphocytes/100 WBC (Bld) 21.8 % Normal 19-41 [facility] Comment on above: Performed By: #### L 100.0100, L300.4310, L300.3900, L500.4050 ####[facility] [address] [place], [address] MCH (RBC) [Entitic mass] 31.2 pg Normal 27.0-32.0 [facility] Comment on above: Performed By: #### L 100.0100, L300.4310, L300.3900, L500.4050 ####[facility] [address] [place], [address] MCHC (RBC) [Mass/Vol] 34.2 g/dL Normal 32-36 [facility] Comment on above: Performed By: #### L 100.0100, L300.4310, L300.3900, L500.4050 ####[facility] [address] [place], [address] MCV (RBC) [Entitic vol] 91.3 fL Normal 80-94 [facility] Comment on above: Performed By: #### L 100.0100, L300.4310, L300.3900, L500.4050 ####[facility] [address] [place], [address] Monocytes/100 WBC (Bld) 13.7 % High 0-10 [facility] Comment on above: Performed By: #### L 100.0100, L300.4310, L300.3900, L500.4050 ####[facility] [address] [place], [address] Neutrophils/100 WBC (Bld) 62.1 % Normal 47-70 [facility] Comment on above: Performed By: #### L 100.0100, L300.4310, L300.3900, L500.4050 ####[facility] [address] [place], [address] Nucleated RBC (Bld) [#/Vol] 0 10*3/uL Normal 0-5 [facility] Comment on above: Performed By: #### L 100.0100, L300.4310, L300.3900, L500.4050 ####[facility] [address] [place], [address] Platelet mean volume (Bld) [Entitic vol] 10.6 fL Normal 6.2-12.0 [facility] Comment on above: Performed By: #### L 100.0100, L300.4310, L300.3900, L500.4050 ####[facility] [address] [place], [address] Platelets (Bld) [#/Vol] 247 10*3/uL Normal 150-450 [facility] Comment on above: Performed By: #### L 100.0100, L300.4310, L300.3900, L500.4050 ####[facility] [address] [place], [address] RBC (Bld) [#/Vol] 4.36 10*6/uL Low 4.6-6.2 [facility] Comment on above: Performed By: #### L 100.0100, L300.4310, L300.3900, L500.4050 ####[facility] [address] [place], [address] RDW SD 50.4 fl High 35.1-43.9 [facility] Comment on above: Performed By: #### L 100.0100, L300.4310, L300.3900, L500.4050 ####[facility] [address] [place], [address] WBC (Bld) [#/Vol] 6.3 10*3/uL Normal 4.4-11.[address] [facility] Comment on above: Performed By: #### L 100.0100, L300.4310, L300.3900, L500.4050 ####[facility] [address] [place], [address] CTA Abd/Pelvis W/WO Contrast on 06-12-2024 CTA Abd/Pelvis W/WO Contrast [facility] Imaging Services [address] [place] [address] CTA Abd/Pelvis W/WO Contrast MR#: [id number] Acct: [id number] Name: SNEA SARMIENTO Rep #: [id number] : 1955 M 68 From: Duy Emmanuel MD PCP: Dr. Dhara Best MD Status: [facility] Study: CTA Abd/Pelvis W/WO Contrast Date of Exam: Exam# [id number] Ordering Dr: Ari Ernst DO [id number] INDICATION: Gastrointestinal bleeding EXAMINATION: CTA abdomen and [...] Ari Ernst, DO; Dr. Dhara Best MD Traveling Construction Superintendent: Signed Normal [facility] Comprehensive Metabolic Prof aron 06-12-2024 Albumin [Mass/Vol] 3.6 g/dL Normal 3.2-5.[address] [facility] Comment on above: Performed By: #### L 100.0100, L300.4310, L300.3900, L500.4050 ####[facility] [address] [place], [address] Albumin/Globulin [Mass ratio] 1.0 {ratio} Normal 0.9-2.4 [facility] Comment on above: Performed By: #### L 100.0100, L300.4310, L300.3900, L500.4050 ####[facility] [address] [place], [address] ALK P 68 U/L Normal 45-117 [facility] Comment on above: Performed By: #### L 100.0100, L300.4310, L300.3900, L500.4050 ####[facility] [address] [place], [address] ALT [Catalytic activity/Vol] 34 U/L Normal 16-61 [facility] Comment on above: Performed By: #### L 100.0100, L300.4310, L300.3900, L500.4050 ####[facility] [address] [place], [address] AST [Catalytic activity/Vol] 22 U/L Normal 15-37 [facility] Comment on above: Performed By: #### L 100.0100, L300.4310, L300.3900, L500.4050 ####[facility] [address] [place], [address] Bilirubin [Mass/Vol] 0.40 mg/dL Normal 0.20-1.00 [facility] Comment on above: Result Comment: For patients on eltrombopag therapy, use of Dimension [place] TBIL is not recommended. Performed By: #### L 100.0100, L300.4310, L300.3900, L500.4050 ####[facility] [address] [place], [address] BUN/CRE 9.8 RATIO Low 10-20 [facility] Comment on above: Performed By: #### L 100.0100, L300.4310, L300.3900, L500.4050 ####[facility] [address] [place], [address] CA,Total 8.9 mg/dL Normal 8.5-10.1 [facility] Comment on above: Performed By: #### L 100.0100, L300.4310, L300.3900, L500.4050 ####[facility] [address] [place], [address] Chloride [Moles/Vol] 104 mmol/L Normal 98-107 [facility] Comment on above: Performed By: #### L 100.0100, L300.4310, L300.3900, L500.4050 ####[facility] [address] [place], [address] CO2 [Moles/Vol] 26.0 mmol/L Normal 21.0-32.0 [facility] Comment on above: Performed By: #### L 100.0100, L300.4310, L300.3900, L500.4050 ####[facility] [address] [place], [address] Creatinine [Mass/Vol] 1.02 mg/dL Normal 0.70-1.30 [facility] Comment on above: Result Comment: The validity of the calculated GFR GFRAA in patients over 70 years has not been determined. Clinical correlation is essential. Performed By: #### L 100.0100, L300.4310, L300.3900, L500.4050 ####[facility] [address] [place], [address] ECRCL 69.03 ml/min Normal [facility] Comment on above: Performed By: #### L 100.0100, L300.4310, L300.3900, L500.4050 ####[facility] [address] [place], [address] EST GFR - AA 94 mL/min Normal >60 [facility] Comment on above: Result Comment: Afri can Singaporean GFR Calc Performed By: #### L 100.0100, L300.4310, L300.3900, L500.4050 ####[facility] [address] [place], [address] GAP 4 Low 5-15 [facility] Comment on above: Performed By: #### L 100.0100, L300.4310, L300.3900, L500.4050 ####[facility] [address] [place], [address] GFR/1.73 sq M.predicted among non-blacks MDRD (S/P/Bld) [Vol rate/Area] 77 mL/min/{1.73_m2} Normal >60 [facility] Comment on above: Result Comment: Non- GFR Calc Performed By: #### L 100.0100, L300.4310, L300.3900, L500.4050 ####[facility] [address] [place], [address] Globulin (S) [Mass/Vol] 3.7 g/dL Normal 2.2-4.2 [facility] Comment on above: Performed By: #### L 100.0100, L300.4310, L300.3900, L500.4050 ####[facility] [address] [place], [address] Glucose [Mass/Vol] 141 mg/dL High 74-[address] [facility] Comment on above: Result Comment: Fast ing Glucose result greater than or equal to 126 mg/dL suggests DIABETES MELLITUS per A.D.A. criteria. Performed By: #### L 100.0100, L300.4310, L300.3900, L500.4050 ####[facility] [address] [place], [address] Potassium [Moles/Vol] 3.9 mmol/L Normal 3.5-5.1 [facility] Comment on above: Performed By: #### L 100.0100, L300.4310, L300.3900, L500.4050 ####[facility] [address] [place], [address] Sodium [Moles/Vol] 135 mmol/L Low 136-[address] [facility] Comment on above: Performed By: #### L 100.0100, L300.4310, L300.3900, L500.4050 ####[facility] [address] [place], [address] T PROT 7.3 g/dL Normal 6.4-8.2 [facility] Comment on above: Performed By: #### L 100.0100, L300.4310, L300.3900, L500.4050 ####[facility] [address] [place], [address] Urea nitrogen [Mass/Vol] 10 mg/dL Normal 7-18 [facility] Comment on above: Performed By: #### L 100.0100, L300.4310, L300.3900, L500.4050 ####[facility] [address] [place], [address] Emergency Department Summary on 06-12-2024 Emergency Department Summary [facility] Medical Records Department [address] [place] [address] Emergency Department Summary 06/12/24 MR#: [id number] Acct: [id number] Name: SENA SARMIENTO Rep #: [id number] : 1955 68 From: Ari Ernst DO [...] hematuria. Patient denies any fevers or chills. [facility] Medical History Ceruminosis Elevated PSA Tunnel vision Dizziness Abnormal gait Fatigue Hypogonadism in male Urinary frequency Dysuria History of nicotine dependence Atherosclerotic heart disease of [place] coronary artery without angina pectoris Abnormal lung [...] Rx hydrocortisone acetate 25 mg 25 mg SC DAILY #12 ea 06/12/24 Unknown Rx rectal [...] Neurologic Sudarshan (more content not included)... Normal [facility] Partial Thromboplast Timeon 06-12-2024 aPTT Coag (Bld) [Time] 28.9 s Normal 24.1-36.2 [facility] Comment on above: Performed By: #### L 100.0100, L300.4310, L300.3900, L500.4050 ####[facility] [address] [place], [place], [id number] Prothrombin Time w/INRon INR Coag (PPP) [Relative time] 0.9 {INR} Normal [facility] Comment on above: Performed By: #### L 100.0100, L300.4310, L300.3900, L500.4050 ####[facility] [address] [place], [address] PT Coag (PPP) [Time] 12.6 s Normal 11.7-14.9 [facility] Comment on above: Performed By: #### L 100.0100, L300.4310, L300.3900, L500.4050 ####[facility] [address] [place], [address] Stool Occult Blood iFOBon STOB Positive Normal [facility] Comment on above: Performed By: #### M 100.7900 ####[facility] [address], [address] Brain without Contraston Brain without Contrast [facility] Imaging Services [address] [place] [address] Brain without Contrast MR#: [id number] Acct: [id number] Name: SENA SARMIENTO Rep #: [id number] : 1955 M 68 From: Sherley zimmerman MD PCP: Dr. Dhara Best MD Status: REG CLI Study: Brain without Contrast Date of Exam: 03/31/24 Exam# [id number] Ordering Dr: Dhara Best [place] [id number] HISTORY: Dizziness, tunnel vision, vascular dx. TECHNIQUE: [...] EDT , CC: Dr. Dhara Best MD Traveling Construction Superintendent: Signed Normal [facility] MRA Head ONLY without Contra ston 03-31-2024 MRA Head ONLY without Contrast [facility] Imaging Services [address] [place] [address] MRA Head ONLY without Contrast MR#: [id number] Acct: [id number] Name: SENA SARMIENTO Rep #: [id number] : 1955 68 From: Josesito Calle MD PCP: Dr. Dhara Best MD Status: REG CL Study: MRA Head ONLY without Contrast Date of Exam: Exam# [id number] Ordering Dr: Dhara Best [place] [id number] STUDY: MRA OF THE HEAD WITHOUT CONTRAST REASON FOR EXAM: Male, 68 years old. Dizziness, tunnel vision, vascular dx TECHNIQUE: 3-D eqqs-sh-vmcrll (TOF) imaging was performed with MIPs. The [...] There is no demonstrated aneurysm of the [place] of [place]. There is no major vessel occlusion or hemodynamically significant stenosis. MRI/MRA Head ONLY without Contrast IMPRESSION: Normal MRA of the head Electronically Signed: Josesito Calle MD at 15:06 EDT , CC: Dr. Dhara Best MD Traveling Construction Superintendent: Signed Normal [facility] MRA Neck without Contraston 03-31-2024 MRA Neck without Contrast [facility] Imaging Services [address] [place], [place] [id number] MRA Neck without Contrast MR#: [id number] Acct: [id number] Name: SENA SARMIENTO Rep #: [id number] : 1955 M 68 From: Josesito Calle MD PCP: Dr. Dhara Best MD Status: REG CL Study: MRA Neck without Contrast Date of Exam: Exam# [id number] Ordering Dr: Dhara Best MD [id number] STUDY: MRA NECK WITHOUT CONTRAST REASON FOR [...] Signed: Josesito Calle MD at 15:04 EDT Reading Location ID and State: [address] [place] [address] , Service support , CC: Dr. 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 [place] [address] OFFICE VISIT Date of Service: 03/18/24 MR#: [id number] Acct: [id number] Name: SENA SARMIENTO Rep #: [id number] : 1955 Provider: Dr. 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 Normal [facility] CBC W/Diff, Automatedon 02-16 Absolute Lymph 1.59 X10 3/uL Normal 0.83-4.51 [facility] Comment on above: Performed By: #### L 500.4050, L501.46804, L100.0100, L506.0400, L501.9520 ####[facility] [address] [place], [address] Absolute Neut 4.6 X10 3/uL Normal 2.0-7.7 [facility] Comment on above: Performed By: #### L 500.4050, L501.10389, L100.0100, L506.0400, L501.9520 ####[facility] [address] [place], [address] Basophils/100 WBC (Bld) 1.0 % Normal 0-1 [facility] Comment on above: Performed By: #### L 500.4050, L501.97532, L100.0100, L506.0400, L501.9520 ####[facility] [address] [place], [address] Eosinophils/100 WBC (Bld) 1.3 % Normal 0-5 [facility] Comment on above: Performed By: #### L 500.4050, L501.41500, L100.0100, L506.0400, L501.9520 ####[facility] [address] [place], [address] Erythrocyte distribution width (RBC) [Ratio] 13.4 % Normal 11.6-14.6 [facility] Comment on above: Performed By: #### L 500.4050, L501.36600, L100.0100, L506.0400, L501.9520 ####[facility] [address] [place], [address] Hematocrit (Bld) [Volume fraction] 41.8 % Normal 40-54 [facility] Comment on above: Performed By: #### L 500.4050, L501.51055, L100.0100, L506.0400, L501.9520 ####[facility] [address] [place], [address] Hemoglobin (Bld) [Mass/Vol] 13.8 g/dL Normal 13.0-16.5 [facility] Comment on above: Performed By: #### L 500.4050, L501.85160, L100.0100, L506.0400, L501.9520 ####[facility] [address] [place], [address] IG% 0.300 Normal 0.0-0.9 [facility] Comment on above: Result Comment: IG% - Immature Granulocytes (promyelocytes, myelocytes and metamyelocytes) > 1% indicates that a LEFT SHIFT is Present. Performed By: #### L 500.4050, L501.13209, L100.0100, L506.0400, L501.9520 ####[facility] [address] [place], [address] Lymphocytes/100 WBC (Bld) 22.2 % Normal 19-41 [facility] Comment on above: Performed By: #### L 500.4050, L501.91727, L100.0100, L506.0400, L501.9520 ####[facility] [address] [place], [address] MCH (RBC) [Entitic mass] 30.1 pg Normal 27.0-32.0 [facility] Comment on above: Performed By: #### L 500.4050, L501.70542, L100.0100, L506.0400, L501.9520 ####[facility] [address] [place], [address] MCHC (RBC) [Mass/Vol] 33.0 g/dL Normal 32-36 [facility] Comment on above: Performed By: #### L 500.4050, L501.37737, L100.0100, L506.0400, L501.9520 ####[facility] [address] [place], [address] MCV (RBC) [Entitic vol] 91.1 fL Normal 80-94 [facility] Comment on above: Performed By: #### L 500.4050, L501.49311, L100.0100, L506.0400, L501.9520 ####[facility] [address] [place], [address] Monocytes/100 WBC (Bld) 10.5 % High 0-10 [facility] Comment on above: Performed By: #### L 500.4050, L501.26315, L100.0100, L506.0400, L501.9520 ####[facility] [address] [place], [address] Neutrophils/100 WBC (Bld) 64.7 % Normal 47-70 [facility] Comment on above: Performed By: #### L 500.4050, L501.25884, L100.0100, L506.0400, L501.9520 ####[facility] [address] [place], [address] Nucleated RBC (Bld) [#/Vol] 0 10*3/uL Normal 0-5 [facility] Comment on above: Performed By: #### L 500.4050, L501.14641, L100.0100, L506.0400, L501.9520 ####[facility] [address] [place], [address] Platelet mean volume (Bld) [Entitic vol] 10.5 fL Normal 6.2-12.0 [facility] Comment on above: Performed By: #### L 500.4050, L501.77801, L100.0100, L506.0400, L501.9520 ####[facility] [address] [place], [address] Platelets (Bld) [#/Vol] 262 10*3/uL Normal 150-450 [facility] Comment on above: Performed By: #### L 500.4050, L501.39099, L100.0100, L506.0400, L501.9520 ####[facility] [address] [place], [address] RBC (Bld) [#/Vol] 4.59 10*6/uL Low 4.6-6.2 [facility] Comment on above: Performed By: #### L 500.4050, L501.93997, L100.0100, L506.0400, L501.9520 ####[facility] [address] [place], [address] RDW SD 45.2 fl High 35.1-43.9 [facility] Comment on above: Performed By: #### L 500.4050, L501.16749, L100.0100, L506.0400, L501.9520 ####[facility] [address] [place], [address] WBC (Bld) [#/Vol] 7.2 10*3/uL Normal 4.4-11.[address] [facility] Comment on above: Performed By: #### L 500.4050, L501.32210, L100.0100, L506.0400, L501.9520 ####[facility] [address] [place], [address] Comprehensive Metabolic Prof [facility] 03-09-2024 Albumin [Mass/Vol] 3.7 g/dL Normal 3.2-5.[address] [facility] Comment on above: Performed By: #### L 500.4050, L501.24339, L100.0100, L506.0400, L501.9520 ####[facility] [address] [place], [address] Albumin/Globulin [Mass ratio] 0.9 {ratio} Normal 0.9-2.4 [facility] Comment on above: Performed By: #### L 500.4050, L501.19476, L100.0100, L506.0400, L501.9520 ####[facility] [address] [place], [address] ALK P 85 U/L Normal 45-117 [facility] Comment on above: Performed By: #### L 500.4050, L501.10008, L100.0100, L506.0400, L501.9520 ####[facility] [address] [place], [address] ALT [Catalytic activity/Vol] 31 U/L Normal 16-61 [facility] Comment on above: Performed By: #### L 500.4050, L501.75437, L100.0100, L506.0400, L501.9520 ####[facility] [address] [place], [address] AST [Catalytic activity/Vol] 23 U/L Normal 15-37 [facility] Comment on above: Performed By: #### L 500.4050, L501.63622, L100.0100, L506.0400, L501.9520 ####[facility] [address] [place], [address] Bilirubin [Mass/Vol] 0.60 mg/dL Normal 0.20-1.00 [facility] Comment on above: Result Comment: For patients on eltrombopag therapy, use of Dimension [place] TBIL is not recommended. Performed By: #### L 500.4050, L501.61942, L100.0100, L506.0400, L501.9520 ####[facility] [address] [place], [address] BUN/CRE 9.8 RATIO Low 10-20 [facility] Comment on above: Performed By: #### L 500.4050, L501.13865, L100.0100, L506.0400, L501.9520 ####[facility] [address] [place], [address] CA,Total 8.9 mg/dL Normal 8.5-10.1 [facility] Comment on above: Performed By: #### L 500.4050, L501.98901, L100.0100, L506.0400, L501.9520 ####[facility] [address] [place], [address] Chloride [Moles/Vol] 103 mmol/L Normal 98-107 [facility] Comment on above: Performed By: #### L 500.4050, L501.91817, L100.0100, L506.0400, L501.9520 ####[facility] [address] [place], [address] CO2 [Moles/Vol] 25.0 mmol/L Normal 21.0-32.0 [facility] Comment on above: Performed By: #### L 500.4050, L501.60802, L100.0100, L506.0400, L501.9520 ####[facility] [address] [place], [address] Creatinine [Mass/Vol] 1.02 mg/dL Normal 0.70-1.30 [facility] Comment on above: Result Comment: The validity of the calculated GFR GFRAA in patients over 70 years has not been determined. Clinical correlation is essential. Performed By: #### L 500.4050, L501.76054, L100.0100, L506.0400, L501.9520 ####[facility] [address] [place], [address] EST GFR - AA 94 mL/min Normal >60 [facility] Comment on above: Result Comment: Afri can Singaporean GFR Calc Performed By: #### L 500.4050, L501.54919, L100.0100, L506.0400, L501.9520 ####[facility] [address] [place], [address] GAP 8 Normal 5-15 [facility] Comment on above: Performed By: #### L 500.4050, L501.67115, L100.0100, L506.0400, L501.9520 ####[facility] [address] [place], [address] GFR/1.73 sq M.predicted among non-blacks MDRD (S/P/Bld) [Vol rate/Area] 77 mL/min/{1.73_m2} Normal >60 [facility] Comment on above: Result Comment: Non- GFR Calc Performed By: #### L 500.4050, L501.57879, L100.0100, L506.0400, L501.9520 ####[facility] [address] [place], [address] Globulin (S) [Mass/Vol] 3.9 g/dL Normal 2.2-4.2 [facility] Comment on above: Performed By: #### L 500.4050, L501.82202, L100.0100, L506.0400, L501.9520 ####[facility] [address] [place], [address] Glucose [Mass/Vol] 108 mg/dL High 74-[address] [facility] Comment on above: Result Comment: Fast ing Glucose result from 100 to 125 mg/dL suggests IMPAIRED HOMEOSTASIS per A.D.A. criteria. Performed By: #### L 500.4050, L501.59752, L100.0100, L506.0400, L501.9520 ####[facility] [address] [place], [address] Potassium [Moles/Vol] 4.2 mmol/L Normal 3.5-5.1 [facility] Comment on above: Performed By: #### L 500.4050, L501.15319, L100.0100, L506.0400, L501.9520 ####[facility] [address] [place], [address] Sodium [Moles/Vol] 136 mmol/L Normal 136-[address] [facility] Comment on above: Performed By: #### L 500.4050, L501.10463, L100.0100, L506.0400, L501.9520 ####[facility] [address] [place], [address] T PROT 7.6 g/dL Normal 6.4-8.2 [facility] Comment on above: Performed By: #### L 500.4050, L501.32525, L100.0100, L506.0400, L501.9520 ####[facility] [address] [place], [address] Urea nitrogen [Mass/Vol] 10 mg/dL Normal 7-18 [facility] Comment on above: Performed By: #### L 500.4050, L501.98203, L100.0100, L506.0400, L501.9520 ####[facility] [address] [place], [address] Free T3on 03-09-2024 Free T3 [Mass/Vol] 2.8 pg/mL Normal 2.18-3.[address] [facility] Comment on above: Performed By: #### L 500.4050, L501.98017, L100.0100, L506.0400, L501.9520 ####[facility] [address] [place], [address] Lipid Profileon 03-09-2024 Cholesterol [Mass/Vol] 191 mg/dL Normal 200 [facility] Comment on above: Order Comment: PT WA NTED DONE JAKOB DUE TO APT March Result Comment: <200 mg/dL Desirable 200-240 mg/dL Borderline >240 mg/dL High Risk Performed By: #### L 500.3400, L500.4100 #### [facility] [address] [place], [address] Cholesterol in HDL [Mass/Vol] 80 mg/dL Normal [facility] Comment on above: Order Comment: PT WA NTED DONE JAKOB DUE TO APT March Result Comment: The drugs N-Acetylcysteine and Metamizole may falsely depress this assay. Reference Range HDL <40 mg/dL Low HDL Cholesterol HDL >or= 60 mg/dL High HDL Cholesterol Performed By: #### L 500.3400, L500.4100 #### [facility] [address] [place], [address] Cholesterol in LDL [Mass/Vol] 70 mg/dL Normal 0-130 [facility] Comment on above: Order Comment: PT WA NTED DONE JAKOB DUE TO APT March Performed By: #### L 500.3400, L500.4100 #### [facility] [address] [place], [address] Cholesterol in VLDL [Mass/Vol] 41 mg/dL High 5-40 [facility] Comment on above: Order Comment: PT WA NTED DONE JAKOB DUE TO APT March Performed By: #### L 500.3400, L500.4100 #### [facility] [address] [place], [address] Triglyceride [Mass/Vol] 203 mg/dL High [facility] Comment on above: Order Comment: PT WA NTED DONE JAKOB DUE TO APT March Result Comment: The drugs N-Acetylcysteine and Metamizole may falsely depress this assay. Serum Triglycerides Reference Interval Normal <150 mg/dL Borderline high 150 - 199 mg/dL High 200 - 499 mg/dL Very High > or = 500 mg/dL Performed By: #### L 500.3400, L500.4100 #### [facility] [address] [place], [address] Liver Profileon 03-09-2024 Albumin [Mass/Vol] 3.7 g/dL Normal 3.2-5.[address] [facility] Comment on above: Order Comment: PT WA NTED DONE JAKOB DUE TO APT March Performed By: #### L 500.3400, L500.4100 #### [facility] [address] [place], [address] ALK P 84 U/L Normal 45-117 [facility] Comment on above: Order Comment: PT WA NTED DONE JAKOB DUE TO APT March Performed By: #### L 500.3400, L500.4100 #### [facility] [address] [place], [address] ALT [Catalytic activity/Vol] 29 U/L Normal 16-61 [facility] Comment on above: Order Comment: PT WA NTED DONE JAKOB DUE TO APT March Performed By: #### L 500.3400, L500.4100 #### [facility] [address] [place], [address] AST [Catalytic activity/Vol] 22 U/L Normal 15-37 [facility] Comment on above: Order Comment: PT WA NTED DONE JAKOB DUE TO APT March Performed By: #### L 500.3400, L500.4100 #### [facility] [address] [place], [address] Bilirubin [Mass/Vol] 0.60 mg/dL Normal 0.20-1.00 [facility] Comment on above: Order Comment: PT WA NTED DONE JAKOB DUE TO APT March Result Comment: For patients on eltrombopag therapy, use of Dimension [place] TBIL is not recommended. Performed By: #### L 500.3400, L500.4100 #### [facility] [address] [place], [address] Bilirubin.direct [Mass/Vol] 0.15 mg/dL Normal 0.00-0.30 [facility] Comment on above: Order Comment: PT WA NTED DONE JAKOB DUE TO APT March Performed By: #### L 500.3400, L500.4100 #### [facility] [address] [place], [address] Globulin (S) [Mass/Vol] 3.9 g/dL Normal 2.2-4.2 [facility] Comment on above: Order Comment: PT WA NTED DONE JAKOB DUE TO APT March Performed By: #### L 500.3400, L500.4100 #### [facility] [address] [place], [address] T PROT 7.6 g/dL Normal 6.4-8.2 [facility] Comment on above: Order Comment: PT WA NTED DONE JAKOB DUE TO APT March Performed By: #### L 500.3400, L500.4100 #### [facility] [address] [place], [address] PSA,Total- Diagnosticon 02-16 PSA, DIAGNOSTIC 7.70 ng/mL High 0.0-4.0 [facility] Comment on above: Result Comment: This test was performed using the TPSA assay method for the Linki chemistry system. Values obtained with different assay methods cannot be used interchangably. When changing PSA assays in the course of monitoring a patient, additional sequential testing should be carried out to confirm baseline values. Performed By: #### L 501.9940 ####[facility] [address] [place], [address] T4 Free Directon 03-09-2024 T4 FREE DIRECT 0.81 ng/dL Normal 0.76-1.46 [facility] Comment on above: Performed By: #### L 500.4050, L501.59954, L100.0100, L506.0400, L501.9520 ####[facility] [address] [place], [address] Thyroid Stim Hormone (TSH)on 03-09-2024 TSH 1.800 uIU/mL Normal 0.358-3.740 [facility] Comment on above: Performed By: #### L 500.4050, L501.65625, L100.0100, L506.0400, L501.9520 ####[facility] [address] [place], [address] MR/BMS.IMBon 03-04-2024 MR/BMS.[facility] [place] [facility] [address] [place] [address] OFFICE VISIT Date of Service: 03/04/24 MR#: [id number] Acct: [id number] Name: SENA SARMIENTO Rep #: [id number] : 1955 Provider: Dr. Dhara perez MD Age/Sex: 68/M Location: [facility] Status: Signed Intake Vital Signs 10/16/23 14:02 [...] of nicotine dependence Atherosclerotic heart disease of [place] coronary artery without angina pectoris Abnormal lung [...] refer him (more content not included)... Normal [facility] Absolute lymphocyte countOrd ered By: Dhara Best on 07-17-2023 Lymphocytes Auto (Unsp spec) [#/Vol] 2.03 10*3/uL 0.83-4.51 [facility] Automated lymphocyte count a s percentage of total leukocytesOrdered By: Dhara Best on 07-17-2023 Lymphocytes/100 WBC Auto (Unsp spec) 36.8 % 19-41 [facility] Basophil percentageOrdered B y: Dhara Best on 07-17-2023 Basophil percentage 0 SEEN /hpf 0-5 [facility] Basophil percentage 7.73 ng/mL 0.0-4.0 [facility] Comment on above: This test was perfor med using the TPSA assay method for theLinki chemistry system. Values obtained with differentassay methods cannot be used interchangably.When changing PSA assays in the course of monitoring apatient, additional sequential testing should be carriedout to confirm baseline values. Basophils/100 WBC (Bld) 1.1 % 0-1 [facility] Bilirubin [Mass/Vol] 0.40 mg/dL 0.20-1.00 [facility] Comment on above: For patients on eltr ombopag therapy, use of Dimension [place] TBIL is not recommended. Chloride [Moles/Vol] 105 mmol/L 98-107 [facility] Eosinophils/100 WBC (Bld) 1.6 % 0-5 [facility] Glucose [Mass/Vol] 105 mg/dL 74-[address] [facility] Comment on above: Fasting Glucose resu lt from 100 to 125 mg/dL suggests IMPAIRED HOMEOSTASIS per A.D.A. criteria. Hemoglobin (Bld) [Mass/Vol] 13.7 g/dL 13.0-16.5 [facility] Monocytes/100 WBC (Bld) 12.2 % 0-10 [facility] Neutrophils (Bld) [#/Vol] 2.6 10*3/uL 2.0-7.7 [facility] Neutrophils/100 WBC (Bld) 47.9 % 47-70 [facility] Potassium [Moles/Vol] 4.1 mmol/L 3.5-5.1 [facility] Protein [Mass/Vol] 7.6 g/dL 6.4-8.[address] [facility] Sodium [Moles/Vol] 135 mmol/L 136-[address] [facility] WBC (Bld) [#/Vol] 5.5 10*3/uL 4.4-11.[address] [facility] Bilirubin Test strip Ql (U)O rdered By: Dhara Best on 07-17-2023 Bilirubin Ql (U) Negative Negative [facility] Culture, urineOrdered By: Jaqueline Best on 07-17-2023 Bacteria identified Cx Nom (U) Culture exhibits no growth. [facility] Cytology report of Body flui d Cyto stainOrdered By: Dhara Best on 07-17-2023 Cytology report Cyto stain Doc (Body fld) SEE PATHOLOGY REPORT [facility] Comment on above: Specimen submitted t o Anatomical Pathology Department for testing. Determination of erythrocyte mean corpuscular volume (MCV)Ordered By: Dhara Best on 07-17-2023 MCV (RBC) [Entitic vol] 90.8 fL 80-94 [facility] Erythrocyte distribution wid th ratioOrdered By: Dhara Best on 07-17-2023 Erythrocyte distribution width (RBC) [Ratio] 13.7 % 11.6-14.6 [facility] Erythrocyte distribution wid th standard deviationOrdered By: Dhara Best on 07-17-2023 Erythrocyte distribution width (RBC) [Entitic vol] 45.8 fL 35.1-43.9 [facility] Hematocrit Auto (Bld) [Volum e fraction]Ordered By: Dhara Best on 07-17-2023 Hematocrit (Bld) [Volume fraction] 40.4 % 40-54 [facility] Immature granulocytes/100 WB C Auto (Bld)Ordered By: Dhara Best on 07-17-2023 Immature granulocytes/100 WBC (Bld) 0.400 % 0.0-0.9 [facility] Comment on above: IG% - Immature Granu locytes (promyelocytes, myelocytes and metamyelocytes) > 1% indicates that a LEFT SHIFT is Present. Ketones Test strip Ql (U)Ord ered By: Dhara Best on 07-17-2023 Ketones Ql (U) Negative Negative [facility] Laboratory - Chemistry and C hemistry - challengeOrdered By: Dhara Best on 07-17-2023 Albumin/Globulin [Mass ratio] 1.0 {ratio} 0.9-2.4 [facility] ALP [Catalytic activity/Vol] 82 U/L 45-117 [facility] ALT [Catalytic activity/Vol] 31 U/L 16-61 [facility] CO2 [Moles/Vol] 25.0 mmol/L 21.0-32.0 [facility] Globulin (S) [Mass/Vol] 3.8 g/dL 2.2-4.2 [facility] Urea nitrogen/Creatinine [Mass ratio] 7.7 mg/mg 10-20 [facility] Laboratory - Hematology and Cell countsOrdered By: Dhara Best on 07-17-2023 MCH (RBC) [Entitic mass] 30.8 pg 27.0-32.0 [facility] MCHC (RBC) [Mass/Vol] 33.9 g/dL 32-36 [facility] Nucleated RBC/100 WBC (Bld) [Ratio] 0 % 0-5 [facility] Platelets (Bld) [#/Vol] 286 10*3/uL 150-450 [facility] Mucus LM Ql (Urine sed)Order ed By: Dhara Best on 07-17-2023 Mucus Ql (Urine sed) 0 SEEN /hpf [facility] Nitrite Test strip Ql (U)Ord ered By: Dhara Best on 07-17-2023 Nitrite Ql (U) Negative Negative [facility] No Panel InformationOrdered By: Dhara Best on 07-17-2023 Estimated GFR (MDRD) Amer 92 mL/min >60 [facility] Comment on above: GFR Calc Estimated GFR (MDRD) Non-Af Amer 76 mL/min >60 [facility] Comment on above: Non- GFR Calc Urine RBC 0 SEEN /hpf 0-5 [facility] Vitamin D 25-Hydroxy 26.1 ng/mL [facility] Comment on above: Vitamin D 25(OH) Sta tus Range Deficiency <20 ng/mL (50nmol/L) Insufficiency 20 - 30 ng/mL (50 - 75 nmol/L) Sufficiency 30 - 100 ng/mL (75 - 250 nmol/L) Toxicity >100 ng/mL (>250 nmol/L) Platelet mean volume Maikel-Ec ker (Bld) [Entitic vol]Ordered By: Dhara Best on 07-17-2023 Platelet mean volume (Bld) [Entitic vol] 10.3 fL 6.2-12.0 [facility] Protein Test strip Ql (U)Ord ered By: Dhara Best on 07-17-2023 Protein Ql (U) Negative Negative [facility] RBC Auto (Bld) [#/Vol]Ordere d By: Dhara Best on 07-17-2023 RBC (Bld) [#/Vol] 4.45 10*6/uL 4.6-6.2 [facility] Serum or plasma calcium tonja urement (mass/volume)Ordered By: Dhara Best on 07-17-2023 Calcium [Mass/Vol] 8.9 mg/dL 8.5-10.[address] [facility] Serum or plasma creatinine m easurement (mass/volume)Ordered By: Dhara Best on 07-17-2023 Creatinine [Mass/Vol] 1.04 mg/dL 0.70-1.30 [facility] Comment on above: The validity of the calculated GFR & GFRAA in patients over 70 years has not been determined. Clinical correlation is essential. Serum or plasma thyroid stim ulating hormone (TSH) measurement (units/volume)Ordered By: Dhara Best on 07-17-2023 TSH Qn 1.56 uIU/mL 0.358-3.74 [facility] Serum or plasma urea nitroge n measurement (mass/volume)Ordered By: Dhara Best on 07-17-2023 Urea nitrogen [Mass/Vol] 8 mg/dL 7-18 [facility] Squamous epithelial cells de tection in urine sediment by light microscopyOrdered By: Dhara Best on 07-17-2023 Epithelial cells.squamous LM Ql (Urine sed) 0 SEEN /hpf 0-5 [facility] Thin prep Papanicolaou smear with manual screeningOrdered By: Dhara Best on 07-17-2023 Thin prep Papanicolaou smear with manual screening 3.8 g/dL 3.2-5.0 [facility] Thin prep Papanicolaou smear with manual screening 16 U/L 15-37 [facility] Thin prep Papanicolaou smear with manual screening 5 5-15 [facility] Urine blood detectionOrdered By: Dhara Best on 07-17-2023 RBC Ql (U) Negative Negative [facility] Urine clarityOrdered By: Shaista Best on 07-17-2023 Clarity (U) Clear Clear [facility] Urine color determinationOrd ered By: Dhara Best on 07-17-2023 Color (U) Straw Yellow [facility] Urine glucose detectionOrder ed By: Dhara Best on 07-17-2023 Glucose Ql (U) Normal mg/dl Normal [facility] Urine leukocyte esterase det ection by dipstickOrdered By: Dhara Best on 07-17-2023 Leukocyte esterase Test strip Ql (U) Negative Negative [facility] Urine pHOrdered By: Dhara silverman on 07-17-2023 pH (U) 7.0 [pH] 5.0 - 8.0 [facility] Urine sediment bacteria coun t by microscopy (number/high power field)Ordered By: Dhara Best on 07-17-2023 Bacteria LM.HPF (Urine sed) [#/Area] 0 /[HPF] None Seen [facility] Urine specific gravity measu rementOrdered By: Dhara Best on 07-17-2023 Specific gravity (U) [Rel density] 1.005 1.002-1.030 [facility] Urine urobilinogen measureme ntOrdered By: Dhara Best on 07-17-2023 Urobilinogen Ql (U) Normal mg/dl Normal [facility] Absolute lymphocyte countOrd ered By: Von Redd on 04-03-2023 Lymphocytes Auto (Unsp spec) [#/Vol] 1.64 10*3/uL 0.83-4.51 [facility] Basophil percentageOrdered B y: Von Redd on 04-03-2023 Basophils/100 WBC (Bld) 1.2 % 0-1 [facility] Chloride [Moles/Vol] 107 mmol/L 98-107 [facility] Cholesterol [Mass/Vol] 177 mg/dL <200 [facility] Comment on above: <200 mg/dL Desirable 200-240 mg/dL Borderline >240 mg/dL High Risk Eosinophils/100 WBC (Bld) 1.2 % 0-5 [facility] Glucose [Mass/Vol] 110 mg/dL 74-[address] [facility] Comment on above: Fasting Glucose resu lt from 100 to 125 mg/dL suggests IMPAIRED HOMEOSTASIS per A.D.A. criteria. Neutrophils (Bld) [#/Vol] 3.4 10*3/uL 2.0-7.7 [facility] Neutrophils/100 WBC (Bld) 57.3 % 47-70 [facility] Potassium [Moles/Vol] 3.9 mmol/L 3.5-5.1 [facility] Sodium [Moles/Vol] 138 mmol/L 136-[address] [facility] Triglyceride [Mass/Vol] 151 mg/dL <199 [facility] Comment on above: The drugs N-Acetylcy steine and Metamizole may falsely depress this assay.Serum Triglycerides Reference Interval Normal <150 mg/dL Borderline high 150 - 199 mg/dL High 200 - 499 mg/dL Very High > or = 500 mg/dL WBC (Bld) [#/Vol] 5.8 10*3/uL 4.4-11.[address] [facility] Blood erythrocytes count (nu mber/volume)Ordered By: Von Redd on 04-03-2023 RBC (Bld) [#/Vol] 4.55 10*6/uL 4.6-6.2 [facility] Blood hemoglobin measurement (mass/volume)Ordered By: Von Redd on 04-03-2023 Hemoglobin (Bld) [Mass/Vol] 13.9 g/dL 13.0-16.5 [facility] Blood lymphocytes/100 leukoc ytesOrdered By: Von Redd on 04-03-2023 Lymphocytes/100 WBC (Bld) 28.1 % 19-41 [facility] Blood monocytes/100 leukocyt esOrdered By: Von Redd on 04-03-2023 Monocytes/100 WBC (Bld) 12.0 % 0-10 [facility] Blood platelet mean volumeOr dered By: Von Redd on 04-03-2023 Platelet mean volume (Bld) [Entitic vol] 10.7 fL 6.2-12.0 [facility] Determination of erythrocyte mean corpuscular volume (MCV)Ordered By: Von Redd on 04-03-2023 MCV (RBC) [Entitic vol] 92.7 fL 80-94 [facility] Hematocrit Auto (Bld) [Volum e fraction]Ordered By: Von Redd on 04-03-2023 Hematocrit (Bld) [Volume fraction] 42.2 % 40-54 [facility] Laboratory - Chemistry and C hemistry - challengeOrdered By: Von Redd on 04-03-2023 CO2 [Moles/Vol] 25.0 mmol/L 21.0-32.0 [facility] Urea nitrogen/Creatinine [Mass ratio] 12.3 mg/mg 10-20 [facility] Laboratory - Hematology and Cell countsOrdered By: Von Redd on 04-03-2023 Erythrocyte distribution width (RBC) [Entitic vol] 48.1 fL 35.1-43.9 [facility] Erythrocyte distribution width (RBC) [Ratio] 14.2 % 11.6-14.6 [facility] Immature granulocytes/100 WBC (Bld) 0.200 % 0.0-0.9 [facility] Comment on above: IG% - Immature Granu locytes (promyelocytes, myelocytes and metamyelocytes) > 1% indicates that a LEFT SHIFT is Present. MCH (RBC) [Entitic mass] 30.5 pg 27.0-32.0 [facility] Nucleated RBC/100 WBC (Bld) [Ratio] 0 % 0-5 [facility] MCHC Auto (RBC) [Mass/Vol]Or dered By: Von Redd on 04-03-2023 MCHC (RBC) [Mass/Vol] 32.9 g/dL 32-36 [facility] No Panel InformationOrdered By: Von Redd on 04-03-2023 Estimated GFR (MDRD) Amer 99 mL/min >60 [facility] Comment on above: GFR Calc Estimated GFR (MDRD) Non-Af Amer 82 mL/min >60 [facility] Comment on above: Non- GFR Calc Thyroid Stimulating Hormone (TSH) 2.82 uIU/mL 0.358-3.74 [facility] Platelets bldOrdered By: Ion Redd on 04-03-2023 Platelets (Bld) [#/Vol] 304 10*3/uL 150-450 [facility] Serum or plasma calcium tonja urement (mass/volume)Ordered By: Von Redd on 04-03-2023 Calcium [Mass/Vol] 8.8 mg/dL 8.5-10.[address] [facility] Serum or plasma cholesterol in HDL measurement (mass/volume)Ordered By: Von Redd on 04-03-2023 Cholesterol in HDL [Mass/Vol] 55 mg/dL >40 [facility] Comment on above: The drugs N-Acetylcy steine and Metamizole may falsely depress this assay. Reference Range HDL <40 mg/dL Low HDL Cholesterol HDL >or= 60 mg/dL High HDL Cholesterol Serum or plasma cholesterol in VLDL measurement (mass/volume)Ordered By: Von Redd on 04-03-2023 Cholesterol in VLDL [Mass/Vol] 30 mg/dL 5-40 [facility] Serum or plasma creatinine m easurement (mass/volume)Ordered By: Von Redd on 04-03-2023 Creatinine [Mass/Vol] 0.98 mg/dL 0.70-1.30 [facility] Comment on above: The validity of the calculated GFR & GFRAA in patients over 70 years has not been determined. Clinical correlation is essential. Serum or plasma low density lipoprotein (LDL) cholesterol measurement (mass/volume)Ordered By: Von Redd on 04-03-2023 Cholesterol in LDL [Mass/Vol] 92 mg/dL 0-130 [facility] Serum or plasma urea nitroge n measurement (mass/volume)Ordered By: Von Tramaine on 04-03-2023 Urea nitrogen [Mass/Vol] 12 mg/dL 7-18 [facility] Thin prep Papanicolaou smear with manual screeningOrdered By: Von Tramaine on 04-03-2023 Thin prep Papanicolaou smear with manual screening 6 5-15 [facility] Absolute lymphocyte counton 06-05-2022 Lymphocytes Auto (Unsp spec) [#/Vol] 2.05 10*3/uL 0.83-4.51 [facility] Work Phone: Basophil percentageon 2021 Basophils/100 WBC (Bld) 0.9 % 0-1 [facility] Work Phone: Chloride [Moles/Vol] 105 mmol/L 98-107 [facility] Work Phone: Eosinophils/100 WBC (Bld) 1.7 % 0-5 [facility] Work Phone: Glucose [Mass/Vol] 117 mg/dL 74-106 [facility] Work Phone: Comment on above: Fasting Glucose resu lt from 100 to 125 mg/dL suggests IMPAIRED HOMEOSTASIS per A.D.A. criteria. Neutrophils (Bld) [#/Vol] 3.3 10*3/uL 2.0-7.7 [facility] Work Phone: Neutrophils/100 WBC (Bld) 51.6 % 47-70 [facility] Work Phone: Potassium [Moles/Vol] 4.4 mmol/L 3.5-5.1 [facility] Work Phone: Comment on above: Moderate Hemolysis, Result may be falsely increased. Sodium [Moles/Vol] 137 mmol/L 136-[address] [facility] Work Phone: WBC (Bld) [#/Vol] 6.4 10*3/uL 4.4-11.[address] [facility] Work Phone: Blood erythrocytes count (nu mber/volume)on 06-05-2022 RBC (Bld) [#/Vol] 4.41 10*6/uL 4.6-6.2 [facility] Work Phone: Blood hemoglobin measurement (mass/volume)on 06-05-2022 Hemoglobin (Bld) [Mass/Vol] 13.9 g/dL 13.0-16.5 [facility] Work Phone: Blood lymphocytes/100 leukoc yteson 06-05-2022 Lymphocytes/100 WBC (Bld) 32.0 % 19-41 [facility] Work Phone: Blood monocytes/100 leukocyt eson 06-05-2022 Monocytes/100 WBC (Bld) 13.6 % 0-10 [facility] Work Phone: Blood platelet mean volumeon 06-05-2022 Platelet mean volume (Bld) [Entitic vol] 10.0 fL 6.2-12.0 [facility] Work Phone: Determination of erythrocyte mean corpuscular volume (MCV)on 06-05-2022 MCV (RBC) [Entitic vol] 92.5 fL 80-94 [facility] Work Phone: [phone] Hematocrit Auto (Bld) [Volum e fraction]on 06-05-2022 Hematocrit (Bld) [Volume fraction] 40.8 % 40-54 [facility] Work Phone: [phone] Laboratory - Chemistry and C hemistry - challengeon 06-05-2022 CO2 [Moles/Vol] 27.0 mmol/L 21.0-32.0 [facility] Work Phone: [phone] Urea nitrogen/Creatinine [Mass ratio] 12.9 mg/mg - [facility] Work Phone: [phone] Laboratory - Hematology and Cell countson 06-05-2022 Erythrocyte distribution width (RBC) [Entitic vol] 49.1 fL 35.1-43.9 [facility] Work Phone: [phone] Erythrocyte distribution width (RBC) [Ratio] 14.4 % 11.6-14.6 [facility] Work Phone: [phone] Immature granulocytes/100 WBC (Bld) 0.200 % 0.0-0.9 [facility] Work Phone: [phone] Comment on above: IG% - Immature Granu locytes (promyelocytes, myelocytes and metamyelocytes) > 1% indicates that a LEFT SHIFT is Present. MCH (RBC) [Entitic mass] 31.5 pg 27.0-32.0 [facility] Work Phone: [phone] Nucleated RBC/100 WBC (Bld) [Ratio] 0 % 0-5 [facility] Work Phone: [phone] MCHC Auto (RBC) [Mass/Vol]on 06-05-2022 MCHC (RBC) [Mass/Vol] 34.1 g/dL 32-36 [facility] Work Phone: [phone] No Panel Informationon 06-05 Troponin I High Sensitivity 10 pg/mL 3.0-78.0 [facility] Work Phone: [phone] Comment on above: Please Note: New Claudine t Units and Gender Specific Reference Ranges. For more information see Policy Stat Procedure [place] High Sensitivity Troponin (TNIH) and attachments. D-Dimer Quantitative (PE/DVT) 0.52 FEU/ug/m 0.27-0.49 [facility] Work Phone: Comment on above: D-Dimer ELEVATED (>0 .49): Additional studies and clinicalassessments are indicated to conclude diagnosis of:Deep Vein Thrombosis (DVT) or Pulmonary Embolism (PE)CRITICAL VALUE VERIFIED. CALLED TO SHAMA MARRUFO (ER)06/05/22 [phone] Etienne Woodson.RESULTS READ BACK BY SAME. Ethyl Alcohol Level < 3.0 mg/dL [facility] Work Phone: Comment on above: The serum:whole bloo d ethanol ratio is approximately 1.14and varies slightly with hematocrit. Medical Alcohol reference interval and critical value innon-tolerant individuals; 50 - 100 Impairment 100 Intoxication 100 - 250 Severe Poisoning 250 - 400 Deep/possible fatal coma Estimated Creatinine Clearance Calc 61.06 ml/min [facility] Work Phone: [phone] Estimated GFR (MDRD) Amer 95 mL/min >60 [facility] Work Phone: Comment on above: GFR Calc Estimated GFR (MDRD) Non-Af Amer 79 mL/min >60 [facility] Work Phone: Comment on above: Non- GFR Calc Platelets bldon 06-05-2022 Platelets (Bld) [#/Vol] 266 10*3/uL 150-450 [facility] Work Phone: Serum or plasma calcium tonja urement (mass/volume)on 06-05-2022 Calcium [Mass/Vol] 8.4 mg/dL 8.5-10.[address] [facility] Work Phone: [phone] Serum or plasma creatinine m easurement (mass/volume)on 06-05-2022 Creatinine [Mass/Vol] 1.01 mg/dL 0.70-1.30 [facility] Work Phone: Comment on above: The validity of the calculated GFR & GFRAA in patients over 70 years has not been determined. Clinical correlation is essential. Serum or plasma urea nitroge n measurement (mass/volume)on 06-05-2022 Urea nitrogen [Mass/Vol] 13 mg/dL 7-18 [facility] Work Phone: Thin prep Papanicolaou smear with manual screeningon 06-05-2022 Thin prep Papanicolaou smear with manual screening 5 5-15 [facility] Work Phone: MR SHOULDER W/O RTon 018 MR SHOULDER W/O RT [facility] [address] [place], [place] [address] Patient: SENA SARMIENTO Phone#: : [phone] Age: 62 Gender: M Pt. Type: Out Account: [id number] Location: Ordering: MOHAN PIRES Exam Date: 11/06/2017/8:08 [facility]: [facility] Charge Code: [id number] Physician: Rains Order #: [id number] DLP Dose#: PROCEDURE: MRI SHOULDER RT WITHOUT [...] 62 Gender: M Pt. Type: Out Account: [id number] Location: Ordering: MOHAN KOSAR Exam Date: 11/06/2017/8:08 [facility] Phys: [facility] Charge Code: [id number] Physician: Rains Order #: [id number] DLP Dose#: AC JOINT: There is arthrosis [...] Jones MD on 11/07/2017 at 18:17 Normal [facility] Vital Signs Date Time Vital Sign Value Performing Clinician Doriei fortino 07-17-2023 09:41-0500 Body height 165.[address] Dhara Best Work Phone: [facility] 07-17-2023 09:41-0500 Body mass index (BMI) [Ratio] 30.4 kg/m2 Dr. Dhara Best Work Phone: [facility] 07-17-2023 09:41-0500 Body temperature 98.3 [degF] Dr. Dhara Best Work Phone: [facility] 07-17-2023 09:41-0500 Body weight 83.[address] Dhara Best Work Phone: [facility] 07-17-2023 09:41-0500 Diastolic blood pressure 77 mm[Hg] Dr. Dhara Best Work Phone: [facility] 07-17-2023 09:41-0500 Heart rate 68 /min Dr. Dhara Best Work Phone: [facility] 07-17-2023 09:41-0500 Respiratory rate 16 /min Dr. Dhara Best Work Phone: [facility] 07-17-2023 09:41-0500 SaO2% (BldA) [Mass fraction] 95 % Dr. Dhara Best Work Phone: [facility] 07-17-2023 09:41-0500 Systolic blood pressure 138 mm[Hg] Dr. Dhara Best Work Phone: [facility] 03-28-2023 10:20-0400 Body height 165.[address] Dhara Best Work Phone: [facility] 03-28-2023 10:20-0400 Body mass index (BMI) [Ratio] 28.6 kg/m2 Dr. Dhara Best Work Phone: [facility] 03-28-2023 10:20-0400 Body weight 78.[address] Dhara Best Work Phone: [facility] 03-28-2023 10:20-0400 Diastolic blood pressure 76 mm[Hg] Dr. Dhara Best Work Phone: [facility] 03-28-2023 10:20-0400 Heart rate 63 /min Dr. Dhara Best Work Phone: [facility] 03-28-2023 10:20-0400 Respiratory rate 16 /min Dr. Dhara Best Work Phone: [facility] 03-28-2023 10:20-0400 Systolic blood pressure 121 mm[Hg] Dr. Dhara Best Work Phone: [facility] 02-13-2023 08:28-0400 Body mass index (BMI) [Ratio] 29 kg/m2 Dr. Dhara Best Work Phone: [facility] 02-13-2023 08:28-0400 Body temperature 98.9 [degF] Dr. Dhara Best Work Phone: [facility] 02-13-2023 08:28-0400 Body weight 79.[address] Dhara Best Work Phone: [facility] 02-13-2023 08:28-0400 Diastolic blood pressure 86 mm[Hg] Dr. Dhara Best Work Phone: [facility] 02-13-2023 08:28-0400 Heart rate 60 /min Dr. Dhara Best Work Phone: [facility] 02-13-2023 08:28-0400 Respiratory rate 18 /min Dr. Dhara Best Work Phone: [facility] 02-13-2023 08:28-0400 SaO2% (BldA) [Mass fraction] 95 % Dr. Dhara Best Work Phone: [facility] 02-13-2023 08:28-0400 Systolic blood pressure 162 mm[Hg] Dr. Dhara Best Work Phone: [facility] 06-05-2022 16:53-0500 Diastolic blood pressure 76 mm[Hg] [facility] Work Phone: 06-05-2022 16:53-0500 Heart rate 90 /min [facility] Work Phone: 06-05-2022 16:53-0500 Respiratory rate 14 /min [facility] Work Phone: 06-05-2022 16:53-0500 SaO2% (BldA) [Mass fraction] 97 % [facility] Work Phone: 06-05-2022 16:53-0500 Systolic blood pressure 121 mm[Hg] [facility] Work Phone: 06-05-2022 13:31-0500 Body height 162.56 cm [facility] Work Phone: 06-05-2022 13:31-0500 Body mass index (BMI) [Ratio] 30.9 kg/m2 [facility] Work Phone: 06-05-2022 13:31-0500 Body temperature 98 [degF] [facility] Work Phone: 06-05-2022 13:31-0500 Body weight 81.64 kg [facility] [facility] Work Phone: Encounters Encounter Date Encounter Type Care Provider Facility Start: 04-06-[address] [facility] Estephania Facility :[facility] Start: 01-28-2025 End: 01-28-2025 ambulatory Dhara Best Facility:[facility] Start: 01-28-2025 End: 01-28-2025 ambulatory Dhara Best Facility:[facility] Start: 01-13-2025 End: 01-14-2025 ambulatory Terry Lebron Facility:[facility] Start: 01-08-2025 End: 01-08-2025 ambulatory Dhara Best Facility:[facility] Start: 12-02-2024 ambulatory Dharasung Best Facility :[facility] Start: 12-02-2024 End: 12-02-2024 ambulatory Dharasung Best Facility:[facility] Start: 11-03-2024 End: 11-03-2024 ambulatory Dhara Best Facility:[facility] Start: 10-29-2024 End: 10-29-2024 ambulatory Dhara Best Facility:[facility] Start: 10-29-2024 End: 10-29-2024 ambulatory Dharasung Best Facility:[facility] Start: 09-17-2024 ambulatory Dhara Best Facility :[facility] Start: 09-17-2024 End: 09-17-2024 ambulatory Dhara Best Facility:[facility] Start: 09-03-2024 End: 09-03-2024 ambulatory Dharasung Best Facility:[facility] Start: 09-03-2024 End: 09-03-2024 ambulatory Dharasung Best Facility:[facility] Start: 08-31-2024 End: 08-31-2024 ambulatory Dharasung Best Facility:[facility] Start: 06-22-2024 ambulatory Dhara Best Facility :[facility] Start: 06-12-2024 End: 06-12-2024 Emergency department patient visit Dhara Best Facility:[facility] Start: 03-31-2024 End: 03-31-2024 ambulatory Dharasung Best Facility:[facility] Start: 03-18-2024 End: 03-18-2024 ambulatory Dhara Best Facility:[facility] Start: 03-09-2024 End: 03-09-[address] [facility] Estephania Facility:[facility] Start: 03-04-2024 End: 03-04-2024 ambulatory Dhara Best Facility:[facility] Start: 07-17-2023 End: 07-17-[address] Dhara Best Work Phone: [facility] Work Phone: Start: 07-17-2023 End: 07-17-[address] Dhara Best Work Phone: [facility] Work Phone: Start: 07-17-2023 End: 07-17-[address] Dhara Best Work Phone: [facility] Work Phone: Start: 04-11-2023 Non-patient / Non-visit Dr. Jaqueline Best Work Phone: [facility] Work Phone: Start: 04-11-2023 Non-patient / Non-visit Dr. Jaqueline Best Work Phone: [facility] Start: 04-11-2023 End: 04-11-[address] Dhara Best Work Phone: [facility] Work Phone: Start: 04-11-2023 End: 04-11-[address] [facility] Phone[facility] Work Phone: Start: 04-03-2023 End: 04-03-[address] Dhara Best Work Phone: [facility] Work Phone: Start: 04-03-2023 End: 04-03-[address] Dhara Best Work Phone: [facility] Work Phone: Start: 03-28-2023 End: 03-28-[address] Dhara Best Work Phone: [facility] Work Phone: Start: 02-13-2023 End: 02-13-[address] Dhara Best Work Phone: [facility] Work Phone: Start: 06-05-2022 End: 06-05-2022 [facility] Start: 11-14-2021 End: 11-14-[address] Dhara Best Work Phone: [facility] [place] Start: 11-14-2021 End: 11-14-[address] Dhara Best Work Phone: [facility] Start: 11-06-2017 End: 11-06-2017 Ambulatory [facility] Start: 09-03-2017 End: 09-25-2017 Ambulatory [facility] Procedures Date Procedure Procedure Detail Performing Clinician Start: 07-17-[address] Dhara Best Work Phone: Start: 04-11-2023 Radionuclide imaging of perfusion of myocardium under exercise stress Dr. Dhara eBst Work Phone: Start: 06-05-2022 Plain chest X-ray Start: 11-14-2021 Plain chest X-ray Dr. Dhara Best Work Phone: History of repair of musculotendinous cuff of shoulder S/P rotator cuff repair Dr. Dhara Best Work Phone: Plan of Treatment Date Care Activity Detail Author Start: 02-13-2023 Patient referral [facility] Work Phone: Start: 02-13-2023 Evaluation of diagno stic study results [facility] Start: 06-05-2022 End: 06-05-2022 [facility] Work Phone: Patient Education ED Chest Pain, Uncertain Cause [facility] Work Phone: Patient referral [facility] Work Phone: Radionuclide imaging of perfusion of myocardium under exercise stress [facility] Radionuclide imaging of perfusion of myocardium under exercise stress [facility] Serum testosterone measurement [facility] Testosterone Free [Mass/volume] in Serum or Plasma [facility] Testosterone measurement [facility] Kidney - bilatera l and Urinary bladder [facility] Payers Date Payer Category Payer Self-pay [id number] 2024 Unknown [id number] Medicare [id number] Medicare [id number] Unknown VA AUTH REQUIRED SEE NOTE* * [id number] Unknown [id number] [id number] Unknown [id number] 2.16.840.1.299531.3.579.2.462 Unknown [id number] 2.16.840.1.945160.3.579.2.462 Unknown [id number] 2.16.840.1.937096.3.579.2.462 Unknown [id number] 2.16.840.1.605690.3.579.2.462 Unknown [id number] 2.16.840.1.692896.3.579.2.462 Unknown [id number] 2.16.840.1.385188.3.579.2.462 Unknown [id number] 2.16.840.1.986800.3.579.2.462 Unknown [id number] 2.16.840.1.387968.3.579.2.462 Unknown [id number] 2.16.840.1.991139.3.579.2.462 Unknown [id number] 2.16.840.1.148065.3.579.2.462 Unknown [id number] 2.16.840.1.955649.3.579.2.462 Unknown [id number] 2.16.840.1.489741.3.579.2.462 Unknown [id number] 2.16.840.1.585981.3.579.2.462 Unknown [id number] 2.16.840.1.578895.3.579.2.462 Unknown [id number] 2.16.840.1.362411.3.579.2.462 Unknown [id number] 2.16.840.1.129062.3.579.2.462 Unknown [id number] 2.16.840.1.823741.3.579.2.462 Unknown [id number] 2.16.840.1.378174.3.579.2.462 Unknown [id number] 2.16.840.1.191020.3.579.2.462 Unknown [id number] 2.16.840.1.476446.3.579.2.462 Unknown [id number] 2.16.840.1.633986.3.579.2.462 Social History Date Type Detail Facility Start: 11-14-2021 End: 07-17-2023 Tobacco smoking status NHIS Unknown if ever smoked [facility] Start: 07-10-2021 None [facility] Start: 08-03-2018 Spouse/ Signif icant Other [facility] Start: 07-10-2021 Non-smoker [facility] Start: 1955 Sex Assigned At Male [facility] Mental Status Date Assessment Result Facility 06-05-2022 Cognitive function Level Of Cons ciousness Awake;Alert;Appropriate;Follow s Commands [facility] Work Phone: Evaluation note Note Date & Type Note Facility Evaluation note Diagnosis Onset Date Abnormal lung examination ac [place] Acute URI acute Cough acute Tobacco dependence due to cigarettes chronic [facility] Work Phone: Evaluation note Note Date & Type Note Facility Evaluation note No assessment information availa ble [facility] Work Phone: Evaluation note Note Date & Type Note Facility Evaluation note Diagnosis Onset Date Fatigue acute CAD (coronary artery disease) chronic Hyperlipidemia chronic Stented coronary artery [employer] CAD (coronary artery disease) chronic Essential hypertension chron ic History of nicotine dependence chronic Hyperlipidemia chronic Stented coronary artery plastic [employer] [facility] Work Phone: Evaluation note Note Date & Type Note Facility Evaluation note Diagnosis Onset Date CAD (coronary artery disease) chronic Essential hypertension chron ic History of nicotine dependence chronic Hyperlipidemia chronic Stented coronary artery [facility] Atherosclerotic heart diseas e of [place] coronary artery without angina pectoris acute Dysuria acute Urinary frequency acute Essential hypertension chron ic Hyperlipidemia chronic Stented coronary artery [facility] Work Phone: Summary Purpose Family History [...] Will No July 10 4:34pm Power of Sample Preparation Supervisor No July 10, 2021 4:34pm Advance Directive Response Recorded Date/ Time Living Will No June 05, 2 022 4:52pm Power of Sample Preparation Supervisor No June 05, 2022 4:52pm Advance Directive Response Recorded Date/ Time Living Will No February 11 3 3:33pm Power of Sample Preparation Supervisor No February 11, 2 023 3:33pm Advance Directive Response Recorded Date/ Time Living Will No July 09 3:04pm Power of Sample Preparation Supervisor No July 09, 2023 3:04pm Chief Complaint [...] Stented coronary artery Atherosclerotic heart disease of [place] coronary artery without angina pectoris Dysuria Urinary frequency Essential hypertension Hyperlipidemia Stented coronary artery Additional Source Comments (unrecognized sect ion and content) No Status Records FoundNo Status Records Found INFORMATION SOURCE (unrecogn ized section and content) DATE CREATED AUTHOR 12/04/2017 [facility] DATE CREATED AUTHOR AUTHOR'S JACK ATION 02/13/2025 [facility] Goals (unrecognized section and content) Goals may [...] MD Primary Care Provider Active Karen Bragg NP, GUIDEMAN-C Attending Provider Active FOR RECORDS PERTAINING TO [...] BE BASED ON THE PRIMARY CLINICAL RECORDS. [facility] [employer] provides no warranty or guarantee of the accuracy or completeness of information in this document.
[2025-03-08 11:05] LABS: AST(SGOT) 22 U/L (<=37); Alanine Aminotransfer ALT/SGPT 20 U/L (<=46); Albumin, Serum 4.1 g/dL (3.4-4.8); Alkaline Phosphatase 80 U/L (40-129); Anion Gap 12 (5-15); BUN 7 mg/dL (4-19); BUN/Creat Ratio 8.5 RATIO (10-20); Calcium,Total 9.0 mg/dL (7.6-11.0); Carbon Dioxide 22.0 mmol/L (21.0-32.0); Chloride 102 mmol/L (98-108); Cholesterol 162 mg/dL (<=200); Globulin 3.2 g/dL (2.2-4.2); Glucose 105 mg/dL (70-99); Low Density Lipoprotein Calc. 74 mg/dL; Potassium 4.4 mmol/L (3.3-5.1); Triglycerides 126 mg/dL; Very Low Density Lipoprotein 25 mg/dL (5-40); cholesterol:hdl ratio screen 2.59
== END | disposition home or self-care (01) ==
LOC: LAB 09:34
PROVIDERS: PCP Internal Medicine; Referring Provider Internal Medicine Cardiovascular Disease; Visit Provider Internal Medicine Cardiovascular Disease
DX: I25.10 Atherosclerotic heart disease of native coronary artery without angina pectoris (principal); I10 Essential (primary) hypertension; E78.5 Hyperlipidemia, unspecified; Z95.5 Presence of coronary angioplasty implant and graft
CPT/HCPCS: 36415; 80053; 80061

== ENCOUNTER → 2025-03-31 | Outpatient (CLI) | payer MEDICARE, SELFPAY ==
--- NOTE | 2025-04-01 15:06 | STRESSREP ---
Stress Test Report Date: 03/31/2025 Procedure: Pharmacologic stress nuclear imaging study Indications: Coronary artery disease Consent: Per the patient Procedure: The patient underwent pharmacologic (Regadenoson 0.4mg ) evaluation with a peak heart rate of 77 beats per minute (50%predicted maximal heart rate) and a peak blood pressure of 150/82 mmHg. The baseline ECG demonstrated sinus rhythm with rare PVC. The peak pharmacologic ECG did not show any ischemic changes. No significant cardiac dysrhythmias noted during pharmacologic infusion or in recovery. There was no complaint of chest discomfort during pharmacologic infusion or recovery. The patient was injected with 12.0 millicuries of technetium 99m Cardiolite and subsequently rest SPECT Cardiolite nuclear imaging was obtained in the horizontal long, vertical long, and short axis views. The patient underwent pharmacologic (Regadenoson) evaluation. The patient was injected with 36.0 millicuries of technetium 99m Cardiolite and subsequently stress SPECT Cardiolite nuclear imaging was obtained in the horizontal long, vertical long, and short axis views. A gated Cardiolite study at peak stress was obtained. The examination was stopped secondary to completion of protocol. Rest and stress SPECT Cardiolite nuclear imaging status post realignment, normalization, and attenuation correction demonstrate a fixed perfusion defect of the basal inferior wall no significant reversible ischemia. There is end systolic thickening and brightening. The gated Cardiolite study demonstrates myocardial thickening and inward wall motion. The reported LVEF is 66%. Impression: 1. Pharmacologic (Regadenoson) evaluation 2. Peak pharmacologic ECG with no ischemic changes. 3. No significant cardiac dysrhythmias noted. 5. 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 6. The gated Cardiolite study reports an LVEF of 66%. This note was generated with [employer] software. It may contain incorrect words, spelling, and punctuation that were not noted in checking the note before signing.
== END | disposition home or self-care (01) ==
LOC: CVS 06:15
PROVIDERS: PCP Internal Medicine; Referring Provider Internal Medicine Cardiovascular Disease; Visit Provider Internal Medicine Cardiovascular Disease
DX: I25.10 Atherosclerotic heart disease of native coronary artery without angina pectoris (principal)
CPT/HCPCS: 78452; 93017; A9500; A4216; J2785

== ENCOUNTER 2025-04-06 15:04 | Observation (INO) | payer MEDICARE, SELFPAY ==
[2025-03-31 09:52] LABS: Hematocrit 40.5 % (40-54); Hemoglobin 13.5 g/dL (13.0-16.5); Immature Granulocytes Count 0.040 X10^3/uL (0.0-0.0); Mean Corp Hgb Conc 33.3 g/dL (32-36); Mean Corpuscular Volume 91.0 fL (80-94); Mean Platelet Vol. 10.5 fl (6.2-12.0); NRBC Flagged by Analyzer 0 % (0-5); Platelet Count 267 K/mm3 (150-450); RBC Distribution Width CV 14.4 % (11.6-14.6); RBC Distribution Width SD 48.2 fl (35.1-43.9); Red Blood Count 4.45 M/mm3 (4.6-6.2); White Blood Count 6.6 K/mm3 (4.4-11.0)
[2025-03-31 10:40] LABS: Magnesium 2.5 mg/dL (1.5-2.2)
--- NOTE | 2025-04-01 16:58 | PAT.ANESEVAL ---
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 When Was Last Pacemaker Check QUESTION #4 FULL TEXT: You/Your Family Experience fever (hyperthermia) with Anesthesia Last Oral Intake Last Oral intake: Last Oral Intake NPO since Meds taken in AM with sips of water? Meds patient instructed to take am of surgery PONV PONV - peoplesoft analyst: PONV - peoplesoft analyst Female No 03/30/25 14:37 HX of Motion Sickness No 03/30/25 14:37 HX of N/V After Surgery No 03/30/25 14:37 Non-Smoker Yes 03/30/25 14:37 Duration of Surgery greater Yes 03/30/25 14:37 than 60 minutes Number of Risk Factors 2 03/30/25 14:37 PONV Score Moderate Risk 03/30/25 14:37 Height & Weight Height & Weight: Anesthesia: Height & Weight Height 5 ft 4 in 01/08/25 09:16 Respiratory Assessment Respiratory Assessment - peoplesoft analyst: Respiratory Tract Infection Hx - peoplesoft analyst Hx Respiratory Tract Infection No 03/30/25 14:37 STOP Sleep Apnea STOP Sleep Apnea - peoplesoft analyst: STOP Sleep Apnea - peoplesoft analyst Hx Hypertension Yes 03/30/25 14:37 Hx Sleep Apnea No 03/30/25 14:37 CPAP No 07/09/23 15:04 BIPAP No 07/09/23 15:04 Do you snore loudly (louder Yes 03/30/25 14:37 than talking or can be heard Do you often feel tired/ No 03/30/25 14:37 fatigued/ sleepy during daytime? Has anyone observed you stop No 03/30/25 14:37 breathing during sleep? STOP Results Positive 03/30/25 14:37 QUESTION #5 FULL TEXT : Do you snore loudly (louder than talking or can be heard through closed doors)? Tobacco Use History Tobacco Use History - peoplesoft analyst: Tobacco Use History - peoplesoft analyst Tobacco Use Non-smoker 07/09/23 15:04 Smoking Status Former smoker 03/30/25 14:37 Hx Tobacco Use Yes 03/30/25 14:37 Years Smoking Packs Smoked per Day Smoking Cessation Date was Yes - quit smoking within 15 03/30/25 14:37 within the last 15 years years Hx Smoking Cessation Date Hx Smoking Cessation Counseling Hematologic Medial History Hematologic Hx - peoplesoft analyst: Hematologic Medical Hx - rn clinical documentation Hx of Blood Transfusion Yes 03/30/25 14:37 Hx of Transfusion in last 3 No 03/30/25 14:37 Months Date of Last Transfusion (if within last 3 months) Ever experience any problems No 03/30/25 14:37 with transfusion(s)? Specify any problems Hx of Preganancy in last 3 N/A 03/30/25 14:37 Months Nurse Filling Out Transfusion ERICA 03/30/25 14:37 & Questions: Date: 03/30/25 03/30/25 14:37 Time: 14:54 03/30/25 14:37 Patient unable to answer at this time (ie. confused, unrespo /Reproduction History /Reproductive History - peoplesoft analyst: /Reproductive Hx- peoplesoft analyst Hx Now No 03/30/25 14:37 Gestational Age (in weeks): EDC: Hx Hx Para Hx Section SAB [facility] Medical History (Updated 03/30/25 @ 14:52 by Keira Rai) Wears dentures Ambulates with cane Arthritis High cholesterol Restless legs Back pain Unsteady gait History of hiatal hernia History of ulceration Gastric reflux Heartburn Former smoker Leg cramps History of echocardiogram History of stress test Hypertension Cardiology follow-up encounter History of CHF (congestive heart failure) History of heart attack Preop exam for internal medicine Cervical spinal cord compression Cervical myelopathy Lumbar stenosis Spondylolisthesis Bilateral foot pain Gout Neurogenic claudication Claudication of both lower extremities Ceruminosis Elevated PSA Tunnel vision Dizziness Abnormal gait Hypogonadism in male Urinary frequency Dysuria History of nicotine dependence Atherosclerotic heart disease of [place] coronary artery without angina pectoris Fatigue Abnormal lung examination Alcohol abuse Anxiety Myocardial infarct Other and unspecified hyperlipidemia Essential hypertension LVH (left ventricular hypertrophy) Septic arthritis of shoulder, right Normochromic normocytic anemia Cellulitis CAD (coronary artery disease) Hyperlipidemia Gastroesophageal reflux disease Home Medications Medication Instructions Recorded Last Taken Type aspirin 81 mg chewable tablet 81 mg PO DAILY 08/03/18 08/03/18 History acetaminophen 325 mg tablet 650 mg (2 x 325 mg) PO Q6H PRN PRN 08/07/18 Unknown Rx Mild Pain (scale 0-3)/T>100.7 nitroglycerin 0.4 mg sublingual 0.4 mg sublingual PRN PRN Pain #20 04/03/23 Unknown Rx tablet tabs benazepril 10 mg tablet 10 mg PO DAILY #90 tabs 09/02/24 Unknown Rx atorvastatin 80 mg tablet 80 mg PO QDAY #90 tabs 11/23/24 Unknown Rx ezetimibe 10 mg tablet (Zetia) 10 mg PO DAILY #90 tabs 11/23/24 Unknown Rx omeprazole 40 mg capsule,delayed 40 mg PO DAILY #90 caps 11/23/24 Unknown Rx release sertraline 25 mg tablet (Zoloft) 25 mg PO QDAY #90 tabs 02/04/25 Unknown Rx trazodone 100 mg tablet See Rx Instructions PO QHS PRN 02/05/25 Unknown Rx insomnia #180 tabs amlodipine 10 mg tablet 10 mg PO QDAY 03/16/25 Unknown History Allergy/AdvReac Type Severity Reaction Status Date / Time codeine Allergy Itching Verified 03/30/25 14:33 oxycodone Allergy Itching Verified 03/30/25 14:33 carvedilol AdvReac Intermediate Severe Verified 03/30/25 14:33 fatigue and lethargy, even on 3.125 Family History Father CVA (cerebral vascular accident) Hypertension Mother COPD (chronic obstructive pulmonary disease) Hypertension Thyroid disorder Sister Hypertension Brother Hypertension Other Myocardial infarction Surgical History (Updated 03/30/25 @ 14:52 by Keira Rai) Hx of colonoscopy History of esophagogastroduodenoscopy (EGD) History of coronary artery stent placement Presence of coronary angioplasty implant and graft History of rotator cuff surgery CAD (coronary artery disease), autologous vein bypass graft Stented coronary artery S/P rotator cuff repair Social History Smoking Status: Former smoker quit date: 03/21/23 Tobacco: How many years used: 52 alcohol intake: former substance use type: does not use caffeine: Yes Type: coffee Number of servings: 1 Audit: Pertinent Findings Pertinent Findings EKG Perinent findings: EKG March 16, 2025. Sinus bradycardia. Stress test pertinent findings: Stress test 04/01/2025. The gated Cardiolite study reports an LVEF of 66%. Pharmacologic evaluation. Peak pharmacologic ECG with no ischemic changes. No significant cardiac dysrhythmias noted. 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 Echo (EF%) pertinent findings: Echo 12/04/2023. Normal LV size. Moderate concentric left ventricular hypertrophy. EF is 60%. Stage I diastolic dysfunction. Moderate focal aortic valve calcification. Consult pertinent findings: Cardiology visit 03/16/2025. This gentleman with history of coronary artery disease with chronic total occlusion of the RCA and LG to the left circumflex, he is here for follow-up visit. Check Lexiscan stress Myoview if this failed to show any significant abnormalities then may proceed with the proposed surgery with an acceptable cardiac risk. And echocardiogram. Recommendation Anesthesia Recommendation Anesthesia recommendation: OPTIMIZED for anesthesia
[2025-04-06] VITALS (13 sets, daily range): BP systolic 135–194; BP diastolic 71–109; PULSE 56–102; RESP 16–18; TEMP 36.2–37; O2SAT 92–99; BMI 32.1; BMI 33.5
[2025-04-06] MEDS: Lactated Ringers 1,000 ML 15 ML IV (10:25)
--- NOTE | 2025-04-06 11:00 | RAD_ITS ---
PROCEDURE: CERV SPINE 2 OR 3 VIEWS 04/06/2025 REASON FOR EXAM: ANTERIOR CERVICAL FUSION C5-6, C6-7 TECHNIQUE: Procedure Code: RADSPCL Modality: DX Procedure: CERV SPINE 2 OR 3 VIEWS FINDINGS: Intraoperative fluoroscopy was performed. 8 images. 14.0 seconds. 2.76 mGy. See procedure report for full details. RAD/Cerv Spine 2 or 3 Views IMPRESSION: As above. Disclaimer: Reading Location: [id number]
--- NOTE | 2025-04-06 11:18 | PRE.ANES_ITS ---
ASA Classification* ASA Classification ASA Classification: 3 Assessment & Plan Anesthesia* Anesthesia Assessment Anesthesia Assessment: Discussed sedation and/or anesthesia options, risks, benefits, and alternatives with patient/parents/legal guardian/POA. Questions invited. The patient/parents/legal guardian/POA seems to understand and agrees to proceed with anesthesia plan. Reviewed the physical assessment, medical history, allergy history and patient home medications list prior to surgery/procedure/anesthetic and documented any changes. Performed airway and anesthesia risk assessments. Anesthesia Type Anesthesia Type: General History Source History Obtained from:: Patient and Chart Anesthesia Focused Assessment* Temperature: 98.6 F Pulse Rate: 56 Blood Pressure: 135/71 Respiratory Rate: 16 Pulse Ox: 96 Oxygen Delivery Method: Room Air Airway Assessment Mouth opens: >3 cm Mallampati Score: III Teeth Condition: Dentures (upper and bottom; removed) Neck Range of motion (ROM): Limited ROM Labs Anesthesia Preop lab: CBC WBC, (4.4-11.0) 6.6 K/mm3 03/31/25, 08:59 RBC, (4.6-6.2) 4.45 M/mm3 L 03/31/25, 08:59 Hgb, (13.0-16.5) 13.5 g/dL 03/31/25, 08:59 Hct, (40-54) 40.5 % 03/31/25, 08:59 Plt Count, (150-450) 267 K/mm3 03/31/25, 08:59 CHEMISTRY Potassium, (3.3-5.1) 4.4 mmol/L 03/08/25, 09:42 Sodium, (133-145) 135 mmol/L 03/08/25, 09:42 Magnesium, (1.5-2.2) 2.5 mg/dL H 03/31/25, 08:59 Phosphorus, (2.5-4.9) 4.4 mg/dL 08/03/18, 14:06 BUN, (4-19) 7 mg/dL 03/08/25, 09:42 Creatinine, (0.70-1.20) 0.86 mg/dL 03/08/25, 09:42 Glucose, (70-99) 105 mg/dL H 03/08/25, 09:42 TSH, (0.358-3.740) 1.800 uIU/mL 03/09/24, 09:36 COAG PT, (11.7-14.9) 12.6 SECONDS 06/12/24, 08:06 Pre-Assessment Diagnosis/Proposed Procedure Planned Operative Procedure(s): ANTERIOR CERVICAL FUSION Anesthesia History 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 When Was Last Pacemaker Check QUESTION #4 FULL TEXT: You/Your Family Experience fever (hyperthermia) with Anesthesia Last Oral Intake Last Oral intake: Last Oral Intake NPO since 08:00 04/06/25 10:17 Meds taken in AM with sips of Yes 04/06/25 10:17 water? Meds patient instructed to take am of surgery PONV PONV - electron gun assembler: PONV - electron gun assembler Female No 03/30/25 14:37 HX of Motion Sickness No 03/30/25 14:37 HX of N/V After Surgery No 03/30/25 14:37 Non-Smoker Yes 03/30/25 14:37 Duration of Surgery greater Yes 03/30/25 14:37 than 60 minutes Number of Risk Factors 2 03/30/25 14:37 PONV Score Moderate Risk 03/30/25 14:37 Height & Weight Height & Weight: Anesthesia: Height & Weight Height 5 ft 4 in 04/06/25 10:17 Weight: 85 kg 04/06/25 10:17 Body Mass Index (BMI) 32.1 04/06/25 10:17 Respiratory Assessment Respiratory Assessment - electron gun assembler: Respiratory Tract Infection Hx - electron gun assembler Hx Respiratory Tract Infection No 03/30/25 14:37 STOP Sleep Apnea STOP Sleep Apnea - electron gun assembler: STOP Sleep Apnea - electron gun assembler Hx Hypertension Yes 03/30/25 14:37 Hx Sleep Apnea No 03/30/25 14:37 CPAP No 07/09/23 15:04 BIPAP No 07/09/23 15:04 Do you snore loudly (louder Yes 03/30/25 14:37 than talking or can be heard Do you often feel tired/ No 03/30/25 14:37 fatigued/ sleepy during daytime? Has anyone observed you stop No 03/30/25 14:37 breathing during sleep? STOP Results Positive 03/30/25 14:37 QUESTION #5 FULL TEXT : Do you snore loudly (louder than talking or can be heard through closed doors)? 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 Specify any problems Hx of Preganancy in last 3 N/A 03/30/25 14:37 Months Nurse Filling Out Transfusion ERICA 03/30/25 14:37 & Questions: Date: 03/30/25 03/30/25 14:37 Time: 14:54 03/30/25 14:37 Patient unable to answer at this time (ie. confused, unrespo /Reproduction History /Reproductive History - electron gun assembler: /Reproductive Hx- electron gun assembler Hx Now No 03/30/25 14:37 Gestational Age (in weeks): EDC: Hx Hx Para Hx Section SAB Active Medications Active Medications: Current Medications Generic Name Dose Route Start Last Admin Trade Name Freq PRN Reason Stop Dose Admin Acetaminophen 1,000 mg 04/06/25 12:00 04/06/25 10:23 Acetaminophen 500 Mg Tablet PO 04/06/25 12:01 1,000 mg PREOP ONE Administration Dexamethasone Sodium Phosphate 8 mg 04/06/25 12:00 Dexamethasone 10 Mg/Ml Vial IV 04/06/25 12:01 INTRAOP ONE Dexamethasone Sodium Phosphate 4 mg 04/06/25 12:00 Dexamethasone 4 Mg/Ml Vial IV 04/06/25 12:01 POSTOP ONE Cefazolin Sodium 2 gm/ Sodium 110 mls @ 150 mls/hr 04/06/25 12:00 Chloride IV 04/06/25 12:43 INTRAOP ONE Tranexamic Acid 1,000 mg/ 110 mls @ 440 mls/hr 04/06/25 12:00 Sodium Chloride IV 04/06/25 12:14 INTRAOP ONE Tranexamic Acid 1,000 mg/ 110 mls @ 440 mls/hr 04/06/25 12:00 Sodium Chloride IV 04/06/25 12:14 INTRAOP ONE Lactated Ringer's 1,000 mls @ 15 mls/hr 04/06/25 10:30 04/06/25 10:25 IV 15 mls/hr .Q48H DIAMANTE Administration Insulin Human Lispro 1 - 6 unit 04/06/25 12:00 Insulin Lispro 100 Unit/Ml Insuln.Pen SC Q4H PRN PRN BG>/= 180, SEE PROTOCOL Protocol PFSH Medical History Wears dentures Ambulates with cane Arthritis High cholesterol Restless legs Back pain Unsteady gait History of hiatal hernia History of ulceration Gastric reflux Heartburn Former smoker Leg cramps History of echocardiogram History of stress test Hypertension Cardiology follow-up encounter History of CHF (congestive heart failure) History of heart attack Preop exam for internal medicine Cervical spinal cord compression Cervical myelopathy Lumbar stenosis Spondylolisthesis Bilateral foot pain Gout Neurogenic claudication Claudication of both lower extremities Ceruminosis Elevated PSA Tunnel vision Dizziness Abnormal gait Hypogonadism in male Urinary frequency Dysuria History of nicotine dependence Atherosclerotic heart disease of [place] coronary artery without angina pectoris Fatigue Abnormal lung examination Alcohol abuse Anxiety Myocardial infarct Other and unspecified hyperlipidemia Essential hypertension LVH (left ventricular hypertrophy) Septic arthritis of shoulder, right Normochromic normocytic anemia Cellulitis CAD (coronary artery disease) Hyperlipidemia Gastroesophageal reflux disease Home Medications Medication Instructions Recorded Last Taken Type aspirin 81 mg chewable tablet 81 mg PO DAILY 08/03/18 04/05/25 History acetaminophen 325 mg tablet 650 mg (2 x 325 mg) PO Q6H PRN PRN 08/07/18 Unknown Rx Mild Pain (scale 0-3)/T>100.7 nitroglycerin 0.4 mg sublingual 0.4 mg sublingual PRN PRN Pain #20 04/03/23 Unknown Rx tablet tabs benazepril 10 mg tablet 10 mg PO DAILY #90 tabs 08/1504/05/25 Rx atorvastatin 80 mg tablet 80 mg PO QDAY #90 tabs 11/2304/05/25 Rx ezetimibe 10 mg tablet (Zetia) 10 mg PO DAILY #90 tabs 11/23/24 04/05/25 Rx omeprazole 40 mg capsule,delayed 40 mg PO DAILY #90 ca ps 11/23/24 04/06/25 Rx release sertraline 25 mg tablet (Zoloft) 25 mg PO QDAY #90 tab s 02/04/25 04/06/25 Rx trazodone 100 mg tablet See Rx Instructions PO QHS P RN 02/05/25 04/05/25 Rx insomnia #180 tabs amlodipine 10 mg tablet 10 mg PO QDAY 03/16/2504/06 History Allergy/AdvReac Type Severity Reaction Status Date / Time codeine Allergy Itching Verified 04/06/25 10:14 oxycodone Allergy Itching Verified 04/06/25 10:14 carvedilol AdvReac Intermediate Severe Verified 04/06/25 10:14 fatigue and lethargy, even on 3.125 Family History Father CVA (cerebral vascular accident) Hypertension Mother COPD (chronic obstructive pulmonary disease) Hypertension Thyroid disorder Sister Hypertension Brother Hypertension Other Myocardial infarction Surgical History Hx of colonoscopy History of esophagogastroduodenoscopy (EGD) History of coronary artery stent placement Presence of coronary angioplasty implant and graft History of rotator cuff surgery CAD (coronary artery disease), autologous vein bypass graft Stented coronary artery S/P rotator cuff repair Social History Smoking Status: Former smoker quit date: 03/21/23 Tobacco: How many years used: 52 alcohol intake: former substance use type: does not use caffeine: Yes Type: coffee Number of servings: 1 Review of Systems (Anesthesia) ROS Narrative System reviewed and no additional complaints, except as documented.
--- NOTE | 2025-04-06 12:02 | PCM.HP.BLA ---
History and Physical Date of Admission: 04/06/25 MR#: [id number] Acct: [id number] Name: SENA SARMIENTO Rep #: [id number] : 1955 Provider: Dr. Terry Lebron MD Age/Sex: 69/M Location: [facility] [place] Status: Signed Intake Vital Signs 01/08/2509:16 03/25/2510:46 03/30/2510:50 Height 5 ft 4 in 5 ft 4 in 5 ft 4 in Weight: 189 lb BMI 32.4 Intake Visit Reasons: cervical spine Chief Complaint: cervicla spine pre op Accompanied by: Is patient in pain?: Yes Pain scale (1-10): 2 Allergies codeine Allergy (Verified 03/30/25 14:33) Itching oxycodone Allergy (Verified 03/30/25 14:33) Itching carvedilol Adverse Reaction (Intermediate, Verified 03/30/25 14:33) Severe fatigue and lethargy, even on 3.125 Medications Medication Instructions Recorded Confirmed Type aspirin 81 mg chewable tablet 81 mg PO DAILY 08/03/18 03/30/25 History acetaminophen 325 mg tablet 650 mg (2 x 325 mg) PO Q6H PRN PRN 08/07/18 03/30/25 Rx Mild Pain (scale 0-3)/T>100.7 nitroglycerin 0.4 mg sublingual 0.4 mg sublingual PRN PRN Pain #20 04/03/23 03/30/25 Rx tablet tabs benazepril 10 mg tablet 10 mg PO DAILY #90 tabs 09/02/24 03/30/25 Rx atorvastatin 80 mg tablet 80 mg PO QDAY #90 tabs 11/23/24 03/30/25 Rx ezetimibe 10 mg tablet (Zetia) 10 mg PO DAILY #90 tabs 11/23/24 03/30/25 Rx omeprazole 40 mg capsule,delayed 40 mg PO DAILY #90 caps 11/23/24 03/30/25 Rx release sertraline 25 mg tablet (Zoloft) 25 mg PO QDAY #90 tabs 02/04/25 03/30/25 Rx trazodone 100 mg tablet See Rx Instructions PO QHS PRN 02/05/25 03/30/25 Rx insomnia #180 tabs amlodipine 10 mg tablet 10 mg PO QDAY 03/16/25 03/30/25 History Have you fallen in the past year?: Yes PFSH Medical History (Updated 03/30/25 @ 14:52 by Keira Rai) Wears dentures Ambulates with cane Arthritis High cholesterol Restless legs Back pain Unsteady gait History of hiatal hernia History of ulceration Gastric reflux Heartburn Former smoker Leg cramps History of echocardiogram History of stress test Hypertension Cardiology follow-up encounter History of CHF (congestive heart failure) History of heart attack Preop exam for internal medicine Cervical spinal cord compression Cervical myelopathy Lumbar stenosis Spondylolisthesis Bilateral foot pain Gout Neurogenic claudication Claudication of both lower extremities Ceruminosis Elevated PSA Tunnel vision Dizziness Abnormal gait Hypogonadism in male Urinary frequency Dysuria History of nicotine dependence Atherosclerotic heart disease of [place] coronary artery without angina pectoris Fatigue Abnormal lung examination Alcohol abuse Anxiety Myocardial infarct Other and unspecified hyperlipidemia Essential hypertension LVH (left ventricular hypertrophy) Septic arthritis of shoulder, right Normochromic normocytic anemia Cellulitis CAD (coronary artery disease) Hyperlipidemia Gastroesophageal reflux disease Surgical History (Updated 03/30/25 @ 14:52 by Keira Rai) Hx of colonoscopy History of esophagogastroduodenoscopy (EGD) History of coronary artery stent placement Presence of coronary angioplasty implant and graft History of rotator cuff surgery CAD (coronary artery disease), autologous vein bypass graft Stented coronary artery S/P rotator cuff repair Family History Father CVA (cerebral vascular accident) Hypertension Mother COPD (chronic obstructive pulmonary disease) Hypertension Thyroid disorder Sister Hypertension Brother Hypertension Other Myocardial infarction Social History Smoking Status: Former smoker quit date: 03/21/23 Tobacco: How many years used: 52 alcohol intake: former substance use type: does not use caffeine: Yes Type: coffee Number of servings: 1 HPI cervical spine Details: This documentation accurately reflects the service provided and the decisions made by me, Dr. Terry Lebron MD 03/30/25 [id number]. Part of today’s visit was documented by Jovita Rios MA, acting as scribe. SENA SARMIENTO is a 69 year old M here today for cervical spine pre op for C5-7 ACDF. Patient states that his pain is a 2 today. He did have a fall 2 weeks ago. Patient was leaning over and the whole chair went back wards, and he fell and hit his neck. He states that he didn't really have any pain when it happened, but his balance was off. Patient hasn't had any physical therapy. He hasn't had any injections done. The patient is a 69-year-old male presenting with neck pain and balance issues. Three weeks ago, he experienced severe lower back pain, which incapacitated him for two weeks. This episode was characterized by significant discomfort and limited mobility. The neck pain began following a fall about a week and a half ago, described as stiffness and localized discomfort. The pain is compounded by balance issues, necessitating the use of a cane for ambulation. The patient has a significant cardiac history, including coronary artery disease managed with stent placement. He is on aspirin therapy and is scheduled for a stress test to evaluate his cardiac function prior to neck surgery. - Musculoskeletal: Reports neck pain and stiffness, lower back pain. - Neurological: Reports balance issues, denies numbness or weakness in hands. - Cardiovascular: Denies shortness of breath, reports history of coronary artery disease with stent placement. Attestation: Documentation on this patient encounter was supported using ambient scribe technology/ voice AI technology. The patient consented to recording for the purpose of documenting the encounter. Provider reviewed content of the generated note prior to signature. 01/28/25: SENA SARMIENTO is a 69 year old M here today for cervical spine MRI review. Patient states the neck is just stiff today but he has more pain in the lumbar spine. He states sitting in an uncomfortable chair will increase his lumbar spine pain. He denies any recent injections to the neck or back. He states his pain and symptoms are staying the same and are not worsening. He is dropping items from his hands. He reports his balance is worsening, he has not fallen but has come close. He does take Aspirin 81mg daily and has a history of cardiac stents. He does have sleep apnea, he does not use a CPAP. Ortho Exam General General: Yes no acute distress Neurologic: Yes alert and Yes oriented x3 Psychologic: Yes reasonable and appropriate Exam Narrative - Musculoskeletal: Strength testing of toes, knees, and legs was conducted, showing good strength. - Neurological: Exaggerated knee reflexes bilaterally, positive Wray's sign on the left. - Musculoskeletal: Examination of the back revealed tenderness on the left side. Upper extremity shows 4+ power in both upper extremities. Lower extremity shows 5 of 5 strength. Both knee reflexes are exaggerated. Ankle reflexes 2+. Jesusita's is positive the left. Romberg's is positive. Tandem gait shows severe imbalance. - Neurological: Right wrist extension weakness noted, consistent with C6 involvement. - Musculoskeletal: Strength testing of hands and arms performed, right side noted to be weaker than left. Coding Level of Care Code Off vis,est,level 4 Diagnoses Cervical myelopathy G95.9 Spinal stenosis of lumbar region with neurogenic claudication M48.062 Neurogenic claudication status: with neurogenic claudication Spondylolisthesis of lumbar region M43.16 Spinal region: lumbar Time Spent (min) 35 Assessment and Plan Assessment and Plan (1) Cervical myelopathy: Status: Acute (2) Lumbar stenosis: Status: Acute Qualifiers: Neurogenic claudication status: with neurogenic claudication Qualified Code(s): M48.062 - Spinal stenosis, lumbar region with neurogenic claudication (3) Spondylolisthesis: Status: Acute Qualifiers: Spinal region: lumbar Qualified Code(s): M43.16 - Spondylolisthesis, lumbar region Plan reviewed his cervical MRI and previous lumbar imaging in detail. X-ray shows spondylolisthesis at L5-S1 with vertebral shift and calcification in blood vessels. Mild dynamic instability noticed at L5-S1 spondylolisthesis on flexion-extension views. - Imaging: MRI indicates L5-S1 stenosis central and lateral recess. Significant epidural lipomatosis noticed. Spondylolisthesis reduces on supine MRI. - MRI: Significant cervical spinal cord compression at C5-6 and C6-7 levels. - X-ray: Reduced disc height at C5-6 and C6-7 levels. No dynamic instability infection extension views. 1. Cervical spondylosis - Plan for surgical intervention to relieve spinal cord compression and prevent progression of symptoms. 2. Lower back pain - Continue conservative management with heating pads; surgical intervention to be considered post neck surgery. 3. Coronary artery disease - Maintain aspirin therapy; perform stress test to evaluate cardiac function prior to neck surgery. - Use heating pads for lower back pain relief. - Attend scheduled stress test to assess heart health before surgery. - Follow instructions for neck surgery preparation, including wearing a collar post-surgery. - Engage in light walking and avoid heavy lifting post-surgery. MRI shows significant compression of the spinal cord at C5-C6 and C6-C7, this takes priority over the low back. I recommend C5-7 ACDF. Discussed this procedure in detail and explained the risks, benefits and alternatives. The risks of surgery include but are not limited to infection, bleeding, injury to nerves and vessels, hematoma formation, dysphagia, dysphonia, recurrent laryngeal nerve injury, Wilbur syndrome, DVT, pulmonary embolism, pneumonia, atelectasis, cardiopulmonary event, pseudoarthrosis, hardware failure, adjacent segment degeneration, need for further surgery, nerve root injury, spinal cord injury. Answered all questions to the patient’s satisfaction. Patient understands and agrees to proceed with surgery. Consent was signed. Follow up 2 weeks post operatively or sooner if pain, swelling, numbness or associated symptoms, or concerns develop. All questions answered. Patient in agreement of plan.
[2025-04-06] MEDS: Cefazolin 1 GM/5 ML Vial 2 GM IV (12:10)
[2025-04-06] MEDS: Lidocaine 1% (5 ml sdv) 5 ML Vial 10 ML IV (12:18)
[2025-04-06] MEDS: REMIFENTANIL HCL 1 MG VIAL IV (12:25)
[2025-04-06] MEDS: PROPOFOL 131.75 MG IV (12:25)
[2025-04-06] MEDS: fentaNYL 100 MCG/2 ML Ampul IV (12:29)
[2025-04-06] MEDS: REMIFENTANIL HCL 1 MG VIAL 1.5 MG IV (14:02)
[2025-04-06] MEDS: TRANEXAMIC ACID 1,000 MG/10 ML ML 2000 MG IV (14:14)
--- NOTE | 2025-04-06 15:20 | PCM.POST.ANE ---
Anesthesia: Postop Eval I Current Vital Signs Temperature: 97.1 F Pulse Rate: 102 Blood Pressure: 168/98 (RN to medicate for pain, states "4/10") Respiratory Rate: 18 Pulse Ox: 99 Oxygen Delivery Method: Simple Mask Oxygen Flow Rate (L/min): 6 Assessment Airway patent: Yes Spontaneous unlabored respirations: Yes Mental status: Awake and Calm nausea: No Vomiting: No Anesthesia Complication: No Fluid Hydration Crystalloid volume administer (ml): 1,300 Total IV fluid infused: 1,300 Progress Note Anesthesia document: Postop Eval 1 completed: Yes
--- OUTSIDE RECORDS SUMMARY | 2025-04-06 15:42 | XMS RPT_ITS | CCD ---
Author Organization 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 Raw Materials Name Role Phone CIARA, MOHAN PAC Unavailable [...] Attending Unavailable Estephania, Dhara Primary Care Unavailable Tramaine, Vno Referring Unavailable Tramaine, Von Attending Unavailable Estephania, Dhara Primary Care Unavailable Tramaine, Von Referring Unavailable Tramaine, Von Attending Unavailable Estephania, Dhara Attending Unavailable Estephania, Dhara Referring Unavailable Estephania, Dhara Primary Care Unavailable Estephania, Dhara Primary Care Unavailable Ari Ernst Attending Unavailable Estephania, Dhara Referring Unavailable Ari Parekh Attending Unavailable Estephania, Dhara Primary Care Unavailable Estephania, Dhara Consulting Unavailable Estephania, Dhara Primary Care Unavailable Estephania, Dhara Referring Unavailable Shayne Law Attending Unavailable Estephania, Dhara Primary Care Unavailable Tramaine, Von Consulting Unavailable Tramaine, Ovn Referring Unavailable Tramaine, Von Attending Unavailable Terry Lebron Attending Unavailable Estephania, Dhara Primary Care Unavailable Estephania, Dhara Referring Unavailable Lebron, Terry Attending Unavailable Estephania, Dhara Primary Care Unavailable Estephania, Dhara Referring Unavailable Estephania, Dhara Attending Unavailable Estephania, Dhara Primary Care Unavailable Estephania, Dhara Primary Care Unavailable [place], Terry Attending Unavailable Estephania, Dhara Referring Unavailable Estephania, Dhara Attending Unavailable Estephania, Dhara Referring Unavailable Estephania, Dhara Primary Care Unavailable Estephania, Dhara Attending Unavailable Estephania, Dhara Referring Unavailable Estephania, Dhara Primary Care Unavailable Estephania, Dhara Attending Unavailable Estephania, Dhara Referring Unavailable Estephania, Dhara Primary Care Unavailable Estephania, Dhara Primary Care Unavailable Lebron, Terry Attending Unavailable Lebron, Terry Referring Unavailable Estephania, Dhara Primary Care Unavailable Lebron, Terry Attending Unavailable Lebron, Terry Referring Unavailable Estephania, Dhara Attending Unavailable Estephania, Dhara Referring Unavailable Estephania, Dhara Primary Care Unavailable Estephania, Dhara Primary Care Unavailable Lebron, Terry Attending Unavailable Lebron, Terry Referring Unavailable Estephania, Dhara Primary Care Unavailable Ricardo Hardwick Attending Unavailable Dhara Best Primary Care Unavailable Ricardo Hardwick Attending Unavailable Dhara Best Primary Care Unavailable Dhara Best Attending Unavailable Allergies Allergy Classification Reported Allergen(s) Allergy Type Date of Onset Reaction(s) Facility (5 sources) Codeine Drug Allergy 11-14-2021 Itching [facility] (5 sources) oxyCODONE Drug Allergy 11-14-2021 Itching [facility] (1 source) carvedilol Drug Allergy 03-30-2025 [facility] Repository (1 source) Codeine Drug Allergy 03-30-2025 [facility] Repository (1 source) oxyCODONE Drug Allergy 03-30-2025 [facility] Repository Medications Current Medications Medication Drug [...] 27, 2020 10:55am October 01, 2022 7:29am [facility] [employer]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 81 mg chewable tablet (5 sources) [...] PO AT BEDTIME April 27, 2020 10:56am [facility] [place] [facility] Completed/Discontinued Medications Medication Drug Class(es) Dates Sig [...] esr while on iv abx fax to [phone] doxycycline monohydrate 100 mg oral capsule (5 [...] Problem Classification Problem Date Documented Date Episodic/Chronic Conditions associated with dizziness or vertigo (1 source) Dizziness and giddiness; Translations: [Dizziness and giddiness] Onset: 03-16-2025 Episodic Coronary atherosclerosis and other heart disease (16 sources) Coronary atherosclerosis; Translations: [Atherosclerotic heart disease of [place] coronary artery without angina pectoris] Onset: 03-16-2025 08-04-2018 Chronic Coronary atherosclerosis and other heart disease (12 sources) Stented coronary artery; Translations: [Presence of coronary angioplasty implant and graft] Onset: 03-16-2025 08-03-2018 Episodic Deficiency and other anemia (5 sources) Normocytic normochromic anemia; Translations: [Anemia, unspecified] 08-03-2018 Episodic Disorders of lipid metabolism (12 sources) Hyperlipidemia; Translations: [Hyperlipidemia, unspecified] Onset: 03-16-2025 08-04-2018 Chronic Esophageal disorders (5 sources) Gastroesophageal reflux disease; Translations: [Gastro-esophageal reflux disease without esophagitis] 08-04-2018 Chronic Essential hypertension (10 sources) Benign hypertension; Translations: [Essential (primary) hypertension] Onset: 03-16-2025 03-28-2023 Chronic Genitourinary symptoms and ill-defined conditions (4 sources) Increased frequency of urination; Translations: [Frequency of micturition] 07-17-2023 Episodic Gout and other crystal arthropathies (1 source) Gout, unspecified; Translations: [Gout, unspecified] Onset: 10-29-2024 Chronic Heart valve disorders (1 source) Nonrheumatic mitral (valve) insufficiency; Translations: [Nonrheumatic mitral (valve) insufficiency] Onset: 03-16-2025 Chronic Hyperplasia of prostate (1 source) Benign prostatic hyperplasia without lower urinary tract symptoms; Translations: [Benign prostatic hyperplasia without lower urinary tract symptoms] Onset: 08-31-2024 Chronic Infective arthritis and osteomyelitis (except that caused by tuberculosis or sexually transmitted disease) (5 sources) Pyogenic arthritis of shoulder region; Translations: [Pyogenic arthritis, unspecified] 08-03-2018 Episodic Malaise and fatigue (5 sources) Fatigue; Translations: [Other fatigue] 02-13-2023 Episodic Nonspecific chest pain (4 sources) Chest pain; Translations: [Chest pain, unspecified] 06-13-2022 Episodic Other acquired deformities (1 source) Spondylolisthesis, lumbar region; Translations: [Spondylolisthesis, lumbar region] Onset: 01-08-2025 Episodic Other and ill-defined heart disease (5 sources) Left ventricular hypertrophy; Translations: [Cardiomegaly] 08-03-2018 Chronic Other and ill-defined heart disease (1 source) Other ill-defined heart diseases; Translations: [Other ill-defined heart diseases] Onset: 03-16-2025 Chronic Other endocrine disorders (1 source) Male hypogonadism; Translations: [Testicular hypofunction] 07-17-2023 Chronic Other lower respiratory disease (6 sources) Lung finding; Translations: [Abnormal lung examination] Episodic Other lower respiratory disease (3 sources) Cough; Translations: [Cough] Episodic Other lower respiratory disease (1 source) Other forms of dyspnea; Translations: [Other forms of dyspnea] Onset: 03-16-2025 Episodic Other nervous system disorders (1 source) [...] dependence; Translations: [History of nicotine dependence] Onset: 03-16-2025 03-28-2023 Episodic Skin and subcutaneous tissue infections [...] Classification Problem Date Documented Da te Episodic/Chronic Gastrointestinal hemorrhage (1 source) Gastrointestinal hemorrhage, unspecified; [...] in left foot] Onset: 5 Episodic Other screening for suspected conditions (not mental disorders or infectious disease) (1 source) Elevated prostate specific antigen [PSA]; Translations: [Elevated prostate specific antigen [PSA]] Onset: 5 Episodic Sprains and strains (1 source) Other sprain of right shoulder joint, initial encounter; Translations: [Other sprain of right shoulder joint, initial encounter] Onset: 8 Episodic Results Test Name Value Interpretation Reference Range Facility MR/Ehsan 04-01-2025 MR/[facility] Medical Records Department [address] [place] [address] PAT - Anesthesia 04/01/25 1658 MR#: [id number] Acct: [id number] Name: SENA SARMIENTO Rep #: [id number] : 1955 69 From: Lew Sandhu MD PCP: Dr. Dhara Best MD Status:PRE SDC Y Race: C Location: [facility] Pre-Assessment Diagnosis/Proposed Procedure Planned Operative Procedure(s): ANTERIOR CERVICAL FUSION Anesthesia History Anesthesia History - entrance guard: Anesthesia History - entrance guard Hx Hospitalization No 03/30/25 14:37 Any Problems With Anesthesia No 03/30/25 14:37 Cholinesterase deficiency No 03/30/25 14:37 You/Your Family Experience No 03/30/25 14:37 fever (hyperthermia) with Relationship Recent Exposure to Contagious No 07/09/23 15:04 Disease Does patient have nerve No 03/30/25 14:37 stimulator Patient instructed to have device shut off --Does patient have Pacemaker or ICD? When Was Last Pacemaker Check QUESTION #4 FULL TEXT: You/Your Family Experience fever (hyperthermia) with Anesthesia Last Oral Intake Last Oral intake: Last Oral Intake NPO since Meds taken in AM with sips of water? Meds patient instructed to take am of surgery PONV PONV - entrance guard: PONV - entrance guard Female No 03/30/25 14:37 HX of Motion Sickness No 03/30/25 14:37 HX of N/V After Surgery No 03/30/25 14:37 Non-Smoker Yes 03/30/25 14:37 Duration of Surgery greater Yes 03/30/25 14:37 than 60 minutes Number of Risk Factors 2 03/30/25 14:37 PONV Score Moderate Risk 03/30/25 14:37 Height Weight Height Weight: Anesthesia: Height Weight Height 5 ft 4 in 01/08/25 09:16 Respiratory Assessment Respiratory Assessment - entrance guard: Respiratory Tract Infection Hx - entrance guard Hx Respiratory Tract Infection No 03/30/25 14:37 STOP Sleep Apnea STOP Sleep Apnea - entrance guard: STOP Sleep Apnea - entrance guard Hx Hypertension Yes 03/30/25 14:37 Hx Sleep Apnea No 03/30/25 14:37 CPAP No 07/09/23 15:04 BIPAP No 07/09/23 15:04 Do you snore loudly (louder Yes 03/30/25 14:37 than talking or can be heard Do you often feel tired/ No 03/30/25 14:37 fatigued/ sleepy during daytime? Has anyone observed you stop No 03/30/25 14:37 breathing during sleep? STOP Results Positive 03/30/25 14:37 QUESTION #5 FULL TEXT : Do you snore loudly (louder than talking or can be heard through closed doors)? Tobacco Use History Tobacco Use History - entrance guard: Tobacco Use History - entrance guard Tobacco Use Non-smoker 07/09/23 15:04 Smoking Status Former smoker 03/30/25 14:37 Hx Tobacco Use Yes 03/30/25 14:37 Years Smoking Packs Smoked per Day Smoking Cessation Date was Yes - quit smoking within 15 03/30/25 14:37 within the last 15 years years Hx Smoking Cessation Date Hx Smoking Cessation Counseling Hematologic Medial History Hematologic Hx - entrance guard: Hematologic Medical Hx - legal support specialist Hx of Blood Transfusion Yes 03/30/25 14:37 Hx of Transfusion in last 3 No 03/30/25 14:37 Months Date of Last Transfusion (if within last 3 months) Ever experience any problems No 03/30/25 14:37 with transfusion(s)? Specify any problems Hx of Preganancy in last 3 N/A 03/30/25 14:37 Months Nurse Filling Out Transfusion ERICA 03/30/25 14:37 Questions: Date: 03/30/25 03/30/25 14:37 Time: 14:54 03/30/25 14:37 Patient unable to answer at this time (ie. confused, unrespo /Reproduction History /Reproductive History - entrance guard: /Reproductive Hx- entrance guard Hx Now No 03/30/25 14:37 Gestational Age (in weeks): EDC: Hx Hx Para Hx Section SAB PFSH Medical History (Updated 03/30/25 @ 14:52 by Keira Rai) Wears dentures Ambulates with cane Arthritis High cholesterol Restless legs Back pain Unsteady gait History of hiatal hernia History of ulceration Gastric reflux Heartburn Former smoker Leg cramps History of echocardiogram History of stress test Hypertension Cardiology follow-up encounter History of CHF (congestive heart failure) History of heart attack Preop exam for internal medicine Cervical spinal cord compression Cervical myelopathy Lumbar stenosis Spondylolisthesis Bilateral foot pain Gout Neurogenic claudication Claudication of both lower extremities Ceruminosis Elevated PSA Tunnel vision Dizziness Abnormal gait Hypogonadism in male Urinary frequency Dysuria History of nicotine dependence Atherosclerotic heart disease of [place] coronary kyrie (more content not included)... Normal [facility] MRSA/SAID NASAL SCREENon MRSA+SAID SCRN Reason for Exam: PRE -OP MRSA MRSA Negative S. AUREUS S. aureus Negative Normal [facility] Comment on above: Performed By: #### M 100.651, L501.5200, L501.9985, BTSPAT, L100.0100 ####[facility] [address] [facility] [place], [address] Stress Reporton 04-01-2025 Stress Report [facility] [address] [place] [address] MR#: [id number] Acct: [id number] Name: SENA SARMIENTO Rep #: [id number] : 1955 69 From: Von Redd MD Primary Care: Dr. Dhara Best MD Status: REG CLI Referring Dr: Von Redd MD Sex: M C Stress Test Report Date: 03/31/2025 Procedure: Pharmacologic stress nuclear imaging study Indications: Coronary artery disease Consent: Per the patient Procedure: The patient underwent pharmacologic (Regadenoson 0.4mg ) evaluation with a peak heart rate of 77 beats per minute (50%predicted maximal heart rate) and a peak blood pressure of 150/82 mmHg. The baseline ECG demonstrated sinus rhythm with rare PVC. The peak pharmacologic ECG did not show any ischemic changes. No significant cardiac dysrhythmias noted during pharmacologic infusion or in recovery. There was no complaint of chest discomfort during pharmacologic infusion or recovery. The patient was injected with 12.0 millicuries of technetium 99m Cardiolite and subsequently rest SPECT Cardiolite nuclear imaging was obtained in the horizontal long, vertical long, and short axis views. The patient underwent pharmacologic (Regadenoson) evaluation. The patient was injected with 36.0 millicuries of technetium 99m Cardiolite and subsequently stress SPECT Cardiolite nuclear imaging was obtained in the horizontal long, vertical long, and short axis views. A gated Cardiolite study at peak stress was obtained. The examination was stopped secondary to completion of protocol. Rest and stress SPECT Cardiolite nuclear imaging status post realignment, normalization, and attenuation correction demonstrate a fixed perfusion defect of the basal inferior wall no significant reversible ischemia. There is end systolic thickening and brightening. The gated Cardiolite study demonstrates myocardial thickening and inward wall motion. The reported LVEF is 66%. Impression: 1. Pharmacologic (Regadenoson) evaluation 2. Peak pharmacologic ECG with no ischemic changes. 3. No significant cardiac dysrhythmias noted. 5. 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 6. The gated Cardiolite study reports an LVEF of 66%. This note was generated with CompareAwayation software. It may contain incorrect words, spelling, and punctuation that were not noted in checking the note before signing. 04/01/25 1508 Date Von Redd MD CC: Dr. Von Redd MD; Dr. Dhara Best MD Date Dictated: 04/01/251505 Date Transcribed: 04/01/251505 Traffic Analysis Technician: CARMEN Signed Normal [facility] CBC W/Diff, Automatedon 10- Absolute Lymph 1.69 X10 3/uL Normal 0.83-4.51 [facility] Comment on above: Performed By: #### M 100.651, L501.5200, L501.9985, BTSPAT, L100.0100 ####[facility] [address] [place], [address] Absolute Neut 3.9 X10 3/uL Normal 2.0-7.7 [facility] Comment on above: Performed By: #### M 100.651, L501.5200, L501.9985, BTSPAT, L100.0100 ####[facility] [address] [place], [address] Basophils/100 WBC (Bld) 0.9 % Normal 0-1 [facility] Comment on above: Performed By: #### M 100.651, L501.5200, L501.9985, BTSPAT, L100.0100 ####[facility] [address] [place], [address] Eosinophils/100 WBC (Bld) 1.1 % Normal 0-5 [facility] Comment on above: Performed By: #### M 100.651, L501.5200, L501.9985, BTSPAT, L100.0100 ####[facility] [address] [place], [address] Erythrocyte distribution width (RBC) [Ratio] 14.4 % Normal 11.6-14.6 [facility] Comment on above: Performed By: #### M 100.651, L501.5200, L501.9985, BTSPAT, L100.0100 ####[facility] [address] [place], [address] Hematocrit (Bld) [Volume fraction] 40.5 % Normal 40-54 [facility] Comment on above: Performed By: #### M 100.651, L501.5200, L501.9985, BTSPAT, L100.0100 ####[facility] [address] [place], [address] Hemoglobin (Bld) [Mass/Vol] 13.5 g/dL Normal 13.0-16.5 [facility] Comment on above: Performed By: #### M 100.651, L501.5200, L501.9985, BTSPAT, L100.0100 ####[facility] [address] [place], [address] IG% 0.600 Normal 0.0-0.9 [facility] Comment on above: Result Comment: IG% - Immature Granulocytes (promyelocytes, myelocytes and metamyelocytes) > 1% indicates that a LEFT SHIFT is Present. Performed By: #### M 100.651, L501.5200, L501.9985, BTSPAT, L100.0100 ####[facility] [address] [place], [address] Lymphocytes/100 WBC (Bld) 25.8 % Normal 19-41 [facility] Comment on above: Performed By: #### M 100.651, L501.5200, L501.9985, BTSPAT, L100.0100 ####[facility] [address] [place], [address] MCH (RBC) [Entitic mass] 30.3 pg Normal 27.0-32.0 [facility] Comment on above: Performed By: #### M 100.651, L501.5200, L501.9985, BTSPAT, L100.0100 ####[facility] [address] [place], [address] MCHC (RBC) [Mass/Vol] 33.3 g/dL Normal 32-36 [facility] Comment on above: Performed By: #### M 100.651, L501.5200, L501.9985, BTSPAT, L100.0100 ####[facility] [address] [place], [address] MCV (RBC) [Entitic vol] 91.0 fL Normal 80-94 [facility] Comment on above: Performed By: #### M 100.651, L501.5200, L501.9985, BTSPAT, L100.0100 ####[facility] [address] [place], [address] Monocytes/100 WBC (Bld) 11.5 % High 0-10 [facility] Comment on above: Performed By: #### M 100.651, L501.5200, L501.9985, BTSPAT, L100.0100 ####[facility] [address] [place], [address] Neutrophils/100 WBC (Bld) 60.1 % Normal 47-70 [facility] Comment on above: Performed By: #### M 100.651, L501.5200, L501.9985, BTSPAT, L100.0100 ####[facility] [address] [place], [address] Nucleated RBC (Bld) [#/Vol] 0 10*3/uL Normal 0-5 [facility] Comment on above: Performed By: #### M 100.651, L501.5200, L501.9985, BTSPAT, L100.0100 ####[facility] [address] [place], [address] Platelet mean volume (Bld) [Entitic vol] 10.5 fL Normal 6.2-12.0 [facility] Comment on above: Performed By: #### M 100.651, L501.5200, L501.9985, BTSPAT, L100.0100 ####[facility] [address] [place], [address] Platelets (Bld) [#/Vol] 267 10*3/uL Normal 150-450 [facility] Comment on above: Performed By: #### M 100.651, L501.5200, L501.9985, BTSPAT, L100.0100 ####[facility] [address] [place], [address] RBC (Bld) [#/Vol] 4.45 10*6/uL Low 4.6-6.2 [facility] Comment on above: Performed By: #### M 100.651, L501.5200, L501.9985, BTSPAT, L100.0100 ####[facility] [address] [place], [address] RDW SD 48.2 fl High 35.1-43.9 [facility] Comment on above: Performed By: #### M 100.651, L501.5200, L501.9985, BTSPAT, L100.0100 ####[facility] [address] [place], [address] WBC (Bld) [#/Vol] 6.6 10*3/uL Normal 4.4-11.0 [facility] Comment on above: Performed By: #### M 100.651, L501.5200, L501.9985, BTSPAT, L100.0100 ####[facility] [address] [place], [address] Hemoglobin A1con 03-31-2025 HbA1c (Bld) [Mass fraction] 6.0 % High <=5.6 [facility] Comment on above: Result Comment: Norm al < 5.7 % Prediabetic 5.7 - 6.4 % Diabetic >or= 6.5 % Please note range changes. Performed By: #### M 100.651, L501.5200, L501.9985, BTSPAT, L100.0100 ####[facility] [address] [place], [address] Magnesiumon 03-31-2025 Magnesium [Mass/Vol] 2.5 mg/dL High 1.5-2.2 [facility] Comment on above: Performed By: #### M 100.651, L501.5200, L501.9985, BTSPAT, L100.0100 ####[facility] [address] [place], [address] Type AND Screen - PAT ONLYon 03-31-2025 ABO and Rh group Nom (Bld) Blood group A Rh(D) positive Normal [facility] Comment on above: Order Comment: Reaso n for Laboratory Test PRE-[id number]/ANNSCERVICAL FUSION Performed By: #### M 100.651, L501.5200, L501.9985, BTSPAT, L100.0100 ####[facility] [address] [place], [address] Orthopedic Visit Reporton Orthopedic Visit Report [facility] [address] [place] [address] [address] [place] [address] OFFICE VISIT Date of Service: 03/30/25 MR#: [id number] Acct: [id number] Name: SENA SARMIENTO Rep #: [id number] : 1955 Provider: Dr. Terry Lebron MD Age/Sex: 69/M Location: [facility] Status: Signed Intake Vital Signs 01/08/25 09:16 03/25/25 10:46 03/30/25 10:50 Height 5 ft 4 in 5 ft 4 in 5 ft 4 in Weight: 189 lb BMI 32.4 Intake Visit Reasons: cervical spine Chief Complaint: cervicla spine pre op Accompanied by: Is patient in pain?: Yes Pain scale (1-10): 2 Allergies codeine Allergy (Verified 03/30/25 14:33) Itching oxycodone Allergy (Verified 03/30/25 14:33) Itching carvedilol Adverse Reaction (Intermediate, Verified 03/30/25 14:33) Severe fatigue and lethargy, even on 3.125 Medications ???Medication ???Instructions ???Recorded ???Confirmed ???Type aspirin 81 mg chewable tablet 81 mg PO DAILY 08/03/18 03/30/25 H istory acetaminophen 325 mg tablet 650 mg (2 x 325 mg) PO Q6H PRN PRN 08/07/18 03/30/25 Rx Mild Pain (scale 0-3)/T>100.7 nitroglycerin 0.4 mg sublingual 0.4 mg sublingual PRN PRN Pain #20 04/03/23 03/30/25 Rx tablet tabs benazepril 10 mg tablet 10 mg PO DAILY #90 tabs 09/02/24 1 Rx atorvastatin 80 mg tablet 80 mg PO QDAY #90 tabs 11/23/24 Rx ezetimibe 10 mg tablet (Zetia) 10 mg PO DAILY #90 tabs 11/23/24 1 Rx omeprazole 40 mg capsule,delayed 40 mg PO DAILY #90 caps 11/23/24 1 Rx release sertraline 25 mg tablet (Zoloft) 25 mg PO QDAY #90 tabs 02/04/25 Rx trazodone 100 mg tablet See Rx Instructions PO QHS PRN 03/30/25 Rx insomnia #180 tabs amlodipine 10 mg tablet 10 mg PO QDAY 03/16/25 03/30/25 Hi story Have you fallen in the past year?: [facility] History (Updated 03/30/25 @ 14:52 by Keira Rai) Wears dentures Ambulates with cane Arthritis High cholesterol Restless legs Back pain Unsteady gait History of hiatal hernia History of ulceration Gastric reflux Heartburn Former smoker Leg cramps History of echocardiogram History of stress test Hypertension Cardiology follow-up encounter History of CHF (congestive heart failure) History of heart attack Preop exam for internal medicine Cervical spinal cord compression Cervical myelopathy Lumbar stenosis Spondylolisthesis Bilateral foot pain Gout Neurogenic claudication Claudication of both lower extremities Ceruminosis Elevated PSA Tunnel vision Dizziness Abnormal gait Hypogonadism in male Urinary frequency Dysuria History of nicotine dependence Atherosclerotic heart disease of [place] coronary artery without angina pectoris Fatigue Abnormal lung examination Alcohol abuse Anxiety Myocardial infarct Other and unspecified hyperlipidemia Essential hypertension LVH (left ventricular hypertrophy) Septic arthritis of shoulder, right Normochromic normocytic anemia Cellulitis CAD (coronary artery disease) Hyperlipidemia Gastroesophageal reflux disease Surgical History (Updated 03/30/25 @ 14:52 by Keira Rai) Hx of colonoscopy History of esophagogastroduodenoscopy (EGD) History of coronary artery stent placement Presence of coronary angioplasty implant and graft [...] Type: coffee Number of servings: 1 HPI cervical spine Details: This documentation accurately reflects the service provided and the decisions made by me, Dr. Terry Lebron MD 03/30/25 1047. Part of today???s visit was documented by Jovita Rios MA, acting as scribe. SENA SARMIENTO is a 69 year old M here today for cervical spine pre op for C5-7 ACDF. Patient states that his pain is a 2 today. He did have a fall 2 weeks ago. Patient was leaning over and the whole chair went back wards, and he fell and hit his neck. He states that he didn't really have any pain when it happened, but his balance was off. Patient hasn't had any physical therapy. He hasn't had any injections done. The patient is a 69-year-old male presenting with neck pain and balance issues. Three weeks ago, he (more content not included)... Normal [facility] MR/BMS.IMBon 03-25-2025 MR/BMS.IMB [facility] [address] [place] [address] OFFICE VISIT Date of Service: 03/25/25 MR#: [id number] Acct: [id number] Name: SENA SARMIENTO Rep #: [id number] : 1955 Provider: Dr. Dhara perez MD Age/Sex: 69/M Location: [facility] Status: Signed Intake Vital Signs 01/08/25 09:16 03/16/25 09:25 03/25/25 10:46 Height 5 ft 4 in 5 ft 4 in 5 ft 4 in Weight: 189 lb 188 lb 8 oz BMI 32.4 32.3 BP 152/87 H 155/78 H Blood Pressure Location Lt brachial Lt brachial Position Sitting Sitting Respiration 18 16 Pulse 64 66 Pulse Source Monitor Monitor Temp 98.4 F Temp Source Temporal Pulse Oximetry (%) 94 Oxygen Delivery Method room air Intake Visit Reasons: Surgical Clearance Chief Complaint: Back and neck pain Physician Practice Consultant Required: No Accompanied by: Is patient in pain?: Yes (Neck and back pain) Pain scale (1-10): 4 Allergies codeine Allergy (Verified 03/25/25 10:39) Itching oxycodone Allergy (Verified 03/25/25 10:39) Itching carvedilol Adverse Reaction (Intermediate, Verified 03/25/25 10:39) Severe fatigue and lethargy, even on 3.125 Medications ???Medication ???Instructions ???Recorded ???Confirmed ???Type aspirin 81 mg chewable tablet 81 mg PO DAILY 08/03/18 03/25/25 H istory acetaminophen 325 mg tablet 650 mg (2 x 325 mg) PO Q6H PRN PRN 08/07/18 03/25/25 Rx Mild Pain (scale 0-3)/T>100.7 nitroglycerin 0.4 mg sublingual 0.4 mg sublingual PRN PRN Pain #20 04/03/23 03/25/25 Rx tablet tabs benazepril 10 mg tablet 10 mg PO DAILY #90 tabs 09/02/24 1 Rx atorvastatin 80 mg tablet 80 mg PO QDAY #90 tabs 11/23/24 Rx ezetimibe 10 mg tablet (Zetia) 10 mg PO DAILY #90 tabs 11/23/24 1 Rx omeprazole 40 mg capsule,delayed 40 mg PO DAILY #90 caps 11/23/24 1 Rx release sertraline 25 mg tablet (Zoloft) 25 mg PO QDAY #90 tabs 02/04/25 Rx trazodone 100 mg tablet See Rx Instructions PO QHS PRN 03/25/25 Rx insomnia #180 tabs amlodipine 10 mg tablet 10 mg PO QDAY 09/30/25 10/09/25 Hi story Have you fallen in the past year?: Yes (03/17/2025, lost balance ) [facility] Medical History (Updated 03/25/25 @ 11:[address] Dhara Best MD) Preop exam for internal medicine Cervical spinal cord compression Cervical myelopathy Lumbar stenosis Spondylolisthesis Bilateral foot pain Gout Neurogenic claudication Claudication of both lower extremities Ceruminosis Elevated PSA Tunnel vision Dizziness Abnormal gait Fatigue Hypogonadism in male Urinary frequency Dysuria History of nicotine dependence Atherosclerotic heart disease of [place] coronary artery without angina pectoris Abnormal lung [...] of servings: 1 HPI HPI Chief Complaint: Back and neck pain Details: SENA SARMIENTO, is a 69 M who presents to the office today for evaluation/surgical clearance from a medical perspective prior to C5-C6, C6-C7 spinal fusion planned for 10 April. This will be done by Dr. Lebron. He does have significant low back lumbar disease as well with anticipation of fixing that in a couple of months. He has had cardiac evaluation and cardiac clearance apparently is pending a stress test due on March 31. He has ongoing neurogenic claudication symptoms, low back pain, arthritic pain and neck. Has not been very physically active for a number of months now due to the degree of discomfort. Essential hypertension that has been stable, hyperlipidemia that has been stable on high-dose statin and Zetia. For hypertension amlodipine, benazepril. He is also on Zoloft and trazodone for sleep as well as aspirin. Medication regimen h (more content not included)... Normal [facility] Cardiology Visit Reporton Cardiology Visit Report [facility] [place] [facility] [address] [place] [address] OFFICE VISIT Date of Service: 03/16/25 MR#: [id number] Acct: [id number] Name: SENA SARMIENTO Rep #: [id number] : 1955 Provider: Dr. Von Redd MD Age/Sex: 69/M Location: [facility] Status: Signed HPI HPI History of Present Illness Details: This gentleman with history of coronary artery disease with chronic total occlusion of the RCA and LG to the left circumflex, is here for follow-up visit. Lately he has been having problems with his C-spine and is in the process of getting scheduled for surgery. We are asked to evaluate his cardiac risk for the proposed procedure. Denies any chest pains either at rest or with exertion. His physical mobility is limited because of his C-spine and lower back issues. Denies orthopnea or PND. No ankle edema. No shortness of breath. No palpitations. Intake Vital Signs 01/08/25 09:16 03/16/25 09:25 Height 5 ft 4 in 5 ft 4 in Weight: 189 lb BMI 32.4 BP 152/87 H Blood Pressure Location Lt brachial Position Sitting Respiration 18 Pulse 64 Pulse Source Monitor Intake Visit Reasons: 6 M Physician Practice Consultant Required: No Accompanied by: Is patient in pain?: No Allergies codeine Allergy (Verified 03/16/25 09:27) Itching oxycodone Allergy (Verified 03/16/25 09:27) Itching carvedilol Adverse Reaction (Intermediate, Verified 03/16/25 09:27) Severe fatigue and lethargy, even on 3.125 Medications ???Medication ???Instructions ???Recorded ???Confirmed ???Type aspirin 81 mg chewable tablet 81 mg PO DAILY 08/03/18 03/16/25 H istory acetaminophen 325 mg tablet 650 mg (2 x 325 mg) PO Q6H PRN PRN 08/07/18 03/16/25 Rx Mild Pain (scale 0-3)/T>100.7 nitroglycerin 0.4 mg sublingual 0.4 mg sublingual PRN PRN Pain #20 04/03/23 03/16/25 Rx tablet tabs benazepril 10 mg tablet 10 mg PO DAILY #90 tabs 09/02/24 0 03/16/25 Rx atorvastatin 80 mg tablet 80 mg PO QDAY #90 tabs 11/23/24 Rx ezetimibe 10 mg tablet (Zetia) 10 mg PO DAILY #90 tabs 11/23/24 0 03/16/25 Rx omeprazole 40 mg capsule,delayed 40 mg PO DAILY #90 caps 11/23/24 0 03/16/25 Rx release sertraline 25 mg tablet (Zoloft) 25 mg PO QDAY #90 tabs 02/04/25 Rx trazodone 100 mg tablet See Rx Instructions PO QHS PRN 03/16/25 Rx insomnia #180 tabs amlodipine 10 mg tablet 10 mg PO QDAY 03/16/25 03/16/25 Hi story Ejection fraction %: 60 Have you fallen in the past year?: Yes (lost balance this week) [facility] Medical History Cervical spinal cord compression Cervical myelopathy Lumbar stenosis Spondylolisthesis Bilateral foot pain Gout Neurogenic claudication Claudication of both lower extremities Ceruminosis Elevated PSA Tunnel vision Dizziness Abnormal gait Fatigue Hypogonadism in male Urinary frequency Dysuria History of nicotine dependence Atherosclerotic heart disease of [place] coronary artery without angina pectoris Abnormal lung [...] Number of servings: 1 ROS Const Const: Negative for fatigue or weakness Eyes Eyes: Negative for change in vision ENT ENT: Positive for balance problems; Negative for dizziness Cardio Chest Pain: No Palpitations: No Edema: None Resp Respiratory: Negative for SOB with activity, SOB at rest or SOB orthopnea SOB lying down GI GI: Negative nausea or heartburn Musc Musc: Positive for balance problems Neuro Neuro: Negative for dizziness, lightheadedness, near syncope, syncope or weakness Endo Endo: Negative for fatigue Cardiology Exam Const Appearance: co (more content not included)... Normal [facility] Comprehensive Metabolic Prof ilon 03-08-2025 Albumin [Mass/Vol] 4.1 g/dL Normal 3.4-4.8 [facility] Comment on above: Performed By: #### L 500.4100, L500.4050 ####[facility] [address] [place], [address] Albumin/Globulin [Mass ratio] 1.3 {ratio} Normal 0.9-2.4 [facility] Comment on above: Performed By: #### L 500.4100, L500.4050 ####[facility] [address] [place], [address] ALK PHOS 80 U/L Normal 40-129 [facility] Comment on above: Performed By: #### L 500.4100, L500.4050 ####[facility] [address] [place], [address] ALT [Catalytic activity/Vol] 20 U/L Normal <=46 [facility] Comment on above: Performed By: #### L 500.4100, L500.4050 ####[facility] [address] [place], [address] AST [Catalytic activity/Vol] 22 U/L Normal <=37 [facility] Comment on above: Performed By: #### L 500.4100, L500.4050 ####[facility] [address] [place], [address] Bilirubin [Mass/Vol] 0.45 mg/dL Normal 0.00-1.30 [facility] Comment on above: Performed By: #### L 500.4100, L500.4050 ####[facility] [address] [place], [address] BUN/CRE 8.5 RATIO Low 10-20 [facility] Comment on above: Performed By: #### L 500.4100, L500.4050 ####[facility] [address] [place], [address] Calcium [Mass/Vol] 9.0 mg/dL Normal 7.6-11.0 [facility] Comment on above: Performed By: #### L 500.4100, L500.4050 ####[facility] [address] [place], [address] Chloride [Moles/Vol] 102 mmol/L Normal 98-108 [facility] Comment on above: Performed By: #### L 500.4100, L500.4050 ####[facility] [address] [place], [address] CO2 [Moles/Vol] 22.0 mmol/L Normal 21.0-32.0 [facility] Comment on above: Performed By: #### L 500.4100, L500.4050 ####[facility] [address] [place], [address] Creatinine [Mass/Vol] 0.86 mg/dL Normal 0.70-1.20 [facility] Comment on above: Performed By: #### L 500.4100, L500.4050 ####[facility] [address] [place], [address] GAP 12 Normal 5-15 [facility] Comment on above: Performed By: #### L 500.4100, L500.4050 ####[facility] [address] [place], [address] GFR/1.73 sq M.predicted among non-blacks MDRD (S/P/Bld) [Vol rate/Area] 94 mL/min/{1.73_m2} Normal >60 [facility] Comment on above: Result Comment: mL/m in/1.73m2 CKD-EPI Creatinine Equation (2020) Performed By: #### L 500.4100, L500.4050 ####[facility] [address] [place], [address] Globulin (S) [Mass/Vol] 3.2 g/dL Normal 2.2-4.2 [facility] Comment on above: Performed By: #### L 500.4100, L500.4050 ####[facility] [address] [place], [address] Glucose [Mass/Vol] 105 mg/dL High 70-99 [facility] Comment on above: Performed By: #### L 500.4100, L500.4050 ####[facility] [address] [place], [address] Potassium [Moles/Vol] 4.4 mmol/L Normal 3.3-5.1 [facility] Comment on above: Performed By: #### L 500.4100, L500.4050 ####[facility] [address] [place], [address] Sodium [Moles/Vol] 135 mmol/L Normal 133-145 [facility] Comment on above: Performed By: #### L 500.4100, L500.4050 ####[facility] [address] [place], [address] T PROT 7.3 g/dL Normal 5.9-8.4 [facility] Comment on above: Performed By: #### L 500.4100, L500.4050 ####[facility] [address] [place], [address] Urea nitrogen [Mass/Vol] 7 mg/dL Normal 4-19 [facility] Comment on above: Performed By: #### L 500.4100, L500.4050 ####[facility] [address] [place], [address] Lipid Profileon 03-08-2025 CHOL:HDL 2.59 Normal [facility] Comment on above: Performed By: #### L 500.4100, L500.4050 ####[facility] [address] [place], [address] Cholesterol [Mass/Vol] 162 mg/dL Normal <=200 [facility] Comment on above: Result Comment: Chol esterol level, Desirable <200 mg/dL Borderline high cholesterol 200-239 mg/dL High cholesterol >=240 mg/dL Recommendations of the NCEP Adult Treatment Panel for the following risk-cutoff thresholds for the [place] population. Performed By: #### L 500.4100, L500.4050 ####[facility] [address] [place], [address] Cholesterol in HDL [Mass/Vol] 63 mg/dL Normal [facility] Comment on above: Result Comment: Neeta onal Cholesterol Education Program (NCEP) guidelines: <40 mg/dL: Low HDL-cholesterol (major risk factor for CHD) >= 60 mg/dL: High HDL-cholesterol (negative risk factor for CHD) HDL-cholesterol is affected by a number of factors, e.g. smoking, exercise, hormones, sex and age. Performed By: #### L 500.4100, L500.4050 ####[facility] [address] [place], [address] Cholesterol in LDL [Mass/Vol] 74 mg/dL Normal [facility] Comment on above: Result Comment: Bord pxffdu=942-699 mg/dL Higher Jaxa=178 mg/dL or greater Friedwald Equation for LDL-C Performed By: #### L 500.4100, L500.4050 ####[facility] [address] [place], [address] Cholesterol in VLDL [Mass/Vol] 25 mg/dL Normal 5-40 [facility] Comment on above: Performed By: #### L 500.4100, L500.4050 ####[facility] [address] [place], [address] Triglyceride [Mass/Vol] 126 mg/dL Normal [facility] Comment on above: Result Comment: The drugs N-Acetylcysteine and Metamizole may falsely depress this assay. Normal range: <150 mg/dL Borderline High: 150-199 mg/dL High: 200-499 mg/dL Very High: >500 mg/dL Performed By: #### L 500.4100, L500.4050 ####[facility] [address] [place], [address] Cerv Spine 4 or 5 Viewson Cerv Spine 4 or 5 Views [facility] Imaging Services [address] [place] [address] Cerv Spine 4 or 5 Views MR#: [id number] Acct: [id number] Name: SENA SARMIENTO Rep #: [id number] : 1955 M 69 From: Jah Rodriguez PCP: Dr. Dhara Best MD Status: DEP AMB Study: Cerv Spine 4 or 5 Views Date of Exam: 01/28/25 Exam# [id number] Ordering Dr: Susy López PROCEDURE: CERV SPINE [...] arthrosis. Bilateral carotid artery calcifications. Reading Location: [facility] CC: ABDI Liriano; Dr. Dhara Best MD Traffic Analysis Technician: Signed Normal [facility] Orthopedic Visit Reporton Orthopedic Visit Report [facility] [address] [place] [address] [address] [place] [address] OFFICE VISIT Date of Service: 01/28/25 MR#: [id number] Acct: [id number] Name: SENA SARMIENTO Rep #: [id number] : 1955 Provider: Dr. Terry Lebron MD Age/Sex: 69/M Location: [facility] Status: Signed Intake Vital Signs 01/08/25 09:16 [...] History (Updated 01/28/25 @ 15:04 by Lucía Garzon, RN) Cervical spinal cord compression Cervical myelopathy Lumbar stenosis Spondylolisthesis Bilateral foot pain Gout Neurogenic claudication Claudication of both lower extremities Ceruminosis Elevated PSA Tunnel vision Dizziness Abnormal gait Fatigue Hypogonadism in male Urinary frequency Dysuria History of nicotine dependence Atherosclerotic heart disease of [place] coronary artery without angina pectoris Abnormal lung [...] History (Updated 01/28/25 @ 15:15 by Lucía Garzon, RN) Smoking Status: Former smoker quit date: 03/21/23 Tobacco: How many years used: 52 smoking status stop date: 06/17/20 alcohol intake: former substance use type: does not use caffeine: Yes Type: coffee Number of servings: 1 HPI CERVICAL/LUMBAR SPINE Details: This documentation accurately reflects the service provided and the decisions made by me, Dr. Terry Lebron MD 01/28/25 0496. Part of today???s visit was documented by [...] a te (more content not included)... Normal [facility] Spine Cervical (Routine)on 0 01-14-2025 Spine Cervical (Routine) [facility] Imaging Services [address] [place], [place] [address] Spine Cervical (Routine) MR#: [id number] Acct: [id number] Name: SENA SARMIENTO Rep #: [id number] : 1955 M 69 From: Amparo Au MD PCP: Dr. Dhara Best MD Status: REG CLI Study: Spine Cervical (Routine) Date of Exam: Exam# [id number] Ordering Dr: Terry Lebron MD PROCEDURE: SPINE [...] signal indicating edema or myelomalacia. Reading Location: [facility] CC: Dr. Terry Lebron MD; Dr. Dhara Best MD Traffic Analysis Technician: Signed Normal [facility] L/S Spine Min 4 Viewson 12-16 L/S Spine Min 4 Views [facility] Imaging Services [address] [place] [phone] L/S Spine Min 4 Views MR#: [id number] Acct: [id number] Name: SENA SARMIENTO Rep #: [id number] : 1955 M 69 From: Etienne Ordoñez MD PCP: Dr. Dhara Best MD Status: DEP AMB Study: L/S Spine Min 4 Views Date of Exam: 01/08/25 Exam# [id number] Ordering Dr: Terry Lebron MD PROCEDURE: L/S [...] 4 Views IMPRESSION: Spondylosis. Spondylolisthesis. Reading Location: [id number] CC: Dr. Terry Lebron MD; Dr. Dhara Best MD Traffic Analysis Technician: Signed Normal [facility] Orthopedic Visit Reporton Orthopedic Visit Report [facility] [address] [place] [address] OFFICE VISIT Date of Service: 01/08/25 MR#: [id number] Acct: [id number] Name: SENA SARMIENTO Rep #: [id number] : 1955 Provider: Dr. Terry Lebron MD Age/Sex: 69/M Location: [facility] Status: Signed Intake Vital Signs 10/29/24 13:11 [...] History (Updated 01/08/25 @ 10:11 by Lucía Garzon RN) Cervical myelopathy Lumbar stenosis Spondylolisthesis Bilateral foot pain Gout Neurogenic claudication Claudication of both lower extremities Ceruminosis Elevated PSA Tunnel vision Dizziness Abnormal gait Fatigue Hypogonadism in male Urinary frequency Dysuria History of nicotine dependence Atherosclerotic heart disease of [place] coronary artery without angina pectoris Abnormal lung [...] a heat (more content not included)... Normal [facility] NCS and/or EMG Patienton NCS and/or EMG Patient [facility]/Neurology [address] [place] [address] MR#: [id number] Acct: [id number] Name: SENA SARMIENTO Rep #: [id number] : 1955 69 From: Shayne Law MD Referring Dr: Dhara Best MD Status: REG CLI Location: PSN Date: 12/02/24 Sex: M C NCS and/or [...] Multi Select Codes Neurology Neurology Interp Codes: 73874-66 Musc test done w/n test comp (interp) (2) and 97468-49 Nrv cndj test 9-10 studies (interp) 12/02/24 1502 Date Shayne Law MD CC: Dr. Shayne Law MD; Dr. Dhara Best MD Date Dictated: 12/02/24 1500 Date Transcribed: 12/02/24 1500 Traffic Analysis Technician: AA Signed Normal [facility] Spine Lumbar (Routine)on Spine Lumbar (Routine) [facility] Imaging Services [address] [place] [address] Spine Lumbar (Routine) MR#: [id number] Acct: [id number] Name: SENA SARMIENTO Rep #: [id number] : 1955 M 69 From: Dao Garza MD PCP: Dr. Dhara Best MD Status: REG CLI Study: Spine Lumbar (Routine) Date of Exam: 11/03/24 Exam# [id number] Ordering Dr: Dhara Best MD PROCEDURE: SPINE [...] Location: [facility] CC: Dr. Dhara Best MD Traffic Analysis Technician: Signed Normal [facility] CRPon 10-29-2024 C-REACTIVE PROT 4.00 mg/L High 0.0-3.0 [facility] Comment on above: Performed By: #### L 501.6710, L101.9900, L501.1400 #### [facility] [address] [place], [address] Erythrocyte Sed Rateon 10-29 SED RATE 18 mm/hr Normal 0-20 [facility] Comment on above: Performed By: #### L 501.6710, L101.9900, L501.1400 #### [facility] [address] [place], [address] Foot min 3 Viewson 5 Foot min 3 Views [facility] Imaging Services [address] [place], [place] [phone] Foot min 3 Views MR#: [id number] Acct: [id number] Name: SENA SARMIENTO Rep #: [id number] : 1955 M 69 From: Jah Graham MD PCP: Dr. Dhara Best MD Status: REG CLI Study: Foot min 3 Views Date of Exam: 10/29/24 Exam# [id number] Ordering Dr: Dhara Best MD PROCEDURE: FOOT [...] appears within limits as above. Reading Location: [facility] CC: Dr. Dhara Best MD Traffic Analysis Technician: Signed Normal [facility] Foot min 3 Views [facility] Imaging Services [address] [place], [place] [phone] Foot min 3 Views MR#: [id number] Acct: [id number] Name: SENA SARMIENTO Rep #: [id number] : 1955 M 69 From: Jah Graham MD PCP: Dr. Dhara Best MD Status: REG CLI Study: Foot min 3 Views Date of Exam: 10/29/24 Exam# [id number] Ordering Dr: Dhara Best MD PROCEDURE: FOOT MIN 3 VIEWS 10/29/2024 REASON FOR EXAM: BILATERAL FOOT PAIN, PAIN BILAT 1ST MTP, ANKLES TECHNIQUE: 3 views of the right foot. COMPARISON: None available FINDINGS: No fracture or dislocation. 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 Subchondral cyst formation at the head of the 1st metatarsal. No associated soft tissue swelling appreciated. Mild osteoarthrosis 1st interphalangeal joint. Ezivv-vt-ahwiureb enthesophyte formation at the plantar surface of the calcaneus. Vascular calcification noted. 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 Subchondral cyst formation at the head of the 1st metatarsal. No associated soft tissue swelling appreciated. Mild osteoarthrosis 1st interphalangeal joint. Reading Location: [id number] CC: Dr. Dhara Best MD Traffic Analysis Technician: Signed Normal [facility] Liver Profileon 10-29-2024 Albumin [Mass/Vol] 4.2 g/dL Normal 3.4-4.8 [facility] Comment on above: Performed By: #### L 500.3400 ####[facility] [address] [place], [address] ALK PHOS 70 U/L Normal 40-129 [facility] Comment on above: Performed By: #### L 500.3400 ####[facility] [address] [place], [address] ALT [Catalytic activity/Vol] 23 U/L Normal <=46 [facility] Comment on above: Performed By: #### L 500.3400 ####[facility] [address] [place], [address] AST [Catalytic activity/Vol] 23 U/L Normal <=37 [facility] Comment on above: Performed By: #### L 500.3400 ####[facility] [address] [place], [address] Bilirubin [Mass/Vol] 0.31 mg/dL Normal 0.00-1.30 [facility] Comment on above: Performed By: #### L 500.3400 ####[facility] [address] [place], [place], [address] Bilirubin.direct [Mass/Vol] 0.12 mg/dL Normal 0.00-0.30 [facility] Comment on above: Performed By: #### L 500.3400 ####[facility] [address] [place], [place], [address] Globulin (S) [Mass/Vol] 2.9 g/dL Normal 2.2-4.2 [facility] Comment on above: Performed By: #### L 500.3400 ####[facility] [address] [place], [place], [id number] T PROT 7.1 g/dL Normal 5.9-8.4 [facility] Comment on above: Performed By: #### L 500.3400 ####[facility] [address] [place], [place], [id number] MR/BMS.Bon 10-29-2024 /BMS.B [facility] [address] [place], [place] [address] OFFICE VISIT Date of Service: 10/29/24 MR#: [id number] Acct: [id number] Name: SENA SARMIENTO Rep #: [id number] : 1955 Provider: Dr. Dhara perez MD Age/Sex: 69/M Location: [facility] Status: Signed Intake Vital Signs 09/03/24 [...] Reasons: Possible Gout Chief Complaint: Possible Gout Physician Practice Consultant Required: No Accompanied by: Self Is patient [...] you fallen in the past year?: No [facility] Medical History (Updated 10/29/24 @ 13:[address] Dhara Best MD) Bilateral foot pain Gout Neurogenic claudication Claudication of both lower extremities Ceruminosis Elevated PSA Tunnel vision Dizziness Abnormal gait Fatigue Hypogonadism in male Urinary frequency Dysuria History of nicotine dependence Atherosclerotic heart disease of [place] coronary artery without angina pectoris Abnormal lung [...] state who was describing similar symptoms who "had gout." So he wanted to get evaluated for [...] prior uric (more content not included)... Normal [facility] Uric Acidon 10-29-2024 URIC 4.7 mg/dL Normal 3.5-7.2 [facility] Comment on above: Result Comment: The drugs N-Acetylcysteine and Metamizole may falsely depress this assay. Performed By: #### L 501.6792, L101.9900, L501.1400 #### [facility] [address] [place], [address] Ankle Brachial Indexon 09-[address] [facility] [address] [place] [address] Ankle Brachial Index 09/17/24 1402 MR#: [id number] Acct: [id number] Name: SENA SARMIENTO Rep #: [id number] : 1955 69 From: Ari Parekh MD Attending Dr: Dr. Dhara Best MD Status: RE G CLI Ordering Dr: Dhara Best MD Date: 09/17/24 Location: [facility] Sex: M C Admitted: Reason For [...] Best M.D. Performed By: Keira Lundberg RVT 09/17/241699 Date Ari Parekh MD CC: Dr. Dhara Best MD Date Dictated: 09/17/241401 Date Transcribed: 09/17/241699 Traffic Analysis Technician: Signed Normal [facility] CBC W/Diff, Automatedon 08-16-2024 Absolute Lymph 1.86 X10 3/uL Normal 0.83-4.51 [facility] Comment on above: Performed By: #### L 501.9940, L100.0100, L500.4050, L501.5200 #### [facility] [address] [place], [address] Absolute Neut 5.0 X10 3/uL Normal 2.0-7.7 [facility] Comment on above: Performed By: #### L 501.9940, L100.0100, L500.4050, L501.5200 #### [facility] [address] [place], [address] Basophils/100 WBC (Bld) 0.8 % Normal 0-1 [facility] Comment on above: Performed By: #### L 501.9940, L100.0100, L500.4050, L501.5200 #### [facility] [address] [place], [address] Eosinophils/100 WBC (Bld) 0.8 % Normal 0-5 [facility] Comment on above: Performed By: #### L 501.9940, L100.0100, L500.4050, L501.5200 #### [facility] [address] [place], [address] Erythrocyte distribution width (RBC) [Ratio] 14.3 % Normal 11.6-14.6 [facility] Comment on above: Performed By: #### L 501.9940, L100.0100, L500.4050, L501.5200 #### [facility] [address] [place], [address] Hematocrit (Bld) [Volume fraction] 37.8 % Low 40-54 [facility] Comment on above: Performed By: #### L 501.9940, L100.0100, L500.4050, L501.5200 #### [facility] [address] [place], [address] Hemoglobin (Bld) [Mass/Vol] 12.9 g/dL Low 13.0-16.5 [facility] Comment on above: Performed By: #### L 501.9940, L100.0100, L500.4050, L501.5200 #### [facility] [address] [place], [address] IG% 0.400 Normal 0.0-0.9 [facility] Comment on above: Result Comment: IG% - Immature Granulocytes (promyelocytes, myelocytes and metamyelocytes) > 1% indicates that a LEFT SHIFT is Present. Performed By: #### L 501.9940, L100.0100, L500.4050, L501.5200 #### [facility] [address] [place], [address] Lymphocytes/100 WBC (Bld) 23.7 % Normal 19-41 [facility] Comment on above: Performed By: #### L 501.9940, L100.0100, L500.4050, L501.5200 #### [facility] [address] [place], [address] MCH (RBC) [Entitic mass] 31.6 pg Normal 27.0-32.0 [facility] Comment on above: Performed By: #### L 501.9940, L100.0100, L500.4050, L501.5200 #### [facility] [address] [place], [address] MCHC (RBC) [Mass/Vol] 34.1 g/dL Normal 32-36 [facility] Comment on above: Performed By: #### L 501.9940, L100.0100, L500.4050, L501.5200 #### [facility] [address] [place], [address] MCV (RBC) [Entitic vol] 92.6 fL Normal 80-94 [facility] Comment on above: Performed By: #### L 501.9940, L100.0100, L500.4050, L501.5200 #### [facility] [address] [place], [address] Monocytes/100 WBC (Bld) 11.0 % High 0-10 [facility] Comment on above: Performed By: #### L 501.9940, L100.0100, L500.4050, L501.5200 #### [facility] [address] [place], [address] Neutrophils/100 WBC (Bld) 63.3 % Normal 47-70 [facility] Comment on above: Performed By: #### L 501.9940, L100.0100, L500.4050, L501.5200 #### [facility] [address] [place], [address] Nucleated RBC (Bld) [#/Vol] 0 10*3/uL Normal 0-5 [facility] Comment on above: Performed By: #### L 501.9940, L100.0100, L500.4050, L501.5200 #### [facility] [address] [place], [address] Platelet mean volume (Bld) [Entitic vol] 10.7 fL Normal 6.2-12.0 [facility] Comment on above: Performed By: #### L 501.9940, L100.0100, L500.4050, L501.5200 #### [facility] [address] [place], [address] Platelets (Bld) [#/Vol] 249 10*3/uL Normal 150-450 [facility] Comment on above: Performed By: #### L 501.9940, L100.0100, L500.4050, L501.5200 #### [facility] [address] [place], [address] RBC (Bld) [#/Vol] 4.08 10*6/uL Low 4.6-6.2 [facility] Comment on above: Performed By: #### L 501.9940, L100.0100, L500.4050, L501.5200 #### [facility] [address] [place], [address] RDW SD 48.6 fl High 35.1-43.9 [facility] Comment on above: Performed By: #### L 501.9940, L100.0100, L500.4050, L501.5200 #### [facility] [address] [place], [address] WBC (Bld) [#/Vol] 7.8 10*3/uL Normal 4.4-11.0 [facility] Comment on above: Performed By: #### L 501.9940, L100.0100, L500.4050, L501.5200 #### [facility] [address] [place], [address] Cardiology Visit Reporton Cardiology Visit Report [facility] [address] [place] [address] OFFICE VISIT Date of Service: 09/03/24 MR#: [id number] Acct: [id number] Name: SENA SARMIENTO Rep #: [id number] : 1955 Provider: Dr. Von Redd MD Age/Sex: 69/M Location: [facility] Status: Signed HPI HPI History of Present [...] air Intake Visit Reasons: 6 M FU Physician Practice Consultant Required: No Accompanied by: Is patient in [...] of nicotine dependence Atherosclerotic heart disease of [place] coronary artery without angina pectoris Abnormal lung [...] to Auscul (more content not included)... Normal [facility] Comprehensive Metabolic Prof ilon 09-03-2024 Albumin [Mass/Vol] 4.1 g/dL Normal 3.4-4.8 [facility] Comment on above: Order Comment: EDDIE PFEIFFER Performed By: #### L 501.9940, L100.0100, L500.4050, L501.5200 #### [facility] [address] [place], [address] Albumin/Globulin [Mass ratio] 1.4 {ratio} Normal 0.9-2.4 [facility] Comment on above: Order Comment: EDDIE PFEIFFER Performed By: #### L 501.9940, L100.0100, L500.4050, L501.5200 #### [facility] [address] [place], [address] ALK PHOS 67 U/L Normal 40-129 [facility] Comment on above: Order Comment: EDDIE PFEIFFER Performed By: #### L 501.9940, L100.0100, L500.4050, L501.5200 #### [facility] [address] [place], [address] ALT [Catalytic activity/Vol] 29 U/L Normal <=46 [facility] Comment on above: Order Comment: EDDIE PFEIFFER Performed By: #### L 501.9940, L100.0100, L500.4050, L501.5200 #### [facility] [address] [place], [address] AST [Catalytic activity/Vol] 25 U/L Normal <=37 [facility] Comment on above: Order Comment: CMP Renae MENA KENTRELL Performed By: #### L 501.9940, L100.0100, L500.4050, L501.5200 #### [facility] [address] [place], [address] Bilirubin [Mass/Vol] 0.32 mg/dL Normal 0.00-1.30 [facility] Comment on above: Order Comment: EDDIE Rodriguez RAJESH PFEIFFER Performed By: #### L 501.9940, L100.0100, L500.4050, L501.5200 #### [facility] [address] [place], [address] BUN/CRE 12.5 RATIO Normal 10-20 [facility] Comment on above: Order Comment: EDDIE MENA KENTRELL Performed By: #### L 501.9940, L100.0100, L500.4050, L501.5200 #### [facility] [address] [place], [address] Calcium [Mass/Vol] 8.7 mg/dL Normal 7.6-11.0 [facility] Comment on above: Order Comment: CMP Renae MENA KENTRELL Performed By: #### L 501.9940, L100.0100, L500.4050, L501.5200 #### [facility] [address] [place], [address] Chloride [Moles/Vol] 101 mmol/L Normal 98-108 [facility] Comment on above: Order Comment: CMP Renae Rodriguez RAJESH PFEIFFER Performed By: #### L 501.9940, L100.0100, L500.4050, L501.5200 #### [facility] [address] [place], [address] CO2 [Moles/Vol] 23.0 mmol/L Normal 21.0-32.0 [facility] Comment on above: Order Comment: EDDIE PFEIFFER Performed By: #### L 501.9940, L100.0100, L500.4050, L501.5200 #### [facility] [address] [place], [address] Creatinine [Mass/Vol] 1.06 mg/dL Normal 0.70-1.20 [facility] Comment on above: Order Comment: EDDIE PFEIFFER Performed By: #### L 501.9940, L100.0100, L500.4050, L501.5200 #### [facility] [address] [place], [address] GAP 11 Normal 5-15 [facility] Comment on above: Order Comment: EDDIE PFEIFFER Performed By: #### L 501.9940, L100.0100, L500.4050, L501.5200 #### [facility] [address] [place], [address] GFR/1.73 sq M.predicted among non-blacks MDRD (S/P/Bld) [Vol rate/Area] 76 mL/min/{1.73_m2} Normal >60 [facility] Comment on above: Order Comment: EDDIE PFEIFFER Result Comment: mL/m in/1.73m2 CKD-EPI Creatinine Equation (2020) Performed By: #### L 501.9940, L100.0100, L500.4050, L501.5200 #### [facility] [address] [place], [address] Globulin (S) [Mass/Vol] 2.9 g/dL Normal 2.2-4.2 [facility] Comment on above: Order Comment: EDDIE PFEIFFER Performed By: #### L 501.9940, L100.0100, L500.4050, L501.5200 #### [facility] [address] [place], [address] Glucose [Mass/Vol] 109 mg/dL High 70-99 [facility] Comment on above: Order Comment: EDDIE MENA KENTRELL Performed By: #### L 501.9940, L100.0100, L500.4050, L501.5200 #### [facility] [address] [place], [address] Potassium [Moles/Vol] 4.3 mmol/L Normal 3.3-5.1 [facility] Comment on above: Order Comment: EDDIE Rodriguez RAJESH PFEIFFER Performed By: #### L 501.9940, L100.0100, L500.4050, L501.5200 #### [facility] [address] [place], [address] Sodium [Moles/Vol] 135 mmol/L Normal 133-145 [facility] Comment on above: Order Comment: EDDIE MENA KENTRELL Performed By: #### L 501.9940, L100.0100, L500.4050, L501.5200 #### [facility] [address] [place], [address] T PROT 7.0 g/dL Normal 5.9-8.4 [facility] Comment on above: Order Comment: EDDIE Rodriguez RAJESH PFEIFFER Performed By: #### L 501.9940, L100.0100, L500.4050, L501.5200 #### [facility] [address] [place], [address] Urea nitrogen [Mass/Vol] 13 mg/dL Normal 4-19 [facility] Comment on above: Order Comment: EDDIE Rodriguez RAJESH PFEIFFER Performed By: #### L 501.9940, L100.0100, L500.4050, L501.5200 #### [facility] [address] [place], [address] Magnesiumon 09-03-2024 Magnesium [Mass/Vol] 2.2 mg/dL Normal 1.5-2.2 [facility] Comment on above: Order Comment: EDDIE PFEIFFER Performed By: #### L 501.9940, L100.0100, L500.4050, L501.5200 ####[facility] [address] [place], [address] PSA,Total- Diagnosticon 08-16 PSA, DIAGNOSTIC 5.99 ng/mL High 0.00-4.00 [facility] Comment on above: Order Comment: EDDIE [...] By: #### L 501.9940, L100.0100, L500.4050, L501.5200 ####[facility] [address] [place], [address] MR/WES.NELSYBon 08-31-2024 MR/BMS.Jose [facility] [address] [facility] [place] [address] OFFICE VISIT Date of Service: 08/31/24 MR#: [id number] Acct: [id number] Name: SENA SARMIENTO Rep #: [id number] : 1955 Provider: Dr. Dhara perez MD Age/Sex: 69/M Location: [facility] Status: Signed Intake Vital Signs 06/12/24 [...] Leg Pain Chief Complaint: Fatigue, Leg Pain Physician Practice Consultant Required: No Accompanied by: Is patient in [...] you fallen in the past year?: No [facility] Medical History (Updated 08/31/24 @ 10:[address] Dhara Best MD) Claudication of both lower extremities Ceruminosis Elevated PSA Tunnel vision Dizziness Abnormal gait Fatigue Hypogonadism in male Urinary frequency Dysuria History of nicotine dependence Atherosclerotic heart disease of [place] coronary artery without angina pectoris Abnormal lung [...] continence however (more content not included)... Normal [facility] CBC W/Diff, Automatedon 12-2 Absolute Lymph 1.37 X10 3/uL Normal 0.83-4.51 [facility] Comment on above: Performed By: #### L 100.0100, L300.4310, L300.3900, L500.4050 ####[facility] [address] [place], [address] Absolute Neut 3.9 X10 3/uL Normal 2.0-7.7 [facility] Comment on above: Performed By: #### L 100.0100, L300.4310, L300.3900, L500.4050 ####[facility] [address] [place], [address] Basophils/100 WBC (Bld) 0.8 % Normal 0-1 [facility] Comment on above: Performed By: #### L 100.0100, L300.4310, L300.3900, L500.4050 ####[facility] [address] [place], [address] Eosinophils/100 WBC (Bld) 1.3 % Normal 0-5 [facility] Comment on above: Performed By: #### L 100.0100, L300.4310, L300.3900, L500.4050 ####[facility] [address] [place], [address] Erythrocyte distribution width (RBC) [Ratio] 14.9 % High 11.6-14.6 [facility] Comment on above: Performed By: #### L 100.0100, L300.4310, L300.3900, L500.4050 ####[facility] [address] [place], [address] Hematocrit (Bld) [Volume fraction] 39.8 % Low 40-54 [facility] Comment on above: Performed By: #### L 100.0100, L300.4310, L300.3900, L500.4050 ####[facility] [address] [place], [address] Hemoglobin (Bld) [Mass/Vol] 13.6 g/dL Normal 13.0-16.5 [facility] Comment on above: Performed By: #### L 100.0100, L300.4310, L300.3900, L500.4050 ####[facility] [address] [place], [address] IG% 0.300 Normal 0.0-0.9 [facility] Comment on above: Result Comment: IG% - Immature Granulocytes (promyelocytes, myelocytes and metamyelocytes) > 1% indicates that a LEFT SHIFT is Present. Performed By: #### L 100.0100, L300.4310, L300.3900, L500.4050 ####[facility] [address] [place], [address] Lymphocytes/100 WBC (Bld) 21.8 % Normal 19-41 [facility] Comment on above: Performed By: #### L 100.0100, L300.4310, L300.3900, L500.4050 ####[facility] [address] [place], [address] MCH (RBC) [Entitic mass] 31.2 pg Normal 27.0-32.0 [facility] Comment on above: Performed By: #### L 100.0100, L300.4310, L300.3900, L500.4050 ####[facility] [address] [place], [address] MCHC (RBC) [Mass/Vol] 34.2 g/dL Normal 32-36 [facility] Comment on above: Performed By: #### L 100.0100, L300.4310, L300.3900, L500.4050 ####[facility] [address] [place], [address] MCV (RBC) [Entitic vol] 91.3 fL Normal 80-94 [facility] Comment on above: Performed By: #### L 100.0100, L300.4310, L300.3900, L500.4050 ####[facility] [address] [place], [address] Monocytes/100 WBC (Bld) 13.7 % High 0-10 [facility] Comment on above: Performed By: #### L 100.0100, L300.4310, L300.3900, L500.4050 ####[facility] [address] [place], [address] Neutrophils/100 WBC (Bld) 62.1 % Normal 47-70 [facility] Comment on above: Performed By: #### L 100.0100, L300.4310, L300.3900, L500.4050 ####[facility] [address] [place], [address] Nucleated RBC (Bld) [#/Vol] 0 10*3/uL Normal 0-5 [facility] Comment on above: Performed By: #### L 100.0100, L300.4310, L300.3900, L500.4050 ####[facility] [address] [place], [address] Platelet mean volume (Bld) [Entitic vol] 10.6 fL Normal 6.2-12.0 [facility] Comment on above: Performed By: #### L 100.0100, L300.4310, L300.3900, L500.4050 ####[facility] [address] [place], [address] Platelets (Bld) [#/Vol] 247 10*3/uL Normal 150-450 [facility] Comment on above: Performed By: #### L 100.0100, L300.4310, L300.3900, L500.4050 ####[facility] [address] [place], [address] RBC (Bld) [#/Vol] 4.36 10*6/uL Low 4.6-6.2 [facility] Comment on above: Performed By: #### L 100.0100, L300.4310, L300.3900, L500.4050 ####[facility] [address] [place], [address] RDW SD 50.4 fl High 35.1-43.9 [facility] Comment on above: Performed By: #### L 100.0100, L300.4310, L300.3900, L500.4050 ####[facility] [address] [place], [address] WBC (Bld) [#/Vol] 6.3 10*3/uL Normal 4.4-11.0 [facility] Comment on above: Performed By: #### L 100.0100, L300.4310, L300.3900, L500.4050 ####[facility] [address] [place], [address] CTA Abd/Pelvis W/WO Contrast on 06-12-2024 CTA Abd/Pelvis W/WO Contrast [facility] Imaging Services [address] [place] [address] CTA Abd/Pelvis W/WO Contrast MR#: [id number] Acct: [id number] Name: SENA SARMIENTO Rep #: [id number] : 1955 M 68 From: Duy Emmanuel MD PCP: Dr. Dhara Best MD Status: [facility] ER Study: CTA Abd/Pelvis W/WO Contrast Date of Exam: Exam# [id number] Ordering Dr: Ari Ernst DO :[id number] INDICATION: Gastrointestinal bleeding EXAMINATION: CTA abdomen and [...] Ari Ernst, DO; Dr. Dhara Best MD Traffic Analysis Technician: Signed Normal [facility] Comprehensive Metabolic Prof [facility] 06-12-2024 Albumin [Mass/Vol] 3.6 g/dL Normal 3.2-5.0 [facility] Comment on above: Performed By: #### L 100.0100, L300.4310, L300.3900, L500.4050 ####[facility] [address] [place], [address] Albumin/Globulin [Mass ratio] 1.0 {ratio} Normal 0.9-2.4 [facility] Comment on above: Performed By: #### L 100.0100, L300.4310, L300.3900, L500.4050 ####[facility] [address] [place], [address] ALK P 68 U/L Normal 45-117 [facility] Comment on above: Performed By: #### L 100.0100, L300.4310, L300.3900, L500.4050 ####[facility] [address] [place], [address] ALT [Catalytic activity/Vol] 34 U/L Normal 16-61 [facility] Comment on above: Performed By: #### L 100.0100, L300.4310, L300.3900, L500.4050 ####[facility] [address] [place], [address] AST [Catalytic activity/Vol] 22 U/L Normal 15-37 [facility] Comment on above: Performed By: #### L 100.0100, L300.4310, L300.3900, L500.4050 ####[facility] [address] [place], [address] Bilirubin [Mass/Vol] 0.40 mg/dL Normal 0.20-1.00 [facility] Comment on above: Result Comment: For patients on eltrombopag therapy, use of Dimension Verdi TBIL is not recommended. Performed By: #### L 100.0100, L300.4310, L300.3900, L500.4050 ####[facility] [address] [place], [address] BUN/CRE 9.8 RATIO Low 10-20 [facility] Comment on above: Performed By: #### L 100.0100, L300.4310, L300.3900, L500.4050 ####[facility] [address] [place], [address] CA,Total 8.9 mg/dL Normal 8.5-10.1 [facility] Comment on above: Performed By: #### L 100.0100, L300.4310, L300.3900, L500.4050 ####[facility] [address] [place], [address] Chloride [Moles/Vol] 104 mmol/L Normal 98-107 [facility] Comment on above: Performed By: #### L 100.0100, L300.4310, L300.3900, L500.4050 ####[facility] [address] [place], [address] CO2 [Moles/Vol] 26.0 mmol/L Normal 21.0-32.0 [facility] Comment on above: Performed By: #### L 100.0100, L300.4310, L300.3900, L500.4050 ####[facility] [address] [place], [address] Creatinine [Mass/Vol] 1.02 mg/dL Normal 0.70-1.30 [facility] Comment on above: Result Comment: The validity of the calculated GFR GFRAA in patients over 70 years has not been determined. Clinical correlation is essential. Performed By: #### L 100.0100, L300.4310, L300.3900, L500.4050 ####[facility] [address] [place], [address] ECRCL 69.03 ml/min Normal [facility] Comment on above: Performed By: #### L 100.0100, L300.4310, L300.3900, L500.4050 ####[facility] [address] [place], [address] EST GFR - AA 94 mL/min Normal >60 [facility] Comment on above: Result Comment: Afri can Montserratian GFR Calc Performed By: #### L 100.0100, L300.4310, L300.3900, L500.4050 ####[facility] [address] [place], [address] GAP 4 Low 5-15 [facility] Comment on above: Performed By: #### L 100.0100, L300.4310, L300.3900, L500.4050 ####[facility] [address] [place], [address] GFR/1.73 sq M.predicted among non-blacks MDRD (S/P/Bld) [Vol rate/Area] 77 mL/min/{1.73_m2} Normal >60 [facility] Comment on above: Result Comment: Non- GFR Calc Performed By: #### L 100.0100, L300.4310, L300.3900, L500.4050 ####[facility] [address] [place], [address] Globulin (S) [Mass/Vol] 3.7 g/dL Normal 2.2-4.2 [facility] Comment on above: Performed By: #### L 100.0100, L300.4310, L300.3900, L500.4050 ####[facility] [address] [place], [address] Glucose [Mass/Vol] 141 mg/dL High 74-106 [facility] Comment on above: Result Comment: Fast ing Glucose result greater than or equal to 126 mg/dL suggests DIABETES MELLITUS per A.D.A. criteria. Performed By: #### L 100.0100, L300.4310, L300.3900, L500.4050 ####[facility] [address] [place], [address] Potassium [Moles/Vol] 3.9 mmol/L Normal 3.5-5.1 [facility] Comment on above: Performed By: #### L 100.0100, L300.4310, L300.3900, L500.4050 ####[facility] [address] [place], [address] Sodium [Moles/Vol] 135 mmol/L Low 136-145 [facility] Comment on above: Performed By: #### L 100.0100, L300.4310, L300.3900, L500.4050 ####[facility] [address] [place], [address] T PROT 7.3 g/dL Normal 6.4-8.2 [facility] Comment on above: Performed By: #### L 100.0100, L300.4310, L300.3900, L500.4050 ####[facility] [address] [place], [address] Urea nitrogen [Mass/Vol] 10 mg/dL Normal 7-18 [facility] Comment on above: Performed By: #### L 100.0100, L300.4310, L300.3900, L500.4050 ####[facility] [address] [place], [address] Emergency Department Summary on 06-12-2024 Emergency Department Summary [facility] Medical Records Department [address] [place] [address] Emergency Department Summary 06/12/24 MR#: [id number] Acct: [id number] Name: SENA SARMIENTO Rep #: [id number] : 1955 68 From: Ari Ernst DO PCP: Dr. Dhara Best MD Status:DEP ER Location: ED HPI HPI - GI History of Present Illness Chief Complaint: GI Bleed Informant: patient Abdominal Pain/Flank Pain Onset: Today Context: Gradual Onset Timing: Continuous Quality: Aching Location: Diffuse Worsened by: Nothing Relieved by: Nothing Nausea/Vomiting/Emesis GI Symptom: Positive for Nausea; Negative for Vomiting Diarrhea/Melena/Hematochezia GI Symptom: Positive for Hematochezia Onset: Weeks [...] hematuria. Patient denies any fevers or chills. [facility] Medical History Ceruminosis Elevated PSA Tunnel vision Dizziness Abnormal gait Fatigue Hypogonadism in male Urinary frequency Dysuria History of nicotine dependence Atherosclerotic heart disease of [place] coronary artery without angina pectoris Abnormal lung [...] Rx hydrocortisone acetate 25 mg 25 mg ID DAILY #12 ea 06/12/24 Unknown Rx rectal [...] Neurologic Sudarshan (more content not included)... Normal [facility] Partial Thromboplast Timeon 06-12-2024 aPTT Coag (Bld) [Time] 28.9 s Normal 24.1-36.2 [facility] Comment on above: Performed By: #### L 100.0100, L300.4310, L300.3900, L500.4050 ####[facility] [address] [place], [address] Prothrombin Time w/INRon INR Coag (PPP) [Relative time] 0.9 {INR} Normal [facility] Comment on above: Performed By: #### L 100.0100, L300.4310, L300.3900, L500.4050 ####[facility] [address] [place], [address] PT Coag (PPP) [Time] 12.6 s Normal 11.7-14.9 [facility] Comment on above: Performed By: #### L 100.0100, L300.4310, L300.3900, L500.4050 ####[facility] [address] [place], [address] Stool Occult Blood iFOBon STOB Positive Normal [facility] Comment on above: Performed By: #### M 100.7900 ####[facility] [address] [place], [address] Absolute lymphocyte countOrd ered By: Dhara Best on 07-17-2023 Lymphocytes Auto (Unsp spec) [#/Vol] 2.03 10*3/uL 0.83-4.51 [facility] Automated lymphocyte count a s percentage of total leukocytesOrdered By: Dhara Best on 07-17-2023 Lymphocytes/100 WBC Auto (Unsp spec) 36.8 % 19-41 [facility] Basophil percentageOrdered B y: Dhara Best on 07-17-2023 Basophil percentage 0 SEEN /hpf 0-5 [facility] Basophil percentage 7.73 ng/mL 0.0-4.0 [facility] Comment on above: This test was perfor med using the TPSA assay method for theTagboard chemistry system. Values obtained with differentassay methods cannot be used interchangably.When changing PSA assays in the course of monitoring apatient, additional sequential testing should be carriedout to confirm baseline values. Basophils/100 WBC (Bld) 1.1 % 0-1 [facility] Bilirubin [Mass/Vol] 0.40 mg/dL 0.20-1.00 [facility] Comment on above: For patients on eltr ombopag therapy, use of Dimension Verdi TBIL is not recommended. Chloride [Moles/Vol] 105 mmol/L 98-107 [facility] Eosinophils/100 WBC (Bld) 1.6 % 0-5 [facility] Glucose [Mass/Vol] 105 mg/dL 74-106 [facility] Comment on above: Fasting Glucose resu lt from 100 to 125 mg/dL suggests IMPAIRED HOMEOSTASIS per A.D.A. criteria. Hemoglobin (Bld) [Mass/Vol] 13.7 g/dL 13.0-16.5 [facility] Monocytes/100 WBC (Bld) 12.2 % 0-10 [facility] Neutrophils (Bld) [#/Vol] 2.6 10*3/uL 2.0-7.7 [facility] Neutrophils/100 WBC (Bld) 47.9 % 47-70 [facility] Potassium [Moles/Vol] 4.1 mmol/L 3.5-5.1 [facility] Protein [Mass/Vol] 7.6 g/dL 6.4-8.2 [facility] Sodium [Moles/Vol] 135 mmol/L 136-145 [facility] WBC (Bld) [#/Vol] 5.5 10*3/uL 4.4-11.0 [facility] Bilirubin Test strip Ql (U)O rdered By: Dhara Best on 07-17-2023 Bilirubin Ql (U) Negative Negative [facility] Culture, urineOrdered By: Jaqueline Best on 07-17-2023 Bacteria identified Cx Nom (U) Culture exhibits no growth. [facility] Cytology report of Body flui d Cyto stainOrdered By: Dhara Best on 07-17-2023 Cytology report Cyto stain Doc (Body fld) SEE PATHOLOGY REPORT [facility] Comment on above: Specimen submitted t o Anatomical Pathology Department for testing. Determination of erythrocyte mean corpuscular volume (MCV)Ordered By: Dhara Best on 07-17-2023 MCV (RBC) [Entitic vol] 90.8 fL 80-94 [facility] Erythrocyte distribution wid th ratioOrdered By: Dhara Best on 07-17-2023 Erythrocyte distribution width (RBC) [Ratio] 13.7 % 11.6-14.6 [facility] Erythrocyte distribution wid th standard deviationOrdered By: Dhara Best on 07-17-2023 Erythrocyte distribution width (RBC) [Entitic vol] 45.8 fL 35.1-43.9 [facility] Hematocrit Auto (Bld) [Volum e fraction]Ordered By: Dhara Best on 07-17-2023 Hematocrit (Bld) [Volume fraction] 40.4 % 40-54 [facility] Immature granulocytes/100 WB C Auto (Bld)Ordered By: Dhara Best on 07-17-2023 Immature granulocytes/100 WBC (Bld) 0.400 % 0.0-0.9 [facility] Comment on above: IG% - Immature Granu locytes (promyelocytes, myelocytes and metamyelocytes) > 1% indicates that a LEFT SHIFT is Present. Ketones Test strip Ql (U)Ord ered By: Dhara Best on 07-17-2023 Ketones Ql (U) Negative Negative [facility] Laboratory - Chemistry and C hemistry - challengeOrdered By: Dhara Best on 07-17-2023 Albumin/Globulin [Mass ratio] 1.0 {ratio} 0.9-2.4 [facility] ALP [Catalytic activity/Vol] 82 U/L 45-117 [facility] ALT [Catalytic activity/Vol] 31 U/L 16-61 [facility] CO2 [Moles/Vol] 25.0 mmol/L 21.0-32.0 [facility] Globulin (S) [Mass/Vol] 3.8 g/dL 2.2-4.2 [facility] Urea nitrogen/Creatinine [Mass ratio] 7.7 mg/mg 10-20 [facility] Laboratory - Hematology and Cell countsOrdered By: Dhara Best on 07-17-2023 MCH (RBC) [Entitic mass] 30.8 pg 27.0-32.0 [facility] MCHC (RBC) [Mass/Vol] 33.9 g/dL 32-36 [facility] Nucleated RBC/100 WBC (Bld) [Ratio] 0 % 0-5 [facility] Platelets (Bld) [#/Vol] 286 10*3/uL 150-450 [facility] Mucus LM Ql (Urine sed)Order ed By: Dhara Best on 07-17-2023 Mucus Ql (Urine sed) 0 SEEN /hpf [facility] Nitrite Test strip Ql (U)Ord ered By: Dhara Best on 07-17-2023 Nitrite Ql (U) Negative Negative [facility] No Panel InformationOrdered By: Dhara Best on 07-17-2023 Estimated GFR (MDRD) Amer 92 mL/min >60 [facility] Comment on above: GFR Calc Estimated GFR (MDRD) Non-Af Amer 76 mL/min >60 [facility] Comment on above: Non- GFR Calc Urine RBC 0 SEEN /hpf 0-5 [facility] Vitamin D 25-Hydroxy 26.1 ng/mL [facility] Comment on above: Vitamin D 25(OH) Sta tus Range Deficiency <20 ng/mL (50nmol/L) Insufficiency 20 - 30 ng/mL (50 - 75 nmol/L) Sufficiency 30 - 100 ng/mL (75 - 250 nmol/L) Toxicity >100 ng/mL (>250 nmol/L) Platelet mean volume Maikel-Ec ker (Bld) [Entitic vol]Ordered By: Dhara Best on 07-17-2023 Platelet mean volume (Bld) [Entitic vol] 10.3 fL 6.2-12.0 [facility] Protein Test strip Ql (U)Ord ered By: Dhara Best on 07-17-2023 Protein Ql (U) Negative Negative [facility] RBC Auto (Bld) [#/Vol]Ordere d By: Dhara Best on 07-17-2023 RBC (Bld) [#/Vol] 4.45 10*6/uL 4.6-6.2 [facility] Serum or plasma calcium tonja urement (mass/volume)Ordered By: Dhara Best on 07-17-2023 Calcium [Mass/Vol] 8.9 mg/dL 8.5-10.1 [facility] Serum or plasma creatinine m easurement (mass/volume)Ordered By: Dhara Best on 07-17-2023 Creatinine [Mass/Vol] 1.04 mg/dL 0.70-1.30 [facility] Comment on above: The validity of the calculated GFR & GFRAA in patients over 70 years has not been determined. Clinical correlation is essential. Serum or plasma thyroid stim ulating hormone (TSH) measurement (units/volume)Ordered By: Dhara Best on 07-17-2023 TSH Qn 1.56 uIU/mL 0.358-3.74 [facility] Serum or plasma urea nitroge n measurement (mass/volume)Ordered By: Dhara Best on 07-17-2023 Urea nitrogen [Mass/Vol] 8 mg/dL 7-18 [facility] Squamous epithelial cells de tection in urine sediment by light microscopyOrdered By: Dhara Best on 07-17-2023 Epithelial cells.squamous LM Ql (Urine sed) 0 SEEN /hpf 0-5 [facility] Thin prep Papanicolaou smear with manual screeningOrdered By: Dhara Best on 07-17-2023 Thin prep Papanicolaou smear with manual screening 3.8 g/dL 3.2-5.0 [facility] Thin prep Papanicolaou smear with manual screening 16 U/L 15-37 [facility] Thin prep Papanicolaou smear with manual screening 5 5-15 [facility] Urine blood detectionOrdered By: Dhara Best on 07-17-2023 RBC Ql (U) Negative Negative [facility] Urine clarityOrdered By: Shaista Best on 07-17-2023 Clarity (U) Clear Clear [facility] Urine color determinationOrd ered By: Dhara Best on 07-17-2023 Color (U) Straw Yellow [facility] Urine glucose detectionOrder ed By: Dhara Best on 07-17-2023 Glucose Ql (U) Normal mg/dl Normal [facility] Urine leukocyte esterase det ection by dipstickOrdered By: Dhara Best on 07-17-2023 Leukocyte esterase Test strip Ql (U) Negative Negative [facility] Urine pHOrdered By: Dhara silverman on 07-17-2023 pH (U) 7.0 [pH] 5.0 - 8.0 [facility] Urine sediment bacteria coun t by microscopy (number/high power field)Ordered By: Dhara Best on 07-17-2023 Bacteria LM.HPF (Urine sed) [#/Area] 0 /[HPF] None Seen [facility] Urine specific gravity measu rementOrdered By: Dhara Best on 07-17-2023 Specific gravity (U) [Rel density] 1.005 1.002-1.03 0 [facility] Urine urobilinogen measureme ntOrdered By: Dhara Best on 07-17-2023 Urobilinogen Ql (U) Normal mg/dl Normal [facility] Absolute lymphocyte countOrd ered By: Von Redd on 04-03-2023 Lymphocytes Auto (Unsp spec) [#/Vol] 1.64 10*3/uL 0.83-4.51 [facility] Basophil percentageOrdered B y: Von Redd on 04-03-2023 Basophils/100 WBC (Bld) 1.2 % 0-1 [facility] Chloride [Moles/Vol] 107 mmol/L 98-107 [facility] Cholesterol [Mass/Vol] 177 mg/dL <200 [facility] Comment on above: <200 mg/dL Desirable 200-240 mg/dL Borderline >240 mg/dL High Risk Eosinophils/100 WBC (Bld) 1.2 % 0-5 [facility] Glucose [Mass/Vol] 110 mg/dL 74-106 [facility] Comment on above: Fasting Glucose resu lt from 100 to 125 mg/dL suggests IMPAIRED HOMEOSTASIS per A.D.A. criteria. Neutrophils (Bld) [#/Vol] 3.4 10*3/uL 2.0-7.7 [facility] Neutrophils/100 WBC (Bld) 57.3 % 47-70 [facility] Potassium [Moles/Vol] 3.9 mmol/L 3.5-5.1 [facility] Sodium [Moles/Vol] 138 mmol/L 136-145 [facility] Triglyceride [Mass/Vol] 151 mg/dL <199 [facility] Comment on above: The drugs N-Acetylcy steine and Metamizole may falsely depress this assay.Serum Triglycerides Reference Interval Normal <150 mg/dL Borderline high 150 - 199 mg/dL High 200 - 499 mg/dL Very High > or = 500 mg/dL WBC (Bld) [#/Vol] 5.8 10*3/uL 4.4-11.0 [facility] Blood erythrocytes count (nu mber/volume)Ordered By: Von Redd on 04-03-2023 RBC (Bld) [#/Vol] 4.55 10*6/uL 4.6-6.2 [facility] Blood hemoglobin measurement (mass/volume)Ordered By: Von Redd on 04-03-2023 Hemoglobin (Bld) [Mass/Vol] 13.9 g/dL 13.0-16.5 [facility] Blood lymphocytes/100 leukoc ytesOrdered By: Von Redd on 04-03-2023 Lymphocytes/100 WBC (Bld) 28.1 % 19-41 [facility] Blood monocytes/100 leukocyt esOrdered By: Vonravin Redd on 04-03-2023 Monocytes/100 WBC (Bld) 12.0 % 0-10 [facility] Blood platelet mean volumeOr dered By: Von Redd on 04-03-2023 Platelet mean volume (Bld) [Entitic vol] 10.7 fL 6.2-12.0 [facility] Determination of erythrocyte mean corpuscular volume (MCV)Ordered By: Von Redd on 04-03-2023 MCV (RBC) [Entitic vol] 92.7 fL 80-94 [facility] Hematocrit Auto (Bld) [Volum e fraction]Ordered By: Von Redd on 04-03-2023 Hematocrit (Bld) [Volume fraction] 42.2 % 40-54 [facility] Laboratory - Chemistry and C hemistry - challengeOrdered By: Von Redd on 04-03-2023 CO2 [Moles/Vol] 25.0 mmol/L 21.0-32.0 [facility] Urea nitrogen/Creatinine [Mass ratio] 12.3 mg/mg 10-20 [facility] Laboratory - Hematology and Cell countsOrdered By: Von Redd on 04-03-2023 Erythrocyte distribution width (RBC) [Entitic vol] 48.1 fL 35.1-43.9 [facility] Erythrocyte distribution width (RBC) [Ratio] 14.2 % 11.6-14.6 [facility] Immature granulocytes/100 WBC (Bld) 0.200 % 0.0-0.9 [facility] Comment on above: IG% - Immature Granu locytes (promyelocytes, myelocytes and metamyelocytes) > 1% indicates that a LEFT SHIFT is Present. MCH (RBC) [Entitic mass] 30.5 pg 27.0-32.0 [facility] Nucleated RBC/100 WBC (Bld) [Ratio] 0 % 0-5 [facility] MCHC Auto (RBC) [Mass/Vol]Or dered By: Von Redd on 04-03-2023 MCHC (RBC) [Mass/Vol] 32.9 g/dL 32-36 [facility] No Panel InformationOrdered By: Von Redd on 04-03-2023 Estimated GFR (MDRD) Amer 99 mL/min >60 [facility] Comment on above: GFR Calc Estimated GFR (MDRD) Non-Af Amer 82 mL/min >60 [facility] Comment on above: Non- GFR Calc Thyroid Stimulating Hormone (TSH) 2.82 uIU/mL 0.358-3.74 [facility] Platelets bldOrdered By: Ion Redd on 04-03-2023 Platelets (Bld) [#/Vol] 304 10*3/uL 150-450 [facility] Serum or plasma calcium tonja urement (mass/volume)Ordered By: Von Redd on 04-03-2023 Calcium [Mass/Vol] 8.8 mg/dL 8.5-10.1 [facility] Serum or plasma cholesterol in HDL measurement (mass/volume)Ordered By: Von Redd on 04-03-2023 Cholesterol in HDL [Mass/Vol] 55 mg/dL >40 [facility] Comment on above: The drugs N-Acetylcy steine and Metamizole may falsely depress this assay. Reference Range HDL <40 mg/dL Low HDL Cholesterol HDL >or= 60 mg/dL High HDL Cholesterol Serum or plasma cholesterol in VLDL measurement (mass/volume)Ordered By: Von Redd on 04-03-2023 Cholesterol in VLDL [Mass/Vol] 30 mg/dL 5-40 [facility] Serum or plasma creatinine m easurement (mass/volume)Ordered By: Von Redd on 04-03-2023 Creatinine [Mass/Vol] 0.98 mg/dL 0.70-1.30 [facility] Comment on above: The validity of the calculated GFR & GFRAA in patients over 70 years has not been determined. Clinical correlation is essential. Serum or plasma low density lipoprotein (LDL) cholesterol measurement (mass/volume)Ordered By: Von Redd on 04-03-2023 Cholesterol in LDL [Mass/Vol] 92 mg/dL 0-130 [facility] Serum or plasma urea nitroge n measurement (mass/volume)Ordered By: Von Tramaine on 04-03-2023 Urea nitrogen [Mass/Vol] 12 mg/dL 7-18 [facility] Thin prep Papanicolaou smear with manual screeningOrdered By: Von Tramaine on 04-03-2023 Thin prep Papanicolaou smear with manual screening 6 5-15 [facility] Absolute lymphocyte counton 06-05-2022 Lymphocytes Auto (Unsp spec) [#/Vol] 2.05 10*3/uL 0.83-4.51 [facility] Work Phone: Basophil percentageon 2021 Basophils/100 WBC (Bld) 0.9 % 0-1 [facility] Work Phone: Chloride [Moles/Vol] 105 mmol/L 98-107 [facility] Work Phone: Eosinophils/100 WBC (Bld) 1.7 % 0-5 [facility] Work Phone: [phone] Glucose [Mass/Vol] 117 mg/dL 74-106 [facility] Work Phone: [phone] Comment on above: Fasting Glucose resu lt from 100 to 125 mg/dL suggests IMPAIRED HOMEOSTASIS per A.D.A. criteria. Neutrophils (Bld) [#/Vol] 3.3 10*3/uL 2.0-7.7 [facility] Work Phone: [phone] Neutrophils/100 WBC (Bld) 51.6 % 47-70 [facility] Work Phone: [phone] Potassium [Moles/Vol] 4.4 mmol/L 3.5-5.1 [facility] Work Phone: [phone] Comment on above: Moderate Hemolysis, Result may be falsely increased. Sodium [Moles/Vol] 137 mmol/L 136-145 [facility] Work Phone: [phone] WBC (Bld) [#/Vol] 6.4 10*3/uL 4.4-11.0 [facility] Work Phone: [phone] Blood erythrocytes count (nu mber/volume)on 06-05-2022 RBC (Bld) [#/Vol] 4.41 10*6/uL 4.6-6.2 [facility] Work Phone: [phone] Blood hemoglobin measurement (mass/volume)on 06-05-2022 Hemoglobin (Bld) [Mass/Vol] 13.9 g/dL 13.0-16.5 [facility] Work Phone: Blood lymphocytes/100 leukoc yteson 06-05-2022 Lymphocytes/100 WBC (Bld) 32.0 % 19-41 [facility] Work Phone: Blood monocytes/100 leukocyt eson 06-05-2022 Monocytes/100 WBC (Bld) 13.6 % 0-10 [facility] Work Phone: Blood platelet mean volumeon 06-05-2022 Platelet mean volume (Bld) [Entitic vol] 10.0 fL 6.2-12.0 [facility] Work Phone: Determination of erythrocyte mean corpuscular volume (MCV)on 06-05-2022 MCV (RBC) [Entitic vol] 92.5 fL 80-94 [facility] Work Phone: Hematocrit Auto (Bld) [Volum e fraction]on 06-05-2022 Hematocrit (Bld) [Volume fraction] 40.8 % 40-54 [facility] Work Phone: Laboratory - Chemistry and C hemistry - challengeon 06-05-2022 CO2 [Moles/Vol] 27.0 mmol/L 21.0-32.0 [facility] Work Phone: Urea nitrogen/Creatinine [Mass ratio] 12.9 mg/mg - [facility] Work Phone: Laboratory - Hematology and Cell countson 06-05-2022 Erythrocyte distribution width (RBC) [Entitic vol] 49.1 fL 35.1-43.9 [facility] Work Phone: Erythrocyte distribution width (RBC) [Ratio] 14.4 % 11.6-14.6 [facility] Work Phone: Immature granulocytes/100 WBC (Bld) 0.200 % 0.0-0.9 [facility] Work Phone: Comment on above: IG% - Immature Granu locytes (promyelocytes, myelocytes and metamyelocytes) > 1% indicates that a LEFT SHIFT is Present. MCH (RBC) [Entitic mass] 31.5 pg 27.0-32.0 [facility] Work Phone: Nucleated RBC/100 WBC (Bld) [Ratio] 0 % 0-5 [facility] Work Phone: MCHC Auto (RBC) [Mass/Vol]on 06-05-2022 MCHC (RBC) [Mass/Vol] 34.1 g/dL 32-36 [facility] Work Phone: No Panel Informationon 06-05 Troponin I High Sensitivity 10 pg/mL 3.0-78.0 [facility] Work Phone: Comment on above: Please Note: New Claudine t Units and Gender Specific Reference Ranges. For more information see Policy Stat Procedure Verdi High Sensitivity Troponin (TNIH) and attachments. D-Dimer Quantitative (PE/DVT) 0.52 FEU/ug/m 0.27-0.49 [facility] Work Phone: Comment on above: D-Dimer ELEVATED (>0 .49): Additional studies and clinicalassessments are indicated to conclude diagnosis of:Deep Vein Thrombosis (DVT) or Pulmonary Embolism (PE)CRITICAL VALUE VERIFIED. CALLED TO SHAMA MARRUFO (ER)06/05/22 1531 Etienne Woodson.RESULTS READ BACK BY SAME. Ethyl Alcohol Level < 3.0 mg/dL [facility] Work Phone: Comment on above: The serum:whole bloo d ethanol ratio is approximately 1.14and varies slightly with hematocrit. Medical Alcohol reference interval and critical value innon-tolerant individuals; 50 - 100 Impairment 100 Intoxication 100 - 250 Severe Poisoning 250 - 400 Deep/possible fatal coma Estimated Creatinine Clearance Calc 61.06 ml/min [facility] Work Phone: Estimated GFR (MDRD) Amer 95 mL/min >60 [facility] Work Phone: Comment on above: GFR Calc Estimated GFR (MDRD) Non-Af Amer 79 mL/min >60 [facility] Work Phone: Comment on above: Non- GFR Calc Platelets bldon 06-05-2022 Platelets (Bld) [#/Vol] 266 10*3/uL 150-450 [facility] Work Phone: Serum or plasma calcium tonja urement (mass/volume)on 06-05-2022 Calcium [Mass/Vol] 8.4 mg/dL 8.5-10.1 [facility] Work Phone: Serum or plasma creatinine m easurement (mass/volume)on 06-05-2022 Creatinine [Mass/Vol] 1.01 mg/dL 0.70-1.30 [facility] Work Phone: Comment on above: The validity of the calculated GFR & GFRAA in patients over 70 years has not been determined. Clinical correlation is essential. Serum or plasma urea nitroge n measurement (mass/volume)on 06-05-2022 Urea nitrogen [Mass/Vol] 13 mg/dL 7-18 [facility] Work Phone: Thin prep Papanicolaou smear with manual screeningon 06-05-2022 Thin prep Papanicolaou smear with manual screening 5 5-15 [facility] Work Phone: MR SHOULDER W/O RTon 018 MR SHOULDER W/O RT [facility] [address] [place], [place] [address] Patient: SENA SARMIENTO Phone#: : [phone] Age: 62 Gender: M Pt. Type: Out Account: [id number] Location: Ordering: MOHAN PIRES Exam Date: 11/06/2017/8:08 [facility]: [facility] Charge Code: [id number] Physician: Emmet Order #: [id number] DLP Dose#: PROCEDURE: MRI SHOULDER RT WITHOUT [...] 62 Gender: M Pt. Type: Out Account: [id number] Location: Ordering: MOHAN KOSAR Exam Date: 11/06/2017/8:08 [facility] Phys: [facility] Charge Code: [id number] Physician: Emmet Order #: [id number] DLP Dose#: AC JOINT: There is arthrosis [...] Jones MD on 11/07/2017 at 18:17 Normal [facility] Vital Signs Date Time Vital Sign Value Performing Clinician Doriei fortino 07-17-2023 09:41-0500 Body height 165.[address] Dhara Best Work Phone: [facility] 07-17-2023 09:41-0500 Body mass index (BMI) [Ratio] 30.4 kg/m2 Dr. Dhara Best Work Phone: [facility] 07-17-2023 09:41-0500 Body temperature 98.3 [degF] Dr. Dhara Best Work Phone: [facility] 07-17-2023 09:41-0500 Body weight 83.[address] Dhara Best Work Phone: [facility] 07-17-2023 09:41-0500 Diastolic blood pressure 77 mm[Hg] Dr. Dhara Best Work Phone: [facility] 07-17-2023 09:41-0500 Heart rate 68 /min Dr. Dhara Best Work Phone: [facility] 07-17-2023 09:41-0500 Respiratory rate 16 /min Dr. Dhara Best Work Phone: [facility] 07-17-2023 09:41-0500 SaO2% (BldA) [Mass fraction] 95 % Dr. Dhara Best Work Phone: [facility] 07-17-2023 09:41-0500 Systolic blood pressure 138 mm[Hg] Dr. Dhara Best Work Phone: [facility] 03-28-2023 10:20-0400 Body height 165.[address] Dhara Best Work Phone: [facility] 03-28-2023 10:20-0400 Body mass index (BMI) [Ratio] 28.6 kg/m2 Dr. Dhara Best Work Phone: [facility] 03-28-2023 10:20-0400 Body weight 78.[address] Dhara Best Work Phone: [facility] 03-28-2023 10:20-0400 Diastolic blood pressure 76 mm[Hg] Dr. Dhara Best Work Phone: [facility] 03-28-2023 10:20-0400 Heart rate 63 /min Dr. Dhara Best Work Phone: [facility] 03-28-2023 10:20-0400 Respiratory rate 16 /min Dr. Dhara Best Work Phone: [facility] 03-28-2023 10:20-0400 Systolic blood pressure 121 mm[Hg] Dr. Dhara Best Work Phone: [facility] 02-13-2023 08:28-0400 Body mass index (BMI) [Ratio] 29 kg/m2 Dr. Dhara Best Work Phone: [facility] 02-13-2023 08:28-0400 Body temperature 98.9 [degF] Dr. Dhara Best Work Phone: [facility] 02-13-2023 08:28-0400 Body weight 79.[address] Dhara Best Work Phone: [facility] 02-13-2023 08:28-0400 Diastolic blood pressure 86 mm[Hg] Dr. Dhara Best Work Phone: [facility] 02-13-2023 08:28-0400 Heart rate 60 /min Dr. Dhara Best Work Phone: [facility] 02-13-2023 08:28-0400 Respiratory rate 18 /min Dr. Dhara Best Work Phone: [facility] 02-13-2023 08:28-0400 SaO2% (BldA) [Mass fraction] 95 % Dr. Dhara Best Work Phone: [facility] 02-13-2023 08:28-0400 Systolic blood pressure 162 mm[Hg] Dr. Dhara Best Work Phone: [facility] 06-05-2022 16:53-0500 Diastolic blood pressure 76 mm[Hg] [facility] Work Phone: 06-05-2022 16:53-0500 Heart rate 90 /min [facility] Work Phone: 06-05-2022 16:53-0500 Respiratory rate 14 /min [facility] Work Phone: 06-05-2022 16:53-0500 SaO2% (BldA) [Mass fraction] 97 % [facility] Work Phone: 06-05-2022 16:53-0500 Systolic blood pressure 121 mm[Hg] [facility] Work Phone: 06-05-2022 13:31-0500 Body height 162.[address] [facility] Work Phone: 06-05-2022 13:31-0500 Body mass index (BMI) [Ratio] 30.9 kg/m2 [facility] Work Phone: 06-05-2022 13:31-0500 Body temperature 98 [degF] [facility] Work Phone: 06-05-2022 13:31-0500 Body weight 81.[address] [facility] Work Phone: Encounters Encounter Date Encounter Type Care Provider Facility Start: 04-06-2025 [facility] Facility :[facility] Start: 04-05-2025 Encounter for other [facility]proced[facility] Start: 04-01-2025 ambulatory [facility] Start: 03-31-2025 ambulatory [facility] Facility :[facility] Start: 03-30-2025 End: 03-30-2025 ambulatory [facility] Start: 03-25-2025 End: 03-25-2025 ambulatory [facility] Start: 03-16-2025 Encounter for preprocedural cardiovascular examination Von [facility] Start: 03-16-2025 End: 03-16-2025 ambulatory [facility] Facility:[facility] Start: 03-08-2025 End: 03-08-2025 ambulatory Dhara Best Facility:[facility] Start: 01-28-2025 End: 01-28-2025 ambulatory Dhara Best [facility] Start: 01-28-2025 End: 01-28-2025 ambulatory Dhara Best [facility] Start: 01-13-2025 End: 01-14-2025 ambulatory Dhara Best Facility:[facility] Start: 01-08-2025 End: 01-08-2025 ambulatory Terry Lebron Facility:[facility] Start: 12-02-2024 ambulatory Dhara Best Facility :[facility] Start: 12-02-2024 End: 12-02-2024 ambulatory Dhara Best Facility:[facility] Start: 11-03-2024 End: 11-03-2024 ambulatory Dharasung Best Facility:[facility] Start: 10-29-2024 End: 10-29-2024 ambulatory Dhara Best [facility] Start: 10-29-2024 End: 10-29-2024 ambulatory Dharasung Best Facility:[facility] Start: 09-17-2024 ambulatory Dhara Best [facility] :[facility] Start: 09-17-2024 End: 09-17-2024 ambulatory Dhara Best Facility:[facility] Start: 09-03-2024 End: 09-03-2024 ambulatory Dhara Best [facility] Start: 09-03-2024 End: 09-03-2024 ambulatory Dhara Best Facility:[facility] Start: 08-31-2024 End: 08-31-2024 ambulatory Dhara Best [facility] Start: 06-22-2024 ambulatory Dhara Best [facility] Start: 06-12-2024 End: 06-12-2024 Emergency department patient visit Dhara Best Facility:[facility] Start: 07-17-2023 End: 07-17-[address] Dhara Best Work Phone: [facility] Work Phone: Start: 07-17-2023 End: 07-17-[address] Dhara Best Work Phone: [facility] Work Phone: Start: 07-17-2023 End: 07-17-[address] Dhara Best Work Phone: [facility] Work Phone: Start: 04-11-2023 Non-patient / Non-visit Dr. Jaqueline Best Work Phone: [facility] Work Phone: Start: 04-11-2023 Non-patient / Non-visit Dr. Jaqueline Best Work Phone: [facility] Start: 04-11-2023 End: 04-11-[address] Dhara Best Work Phone: [facility] Work Phone: Start: 04-11-2023 End: 04-11-[address] Dhara Best Work Phone: [facility] Work Phone: Start: 04-03-2023 End: 04-03-[address] Dhara Best Work Phone: [facility] Work Phone: Start: 04-03-2023 End: 04-03-[address] Dhara Best Work Phone: [facility] Work Phone: Start: 03-28-2023 End: 03-28-[address] Dhara Best Work Phone: [facility] Work Phone: Start: 02-13-2023 End: 02-13-[address] Dhara Best Work Phone: [facility] Work Phone: Start: 06-05-2022 End: 06-05-2022 Emergency department patient visit [facility] Start: 11-14-2021 End: 11-14-[address] Dhara Best Work Phone: [facility] Start: 11-14-2021 End: 11-14-[address] Dhara Best Work Phone: [facility] Start: 11-06-2017 End: 11-06-2017 Ambulatory [facility] Start: 09-03-2017 End: 09-25-2017 Ambulatory [facility] Procedures Date Procedure Procedure Detail Performing Clinician [...] Activity Detail Author Start: 02-13-2023 Patient referral [facility] Work Phone: Start: 02-13-2023 Evaluation of diagno stic study results [facility] Start: 06-05-2022 End: 06-05-2022 [facility] Work Phone: Patient Education ED Chest Pain, Uncertain Cause [facility] Work Phone: Patient referral [facility] Work Phone: Radionuclide imaging of perfusion of myocardium under exercise stress [facility] Radionuclide imaging of perfusion of myocardium under exercise stress [facility] Serum testosterone measurement [facility] Testosterone Free [Mass/volume] in Serum or Plasma [facility] Testosterone measurement [facility] Kidney - bilatera l and Urinary bladder [facility] Payers Date Payer Category Payer Self-pay [id number] 2024 Unknown [id number] Medicare [id number] Medicare [id number] Unknown VA AUTH REQUIRED SEE NOTE* * [id number] Unknown [id number] [id number]2 Unknown [id number] 2.16.840.1.668013.3.579.2.462 Unknown [id number] 2.16.840.1.435418.3.579.2.462 Unknown [id number] 2.16.840.1.019080.3.579.2.462 Unknown [id number] 2.16.840.1.286182.3.579.2.462 Unknown [id number] 2.16.840.1.103764.3.579.2.462 Unknown [id number] 2.16.840.1.536752.3.579.2.462 Unknown [id number] 2.16.840.1.017673.3.579.2.462 Unknown [id number] 2.16.840.1.269165.3.579.2.462 Unknown [id number] 2.16.840.1.638213.3.579.2.462 Unknown [id number] 2.16.840.1.241991.3.579.2.462 Unknown [id number] 2.16.840.1.086291.3.579.2.462 Unknown [id number] 2.16.840.1.174928.3.579.2.462 Unknown [id number] 2.16.840.1.809704.3.579.2.462 Unknown [id number] 2.16.840.1.693078.3.579.2.462 Unknown [id number] 2.16.840.1.499460.3.579.2.462 Unknown [id number] 2.16.840.1.867845.3.579.2.462 Unknown [id number] 2.16.840.1.831083.3.579.2.462 Unknown [id number] 2.16.840.1.409329.3.579.2.462 Unknown [id number] 2.16.840.1.537495.3.579.2.462 Unknown [id number] 2.16.840.1.213998.3.579.2.462 Unknown [id number] 2.16.840.1.544468.3.579.2.462 Unknown [id number] 2.16.840.1.370227.3.579.2.462 Unknown [id number] 2.16.840.1.255126.3.579.2.462 Unknown [id number] 2.16.840.1.342844.3.579.2.462 Social History Date Type Detail Facility Start: 11-14-2021 End: 07-17-2023 Tobacco smoking status NHIS Unknown if ever smoked [facility] Start: 07-10-2021 None [facility] Start: 08-03-2018 Spouse/ Signif icant Other [facility] Start: 07-10-2021 Non-smoker [facility] Start: 1955 Sex Assigned At Male [facility] Mental Status Date Assessment Result Facility 06-05-2022 Cognitive function Level Of Cons ciousness Awake;Alert;Appropriate;Follow s Commands [facility] Work Phone: Evaluation note Note Date & Type Note Facility Evaluation note Diagnosis Onset Date Abnormal lung examination ac jh Acute URI acute Cough acute Tobacco dependence due to cigarettes chronic [facility] Work Phone: Evaluation note Note Date & Type Note Facility Evaluation note No assessment information availa ble [facility] Work Phone: Evaluation note Note Date & Type Note Facility Evaluation note Diagnosis Onset Date Fatigue acute CAD (coronary artery disease) chronic Hyperlipidemia chronic Stented coronary artery 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 CAD (coronary artery disease) chronic Essential hypertension chron ic History of nicotine dependence chronic Hyperlipidemia chronic Stented coronary artery 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 [facility] Work Phone: Evaluation note Note Date & Type Note Facility Evaluation note Diagnosis Onset Date CAD (coronary artery disease) chronic Essential hypertension chron ic History of nicotine dependence chronic Hyperlipidemia chronic Stented coronary artery 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 Atherosclerotic heart diseas e of [place] coronary artery without angina pectoris acute Dysuria acute Urinary frequency acute Essential hypertension chron ic Hyperlipidemia chronic Stented coronary artery 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 [facility] Work Phone: Summary Purpose Family History [...] Will No July 10 4:34pm Power of Pure Culture Operator No July 10, 2021 4:34pm Advance Directive Response Recorded Date/ Time Living Will No June 05 022 4:52pm Power of Pure Culture Operator No June 05, 2022 4:52pm Advance Directive Response Recorded Date/ Time Living Will No February 11 3:33pm Power of Pure Culture Operator No February 11 2 023 3:33pm Advance Directive Response Recorded Date/ Time Living Will No July 09 3:04pm Power of Pure Culture Operator No July 09, 2023 3:04pm Chief [...] Stented coronary artery Atherosclerotic heart disease of [place] coronary artery without angina pectoris Dysuria Urinary frequency Essential hypertension Hyperlipidemia Stented coronary artery Additional Source Comments (unrecognized sect ion and content) No Status Records FoundNo Status Records Found INFORMATION SOURCE (unrecogn ized section and content) DATE CREATED AUTHOR 12/04/2017 [facility] DATE CREATED AUTHOR AUTHOR'S ORGANIZ ATION 04/06/2025 [facility] Goals (unrecognized section and content) Goals may [...] MD Primary Care Provider Active Karen Bragg BLOOD BANK SUPERVISOR, BLOOD BANK SUPERVISOR-C Attending Provider Active FOR RECORDS PERTAINING TO [...] BE BASED ON THE PRIMARY CLINICAL RECORDS. [facility]. provides no warranty or guarantee of the accuracy or completeness of information in this document.
--- NOTE | 2025-04-06 15:53 | OP.PCM_ITS ---
Procedures Musculoskeletal 20xxx-29xxx: Other Procedure See Report Operative Report (Standard) Operative Information Date of Procedure: 04/06/25 Pre-Operative Diagnosis: C5-7 disc degeneration with stenosis, radiculomyelopathy Post-Operative Diagnosis: Same Surgery/Procedure Performed: C5-7 ACDF coverer: Yes Insurance Licensing Supervisor: Susy López Tasks completed by first grade teacher: Closing, Removing tissue, Implanting device, Hemostasis: Electrocautery and Retracting Type of Anesthesia: General RN Documented Start/Stop Times: Operation Date: 04/06/25 12:00 Case Time Into Pre-Op 04/06/25 09:53 Out of Pre-Op 04/06/25 12:06 Anesthesia Start 04/06/25 12:10 Into Room 04/06/25 12:10 Procedure Start 04/06/25 12:43 Procedure End 04/06/25 14:56 Anesthesia End 04/06/25 15:03 Out of Room 04/06/25 15:03 Procedure Start Time: 12:43 Procedure Stop Time: 14:56 Select all DRAINS/GRAFTS/IMPLANTS that apply: Drains Drain details: Scotts , Graft Graft details: Structural allograft corticocancellous strut and Implanted device Implanted device details: Medtronic Krum Elite plate instrumentation Estimated Blood Loss: 30 cc Specimen collected: No Description of surgery: Preoperative diagnosis: C5-7 disc degeneration with stenosis, radiculomyelopathy Postoperative diagnosis: Same Name of procedure: C5-7 anterior cervical discectomy and fusion with plate instrumentation - Anterior cervical fusion C5-6, CPT code 24716 - Anterior plate instrumentation C5-7, CPT code 16367/59 - Anterior cervical fusion C6-7, CPT code 20176/51 -C5-6 structural allograft bone with DBX, CPT code 35031 - C6-7 structural allograft bone with DBX, CPT code 00823 Attending surgeon: Terry Lebron M.D. Anesthesia: Gen. endotracheal Estimated blood loss: 30 mL Complications: None Instrumentation used: Medtronic Krum Elite plate, LASR corticocancellous block Indications: The patient is a pleasant 69-year-old gentleman who presented with progressive worsening dexterity and balance. MRI showed C5-7 disc degeneration with stenosis with cord compression with cord signal changes. In order to halt the progression of myelopathy, the patient requested surgical treatment. All risks and benefits of the procedure were explained to the patient. The risks include but are not limited to infection, bleeding, injury to nerves and vessels, vertebral artery injury, spinal cord injury, paralysis, vocal cord paralysis, injury to esophagus, pseudoarthrosis, need for further procedures, adjacent segment degeneration. Procedure: The patient was identified in the preoperative suite using unique patient identifiers. Skin was marked consent was taken and all questions were answered. The patient was then brought back to the operative room and a timeout was performed. General endotracheal anesthesia was given. Intraoperative neuro monitoring leads were applied. The patient was carefully positioned supine on a regular OR table. A lateral view with a C-arm was done to identify the level and to define the incision. The anterior neck was then prepped and draped in the usual fashion. A final timeout was then performed. A transverse skin incision was taken to the left of midline. Subcutaneous tissue was then divided with Bovie. Platysma was identified and cut along the incision with scissors. The fascial interval between the sternocleidomastoid and the larynx was developed. Omohyoid was identified and retracted. The esophagus with the larynx was retracted medially to reach the prevertebral fascia. Marker x-ray was performed with bent spinal needle and disc space and levels were confirmed. Longus coli muscle was elevated on both sides at and above and below C5-7 discs. Self-retaining retractors were then placed. A long handle knife was then used to perform annulotomy at C5-6. Disc fragments were removed with the pituitary. Preble pins were placed in C5 and C6 for disc distraction. Curettes and bur was utilized to remove cartilage from the endplates. Discectomy was performed laterally up to the uncovertebral joints. Posterior osteophytes were thinned down with the bur and adequate decompression in the central and foraminal areas were performed and PLL was thinned out. Once the disc space was prepared, trials of various sizes were utilized. Thorough irrigation was given. 6 mm LASR cortical cancellous allograft bone large footprint was then fashioned in such a way that concavities were burred out inferiorly and superiorly and half cc of DBX (demineralized bone matrix) was squeezed into the cancellous portion. The graft was then inserted into the C5-6 disc space. The retractors were then repositioned and the procedure was repeated for C6-7 disc with complete discectomy. Graft size was 6 mm at with large footprint at C6-7. The grafts were found to be in good apposition with good pullout strength. A 40 mm Medtronic Krum Elite plate was then fixed to C5-7 with 17 mm screws. A lateral x-ray was then taken to check the length of the screws. Both AP and lateral x-rays showed good positioning of plate and screws. The locking mechanism over the screw heads was then turned. Thorough irrigation was again given. Hemostasis was achieved. A Jud drain was then inserted. Closure was done with 3-0 Vicryl for the platysma and subcutaneous tissue layers and 4-0 Monocryl for the skin. Closure was done around the drain. Steri-Strips were applied and dressing was done with 4 x 4 gauze and Tegaderm. A cervical collar was then applied. The patient was then woken up from anesthesia extubated and taken to PACU in stable condition. From here, the patient will be transitioned to the floor. Intraoperative neuro monitoring was performed throughout this procedure. Motor evoked potentials were run periodically. All potentials remained at baseline throughout the procedure. I was present for the entire surgery and performed the surgery myself. Memory Care Program Resident Susy López PA-C. My physician hotel assistant general manager was a vital part of this case. They were important in appropriate retraction during the case, and protection of soft tissues during the procedure. Their intimate knowledge of the case and my steps aided in safe and expedient completion of the procedure as well as appropriate position of the patient during the surgery. They were also vital in assisting with closure under my direct supervision. Surgical Findings: See operative note Complications Complications: No
--- NOTE | 2025-04-06 18:01 | POSTOPAN2_ITS ---
Anesthesia Postop Eval I Sum Postop Eval Completion status Anesthesia document: Postop Eval 1 completed: Yes Anesthesia Postop Eval I Summary Anesthesia Postop Eval I Summary: Anesthesia Postop Eval I: Assessment Summary Airway patent Yes 04/06/25 15:21 PARTICLEBOARD FACTORY [email or web address] Spontaneous unlabored Yes 04/06/25 15:21 PARTICLEBOARD FACTORY WORKER.[email or web address] respirations Mental status Awake,Calm 04/06/25 15:21 PARTICLEBOARD FACTORY [email or web address].[email or web address] nausea No 04/06/25 15:21 PARTICLEBOARD FACTORY WORKER.SKOBY Vomiting No 04/06/25 15:21 PARTICLEBOARD FACTORY [email or web address] Anesthesia Postop Eval I: Fluid Summary Crystalloid volume administer 1,300 04/06/25 15:21 PARTICLEBOARD FACTORY [email or web address].SKOBY (ml) Colloids volume administered ( ml) Blood Product volume administered (ml) Total IV fluid infused 1,300 04/06/25 15:21 PARTICLEBOARD FACTORY [email or web address].SKOBY Anesthesia Postop Eval I: Summary Notes Anesthesia Complication No 04/06/25 15:21 PARTICLEBOARD FACTORY WORKER.ANTONINOOBChanel Anesthesia Complication Comment: Post-operative progress note Anesthesia: Postop Eval II Evaluation Mental status: Awake and Calm Pain Level: 2 nausea: No Vomiting: No Complications Anesthesia Complication: No
--- NOTE | 2025-04-06 18:01 | PCM.POSTANE2 ---
Anesthesia Postop Eval I Sum Postop Eval Completion status Anesthesia document: Postop Eval 1 completed: Yes Anesthesia Postop Eval I Summary Anesthesia Postop Eval I Summary: Anesthesia Postop Eval I: Assessment Summary Airway patent Yes 04/06/25 15:21 [email or web address] Spontaneous unlabored Yes 04/06/25 15:21 [email or web address] [email or web address] respirations Mental status Awake,Calm 04/06/25 15:21 [email or web address] [email or web address] nausea No 04/06/25 15:21 [email or web address] [email or web address].[email or web address] Vomiting No 04/06/25 15:21 [email or web address] [email or web address].SKOBY Anesthesia Postop Eval I: Fluid Summary Crystalloid volume administer 1,300 04/06/25 15:21 [email or web address] [email or web address].[email or web address] (ml) Colloids volume administered ( ml) Blood Product volume administered (ml) Total IV fluid infused 1,300 04/06/25 15:21 [email or web address] SPEC.SKOBY Anesthesia Postop Eval I: Summary Notes Anesthesia Complication No 04/06/25 15:21 ULTRASOUND SPEC.ANTONINOOBChanel Anesthesia Complication Comment: Post-operative progress note Anesthesia: Postop Eval II Evaluation Mental status: Awake and Calm Pain Level: 2 nausea: No Vomiting: No Complications Anesthesia Complication: No
--- NOTE | 2025-04-06 18:14 | CON.PCM.HO_ITS ---
<Statement entered by Wandy Triplett MD - 04/06/25 21:14> I have personally performed a face to face assessment of the patient and have reviewed the SUSI Note. Assessment & Plan Assessment/Plan (1) Cervical myelopathy: PLAN: C5-7 disc degeneration with stenosis, radiculomyelopathy, neurogenic claudication symptoms, low back pain, arthritic pain. PLAN: Plan #1 C5-7 ACDF on this date, performed by Dr. Terry Lebron. #2 CAD - ASA daily on HOLD per primary #3 HTN - on amlodipine and lisinopril (therapeutic interchange for benazepril) #4 HLD - continue atorvastatin and ezetimibe #5 GERD - on omeprazole at home (therapeutic interchange to pantoprazole) #6 depression - continue sertraline #7 insomnia - continue trazodone #8 pain - managed per primary #9 VTE - maintain SCDs Discussed CODE status at length, described FULL, DNRCCA with and without intubation, and DNRCC. He states that he feels that he "needs to give this surgery a chance to make a difference" and wants to be a FULL CODE at this time. He states that his and daughter both understand that he does not want long term care pharmacist placement on life support. HPI Consult Data Date of Consult: 04/06/25 HPI Narrative HPI Narrative: SENA SARMIENTO, is a 69 M who presents for C5-7 ACDF on this date, performed by Dr. Terry Lebron. PMHx of C5-7 disc degeneration with stenosis, radiculomyelopathy, neurogenic claudication symptoms, low back pain, arthritic pain. Has not been very physically active for a number of months now due to the degree of discomfort. He has essential hypertension that has been stable on amlodipine and benazepril, hyperlipidemia that has been stable on high-dose statin and Zetia. He is also on Zoloft and trazodone for sleep. He is on baby aspirin for history of CAD, PCI w/3 stents in 2012. He reports only occasional "puffs" off of his 's cigarette and has a nightly cold cocktail. He states that his last drink was over a week ago to prepare for this surgery. He denies sleep apnea and oxygen use at home. Hgb A1c drawn preoperatively demonstrated a value for pre-diabetes. Placed on fingerstick glucometer checks w/[facility]. [facility] Medical History Wears dentures Ambulates with cane Arthritis High cholesterol Restless legs Back pain Unsteady gait History of hiatal hernia History of ulceration Gastric reflux Heartburn Former smoker Leg cramps History of echocardiogram History of stress test Hypertension Cardiology follow-up encounter History of CHF (congestive heart failure) History of heart attack Preop exam for internal medicine Cervical spinal cord compression Cervical myelopathy Lumbar stenosis Spondylolisthesis Bilateral foot pain Gout Neurogenic claudication Claudication of both lower extremities Ceruminosis Elevated PSA Tunnel vision Dizziness Abnormal gait Hypogonadism in male Urinary frequency Dysuria History of nicotine dependence Atherosclerotic heart disease of [place] coronary artery without angina pectoris Fatigue Abnormal lung examination Alcohol abuse Anxiety Myocardial infarct Other and unspecified hyperlipidemia Essential hypertension LVH (left ventricular hypertrophy) Septic arthritis of shoulder, right Normochromic normocytic anemia Cellulitis CAD (coronary artery disease) Hyperlipidemia Gastroesophageal reflux disease Home Medications Medication Instructions Recorded Last Taken Type aspirin 81 mg chewable tablet 81 mg PO DAILY 08/03/18 04/05/25 History acetaminophen 325 mg tablet 650 mg (2 x 325 mg) PO Q6H PRN PRN 08/07/18 Unknown Rx Mild Pain (scale 0-3)/T>100.7 nitroglycerin 0.4 mg sublingual 0.4 mg sublingual PRN PRN Pain #20 04/03/23 Unknown Rx tablet tabs benazepril 10 mg tablet 10 mg PO DAILY #90 tabs 08/1504/05/25 Rx atorvastatin 80 mg tablet 80 mg PO QDAY #90 tabs 11/2304/05/25 Rx ezetimibe 10 mg tablet (Zetia) 10 mg PO DAILY #90 tabs 11/23/24 04/05/25 Rx omeprazole 40 mg capsule,delayed 40 mg PO DAILY #90 ca ps 11/23/24 04/06/25 Rx release sertraline 25 mg tablet (Zoloft) 25 mg PO QDAY #90 tab s 02/04/25 04/06/25 Rx trazodone 100 mg tablet See Rx Instructions PO QHS P RN 02/05/25 04/05/25 Rx insomnia #180 tabs amlodipine 10 mg tablet 10 mg PO QDAY 03/16/2504/06 History Allergy/AdvReac Type Severity Reaction Status Date / Time codeine Allergy Itching Verified 04/06/25 10:14 oxycodone Allergy Itching Verified 04/06/25 10:14 carvedilol AdvReac Intermediate Severe Verified 04/06/25 10:14 fatigue and lethargy, even on 3.125 Family History Father CVA (cerebral vascular accident) Hypertension Mother COPD (chronic obstructive pulmonary disease) Hypertension Thyroid disorder Sister Hypertension Brother Hypertension Other Myocardial infarction Surgical History Hx of colonoscopy History of esophagogastroduodenoscopy (EGD) History of coronary artery stent placement Presence of coronary angioplasty implant and graft History of rotator cuff surgery CAD (coronary artery disease), autologous vein bypass graft Stented coronary artery S/P rotator cuff repair Social History Smoking Status: Former smoker quit date: 03/21/23 Tobacco: How many years used: 52 alcohol intake: former substance use type: does not use caffeine: Yes Type: coffee Number of servings: 1 Prior Cardiac Testing/Procedures Prior Cardiac Testing/Procedures: Stress Test (Performed 04.01.25. Pharmacologic (Regadenoson) evaluation 2. Peak pharmacologic ECG with no ischemic changes. 3. No significant cardiac dysrhythmias noted. 5. 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 6. The gated Cardiolite study reports an LVEF of 66%.) ROS Constitutional Constitutional: Reports weakness; Denies change in weight, chills or fever(s) ENT HEENT: Denies headache(s) or hearing loss Cardiovascular Cardiovascular: Denies chest pain, claudication, dyspnea on exertion, edema, lightheadedness, orthopnea, palpitations, paroxysmal nocturnal dyspnea, rapid heart rate or syncope Respiratory/Chest Respiratory/Chest: Reports cough; Denies shortness of breath at rest or shortness of breath with exertion Gastrointestinal Gastrointestinal: Denies abdominal pain, coffee ground emesis, constipation, diarrhea, dyspepsia, hematemesis, hematochezia, loose stools, melena, nausea or vomiting Genitourinary Genitourinary: Denies difficulty urinating Musculoskeletal Musculoskeletal: Reports back pain, joint pain and neck pain Neurologic Neurologic: Reports numbness and tingling Psychiatric Psychiatric: Reports depression; Denies anxiety, homicidal ideation or suicidal ideation Endocrine Endocrinology: Denies cold intolerance or heat intolerance Hematologic/Lymphatic Hematologic/Lymphatic: Reports easy bruising; Denies easy bleeding Allergic/Immunologic Allergic/Immunologic: Denies asthma Physical Exam Const alert, oriented x3, average body habitus and healthy appearing General Appearance: cooperative HEENT normocephalic, head/scalp atraumatic, hearing grossly normal bilaterally, moist oral mucous membranes, oropharynx normal and dentition normal Mouth: oral and palatal mucosa normal Eyes PERRL Neck no lymphadenopathy, supple, no JVD and no carotid bruits Resp normal respiratory effort and clear to auscultation bilaterally Cardio regular rate, regular rhythm, S1 normal heart sound, S2 normal heart sound, no murmurs, no rub, no gallops and no clicks GI normal to inspection, nondistended, normoactive bowel sounds, soft to palpation, non-tender and non-distended; Negative for hepatosplenomegaly Extremity normal to inspection, full ROM and no clubbing, cyanosis or edema Skin Skin Narrative: surgical incision to left anterior neck, gauze drsg lightly saturated with serosanguineous drng. Neuro oriented x3 and moves all extremities Psych affect normal Medical Records Data Attestation: I reviewed the patient's medical records Lab / Micro Data Attestation: I reviewed the patient's lab results. 03/31/25 08:59 Labs: Laboratory Results - last 24 hr 04/06/25 10:17: POC Glucose 120 H Charges/Coding Visit Charges Office Visits / Consults: 59429 OV L3 Est 20min
[2025-04-06] MEDS: 0.9% Normal Saline (250mL Bag) 250 ML 15 ML IV (20:15)
[2025-04-06] MEDS: 0.9% Saline Lock 10 ML Syringe IV (20:15)
[2025-04-06] MEDS: Cefazolin 2 GM in 0.9% Normal Saline (100mL Bag) 100 ML IV (20:15)
[2025-04-06] MEDS: Senna/Docusate Sodium 1 Tablet 2 TABLET PO (20:16)
[2025-04-06] MEDS: HYDROcodone Bitartrate/Apap 5/325 Tablet PO (20:19)
[2025-04-07 03:25] VITALS: BP 171/87; PULSE 91; RESP 16; TEMP 36.6; O2SAT 95
[2025-04-07] MEDS: Cefazolin 2 GM in 0.9% Normal Saline (100mL Bag) 100 ML IV (03:36)
[2025-04-07 03:43] VITALS: PULSE 91
[2025-04-07] MEDS: 0.9% Saline Lock 10 ML Syringe IV (03:43)
[2025-04-07 04:12] VITALS: BP 131/61
--- NOTE | 2025-04-07 04:40 | RAD_ITS ---
PROCEDURE: CERV SPINE 2 OR 3 VIEWS 04/07/2025 REASON FOR EXAM: STATUS POST CERVICAL FUSION TECHNIQUE: Procedure Code: RADSPCL Modality: DX Procedure: CERV SPINE 2 OR 3 VIEWS COMPARISON: Radiograph on 04/06/2025. FINDINGS: Unremarkable lower cervical fusion metallic hardware at C5, C6 and C7 level. There are diffuse spondylotic changes. Findings are demonstrated to by diffuse disc space narrowing, osteophyte formation and degenerative endplate sclerosis. There is diffuse facet joint arthropathy with secondary bilateral neural foramina narrowing. No fracture or dislocation is seen. No aggressive lytic or blastic bony lesion is noted. Soft tissue emphysema of the neck, benign surgical finding. RAD/Cerv Spine 2 or 3 Views IMPRESSION: Unremarkable lower cervical fusion metallic hardware at C5, C6 and C7 level. Soft tissue emphysema of the neck, benign surgical finding. Reading [facility] [id number]
[2025-04-07 05:47] LABS: Hematocrit 37.1 % (40-54); Hemoglobin 13.0 g/dL (13.0-16.5); Immature Granulocytes Count 0.070 X10^3/uL (0.0-0.0); Mean Corp Hgb Conc 35.0 g/dL (32-36); Mean Corpuscular Volume 89.4 fL (80-94); Mean Platelet Vol. 10.7 fl (6.2-12.0); NRBC Flagged by Analyzer 0 % (0-5); Platelet Count 278 K/mm3 (150-450); RBC Distribution Width CV 13.8 % (11.6-14.6); RBC Distribution Width SD 45.3 fl (35.1-43.9); Red Blood Count 4.15 M/mm3 (4.6-6.2); White Blood Count 12.0 K/mm3 (4.4-11.0)
[2025-04-07 06:27] LABS: Anion Gap 14 (5-15); BUN 8 mg/dL (4-19); BUN/Creat Ratio 8.8 RATIO (10-20); Calcium,Total 8.7 mg/dL (7.6-11.0); Carbon Dioxide 21.7 mmol/L (21.0-32.0); Chloride 97 mmol/L (98-108); Estimated Creatinine Clearance 75.43 ml/min (50-250); Glucose 152 mg/dL (70-99); Potassium 4.1 mmol/L (3.3-5.1)
[2025-04-07 08:28] VITALS: BP 145/81; PULSE 80; RESP 17; TEMP 36.6; O2SAT 94
[2025-04-07] MEDS: Senna/Docusate Sodium 1 Tablet 2 TABLET PO (10:37)
--- NOTE | 2025-04-07 10:43 | CASEMGMT ---
Pt up ambulating halls indep. No PT or OT recommended at this time.
--- NOTE | 2025-04-07 11:12 | DCINST_ITS ---
Discharge Instructions DC O2, CPAP, BIPAP needs Home O2 Discharge instructions: No Follow Up Care Test Results: Test results from this visit will be discussed in further detail at your follow- up appointment, if applicable. Discharge Plan Admission Admit Date/Time: 04/06/25 15:04 Attending Provider: Terry Lebron Primary Care Provider: Dhara Best Consulting Providers: Wandy Triplett; Nestor Schultz Instructions Patient Instructions: Cervical Fusion Dc Additional Instructions / Restrictions: Keep Tegaderm and gauze clean and dry. After 5 days remove the Tegaderm and gauze and cover incision with a Band-Aid. Replace Band-Aid daily thereafter. Wear cervical collar full-time for the first 2 weeks. Eat soft solid foods as needed for dysphagia. Sleep in a recliner to help with swelling. No bending, lifting, twisting. Follow-up in clinic in 2 weeks. Discharge Orders/Prescriptions Prescriptions: New hydrocodone-acetaminophen 5-325 mg Tablet 1 tab PO Q6H PRN (Reason: pain) 7 Days Qty: 28 0RF methocarbamol 500 mg Tablet 750 mg PO TID PRN (Reason: Pain/spasms) Qty: 30 0RF sennosides-docusate sodium [Stimulant Laxative Plus] 8.6-50 mg Tablet 2 tab PO BID PRN (Reason: constipation) Qty: 14 0RF meloxicam 15 mg tablet 15 mg PO DAILY Qty: 30 0RF Rx Instructions: Take once a day Continued amlodipine 10 mg tablet 10 mg PO QDAY acetaminophen 325 MG tablet 650 mg PO Q6H PRN PRN (Reason: Mild Pain (scale 0-3)/T>100.7) 0RF nitroglycerin 0.4 mg tablet, sublingual 0.4 mg SUBLINGUAL PRN PRN (Reason: Pain) Qty: 20 0RF benazepril 10 mg tablet 10 mg PO DAILY Qty: 90 3RF atorvastatin 80 mg tablet 80 mg PO QDAY Qty: 90 3RF ezetimibe [Zetia] 10 mg tablet 10 mg PO DAILY Qty: 90 3RF omeprazole 40 mg capsule,delayed release(DR/EC) 40 mg PO DAILY Qty: 90 3RF sertraline [Zoloft] 25 mg tablet 25 mg PO QDAY Qty: 90 1RF trazodone 100 mg tablet See Rx Instructions PO QHS PRN (Reason: insomnia) Qty: 180 0RF Rx Instructions: Take 1-2 tabs p.o. nightly for sleep. Held aspirin 81 MG tablet,chewable 81 mg PO DAILY Hold Instructions: Resume on 04/08/25. Referrals / Follow Up: Dhara Best MD [Primary Care Provider, Internal Medicine - [facility]] Disposition Disposition (needs filled in before D/C Order can be placed): Home, Self Care
--- NOTE | 2025-04-07 11:12 | PN.ORTHO_ITS ---
Subjective Subjective Patient is postop day 1 C5-7 ACDF. Patient is doing well postoperatively with his pain well-controlled. The patient has been up and walking. Patient denies any significant pain. Denies any significant dysphagia. PT/OT on board. Patient was seen at the bedside this morning. Reviewed PT notes which says patient is safe to be discharged home. Patient says that his dressing was changed approximately 3-4 times. The last time was in the middle of the night. Seen with Dr. Lebron. Objective Data Objective Data Vital Signs: Vital Signs Temp Pulse Resp BP Pulse Ox O2 Del Method O2 Flow Rate 97.9 F 80 17 145/81 H 94 Room Air 2 04/07/25 08:28 04/07/25 08:28 04/07/25 08:28 04/07/25 08:28 04/07/25 08:28 04/07/25 08:29 04/06/25 18:48 Oxygen Flow Rate (L/min) 2 Oxygen Delivery Method Room Air Weight: 195 lb Body Mass Index (BMI) 33.5 Intake & Output: Intake and Output for Last 24 Hours 04/05/25 04/06/25 04/07/25 23:59 23:59 23:59 Intake Total 1620.75 / 1620.75 944.75 / 944.75 Output Total Balance 1590.75 / 1590.75 944.75 / 944.75 Lab / Micro Data 04/07/25 05:06 04/07/25 05:06 Labs: Laboratory Results - last 24 hr 04/06/25 10:17: POC Glucose 120 H 04/07/25 05:06: WBC 12.0 H, RBC 4.15 L, Hgb 13.0, Hct 37.1 L, MCV 89.4, MCH 31.3, MCHC 35.0, RDW Std Deviation 45.3 H, RDW Coeff of [place] 13.8, Plt Count 278, MPV 10.7, Immature Gran % (Auto) 0.600, Neut % (Auto) 89.6 H, Lymph % (Auto) 5.9 L, Mcleod % (Auto) 3.8, Eos % (Auto) 0.0, Baso % (Auto) 0.1, Absolute Neuts (auto) 10.7 H, Absolute Lymphs (auto) 0.70 L, Nucleated RBC % 0, Sodium 132 L, Potassium 4.1, Chloride 97 L, Carbon Dioxide 21.7, Anion Gap 14, BUN 8, Creatinine 0.94, Estim Creat Clear Calc 75.43, Est GFR (MDRD) Non-Af 88, B UN/Creatinine Ratio 8.8 L, Glucose 152 H, Calcium 8.7 Micro: Microbiology 03/31/25 08:59 Swab (Method) Nasal Screen MRSA/MSSA - Final Radiography Diagnostic Testing: Radiology Impression Cervical Spine X-Ray 04/06/25 11:00 IMPRESSION: As above. Disclaimer: Reading Location: [id number] Cervical Spine X-Ray 04/07/25 04:40 IMPRESSION: Unremarkable lower cervical fusion metallic hardware at C5, C6 and C7 level. Soft tissue emphysema of the neck, benign surgical finding. Reading Location: [place] [id number] Physical Exam Narrative Drain removed. Tegaderm and gauze was applied over the incision. Neurological examination of the upper extremities shows 5X5 power. Normal sensation across all dermatomes. Cervical collar was reapplied and patient was instructed on the proper wear. Const alert, oriented x3 and no apparent distress Assessment & Plan Assessment/Plan (1) Status post cervical spinal fusion: PLAN: Plan Patient is postop day 1 C5-7 ACDF. Obtained reviewed x-rays today which show hardware and bone graft in good position. Patient is comfortable with very minimal pain. PT/OT cleared. Plan for home discharge today, home medications include [place], methocarbamol, meloxicam, senna. OARRS reviewed. Educated and reviewed on the use of the incentive spirometer. Educated and reviewed restrictions of no bending, lifting, twisting. Educated and reviewed on the proper use and wear of the cervical collar. He will follow-up in the clinic in 2 weeks, sooner if needed for any new or worsening issues. Patient is in agreement with the plan.
--- NOTE | 2025-04-07 12:47 | PHA.DC.MR.R ---
Pharmacy [place] Med Reconciliation Pharmacy Service has performed discharge medication reconciliation for this patient. Medication education papers prepared, patient discharged before counseling was attempted. The patient's discharge medication list was reviewed for discrepancies and discrepancies were resolved. Medications at Discharge Home Medications aspirin 81 mg chewable tablet 81 mg PO DAILY 08/03/18 Held on 04/07/25. Instructions: Resume on 04/08/25. acetaminophen 325 mg tablet 650 mg (2 x 325 mg) PO Q6H PRN PRN Mild Pain (scale 0-3)/T>100.7 08/07/18 nitroglycerin 0.4 mg sublingual tablet 0.4 mg sublingual PRN PRN Pain #20 tabs 04/03/23 benazepril 10 mg tablet 10 mg PO DAILY #90 tabs 09/02/24 atorvastatin 80 mg tablet 80 mg PO QDAY #90 tabs 11/23/24 ezetimibe 10 mg tablet (Zetia) 10 mg PO DAILY #90 tabs 11/23/24 omeprazole 40 mg capsule,delayed release 40 mg PO DAILY #90 caps 11/23/24 sertraline 25 mg tablet (Zoloft) 25 mg PO QDAY #90 tabs 02/04/25 trazodone 100 mg tablet See Rx Instructions PO QHS PRN insomnia #180 tabs 02/05/25 amlodipine 10 mg tablet 10 mg PO QDAY 03/16/25 hydrocodone-acetaminophen 5-325mg 5mg-325mg 1 tab PO Q6H PRN pain 7 days #28 tabs 04/07/25 meloxicam 15 mg tablet 15 mg PO DAILY #30 tabs 04/07/25 methocarbamol 500 mg tablet 750 mg (1.5 x 500 mg) PO TID PRN Pain/spasms #30 tabs 04/07/25 sennosides 8.6 mg-docusate sodium 50 mg tablet (Stimulant Laxative Plus) 2 tab PO BID PRN constipation #14 tabs 04/07/25
== END 2025-04-07 11:50 | disposition home or self-care (01) ==
LOC: SDC 15:19 → MS3 15:19
PROVIDERS: Student in an Organized Health Care Education/Training Program; Admitting Provider Orthopaedic Surgery Orthopaedic Surgery of the Spine; PCP Internal Medicine; Referring Provider Orthopaedic Surgery Orthopaedic Surgery of the Spine; Visit Provider Orthopaedic Surgery Orthopaedic Surgery of the Spine
PROC: (CPT 22551; principal; 2025-04-06 11:30)
DX: M48.062 Spinal stenosis, lumbar region with neurogenic claudication (principal); I50.9 Heart failure, unspecified; I11.0 Hypertensive heart disease with heart failure; M43.16 Spondylolisthesis, lumbar region; M50.022 Cervical disc disorder at C5-C6 level with myelopathy; E78.00 Pure hypercholesterolemia, unspecified; Z79.82 Long term (current) use of aspirin; K21.9 Gastro-esophageal reflux disease without esophagitis; I25.10 Atherosclerotic heart disease of native coronary artery without angina pectoris; Z95.5 Presence of coronary angioplasty implant and graft; Z87.891 Personal history of nicotine dependence; Z79.899 Other long term (current) drug therapy; I25.2 Old myocardial infarction; F32.A Depression, unspecified; G47.00 Insomnia, unspecified
CPT/HCPCS: 22551; 22845; 22552; 20931; 00670; 36415; 72040; 76000; 80048; 82962; 83036; 83735; 85025; 86850; 86900; 86901; 87081; 96365; 96366; 96375; 96376; 97165; 99221; C1713; A4216; G0378; J2405